=== PATIENT | female | born 1950 | race Caucasian/White ===

== ENCOUNTER → 2017-09-20 09:49 | Outpatient (CLI) | payer MEDICARE, SELFPAY ==
--- NOTE | 2017-09-20 09:53 | XR_ITS ---
XR DEXA axial skeleton HISTORY: ITS.REASON: POST MENOPAUSAL ORDERING PHYSICIAN: Jamie Fields MD PATIENT AGE: 66 years COMPARISON: None FINDINGS: The BMD measured at the L1 L4 is 0.769 g/cm squared with a T score of -3.4. This is considered osteoporotic according to the World Health Organization criteria. Fracture risk is high. Treatment should be started if not already prescribed. IMPRESSION: Osteoporosis with high fracture risk. Recommend follow-up exam August 2018
== END ==
PROVIDERS: Family Provider Family Medicine; PCP Family Medicine; Visit Provider Family Medicine
DX: N95.9 Unspecified menopausal and perimenopausal disorder (principal); Z78.0 Asymptomatic menopausal state; Z13.820 Encounter for screening for osteoporosis
CPT/HCPCS: 77080

== ENCOUNTER → 2017-11-17 11:09 | Outpatient (CLI) | payer MEDICARE, SELFPAY ==
--- NOTE | 2017-11-17 11:19 | XR_ITS ---
XR hip LT 2-3V w/pelvis HISTORY: ITS.REASON: LEFT HIP PAIN ORDERING PHYSICIAN: Jamie Fields MD PATIENT AGE: 67 years COMPARISON: None FINDINGS: No fracture or dislocation is evident. No significant degenerative change. No lytic or blastic change. Unremarkable soft tissues IMPRESSION: Negative hip
== END ==
PROVIDERS: PCP Family Medicine; Visit Provider Family Medicine
DX: M25.552 Pain in left hip (principal)
CPT/HCPCS: 73502

== ENCOUNTER → 2018-01-11 10:19 | Outpatient (CLI) | payer MEDICARE, SELFPAY ==
[2018-01-11 12:07] LABS: Albumin Level 3.9 gm/dL (3.4-5.0); Calcium 9.9 mg/dL (8.5-10.1); Creatinine,Serum 0.76 mg/dL (0.55-1.02); Estimated Glomerular Filt Rate 76 ml/min (>60); GFR (African American) 92 ML/MIN (>60)
== END ==
PROVIDERS: Visit Provider Family Medicine
DX: M81.0 Age-related osteoporosis without current pathological fracture (principal)
CPT/HCPCS: 36415; 82040; 82310; 82565

== ENCOUNTER 2018-01-13 10:35 | Outpatient (CLI) | payer MEDICARE, SELFPAY ==
[2018-01-13 11:05] VITALS: BP 91/37; PULSE 50; RESP 18
[2018-01-13 11:20] VITALS: BP 104/52; PULSE 47; RESP 18
== END 2018-01-13 11:30 | disposition home or self-care (01) ==
LOC: INF 10:45
PROVIDERS: Family Provider Family Medicine; PCP Family Medicine; Visit Provider Family Medicine
DX: M81.0 Age-related osteoporosis without current pathological fracture (principal)
CPT/HCPCS: 96374; J3489

== ENCOUNTER → 2018-10-20 09:39 | Outpatient (CLI) | payer MEDICARE, SELFPAY ==
--- NOTE | 2018-10-20 09:50 | CT_ITS ---
CT head/brain wo con HISTORY: Headache, dizziness, head injury with pain ITS.REASON: DIZZINESS,CONCUSION W/O LOSS OF CONSCIOUSNESS,HEADACHE ORDERING PHYSICIAN: Jamie Fields MD PATIENT AGE: 68 years COMPARISON: None TECHNIQUE: Axial images obtained without contrast. Brain and bone windows reviewed. All CT scans at the facility use one or more dose reduction, viz: automated exposure control, ma/kV adjustment per patient size (including targeted exams where dose is matched to indication, i.e. head), or iterative reconstruction technique. FINDINGS: No midline shift, mass effect, intracranial hemorrhage, hydrocephalus, or extra-axial fluid collection is evident. There are involutional changes of age with mild volume loss The calvarium has an unremarkable appearance. No mastoid effusion. No sinus air-fluid levels.. IMPRESSION: No acute intracranial findings
== END ==
PROVIDERS: PCP Family Medicine; Visit Provider Family Medicine
DX: G44.89 Other headache syndrome (principal); S06.0X0D Concussion without loss of consciousness, subsequent encounter; R42 Dizziness and giddiness
CPT/HCPCS: 70450

== ENCOUNTER 2019-01-16 18:51 | Observation (INO) ==
--- NOTE | 2019-01-16 19:37 | History & Physical Report ---
*Admission Date: 01/16/19 *Chief complaint: abd pain/diarrhea/unable to eat *History of present illness: 68-year-old female with history of irritable bowel syndrome developed low-grade fevers with vomiting and diarrhea beginning January 13. Fevers, vomiting, diarrhea persisted for 48 hours before vomiting resolved. At this point patient began trying to drink a little more although any attempt to drink would cause retching. Patient developed a lesion on the tongue that was painful that also made drinking difficult. Despite attempts to power through and drink water each time the patient drank she would develop abdominal pain and would have to urgently get to the bathroom because of small watery diarrhea. Fevers persisted as did mild episodes of diaphoresis. Patient was unable to take any of her home medications which does include hydrocodone 10 mg 4 times a day. She also developed tremulousness and while she did not have any falls was very unsteady on her feet and weak. She required the assistance of her daughter when present to ambulate back and forth to the bathroom in bed. On January 16 patient was evaluated at a home visit. Patient was weak and unsteady on her feet. She had signs of dehydration and a large aphthous ulcer on the tongue as the source of her pain. I witnessed patient attempted to eat some soup and after 2 small spoonfuls patient had to go to the bathroom where she developed diarrhea. Decision was made to admit the patient for IV fluids and bowel rest. Her last meal prior to getting ill with some roasted chicken that may have been 5 to 6 days old. 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 Smoking Status: Never smoker Alcohol Intake: never Substance Use Type: denies use *Occupational Status:: retired *Travel in the last 8 weeks: None Family Hx:: Coronary Artery Disease, Hypertension Review of Systems - Review of Systems Review of systems:: pertinent systems reviewed and negative unless documented below - Constitutional Reports anorexia, Reports body ache(s), Reports chills, Reports excessive sweating, Reports fever(s), Reports headache(s), Reports lack of energy, Reports weakness - ENT Reports mouth lesions, Reports mouth pain - *Cardiovascular Denies chest pain - *Respiratory Denies chest congestion, Denies cough - *Gastrointestinal Reports abdominal pain, Reports change in bowel habits, Reports cramping, Reports loose stools, Reports difficulty swallowing, Reports feeling full early, Reports loose stools, Reports nausea, Reports pain with swallowing, Reports constant urge to pass stool, Reports vomiting - *Musculoskeletal Reports joint pain, Reports decreased muscle mass, Reports limited joint movement, Reports body aches, Reports numbness - *Neurologic Reports abnormal walking, Reports headache(s) Meds Home Medications Medication Instructions Recorded Confirmed Type Hydrocodone/Acetaminophen [Lortab 1 tab PO Q6HP PRN 01/13/18 01/16/19 History 10/325mg tablet] Levothyroxine Sodium 75 mcg PO DAILY 01/13/18 01/16/19 History [Levothyroxine 75mcg (0.075mg) Tab] Pantoprazole Sodium [Protonix 40mg 40 mg PO DAILY 01/13/18 01/16/19 History tablet] Tizanidine HCl 4 mg PO TIDP PRN 01/13/18 01/16/19 History Triazolam [Halcion] 0.5 mg PO HS 01/13/18 01/16/19 History clonazePAM [Clonazepam] 0.5 mg PO BID 01/13/18 01/16/19 History Lisinopril [Lisinopril 2.5mg Tab] 2.5 mg PO DAILY 01/16/19 01/16/19 History Allergies Allergy/AdvReac Type Severity Reaction Status Date / Time clindamycin Allergy Mild I-RASH Verified 01/13/18 10:50 NSAIDS (Non-Steroidal Allergy Unknown STOMACH Verified 01/13/18 10:50 Anti-Inflamma PAIN/VOMITING/TREMORS [NSAIDS (NON-STEROIDAL ANTI-INFLAMMA] paroxetine Allergy Unknown ALL SSRI'S Verified 01/13/18 10:50 Assessment and Plan (1) Gastroenteritis Current visit: Yes Status: Acute Category: Medical Code(s): K52.9 - Noninfective gastroenteritis and colitis, unspecified Admit for IV fluids, labs, anti-emetics (2) Dehydration Current visit: Yes Status: Acute Category: Medical Code(s): E86.0 - Dehydration (3) Aphthous stomatitis Current visit: Yes Status: Acute Category: Medical Code(s): K12.0 - Recurrent oral aphthae - Assessment and plan all Dx Assessment and Plan for all problems:: Admit for IV fluids, antiemetics and bowel rest. Clear liquids will be ordered.
[2019-01-16 20:32] LABS: Anion Gap 14.5 mEq/L (5-15); Calcium 9.3 mg/dL (8.5-10.1); Potassium 3.5 mmoL/L (3.5-5.1)
[2019-01-16 20:38] LABS: Basophils % 0.3 % (0.1-2.0); Eosinophils # 0.1 K/mm3 (0.0-0.4); Eosinophils % 0.9 % (0.1-12.0); Hematocrit 40.2 % (37.0-47.0); Lymphocytes # 2.1 K/mm3 (0.7-4.5); Lymphocytes % 32.7 % (10-50); Mean Corpuscular HGB Conc 34.7 g/dL (31.8-35.4); Mean Corpuscular Hemoglobin 30.6 pg (27.0-31.2); Mean Corpuscular Volume 88.2 fl (81-99); Mean Platelet Volume 7.7 fl (7.4-10.4); Monocytes # 0.4 K/mm3 (0.1-1.0); Monocytes % 6.3 % (1.7-9.3); Neutrophils # 3.8 K/mm3 (1.8-7.8); Neutrophils % 59.7 % (37.0-80.0); Platelet Count 234 K/mm3 (142-424); Red Blood Count 4.56 M/mm3 (4.20-5.40); Red Cell Distribution Width 12.5 % (11.5-17.5); White Blood Count 6.3 K/mm3 (4.8-10.8)
--- NOTE | 2019-01-17 07:17 | Pharmacy Consult Notes ---
[facility] Pharmacy VTE Monitoring - Patient Demographics Admission date: 01/16/19 Report Date: 01/17/19 Time: 07:17 Allergies/Adverse Reactions: Patient Allergies clindamycin Allergy (Mild, Verified 01/13/18 10:50) I-RASH NSAIDS (Non-Steroidal Anti-Inflamma [NSAIDS (NON-STEROIDAL ANTI-INFLAMMA] Allergy (Unknown, Verified 01/13/18 10:50) STOMACH PAIN/VOMITING/TREMORS paroxetine Allergy (Unknown, Verified 01/13/18 10:50) ALL SSRI'S Height: 1.55 m Weight: 41.504 kg Patient Problems: Current Active Problems (Updated 01/16/19 @ 19:37 by Jamie Fields MD) Gastroenteritis (Acute) Dehydration (Acute) Aphthous stomatitis (Acute) - VTE Risk Labs: VTE Related Lab Results Hgb 14.0 g/dL (12.2-16.2) 01/16/19 20:00 Hct 40.2 % (37.0-47.0) 01/16/19 20:00 Plt Count 234 K/mm3 (142-424) 01/16/19 20:00 BUN 9 mg/dL (7-18) 01/16/19 20:00 Creatinine 0.80 mg/dL (0.55-1.02) 01/16/19 20:00 Estimated Creat Clear 36 mL/min (50-200) 01/16/19 20:00 Was VTE Risk Assessment Performed: Yes VTE Score: 4 VTE Risk Level: Low Risk Clinical Trial Participant: No - Prophylaxis VTE Prophylaxis Ordered?: Yes Types of VTE Prophylaxis: TEDS Knee High
--- NOTE | 2019-01-17 07:31 | Progress Note ---
Internal Medicine - PN: Subj *Date: 01/17/19 *Time: 07:28 Interval history: Patient had 3 loose stools overnight. She was able to drink a small can of denny zaid and is tolerated some ice chips without retching. She has been to the bathroom with assistance. She has developed headache overnight Exam Vital signs and Labs for Last 24 Hours: Temp Pulse Resp BP Pulse Ox 98.3 F 56 L 15 144/64 H 96 01/17/19 04:00 01/17/19 04:00 01/17/19 04:00 01/17/19 04:00 01/17/19 04:00 Laboratory Results - last 24 hr 01/16/19 20:00: WBC 6.3, RBC 4.56, Hgb 14.0, Hct 40.2, MCV 88.2, MCH 30.6, MCHC 34.7, RDW 12.5, Plt Count 234, MPV 7.7, Neut % (Auto) 59.7, Lymph % (Auto) 32.7, [place] % (Auto) 6.3, Eos % (Auto) 0.9, Baso % (Auto) 0.3, Neut # (Auto) 3.8, Lymph # (Auto) 2.1, [place] # (Auto) 0.4, Eos # (Auto) 0.1, Baso # (Auto) 0.0 01/16/19 20:00: Sodium 143, Potassium 3.5, Chloride 106, Carbon Dioxide 26, Anion Gap 14.5, BUN 9, Creatinine 0.80, Estimated Creat Clear 36, Estimated GFR 72, Est GFR ( Amer) 87, Glucose 87, Calcium 9.3 I & O for Last 24 hours: Intake & Output 01/14/19 01/15/19 01/16/19 01/17/19 11:59 11:59 11:59 11:59 Intake Total 1000 / 1000 Balance 1000 / 1000 Weight 91 lb 8.01 oz Narrative: Patient awakens easily this morning. The aphthous ulcer on her tongue is quite large and unchanged since yesterday. Oropharynx reveals tacky mucous membranes. Neck is without lymphadenopathy. Lungs are clear. Heart has a regular rate and rhythm. Abdomen is soft with left upper and left lower quadrant tenderness to palpation. Assessment and Plan (1) Gastroenteritis Current visit: Yes Status: Acute Category: Medical Code(s): K52.9 - Noninfective gastroenteritis and colitis, unspecified (2) Dehydration Current visit: Yes Status: Acute Category: Medical Code(s): E86.0 - Dehydration (3) Aphthous stomatitis Current visit: Yes Status: Acute Category: Medical Code(s): K12.0 - Rec urrent oral aphthae - Assessment and plan all Dx Assessment and Plan for all problems:: Continue IV fluids. Observe how patient does with liquid diet today. At this time we will continue morphine for her chronic pain. Recommend she get out of bed to chair today.
--- NOTE | 2019-01-18 07:32 | Progress Note ---
Internal Medicine - PN: Bi *Date: 01/18/19 *Time: 07:30 Interval history: Patient attempted liquids yesterday with total 24-hour intake of a little over 1400 mL's. However each time patient ingested fluids she would develop significant diarrhea. This reflexed an order for a stool study which was negative for bacterial, viral, parasitic infection. Patient developed significant abdominal cramping. She has not had any vomiting Exam Vital signs and Labs for Last 24 Hours: Temp Pulse Resp BP Pulse Ox 98.3 F 57 L 18 153/79 H 99 01/18/19 03:45 01/18/19 03:45 01/18/19 03:45 01/18/19 03:45 01/18/19 03:45 Laboratory Results - last 24 hr 01/17/19 18:30: Stl Aeromonas (PCR) Not detected, Stl C. cayetanensis PCR Not detected, Stool Rotavirus (PCR) Not detected, Stl Adenov F 40/41 PCR Not detected, Stool Astrovirus (PCR) Not detected, Stool Campylobacter PCR Not detected, Stl C.difficile Tox PCR Not detected, Stool Cryptosporidium PCR Not detected, Stl E.coli Shiga Tox PCR Not detected, Stool E coli O157 PCR Not detected, Stl Enterotoxigenic E PCR Not detected, Stool EPEC (PCR) Not detected, Stool EAEC (PCR) Not detected, Stl E. histolytica PCR Not detected, Stool Giardia Lamblia PCR Not detected, Stool Salmonella PCR Not detected, Stool Sapovirus (PCR) Not detected, Stl P. shigelloides PCR Not detected, Stl Shigella/EIEC PCR Not detected, St Y.enterocolitica PCR Not detected, Stool Vibr io (PCR) Not detected, Stl Vibrio cholerae PCR Not detected, Stl Norovirus GI/GII PCR Not detected I & O for Last 24 hours: Intake & Output 01/15/19 01/16/19 01/17/19 01/18/19 11:59 11:59 11:59 11:59 Intake Total 1000 / 1000 4394 / 4394 Balance 1000 / 1000 4394 / 4394 Weight 91 lb 8.01 oz 92 lb 3 oz Narrative: Patient appears to be in pain. She is laying in bed clutching her abdomen. Abdomen is distended more today than yesterday. Bowel sounds are hyperactive. Assessment and Plan (1) Gastroenteritis Current visit: Yes Status: Acute Category: Medical Code(s): K52.9 - Noninfective gastroenteritis and colitis, unspecified (2) Dehydration Current visit: Yes Status: Acute Category: Medical Code(s): E86.0 - Dehydration (3) Aphthous stomatitis Current visit: Yes Status: Acute Category: Medical Code(s): K12.0 - Recurrent oral aphthae (4) Irritable bowel syndrome with diarrhea Current visit: Yes Status: Acute Category: Medical Code(s): K58.0 - Irritable bowel syndrome with diarrhea - Assessment and plan all Dx Assessment and Plan for all problems:: 1. Continue IV fluids and clear liquid diet 2. Abdominal x-ray today 3. Patient is going to be given a dose of Reglan for her headache and this may help nausea to. 4. Increase Protonix to twice daily due to complaints of nausea and reflux.
--- NOTE | 2019-01-18 16:09 | Discharge Summary ---
General - General Admission date:: 01/16/19 Discharge date: 01/18/19 HPI HPI: 68-year-old female with history of irritable bowel syndrome developed low-grade fevers with vomiting and diarrhea beginning January 13. Fevers, vomiting, diarrhea persisted for 48 hours before vomiting resolved. At this point patient began trying to drink a little more although any attempt to drink would cause retching. Patient developed a lesion on the tongue that was painful that also made drinking difficult. Despite attempts to power through and drink water each time the patient drank she would develop abdominal pain and would have to urgently get to the bathroom because of small watery diarrhea. Fevers persisted as did mild episodes of diaphoresis. Patient was unable to take any of her home medications which does include hydrocodone 10 mg 4 times a day. She also developed tremulousness and while she did not have any falls was very unsteady on her feet and weak. She required the assistance of her daughter when present to ambulate back and forth to the bathroom in bed. On January 16 patient was evaluated at a home visit. Patient was weak and unsteady on her feet. She had signs of dehydration and a large aphthous ulcer on the tongue as the source of her pain. I witnessed patient attempted to eat some soup and after 2 small spoonfuls patient had to go to the bathroom where she developed diarrhea. Decision was made to admit the patient for IV fluids and bowel rest. Her last meal prior to getting ill with some roasted chicken that may have been 5 to 6 days old. Hospital Course Hospital Course: Patient was admitted for further observation and evaluation of abdominal pain, nausea, and diarrhea. IVFs were given for dehydration and to maintain fluid status. Patient has been tolerating clear liquid diet. Antiemetics ondansetron and reglan were given to nausea and retching symptoms. Diarrhea panel was negative. Pain managed with IV morphine PRN. Patient will go home and be monitored closely by daughter. Prescription for dicyclomine 20 mg QID will be sent to preferred pharmacy. Dr Fields will be taking care of the follow up. Objective Vital signs: Temp Pulse Resp BP Pulse Ox 98.7 F 66 16 145/89 H 99 01/18/19 15:28 01/18/19 15:28 01/18/19 15:01/18/19 15:19 15:28 no acute distress - *Routine Neck Exam Present: supple - *Routine Respiratory Exam Present: CTA bilaterally. Absent: accessory muscle use - *Routine Cardiovascular Exam Present: RRR, Normal S2. Absent: murmur, irregular rhythm - *Routine Abdominal Exam Present: soft Comments: generalized tenderness, hyperactive bowel sounds present - *Routine Extremities Exam Absent: cyanosis, edema - *Routine Neurological Exam Present: alert, oriented X3 - Routine Psychiatric Exam Present: normal affect Results Labs on day of discharge: Labs from last 24 hours 01/17/19 18:30 Stl Aeromonas (PCR) Not detected Stl C. cayetanensis PCR Not detected Stool Rotavirus (PCR) Not detected Stl Adenov F 40/41 PCR Not detected Stool Astrovirus (PCR) Not detected Stool Campylobacter PCR Not detected Stl C.difficile Tox PCR Not detected Stool Cryptosporidium PCR Not detected Stl E.coli Shiga Tox PCR Not detected Stool E coli O157 PCR Not detected Stl Enterotoxigenic E PCR Not detected Stool EPEC (PCR) Not detected Stool EAEC (PCR) Not detected Stl E. histolytica PCR Not detected Stool Giardia Lamblia PCR Not detected Stool Salmonella PCR Not detected Stool Sapovirus (PCR) Not detected Stl P. shigelloides PCR Not detected Stl Shigella/EIEC PCR Not detected St Y.enterocolitica PCR Not detected Stool Vibrio (PCR) Not detected Stl Vibrio cholerae PCR Not detected Stl Norovirus GI/GII PCR Not detected DS: Diagnosis - Discharge Diagnosis (1) Gastroenteritis Status: Acute (2) Dehydration Status: Acute (3) Aphthous stomatitis Status: Acute (4) Irritable bowel syndrome with diarrhea Status: Acute Discharge Plan - Patient Discharge Instructions ACTIVITY: Continue current activity DIET: advance to your usual diet Patient Instructions: Dehydration, Viral Gastroenteritis, DI for Dehydration -- Adult, DI for Viral Gastroenteritis -- Adult, DI for Bacterial Gastroenteritis -- Adult - Follow up Plan Disposition: Home, Self-Detention Medications: Home Medications Medication Instructions Recorded Confirmed Type Hydrocodone/Acetaminophen [Lortab 1 tab PO Q6HP PRN 01/13/18 01/16/19 History 10/325mg tablet] Levothyroxine Sodium 75 mcg PO DAILY 01/13/18 01/16/19 History [Levothyroxine 75mcg (0.075mg) Tab] Pantoprazole Sodium [Protonix 40mg 40 mg PO DAILY 01/13/18 01/16/19 History tablet] Tizanidine HCl 4 mg PO TIDP PRN 01/13/18 01/16/19 History Triazolam [Halcion] 0.5 mg PO HS 01/13/18 01/16/19 History clonazePAM [Clonazepam] 0.5 mg PO BID 01/13/18 01/16/19 History Lisinopril [Lisinopril 2.5mg Tab] 2.5 mg PO DAILY 01/16/19 01/16/19 History Dicyclomine HCl 20 mg PO QIDP PRN 7 Days #30 tab 01/18/19 Rx Prescriptions/Medication Reconciliation: Continued Hydrocodone/Acetaminophen [Lortab 10/325mg tablet] 1 tab PO Q6HP PRN PRN Reason: PAIN Pantoprazole Sodium [Protonix 40mg tablet] 40 mg PO DAILY Levothyroxine Sodium [Levothyroxine 75mcg (0.075mg) Tab] 75 mcg PO DAILY Triazolam [Halcion] 0.5 mg PO HS Tizanidine HCl 4 mg PO TIDP PRN PRN Reason: FIBROMYALGIA clonazePAM [Clonazepam] 0.5 mg PO BID Lisinopril [Lisinopril 2.5mg Tab] 2.5 mg PO DAILY
== END 2019-01-18 17:01 | disposition home or self-care (01) ==
LOC: 2ND
PROVIDERS: ADMIT Family Medicine; ATTEND Family Medicine
DX: E86.0 Dehydration; R51 Headache; Z88.6 Allergy status to analgesic agent; K12.0 Recurrent oral aphthae; Z88.1 Allergy status to other antibiotic agents; Z88.8 Allergy status to other drugs, medicaments and biological substances; Z79.899 Other long term (current) drug therapy; K52.9 Noninfective gastroenteritis and colitis, unspecified; K58.0 Irritable bowel syndrome with diarrhea; Z68.1 Body mass index [BMI] 19.9 or less, adult
CPT/HCPCS: 74021; 74022; 80048; 85025; 87507; G0378; J2405

== ENCOUNTER 2019-01-26 12:45 | Outpatient (CLI) | payer MEDICARE, SELFPAY ==
[2019-01-26 13:25] VITALS: BP 146/82; PULSE 72; RESP 18; TEMP 36.6; O2SAT 98
[2019-01-26 14:00] VITALS: BP 131/83; PULSE 68; RESP 18; TEMP 36.6; O2SAT 97
== END 2019-01-26 14:15 | disposition home or self-care (01) ==
LOC: INF 12:51
PROVIDERS: Visit Provider Family Medicine
DX: M47.892 Other spondylosis, cervical region (principal); M81.0 Age-related osteoporosis without current pathological fracture
CPT/HCPCS: 96365; J3489

== ENCOUNTER → 2019-09-10 10:15 | Outpatient (CLI) | payer MEDICARE, SELFPAY ==
--- NOTE | 2019-09-10 10:18 | XR_ITS ---
PROCEDURE: XR DEXA AXIAL SKELETON CLINICAL HISTORY: POST MENOPAUSAL OSTEOPAROSIS COMPARISON: No exams were available for comparison FINDINGS: Utilizing the femoral neck total bone mineral density is 0.55 grams/squared centimeter which T-score -2.8 indicating osteoporosis. Using L1 through L4 vertebrae total bone mineral density is 0.66 grams/squared centimeter which T-score -3.5 indicating osteoporosis. IMPRESSION: Osteoporosis with increased fracture risk Dictated by: Pascual Blankenship 09/10/2019 10:54 Electronically signed by Pascual Blankenship in [place] 09/10/2019 10:54
== END ==
PROVIDERS: PCP Family Medicine; Visit Provider Family Medicine
DX: M81.0 Age-related osteoporosis without current pathological fracture (principal)
CPT/HCPCS: 77080

== ENCOUNTER → 2019-12-25 11:39 | Outpatient (CLI) | payer MEDICARE, SELFPAY ==
--- NOTE | 2019-12-25 11:58 | MR_ITS ---
PROCEDURE: MR HEAD/BRAIN WO/W CON CLINICAL INDICATION: CVA, RIGHT HEMIPLEGIA, APHASIA Trouble speaking right-sided weakness, chronic pain finding COMPARISON: HEADWO CT head/brain wo con from 10/20/2018 TECHNIQUE: Routine multiplanar multi echo sequences are performed without and with gadolinium enhancement. FINDINGS: No midline shift, mass effect, intracranial hemorrhage, or hydrocephalus is evident. No evidence of acute infarction. The cerebellopontine angles, cerebellum, and brainstem have an unremarkable appearance. There is a small T2 white matter hyperintensity in the right parietal lobe and in the right frontal lobe deep white matter. These are nonspecific and could be due to small ischemic gliotic foci measuring approximately 3 mm. The hippocampal gyri are unremarkable in the temporal horns are symmetric. No enhancing lesions are apparent. No mastoid effusion or sinus air-fluid level. The pituitary, optic chiasm, corpus callosum, and craniocervical junction have an unremarkable appearance. IMPRESSION: 1. No acute intracranial findings. 2. There are 2 small T2 white matter hyperintensities 1 in the right frontal lobe and 1 in the right parietal lobe which may be due to small ischemic gliotic foci from microvascular disease 3. No evidence of acute infarction Dictated by: Trey Srivastava MD 12/25/2019 15:09 Electronically signed by Trey Srivastava MD in [place] 12/25/2019 15:09
[2019-12-25 12:01] LABS: Basophils % 0.4 % (0.1-2.0); Eosinophils % 0.4 % (0.1-12.0); Hematocrit 36.7 % (37.0-47.0); Hemoglobin 12.8 g/dL (12.2-16.2); Lymphocytes # 2.5 K/mm3 (0.7-4.5); Lymphocytes % 22.5 % (10-50); Mean Corpuscular HGB Conc 34.9 g/dL (31.8-35.4); Mean Corpuscular Hemoglobin 30.5 pg (27.0-31.2); Mean Corpuscular Volume 87.5 fl (81-99); Mean Platelet Volume 7.7 fl (7.4-10.4); Monocytes # 0.6 K/mm3 (0.1-1.0); Monocytes % 5.6 % (1.7-9.3); Neutrophils # 7.8 K/mm3 (1.8-7.8); Neutrophils % 71.1 % (37.0-80.0); Platelet Count 366 K/mm3 (142-424); Red Blood Count 4.19 M/mm3 (4.20-5.40)
[2019-12-25 12:08] LABS: Alanine Aminotransferase 11 U/L (12-78); Albumin Level 4.8 g/dl (3.5-5.0); Albumin/Globulin Ratio 1.8 (1.1-1.8); Alkaline Phosphatase 63 U/L (38-126); Anion Gap 8.9 mEq/L (5-15); Aspartate Amino Transferase 26 U/L (14-36); Bilirubin,Total 0.5 mg/dl (0.2-1.3); Blood Urea Nitrogen 13 mg/dl (7-17); Calcium 9.6 mg/dl (8.4-10.2); Carbon Dioxide 26 mmol/L (22.0-30.0); Chloride 104 mmol/L (98-107); Estimated Glomerular Filt Rate 71 ml/min (>60); GFR (African American) 86 ML/MIN (>60); Globulin 2.6 g/dL (1.3-3.2); Glucose 95 mg/dl (74-100); Sodium 136 mmol/L (136-145); Total Protein,Serum 7.4 g/dl (6.3-8.2)
[2019-12-25 12:11] LABS: Potassium 2.9 mmoL/L (3.5-5.1)
== END ==
LOC: RAD 11:41 → LAB 11:44
PROVIDERS: PCP Family Medicine; Visit Provider Family Medicine
DX: I63.89 Other cerebral infarction (principal)
CPT/HCPCS: 36415; 70553; 80053; 85025; A9576

== ENCOUNTER 2019-12-25 15:57 | Inpatient (IN) | payer MEDICARE, SELFPAY ==
[2019-12-25 16:13] VITALS: PULSE 75; RESP 18; TEMP 37.2; O2SAT 96; BMI 18.8
--- NOTE | 2019-12-25 17:51 | HMH.HP ---
*Admission Date: 12/25/19 *Chief complaint: Right arm and leg weakness, mental status changes, aphasia *History of present illness: 69-year-old female presented to my office today with altered mental status. Patient was accompanied by her daughter who provided most of the history. Yesterday evening a neighbor noticed that the patient's interior and exterior lights were on and a door was open to the house. The neighbor contacted the patient and had a conversation with the patient. Patient admits she does not remember this conversation and neighbor describes the conversation as not making much sense. Apparently the patient reported she was waiting for her daughter and granddaughters to arrive at her house. This occurred at 11:30 PM on the evening of December 23. Shortly after the patient's neighbor noted the doors were closed and the lights have been turned off. Neighbor contacted the patient's family. Family checked up on the patient this morning. Patient reported no memory of talking with the neighbor. Patient was also noted to be confused and was using words incorrectly. The patient was telling stories that did not make sense. With word substitution she repeatedly told her daughter something in regarding her head but would replace the word head with the word lunch . My office was contacted and patient was brought to the office. In the office it was also discovered the patient had had some right arm and leg weakness along with abnormal sensation in the right arm and leg for approximately the last 3 days. She was noticed to be stumbling with family over the past weekend. In the office patient's neurologic exam revealed some word finding difficulties, mild right bicep weakness, right wrist flexion and extension weakness, right hotel or motel receptionist weakness and right hip flexor weakness. Patient also had diminished sensation in the right upper and lower extremity. Concern was had for a CVA. Patient underwent an outpatient MRI with and without contrast of the brain. MRI was negative for acute infarction. In the time between patient leaving my office, having her MRI, and returning home family reported patient developed increasing right leg weakness and more confabulation. Patient was also witnessed by her daughter having difficulty swallowing. Labs done prior to the MRI did also reveal a hypokalemia. Patient does not take diuretics. She has had a diarrheal illness that has been attributed to irritable bowel syndrome. She has had diarrhea symptoms for the last 7 to 10 days. While with her daughter after the MRI patient also frequently reported the need to urinate but then was unable to urinate. She had recently use Bentyl for her irritable bowel syndrome and diarrhea associated with that. Patient denies having fevers. In the office she was also noted to be quite tremulous. Because of the persistent symptoms and findings of hypokalemia patient was admitted. 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
[2019-12-25 18:07] LABS: Microscopic, Urine URINE MICROSCOPIC (MICROSCOPIC)
[2019-12-25 18:09] LABS: Appearance,Urine CLEAR (Clear); Bilirubin,Urine Negative (Negative); Blood, Urine Negative (Negative); Color,Urine YELLOW (Yellow); Glucose,Urine (UA) Negative (Negative); Ketones,Urine Negative (Negative); Leukocyte Esterase,Urine 1+ (Negative); Nitrate,Urine Negative (Negative); Protein,Urine TRACE (Negative); Specific Gravity, Urine 1.025 (1.005-1.030); Urobilinogen,Urine 0.2 EU/dl (0.2)
[2019-12-25 18:22] LABS: Amphetamine/Metha Screen,Urine Negative ng/ml (<1000); Benzodiazepines Screen,Urine Negative ng/ml (<200)
[2019-12-25 18:23] LABS: Barbiturates Screen,Urine Negative ng/ml (<200); Cannabinoid Screen,Urine Negative ng/ml (<50)
[2019-12-25 18:24] LABS: Cocaine Screen,Urine Negative ng/ml (<300)
[2019-12-25 18:25] LABS: Methadone Screen,Urine Negative ng/ml (<300); Opiate Screen,Urine Positive ng/ml (<300)
[2019-12-25 18:26] LABS: Phencyclidine Screen,Urine Negative ng/ml (<25)
--- NOTE | 2019-12-25 18:32 | ECG_ITS ---
APPROVED REPORT Exam: Resting ECG HR:76 bpm ECG Measurements Heart Rate 76 AXES HI 122 P 50 QRSd 62 QRS 54 QT 430 T 70 QTc 483 <Conclusion> Normal sinus rhythm Normal ECG Electronically signed by : Jamie Berman, 12/26/2019 08:16:22
[2019-12-25 18:48] LABS: Lactic Acid 2.5 mmol/L (0.7-2.1)
[2019-12-25 18:50] LABS: Bacteria,Urine Trace /lpf; Squamous Epithelial Cell,Urine Occasional #/hpf (0-5)
[2019-12-25 19:56] VITALS: BP 138/65; PULSE 80; RESP 18; TEMP 37.3; O2SAT 97
[2019-12-25 20:00] VITALS: PULSE 80; O2SAT 98
[2019-12-25 21:52] LABS: Reflex Lactic Add Lactic Reflex
[2019-12-25 22:16] LABS: Lactic Acid Follow Up (RFLX 1) 1.2 mmol/L (0.7-2.1)
[2019-12-26] VITALS: BP 154/67; PULSE 77; PULSE 80; RESP 20; TEMP 37.1; O2SAT 98
--- NOTE | 2019-12-26 01:23 | PC.NURSE ---
Addendum entered by Shane Mathew RN 12/26/19 02:42: bilateral checking department supervisor equal w/o any BUE drift. Face and smile symmetrical and BLE equal and strong when pushing and pulling against resistance. Original Note: Pt's bed alarm went off at approximatly 0115. When this RN entered room pt was standing at bedside stating she was going home and that she may have said something to upset the lizzie . Attempted to reorientate pt in which she recited her name, but she was at the hospital in [place] . Pt returned to bed and alarm placed once again. Call gill within reach. Will continue to monitor.
[2019-12-26 04:00] VITALS: BP 150/79; PULSE 73; RESP 18; TEMP 36.8; O2SAT 97
--- NOTE | 2019-12-26 04:21 | PC.NURSE ---
During 0400 care rounds SRNA told this RN pt was having conversations among herself. This RN asked pt is she was hearing any voices and she stated no just maybe one but not like before . Pt was asked if she was seeing anyone else in the room and she said just me, you, Michelle in the chair, and Haja when he comes in .
[2019-12-26 05:37] VITALS: BMI 19.4
[2019-12-26 06:27] LABS: Alanine Aminotransferase 8 U/L (12-78); Albumin Level 4.3 g/dl (3.5-5.0); Albumin/Globulin Ratio 1.8 (1.1-1.8); Alkaline Phosphatase 57 U/L (38-126); Anion Gap 8.6 mEq/L (5-15); Aspartate Amino Transferase 28 U/L (14-36); Basophils % 0.3 % (0.1-2.0); Bilirubin,Total 0.5 mg/dl (0.2-1.3); Blood Urea Nitrogen 14 mg/dl (7-17); Calcium 9.2 mg/dl (8.4-10.2); Carbon Dioxide 25 mmol/L (22.0-30.0); Chloride 108 mmol/L (98-107); Creatinine Clearance Estimated 40 mL/min (50-200); Eosinophils # 0.1 K/mm3 (0.0-0.4); Eosinophils % 1.7 % (0.1-12.0); Estimated Glomerular Filt Rate 83 ml/min (>60); GFR (African American) 101 ML/MIN (>60); Globulin 2.4 g/dL (1.3-3.2); Glucose 105 mg/dl (74-100); Hematocrit 36.7 % (37.0-47.0); Hemoglobin 12.1 g/dL (12.2-16.2); Lymphocytes # 3.1 K/mm3 (0.7-4.5); Lymphocytes % 38.1 % (10-50); Mean Corpuscular Hemoglobin 30.4 pg (27.0-31.2); Mean Corpuscular Volume 91.9 fl (81-99); Mean Platelet Volume 7.8 fl (7.4-10.4); Monocytes # 0.5 K/mm3 (0.1-1.0); Monocytes % 5.7 % (1.7-9.3); Neutrophils # 4.4 K/mm3 (1.8-7.8); Neutrophils % 54.2 % (37.0-80.0); Platelet Count 330 K/mm3 (142-424); Potassium 3.6 mmoL/L (3.5-5.1); Red Blood Count 3.99 M/mm3 (4.20-5.40); Red Cell Distribution Width 13.1 % (11.5-17.5); Sodium 138 mmol/L (136-145); Total Protein,Serum 6.7 g/dl (6.3-8.2); White Blood Count 8.1 K/mm3 (4.8-10.8)
--- NOTE | 2019-12-26 06:27 | PC.NURSE ---
Pt very restless t/o night. Bed alarm on for pt's safety. Pt has been A&Ox4 at times but has periods of confusion and hallucinations (see previous notes). Tremors remain at this time and pt is very unsteady on her feet. Camarena to bedside drain w/ clear, yellow urine noted and adequate output. Pt states she has not had a BM since wednesday 12/20. No complaints of pain, N/V/D, dizziness, or SOA reported. She did have trouble taking PO K+ due to taste but did tolerate w/o vomiting. Will continue to monitor.
--- NOTE | 2019-12-26 07:26 | P.CONPHA_ITS ---
[facility] Pharmacy VTE Monitoring - Patient Demographics Admission date: 12/25/19 Report Date: 12/26/19 Time: 07:26 Allergies/Adverse Reactions: Patient Allergies clindamycin Allergy (Mild, Verified 01/26/19 13:40) I-RASH NSAIDS (Non-Steroidal Anti-Inflamma [NSAIDS (NON-STEROIDAL ANTI-INFLAMMA] Allergy (Unknown, Verified 01/26/19 13:40) STOMACH PAIN/VOMITING/TREMORS paroxetine Allergy (Unknown, Verified 01/26/19 13:40) ALL SSRI'S Height: 1.55 m Weight: 46.777 kg Patient Problems: Current Active Problems Hypokalemia (Acute) Metabolic encephalopathy (Acute) Right arm weakness (Acute) Right leg weakness (Acute) Change in mental status (Acute) Essential hypertension (Acute) Fibromyalgia affecting multiple sites (Acute) Chronic pain syndrome (Acute) Major depressive disorder (Acute) - VTE Risk Labs: VTE Related Lab Results Hgb 12.1 g/dL (12.2-16.2) L 12/26/19 05:45 Hct 36.7 % (37.0-47.0) L 12/26/19 05:45 Plt Count 330 K/mm3 (142-424) 12/26/19 05:45 BUN 14 mg/dl (7-17) 12/26/19 05:45 Creatinine 0.70 mg/dl (0.52-1.04) 12/26/19 05:45 Estimated Creat Clear 40 mL/min (50-200) 12/26/19 05:45 Was VTE Risk Assessment Performed: Yes VTE Score: 2 VTE Risk Level: Very Low Risk Clinical Trial Participant: No - Prophylaxis VTE Prophylaxis Ordered?: Yes Types of VTE Prophylaxis: TEDS Knee High
--- NOTE | 2019-12-26 07:27 | HMH.PHAINT ---
HOME MEDICATION RECONCILIATION COMPLETED USING LIST FROM [facility] AND DR ZARCO' OFFICE
--- NOTE | 2019-12-26 07:52 | HMH.ACPN2 ---
Internal Medicine - PN: Subj *Date: 12/26/19 *Time: 07:52 Interval history: Patient has no complaints this morning. When questioned she does not recall the events of yesterday at this time. Nursing staff reports patient's speech was nonsensical overnight and there were even some hallucinations. Patient also texted her daughter throughout the night and mentioning the police being at the hospital. When giving history from overnight patient reports very poor quality sleep which the nurse does support. Patient's speech at times however becomes garbled when she is trying to explain how her night went. Additional history includes patient's daughter was unable to locate patient's home medications after a thorough search. A single bottle of current medication, tizanidine, was found at the patient's home and was empty. The bottle was 3 days short of needing a refill. Pharmacy was closed and was unable to be contacted. Exam Vital signs and Labs for Last 24 Hours: Temp Pulse Resp BP Pulse Ox 98.3 F 73 18 150/79 H 97 12/26/19 04:00 12/26/19 04:00 12/26/19 04:00 12/26/19 04:00 12/26/19 04:00 Laboratory Results - last 24 hr 12/25/19 17:56: Urine Opiates Screen Positive H, Urine Methadone Screen Negative, Ur Barbituates Screen Negative, Ur Phencyclidine Scrn Negative, Ur Amphetamines Screen Negative, U Benzodiazepines Scrn Negative, Urine Cocaine Screen Negative, U Marijuana (THC) Screen Negative 12/25/19 17:56: Urine Color Yellow, Urine Appearance Clear, Urine pH 6.0, Ur Specific [place] 1.025, Urine Protein Trace, Urine Glucose (UA) Negative, Urine Ketones Negative, Urine Blood Negative, Urine Nitrate Negative, Urine Bilirubin Negative, Urine Urobilinogen 0.2, Ur Leukocyte Esterase 1+ A, Urine WBC 3-5, Ur Squamous Epith Cells Occasional, Urine Bacteria Trace 12/25/19 18:00: Magnesium 2.0 12/25/19 18:00: Lactate 2.5 H 12/25/19 22:02: Lactate 1.2 12/26/19 05:45: WBC 8.1 D, RBC 3.99 L, Hgb 12.1 L, Hct 36.7 L, MCV 91.9, MCH 30.4, MCHC 33.0, RDW 13.1, Plt Count 330, MPV 7.8, Neut % (Auto) 54.2, Lymph % (Auto) 38.1, Miner % (Auto) 5.7, Eos % (Auto) 1.7, Baso % (Auto) 0.3, Neut # (Auto) 4.4, Lymph # (Auto) 3.1, Miner # (Auto) 0.5, Eos # (Auto) 0.1, Baso # (Auto) 0.0 12/26/19 05:45: Sodium 138, Potassium 3.6 D, Chloride 108 H, Carbon Dioxide 25, Anion Gap 8.6, BUN 14, Creatinine 0.70, Estimated Creat Clear 40, Estimated GFR 83, Est GFR ( Amer) 101, Glucose 105 H, Calcium 9.2, Total Bilirubin 0.5, AST 28, ALT 8 L D, Alkaline Phosphatase 57, Total Protein 6.7, Albumin 4.3 D, Globulin 2.4, Albumin/Globulin Ratio 1.8 I & O for Last 24 hours: Intake & Output 12/23/19 12/24/19 12/25/19 12/26/19 11:59 11:59 11:59 11:59 Intake Total 1154.417 / 1154.417 Output Total 650 / 650 Balance 504.417 / 504.417 Weight 103 lb 2 oz Narrative: Patient is awake and alert this morning. She can tell me she is at the hospital. She is oriented to person also. She does not know the day, which is not unusual for this patient. Oropharynx is moist. Lungs are clear. Heart had a regular rate and rhythm. Abdomen is soft. Camarena catheter is in place. Neurologic exam reveals garbled speech intermittent with clear speech. Patient is hyperreflexive in the biceps. Myoclonic twitches are also noted. These have been present since initial presentation Assessment and Plan (1) Metabolic encephalopathy Current visit: Yes Status: Acute Category: Medical Code(s): G93.41 - Metabolic encephalopathy I believe patient's mental status changes may be due to either unintentional medication overdose or less likely withdrawal from her benzos and hydrocodone. Patient is not showing any signs of withdrawal this morning. She does have a personal history of serotonin syndrome when in the past she was on multiple medications that led to serotonin toxicity. Currently her low-dose sertraline and hydrocodone would potentially increase that risk. I am f
[2019-12-26 08:00] VITALS: BP 154/78; PULSE 86; RESP 20; TEMP 37; O2SAT 95
--- NOTE | 2019-12-26 09:24 | HMH.PTEV ---
Physical Therapy Evaluation Rehab PT IP Evaluation Start: 12/26/19 07:50 Freq: ONCE Status: Active Protocol: Document 12/26/19 09:18 UMU (Rec: 12/26/19 09:24 UMU [id number]) Subjective/History History History Pt was direct admit from Dr. Fields from office for sig. AMS , confusion, difficulty w/ word finding and altered memory. Pt was admitted for Hypokalemia and possible UTI. Subjective Subjective Pt is able to answer questions somewhat appropriately w/ garbled answers needing reapeted Rehab PT IP Eval Objective Appearance Patient Behavior Anxious,Impulsive,Confused Patient Orientation Place,Name,Birthday,Year Difficulty following instructions mild Speech Pattern Garbled,Rambling,Mumbled Ambulation Patient Able to Ambulate Yes Ambulation Observation IP General Gait Pattern Observation Ataxic Gait,Shuffling Step Ambulation Distance (feet) 5 Ambulation Assistive Device None Ambulation Ability Contact Guard/Hand Hold Balance Ability to Arise Able, uses arms to help Sitting Balance Leans or slides in chair Standing Balance Unsteady Dynamic Sitting Balance Ability Poor Dynamic Standing Balance Ability Poor Transfers Bed Transfer Ability Supervision/Stand by Chair Transfer Ability Supervision/Stand by Sit to Stand Bed Transfer Ability Contact Guard/Hand Hold Sit to Stand Chair Transfer Ability Contact Guard/Hand Hold ROM All Extremities PT ROM Status WFL MMT All Extremities PT MMT WFL Rehab PT IP prob,goals,plan Problems Date of Evaluation: 12/26/19 PT IP Problems Bed Mobility,Transfers,Gait, Balance,Self care,Safety Rehab Potential Rehab Potential Fair Equipment Needs Assistive Devices Rolling / Wheeled Walker Plan PT Intervention Plan Bed Mobility,Transfers,Gait, Balance,Self care,Safety, Therapeutic Exercise PT Plan Frequency BID Duration LOS Discharge Goals Bed Transfer Ability Supervision/Stand by Sit to Stand Chair Transfer Ability Contact Guard/Hand Hold Ambulation Assistive Device Rolling Walker Ambulation Distance (feet) 25 Discharge Plan PT Discharge Plan Pt to need st rehab to allow return of PLOF and PLOI, pt could benefit from JAIL to
[2019-12-26 11:55] VITALS: BP 168/87; PULSE 88; RESP 20; TEMP 37.3; O2SAT 97
[2019-12-26 16:00] VITALS: BP 119/89; PULSE 104; TEMP 37.1; O2SAT 95
--- NOTE | 2019-12-26 16:57 | HMH.ACPN2 ---
Internal Medicine - PN: Subj *Date: 12/26/19 *Time: 16:58 Interval history: As day has progressed patient has become more restless and increasingly confused. Hallucinations have increased. Patient speech remains garbled at times and incoherent at others. Patient has made repeated attempts to get out of bed and despite redirection by both family and staff patient remains restless and at times agitated. She has tried to bite both her daughter and staff while being assisted. Over the last 2-1/2 hours patient has received a milligram of Ativan intravenously which had very little impact on patient's restlessness and agitation and may have even increased symptoms as within 10 minutes patient became increasingly active and agitated. She is also received a total of 10 mg of diazepam and 12 mg of cyproheptadine, both treatments for serotonin toxicity, with no change in patient's restlessness, agitation, intermittent aggression and increase attempts to get out of bed. I have witnessed this personally over the course of the last hour. Patient is oriented to self only. She did recognize this physician. She was witnessed trying to bite a nurse. For the patient's safety she is going to require physical restraints of all 4 limbs. This will be initiated and patient will be reassessed. She will continue to receive Valium 5 mg every 30 minutes if she remains restless or agitated or combative Exam Vital signs and Labs for Last 24 Hours: Temp Pulse Resp BP Pulse Ox 98.7 F 104 H 20 119/89 95 12/26/19 16:00 12/26/19 16:00 12/26/19 11:55 12/26/19 16:00 12/26/19 16:00 Laboratory Results - last 24 hr 12/25/19 17:56: Urine Opiates Screen Positive H, Urine Methadone Screen Negative, Ur Barbituates Screen Negative, Ur Phencyclidine Scrn Negative, Ur Amphetamines Screen Negative, U Benzodiazepines Scrn Negative, Urine Cocaine Screen Negative, U Marijuana (THC) Screen Negative 12/25/19 17:56: Urine Color Yellow, Urine Appearance Clear, Urine pH 6.0, Ur Specific [place] 1.025, Urine Protein Trace, Urine Glucose (UA) Negative, Urine Ketones Negative, Urine Blood Negative, Urine Nitrate Negative, Urine Bilirubin Negative, Urine Urobilinogen 0.2, Ur Leukocyte Esterase 1+ A, Urine WBC 3-5, Ur Squamous Epith Cells Occasional, Urine Bacteria Trace 12/25/19 18:00: Magnesium 2.0 12/25/19 18:00: Lactate 2.5 H 12/25/19 22:02: Lactate 1.2 12/26/19 05:45: WBC 8.1 D, RBC 3.99 L, Hgb 12.1 L, Hct 36.7 L, MCV 91.9, MCH 30.4, MCHC 33.0, RDW 13.1, Plt Count 330, MPV 7.8, Neut % (Auto) 54.2, Lymph % (Auto) 38.1, Clark % (Auto) 5.7, Eos % (Auto) 1.7, Baso % (Auto) 0.3, Neut # (Auto) 4.4, Lymph # (Auto) 3.1, Clark # (Auto) 0.5, Eos # (Auto) 0.1, Baso # (Auto) 0.0 12/26/19 05:45: Sodium 138, Potassium 3.6 D, Chloride 108 H, Carbon Dioxide 25, Anion Gap 8.6, BUN 14, Creatinine 0.70, Estimated Creat Clear 40, Estimated GFR 83, Est GFR ( Amer) 101, Glucose 105 H, Calcium 9.2, Total Bilirubin 0.5, AST 28, ALT 8 L D, Alkaline Phosphatase 57, Total Protein 6.7, Albumin 4.3 D, Globulin 2.4, Albumin/Globulin Ratio 1.8 I & O for Last 24 hours: Intake & Output 12/24/19 12/25/19 12/26/19 12/27/19 11:59 11:59 11:59 11:59 Intake Total 1514.417 / 1514.417 360 / 360 Output Total 1650 / 1650 Balance -135.583 / -135.583 360 / 360 Weight 103 lb 2 oz - *Routine Neurological Exam Present: altered mental status, moving all extremities, hearing grossly intact Assessment and Plan (1) Metabolic encephalopathy Current visit: Yes Status: Acute Category: Medical Code(s): G93.41 - Metabolic encephalopathy (2) Hypokalemia Current visit: Yes Status: Resolved Category: Medical Code(s): E87.6 - Hypokalemia (3) Right arm weakness Current visit: Yes Status: Acute Category: Medical Code(s): R29.898 - Other symptoms and signs involving the musculoskeletal system (4) Right leg weakness Current visit: Yes Status: Acute Category: Medical Code
--- NOTE | 2019-12-26 18:29 | PC.NURSE ---
1814: PATIENT SLEEPING SOUNDLY AT THIS TIME. RESTRAINTS REMOVE. STAFF REMAINS AT BEDSIDE 1:1. NOTIFIED DR. ZARCO OF PATIENT'S STATUS.
--- NOTE | 2019-12-26 19:12 | PC.NURSE ---
1899-Report given to Alena STAFFORD. Pt is resting comfortably. No restraints in place. Warm blankets applied. Staff remains 1:1 at bedside.
--- NOTE | 2019-12-26 19:19 | PC.NURSE ---
report given to yuki
--- NOTE | 2019-12-26 19:55 | PC.NURSE ---
AT BEGINNING OF SHIFT, PT WAS RESTLESS AND FIDGETY. WAS ABLE TO TELL ME HER NAME AND BIRTHDAY AND THAT SHE WAS IN A HOSPITAL, BUT WAS UNSURE OF SITUATION. PT VERY FLIGHTY, CHANGING THE SUBJECT FREQUENTLY AND HALLUCINATING THAT OTHER WERE IN THE ROOM. PT EVALUATED PT AND ASSISTED HER UP TO CHAIR, IN WHICH SHE TOLERATED WELL, BUT W/ POOR BALANCE - CLIP ALARM PLACED ON PT FOR SAFETY, ALONG W/ NON-SKID SOCKS. FC DC'D @ 1100, PT THEN VOIDED SHORTLY AFTER NOTING THAT IT WAS BURNING, I MUST HAVE A UTI AND JOE NEVER HAD A UTI . GRADUALLY PT CONTINUED TO BE MORE CONFUSED AND AGITATED. PT VERY QUICK TO GET UP AND REQUIRED SOMEONE TO SIT W/ HER FOR HER SAFETY. PLATE SHEAR OPERATOR CONTACTED TO ENQUIRE ABOUT HAVING STAFF PULLED FOR 1:1 W/ PT. HOUSE STATED TO SEE IF FAMILY WOULD BE ABLE TO SIT W/ PT. FAMILY CONTACTED AROUND 1330. DAUGHTER AT BEDSIDE @ 1350. PT RECOGNIZED DAUGHTER, BUT CONTINUED TO BE RESTLESS. BEHAVIOR CONTINUED TO WORSEN, PT NOW ATTEMPTING TO BITE AND AT TIMES HIT, PCP AT BEDSIDE. NEW ORDERS RECEIVED FOR IV VALIUM AND DOSE OF CYPROHEPTADINE, MEDS GIVEN. AFTER FIRST DOSE OF VALIUM SHORT FEW SECONDS NOTED OF PT NODDING OUT, BUT PT SOON BACK TO AND WAS BACK TO IMPULSIVE BEHAVIORS CONTINUING TO CLIMB OUT OF BED. IV VALIUM GIVEN PER OCT, PER MD ORDERS AND DAUGHTER APPROVAL PHYSICAL RESTRAINTS ORDER OBTAINED AND INITIATED AT 1700. PROTOCOL FOR RESTRAINTS AVAILABLE AT BEDSIDE. SEIZURE PADS PLACED ON PT'S BED FOR SAFETY. NURSING STAFF AT BEDSIDE 1:1 BEGINNING AT 1700 ( SEE FURTHER NOTES). PT TOLERATING RESTRAINTS WELL, AND HAS BEGAN TO TAKE REST FOR SHORT INTERVALS. STAFF REMAINS AT BEDSIDE. BED ALARM IN PLACE. REPORT GIVEN TO Lois NEVES RN.
[2019-12-26 20:00] VITALS: O2SAT 97
[2019-12-27 01:47] VITALS: BP 134/94; PULSE 66; RESP 16; O2SAT 97
[2019-12-27 04:00] VITALS: BP 114/63; PULSE 68; RESP 18; TEMP 36.4; O2SAT 93
--- NOTE | 2019-12-27 05:15 | PC.NURSE ---
Pt has rested since approximately 2129, awaking to use BR once. She is still very unsteady on her feet and was assist x2 to BR to void. Pt unable to tell me more than her name and speech is incoherent at times. 1:1 w/ staff at bedside. Seizure pads in place and bed alarm set for pt safety. Unable to obtain vitals at beginning of shift or give scheduled PO meds d/t pt's agitation. Will continue to monitor.
--- NOTE | 2019-12-27 07:55 | HMH.ACPN2 ---
Internal Medicine - PN: Subj *Date: 12/27/19 *Time: 07:55 Interval history: Patient received additional Valium yesterday evening which led to the patient finally calming down and becoming sedate. Patient has slept since around 9 PM yesterday evening except for a brief episode when she awoke to go to the bathroom. Nursing staff reports patient was confused at night. This morning she awakens briefly to tactile and verbal stimulus and is startled. She answers questions either yes or no when asked but I am unsure of whether she understands what I am asking her. Exam Vital signs and Labs for Last 24 Hours: Temp Pulse Resp BP Pulse Ox 97.5 F L 68 18 114/63 93 L 12/27/19 04:00 12/27/19 04:00 12/27/19 04:00 12/27/19 04:00 12/27/19 04:00 I & O for Last 24 hours: Intake & Output 12/24/19 12/25/19 12/26/19 12/27/19 11:59 11:59 11:59 11:59 Intake Total 1514.417 / 1514.417 420 / 420 Output Total 1650 / 1650 Balance -135.583 / -135.583 420 / 420 Weight 103 lb 2 oz 106 lb 2 oz Microbiology Reports for the Last 24 Hours: Microbiology 12/25/19 17:56 Urine,Catheterized Urine Culture - Preliminary NO GROWTH AFTER 24 HOURS Narrative: Patient is in no distress and is sleeping soundly. Lungs remain clear. Heart has a regular rate and rhythm. Assessment and Plan (1) Acute delirium Current visit: Yes Status: Acute Category: Medical Code(s): R41.0 - Disorientation, unspecified At present patient is resting comfortably. We will wait and see how the day progresses and whether mental status changes persist. Urinary tract infection has been ruled out as cause of delirium as her urine culture is negative. Potassium has been corrected. Await blood cultures. Should patient develop any more agitation associated with her delirium she will be given IM Zyprexa (2) Metabolic encephalopathy Current visit: Yes Status: Acute Category: Medical Code(s): G93.41 - Metabolic encephalopathy (3) Hypokalemia Current visit: Yes Status: Resolved Category: Medical Code(s): E87.6 - Hypokalemia (4) Right arm weakness Current visit: Yes Status: Acute Category: Medical Code(s): R29.898 - Other symptoms and signs involving the musculoskeletal system (5) Right leg weakness Current visit: Yes Status: Acute Category: Medical Code(s): R29.898 - Other symptoms and signs involving the musculoskeletal system (6) UTI (urinary tract infection) Current visit: Yes Status: Suspected Category: Medical Code(s): N39.0 - Urinary tract infection, site not specified (7) Change in mental status Current visit: Yes Status: Acute Category: Medical Code(s): R41.82 - Altered mental status, unspecified (8) Essential hypertension Current visit: Yes Status: Acute Category: Medical Code(s): I10 - Essential (primary) hypertension (9) Fibromyalgia affecting multiple sites Current visit: Yes Status: Acute Category: Medical Code(s): M79.7 - Fibromyalgia (10) Chronic pain syndrome Current visit: Yes Status: Acute Category: Medical Code(s): G89.4 - Chronic pain syndrome (11) Major depressive disorder Current visit: Yes Status: Acute Category: Medical Code(s): F32.9 - Major depressive disorder, single episode, unspecified (12) Irritable bowel syndrome with diarrhea Current visit: No Status: Acute Category: Medical Code(s): K58.0 - Irritable bowel syndrome with diarrhea
[2019-12-27 08:00] VITALS: BP 133/74; PULSE 74; RESP 16; TEMP 36.9; O2SAT 98
--- NOTE | 2019-12-27 09:29 | PC.NURSE ---
attempted to give patient medication at this time. patient was not able to follow instruction; and clenched teeth when instructed to use straw. will wake up to voice or stimuli but falls back to sleep
--- NOTE | 2019-12-27 11:46 | PC.NURSE ---
Addendum entered by Liyah Leos RN 12/27/19 11:48: Pt able to follow commands and is currently sitting up drinking denny zaid at her request. Original Note: Pt awake at this time. Is A&O x4. Pt still somewhat drowsy, is unable to recollect why or how she came into the hospital. Staff remain at bedside. Will continue to monitor.
--- NOTE | 2019-12-27 12:09 | PC.NURSE ---
1206 - updated Dr. Fields on pt's current status. Received okay for pt to no longer be 1:1. Pt currently awake sitting up in chair eating lunch. Non-skids and bed alarm in place for pt's safety.
[2019-12-27 15:05] LABS: Covid-19 Nasal PCR Sendout Lex NOT DETECTED
[2019-12-27 15:27] VITALS: BP 108/48; PULSE 78; RESP 16; TEMP 36.8; O2SAT 96
--- NOTE | 2019-12-27 15:42 | PC.NURSE ---
Notified Dr Fields of negative COVID results. Notified primary RN.
--- NOTE | 2019-12-27 19:21 | PC.NURSE ---
Pt remains A/O x4. Is currently sitting up in bed using cellphone. Bed alarm in place for safety. Report to be given to oncoming nurse.
[2019-12-27 20:00] VITALS: BP 106/62; PULSE 63; RESP 16; TEMP 36.6; O2SAT 97
[2019-12-28 04:00] VITALS: BP 112/55; PULSE 64; RESP 16; TEMP 36.6; O2SAT 100
--- NOTE | 2019-12-28 07:15 | HMH.ACPN2 ---
Internal Medicine - PN: Subj *Date: 12/28/19 *Time: 07:15 Interval history: Patient awoke from her sedation yesterday around noon time. Upon awakening she was noted to be oriented to person, place, month, year. She recognized family members and friends of the family. Her speech was fluent and clear. She had no recollection of the previous 72 hours. Exam Vital signs and Labs for Last 24 Hours: Temp Pulse Resp BP Pulse Ox 97.8 F 64 16 112/55 L 100 12/28/19 04:00 12/28/19 04:00 12/28/19 04:00 12/28/19 04:00 12/28/19 04:00 Laboratory Results - last 24 hr 12/26/19 15:28: SARS-CoV-2 (PCR) Not detected I & O for Last 24 hours: Intake & Output 12/25/19 12/26/19 12/27/19 12/28/19 11:59 11:59 11:59 11:59 Intake Total 1514.417 / 1514.417 530 / 530 470 / 470 Output Total 1650 / 1650 Balance -135.583 / -135.583 530 / 530 470 / 470 Weight 103 lb 2 oz 106 lb 2 oz 106 lb 1.983 oz Microbiology Reports for the Last 24 Hours: Microbiology 12/25/19 18:00 Blood Blood Culture - Preliminary NO GROWTH AFTER 48 HOURS 12/25/19 18:00 Blood Blood Culture - Preliminary NO GROWTH AFTER 48 HOURS 12/25/19 17:56 Urine,Catheterized Urine Culture - Final NO GROWTH AFTER 48 HOURS - *Routine Neck Exam Present: supple. Absent: lymphadenopathy - *Routine Respiratory Exam Present: CTA bilaterally - *Routine Cardiovascular Exam Present: RRR - *Routine Neurological Exam Present: alert, oriented X3 Assessment and Plan (1) Acute delirium Current visit: Yes Status: Acute Category: Medical Code(s): R41.0 - Disorientation, unspecified (2) Metabolic encephalopathy Current visit: Yes Status: Acute Category: Medical Code(s): G93.41 - Metabolic encephalopathy (3) Hypokalemia Current visit: Yes Status: Resolved Category: Medical Code(s): E87.6 - Hypokalemia (4) Right arm weakness Current visit: Yes Status: Acute Category: Medical Code(s): R29.898 - Other symptoms and signs involving the musculoskeletal system (5) Right leg weakness Current visit: Yes Status: Acute Category: Medical Code(s): R29.898 - Other symptoms and signs involving the musculoskeletal system (6) UTI (urinary tract infection) Current visit: Yes Status: Suspected Category: Medical Code(s): N39.0 - Urinary tract infection, site not specified (7) Change in mental status Current visit: Yes Status: Acute Category: Medical Code(s): R41.82 - Altered mental status, unspecified (8) Essential hypertension Current visit: Yes Status: Acute Category: Medical Code(s): I10 - Essential (primary) hypertension (9) Fibromyalgia affecting multiple sites Current visit: Yes Status: Acute Category: Medical Code(s): M79.7 - Fibromyalgia (10) Chronic pain syndrome Current visit: Yes Status: Acute Category: Medical Code(s): G89.4 - Chronic pain syndrome (11) Major depressive disorder Current visit: Yes Status: Acute Category: Medical Code(s): F32.9 - Major depressive disorder, single episode, unspecified (12) Irritable bowel syndrome with diarrhea Current visit: No Status: Acute Category: Medical Code(s): K58.0 - Irritable bowel syndrome with diarrhea - Assessment and plan all Dx Assessment and Plan for all problems:: 1. Delirium has resolved. Etiology still remains unclear. Hypokalemia, urinary tract infection and bacteremia were ruled out as causes. It is possible patient had been withdrawing from some controlled substances which she uses chronically. Is also possible she may have had a toxic ingestion of the same substances. Patient has improved and has nearly returned to her prior level of function. Patient will be discharged to the care of her family
--- NOTE | 2019-12-28 07:17 | HMH.DCSUM ---
General - General Admission date:: 12/25/19 Discharge date: 12/28/19 HPI HPI: 69-year-old female presented to my office today with altered mental status. Patient was accompanied by her daughter who provided most of the history. Yesterday evening a neighbor noticed that the patient's interior and exterior lights were on and a door was open to the house. The neighbor contacted the patient and had a conversation with the patient. Patient admits she does not remember this conversation and neighbor describes the conversation as not making much sense. Apparently the patient reported she was waiting for her daughter and granddaughters to arrive at her house. This occurred at 11:30 PM on the evening of December 23. Shortly after the patient's neighbor noted the doors were closed and the lights have been turned off. Neighbor contacted the patient's family. Family checked up on the patient this morning. Patient reported no memory of talking with the neighbor. Patient was also noted to be confused and was using words incorrectly. The patient was telling stories that did not make sense. With word substitution she repeatedly told her daughter something in regarding her head but would replace the word head with the word lunch . My office was contacted and patient was brought to the office. In the office it was also discovered the patient had had some right arm and leg weakness along with abnormal sensation in the right arm and leg for approximately the last 3 days. She was noticed to be stumbling with family over the past weekend. In the office patient's neurologic exam revealed some word finding difficulties, mild right bicep weakness, right wrist flexion and extension weakness, right gate watch weakness and right hip flexor weakness. Patient also had diminished sensation in the right upper and lower extremity. Concern was had for a CVA. Patient underwent an outpatient MRI with and without contrast of the brain. MRI was negative for acute infarction. In the time between patient leaving my office, having her MRI, and returning home family reported patient developed increasing right leg weakness and more confabulation. Patient was also witnessed by her daughter having difficulty swallowing. Labs done prior to the MRI did also reveal a hypokalemia. Patient does not take diuretics. She has had a diarrheal illness that has been attributed to irritable bowel syndrome. She has had diarrhea symptoms for the last 7 to 10 days. While with her daughter after the MRI patient also frequently reported the need to urinate but then was unable to urinate. She had recently use Bentyl for her irritable bowel syndrome and diarrhea associated with that. Patient denies having fevers. In the office she was also noted to be quite tremulous. Because of the persistent symptoms and findings of hypokalemia patient was admitted. Hospital Course Hospital Course: Patient was admitted for treatment of her hypokalemia and rule out of sepsis due to her mental status changes with mild neurologic deficits. Within 12 hours of hospitalization patient began hallucinating both auditory and visual hallucinations. Confabulation increased. Patient developed acute delirium and at times became aggressive with staff and/or family. She could not follow instructions. She was deemed a danger to herself and despite application of bed alarm patient frequently attempted to get out of bed and had to be stopped by staff and family. Patient tried to bite staff and family. As patient did not seem to be having any active infection cause of delirium was felt to either be withdrawal from controlled substances or possibly toxic ingestion of controlled substances add patient's medication bottles could not be found at her home by family. Because of patient's of sertraline and hydrocodone there was concern of serotonin toxicity and patient was initially given Ativan. This actually seemed to make the patient mor
[2019-12-28 08:00] VITALS: BP 141/60; PULSE 80; RESP 16; TEMP 36.7; O2SAT 100
[2019-12-28 08:15] VITALS: BMI 19.9
== END 2019-12-28 08:56 | disposition home or self-care (01) | DRG 640 ==
PROVIDERS: Admitting Provider Family Medicine; PCP Family Medicine; Visit Provider Family Medicine
DX: E87.6 Hypokalemia (principal); G93.41 Metabolic encephalopathy; M79.7 Fibromyalgia; G89.4 Chronic pain syndrome; F32.9 Major depressive disorder, single episode, unspecified; K58.0 Irritable bowel syndrome with diarrhea; R45.1 Restlessness and agitation; T50.995A Adverse effect of other drugs, medicaments and biological substances, initial encounter; I10 Essential (primary) hypertension
CPT/HCPCS: 36415; 70553; 80053; 80305; 81001; 83605; 83735; 85025; 87040; 87086; 93005; 97116; 97161; 97530; A9576; U0003

== ENCOUNTER → 2020-01-08 12:43 | Outpatient (CLI) | payer MEDICARE, SELFPAY ==
--- NOTE | 2020-01-08 14:03 | HMH.SLMBS2 ---
Speech & Language Evaluation Speech/Language Mod Barium Swallow Start: 01/08/20 13:50 Freq: once Status: Complete Protocol: Document 01/08/20 13:50 DIONI (Rec: 01/08/20 14:03 DIONI [id number]) General Information General Current Food Consistancy Regular,Thin Liquids Dentition Good Dentition Oxygen Status Room Air Facial Symmetry Symmetrical Patient Orientation Person,Place,Time,Situation Ability to Follow Directions Excellent Communication Ability No Impairment Voice Voice Quality Weak Voice Pitch Normal Voice Loudness Mildly Soft/Quiet MBS Recommendations Diet Dietary Recommendations Regular,Thin Liquids Treatment/Strategies Treatment Recommendation Pharyngeal Resistive Exer, Vocal Cord Adduction Exer Strategy/Precaution Recommend Sitting Upright (90 deg),Small Bites and Sips,Alternate Liquids/Solids Referrals/Other Recommended Referrals ENT Consult Mod Barium Swallow Impressions Summary and Impressions Oral Phase Impression No Impairment (WFL) Oral Phase Summary Ms. Lombardi was given the following consistencies: thins via open cup and straw, pudding, pureed, mechanical soft, regular, and pills with thin wash. No impairments noted in oral phase. Pharyngeal Phase Impression Minimal Impairment Pharyngeal Phase Summary Minimal pharyngeal phase impairments noted with decreased laryngeal elevation and residue in pyriform sinuses. Speech/Language MBS Assessment/Goals/Plan Assessment Date of Evaluation: 01/08/20 Evaluation Type Initial Certification Assessment/Problems Dysphagia Does Patient Qualify for Service No Qualify/Failure Comment It is recommended that Ms. Lombardi be seen by ENT to determine cause of weakness and patient would benefit from voice evaluation and therapy. Plan Pt/Guardian verbally ack understanding Yes of dx/prognosis/goals G -code Required No Mod Barium Swallow Setup Exam Setup Radiologist Trey Srivastava Level of Consciousness Awake,Alert,Appropriate, Follows Commands Position (degrees) 90 Mod Barium Swallow-Lat View Textures Lateral View Food Presentation
== END ==
PROVIDERS: PCP Family Medicine; Visit Provider Family Medicine
DX: R13.10 Dysphagia, unspecified (principal); R09.89 Other specified symptoms and signs involving the circulatory and respiratory systems
CPT/HCPCS: 70371; 92611

== ENCOUNTER → 2020-01-22 10:04 | Outpatient (POV) | payer MEDICARE, SELFPAY | PROVIDERS: PCP Otolaryngology; Visit Provider Otolaryngology | DX: Z00.00 Encounter for general adult medical examination without abnormal findings (principal) ==

== ENCOUNTER → 2020-02-08 09:40 | Outpatient (CLI) | payer MEDICARE, SELFPAY ==
--- NOTE | 2020-02-08 09:45 | MR_ITS ---
PROCEDURE: MR CERVICAL SPINE WO CON CLINICAL INDICATION: neck pain Stiffness and neck with tingling in right arm COMPARISON: SUBSTATION DESIGNER/O MRI-C-SPINE W/O from 12/04/2015 TECHNIQUE: Standard multiplanar multiecho sequences are performed without contrast. 3-D MIP and myelographic images are also rendered and reviewed FINDINGS: There is normal alignment. The cranial cervical junction has an unremarkable appearance. C2-C3: Unremarkable. C3-C4: Small left paracentral/uncovertebral disc osteophyte complex with left lateral recess and foraminal narrowing slightly more prominent. C4-C5: Small central disc protrusion versus prominent posterior longitudinal ligament with canal stenosis of 10 mm with minimal flattening of the cord anteriorly. Not significantly changed C5-C6: Degenerate disc disease with minimal bulging disc. There is narrowing of the canal at this area at 10 mm with minimal flattening of the cord anteriorly not significantly changed C6-C7: Degenerative disc disease with a broad based bulging disc which is eccentric toward the left with left lateral recess and foraminal narrowing with minimal flattening of the cord anteriorly on the left. Not significantly changed C7-T1: Unremarkable. IMPRESSION: Multilevel cervical spondylosis as detailed above with degenerative disc disease, bulging disc, disc osteophyte complex and canal stenosis. Please see above for detailed description at each level. No extruded herniated disc Dictated by: Trey Srivastava MD 02/09/2020 08:20 Electronically signed by Trey Srivastava MD in [place] 02/09/2020 08:20
== END ==
PROVIDERS: PCP Family Medicine; Visit Provider Specialist
DX: E03.9 Hypothyroidism, unspecified (principal); F39 Unspecified mood [affective] disorder; G47.00 Insomnia, unspecified; G93.40 Encephalopathy, unspecified; M54.2 Cervicalgia; R25.1 Tremor, unspecified; R29.2 Abnormal reflex; R41.0 Disorientation, unspecified
CPT/HCPCS: 72141; 76376

== ENCOUNTER → 2020-03-20 10:35 | Outpatient (CLI) | payer MEDICARE, SELFPAY ==
[2020-03-20 14:25] LABS: Coronavirus 19 IgG Antibody Negative (Negative); Coronavirus 19 IgM Antibody Negative (Negative)
== END ==
PROVIDERS: Visit Provider Internal Medicine Gastroenterology
DX: Z01.818 Encounter for other preprocedural examination (principal)
CPT/HCPCS: 36415; 86328

== ENCOUNTER 2020-03-21 07:59 | Day surgery (SDC) | payer MEDICARE, SELFPAY ==
[2020-03-19 12:45] VITALS: BMI 23.6
[2020-03-21] VITALS (8 sets, daily range): BP systolic 100–139; BP diastolic 50–91; PULSE 60–85; RESP 16–18; TEMP 36.3–36.4; O2SAT 96–98
--- NOTE | 2020-03-21 08:57 | HMH.ANESCL ---
[facility] Anesthesia Checklist - Patient Identification Patient Identification: Arm Band - Structural Data Admitted From: Home Planned Operative Procedure/s: egd Consent for Planned Operative Procedure(s) Verified: Yes Verified Documents: Surgical Consent, History and Physical - NPO Status Verified Time NPO: 00:00 - Additional verifications Anesthesia Reactions: No - Airway Assessment C-Spine Mobility Assessed: Yes (mp2) TMJ Mobility Assessed: Yes Dentition: Good Dentition - Neurological Assessment Level of Consciousness: Awake, Alert - Anesthesia Plan Anesthesia Risk discussed: Yes Anesthesia Plan: Verified ASA Class: II Anesthesia Type: MAC [facility] History I have reviewed the patient's past medical history: Yes Medical History: Reports:: Anxiety, Asthma, Depression, Gastroesophageal Reflux Disease(GERD), Hypertension, Osteoporosis Denies:: Cancer, Diabetes Mellitus Type 1, Diabetes Mellitus Type 2, Internal Pacemaker, MRSA, Seizures *Have you ever received a pneumonia vaccine?: Yes *Have you received a flu vaccine this season?: Yes Other Medical History: Reports: Arthritis, Cataracts, Fibromyalgia, Hypothyroidism, Osteoporosis, Thyroid Disease Anesthesia experience/problems:: nac Other Surgeries: Yes: Cholecystectomy, Hysterectomy-Total. No: Pacemaker Amputation: No Fractures: Yes - *Social History Smoking Status: Never smoker # Packs/Day (cigarettes): 1 Alcohol Intake: never Alcohol Intake Frequency:: holidays/special occasions only Substance Use Type: denies use *Occupational Status:: retired Housing: house Household Members: spouse *Travel in the last 8 weeks: None - Psychiatric History Pschychiatric History:: Reports:: Anxiety, Depression Family Hx:: Coronary Artery Disease, Hypertension
--- NOTE | 2020-03-21 09:16 | HMH.PROC ---
[facility] Procedure Note Procedure Note:: Upper Endoscopy Procedure Report: Esophagogastroduodenoscopy with cold biopsies and TTS balloon dilation Endoscopost: Clinton Wiley II, MD Referring Physician: Teena Huber MD/Jamie Fields MD/Renetta Kenny MD Date of Procedure: March 21, 2020 Equipment: Olympus GIF 180 standard upper endoscope Sedation: MAC sedation Indications: Mrs. Lombardi is a 69-year-old female with chronic GERD. She has been on been on PPI therapy for 15 to 20 years and reports taking the pantoprazole or Protonix 40 mg daily for 15 years. The patient has more recently developed worsening heartburn and reflux. She also has had some intermittent dysphagia. She reports throat heaviness with a lot of mucus and drainage. She has frequent clearance of the throat. She reports no hoarseness. The patient has been undergoing pharyngeal/throat exercises and is better but has developed some epigastric abdominal discomfort and dyspepsia. She reports some early satiety and occasional nausea. She has bloating and some belching. She reports regular bowel function but does have obstipation/incomplete defecation. Her maternal grandmother had gastric cancer likely diagnosed in her 40s. The patient does have occasional choking but reports no globus sensation. The patient did undergo modified barium swallow and was seen by ENT. Her laryngoscope showed some weakness in the laryngeal muscles. Procedure: Prior to the procedure, a history and physical exam was performed, and patient's medications and allergies were reviewed. The risks, benefits and alternatives of the sedation and procedure were discussed with the patient. All questions were answered and informed consent was obtained. The patient was brought to the procedure room. Patient identification and proposed procedure were verified by the physician and the nurse. The patient was placed in a left lateral decubitus position and the scope was passed under direct vision. Throughout the procedure, the patient's blood pressure, pulse, and oxygen saturations were monitored continuously. The upper GI endoscopy was accomplished without difficulty. The patient tolerated the procedure well. Findings: The scope was passed directly into the upper esophagus and advanced to the third portion of the duodenum. The post bulbar duodenum and duodenal bulb were normal with normal mucosa and conniventes. There was some duodenal lymphoid stasis and cold biopsies were taken from the duodenum. The scope was withdrawn through a normal duodenal bulb and pylorus into the stomach. There was moderate linear reactive gastropathy of the antrum and body with bile reflux. Upon retroflexion there was a very small sliding 1 to 2 cm hiatal hernia. There were a few scattered fundic gland polyps. Biopsies were taken from the antrum to rule out reactive gastropathy. The largest gastric fundic polyp was removed via cold biopsy. The scope was then withdrawn into the esophagus. There was no evidence of reflux esophagitis or Moyer's. There was no Schatzki's ring. There was evident bile reflux into the esophagus. There was also moderate esophageal dysmotility. 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 The esophagus was dilated and there was dilation of the web to 18 mm as well as some cricopharyngeal spasm/increased cricopharyngeal/UES resting tone. The remainder of the esophageal mucosa was normal. Impression: 1. 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 Nonerosive GERD (functional/biliary GERD and esophagus) with moderate esophageal dysmotility and very small 1 to 2 cm hiatal hernia 3. Bile reflux with moderate linear reactive gastropathy 4. Gastric fundic gland polyps Plan: I will follow-up the biopsies. 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 We will discuss dietary measures, promotility therapy and fiber bowel regimen.
== END 2020-03-21 10:40 | disposition home or self-care (01) ==
LOC: OUTP 08:01
PROVIDERS: PCP Family Medicine; Visit Provider Internal Medicine Gastroenterology
PROC: 0DJ08ZZ Inspection of Upper Intestinal Tract, Via Natural or Artificial Opening Endoscopic (ICD-10-PCS; CPT 43235; principal; 2020-03-21 09:00)
DX: J39.2 Other diseases of pharynx (principal); K21.9 Gastro-esophageal reflux disease without esophagitis; K22.4 Dyskinesia of esophagus; K44.9 Diaphragmatic hernia without obstruction or gangrene; K31.9 Disease of stomach and duodenum, unspecified; K31.7 Polyp of stomach and duodenum; J45.909 Unspecified asthma, uncomplicated; F41.9 Anxiety disorder, unspecified; F32.9 Major depressive disorder, single episode, unspecified; I10 Essential (primary) hypertension; M81.0 Age-related osteoporosis without current pathological fracture; M19.90 Unspecified osteoarthritis, unspecified site
CPT/HCPCS: 43239; 43249; 88305; C1726; J2405

== ENCOUNTER → 2021-02-16 15:40 | Outpatient (CLI) | payer MEDICARE, SELFPAY ==
--- NOTE | 2021-02-16 15:45 | XR_ITS ---
PROCEDURE: XR FOOT RT MIN 3V CLINICAL INDICATION: RT FOOT PAIN COMPARISON: CR FTL3 FOOT-LT-3 VIEWS from 01/26/2017 FINDINGS: No fracture or dislocation. No lytic or blastic change. There is normal mineralization. The joint spaces are well-preserved. No significant degenerative/arthritic changes. No erosive changes evident. Other findings:There is an intramedullary willie in the distal tibia IMPRESSION: No acute findings. Dictated by: Trey Srivastava MD 02/16/2021 17:20 Trey Srivastava MD in [place] 02/16/2021 17:20
== END ==
PROVIDERS: PCP Family Medicine; Visit Provider Family Medicine
DX: M79.671 Pain in right foot (principal)
CPT/HCPCS: 73630

== ENCOUNTER 2021-04-29 10:03 | Outpatient (CLI) | payer MEDICARE, SELFPAY ==
[2021-04-29 10:10] VITALS: BMI 24.3
[2021-04-29 10:33] LABS: Albumin Level 4.2 g/dl (3.5-5.0)
[2021-04-29 10:36] LABS: Calcium 9.6 mg/dl (8.4-10.2); Creatinine Clearance Estimated 54 mL/min (50-200); Estimated Glomerular Filt Rate 62 ml/min (>60); GFR (African American) 75 ML/MIN (>60)
[2021-04-29 10:48] VITALS: BP 141/86; PULSE 82; RESP 18; O2SAT 100
[2021-04-29 11:10] VITALS: BP 147/86; PULSE 82; RESP 18
== END 2021-04-29 11:10 | disposition home or self-care (01) ==
LOC: INF 10:04
PROVIDERS: PCP Family Medicine; Visit Provider Family Medicine
DX: M81.0 Age-related osteoporosis without current pathological fracture (principal)
CPT/HCPCS: 82040; 82310; 82565; 96374; J3489

== ENCOUNTER → 2021-09-21 10:25 | Outpatient (CLI) | payer MEDICARE, SELFPAY ==
[2021-09-22 06:41] LABS: Covid-19 Nasal PCR Sendout Lex NOT DETECTED
== END ==
PROVIDERS: PCP Family Medicine; Visit Provider Nurse Practitioner
DX: Z20.822 Contact with and (suspected) exposure to COVID-19 (principal)
CPT/HCPCS: C9803; U0004; U0005

== ENCOUNTER → 2021-11-23 11:09 | Outpatient (CLI) | payer MEDICARE, SELFPAY ==
--- NOTE | 2021-11-23 11:13 | XR_ITS ---
FINAL REPORT CLINICAL HISTORY: RT KNEE PAIN FINDINGS: Three views of the right knee reveal no evidence of fracture or dislocation. There is a chronic fracture of the proximal fibula. There is postoperative change of the tibia with an intramedullary willie. The bony alignment is normal. The joint spaces are preserved. There is no evidence of joint effusion. No localized soft tissue abnormality is identified. IMPRESSION: No acute abnormality identified. Reviewed, Interpreted and Dictated by Lb Win III, MD Transcribed by Tyron Moore Authenticated by Lb Win III, MD on 11/23/2021 12:33:54 PM [facility]
== END ==
PROVIDERS: PCP Internal Medicine Adolescent Medicine; Visit Provider Internal Medicine Adolescent Medicine
DX: M25.561 Pain in right knee (principal)
CPT/HCPCS: 73562

== ENCOUNTER 2022-05-25 11:15 | Outpatient (CLI) | payer MEDICARE, SELFPAY ==
[2022-05-25 11:19] VITALS: BMI 27.3
[2022-05-25 11:20] VITALS: BP 120/57; PULSE 66; RESP 18; TEMP 36.2; O2SAT 98
[2022-05-25 11:48] LABS: Albumin Level 4.2 g/dl (3.5-5.0)
[2022-05-25 11:51] LABS: Calcium 8.9 mg/dl (8.4-10.2); Creatinine Clearance Estimated 54 mL/min (50-200); Estimated Glomerular Filt Rate 62 ml/min (>60); GFR (African American) 75 ML/MIN (>60)
[2022-05-25 12:19] VITALS: BP 114/60; PULSE 69; RESP 18; O2SAT 98
[2022-05-25 12:47] VITALS: BP 118/59; PULSE 67; RESP 18; O2SAT 98
== END 2022-05-25 12:51 | disposition home or self-care (01) ==
LOC: INF 11:16
PROVIDERS: PCP Internal Medicine Adolescent Medicine; Visit Provider Internal Medicine Adolescent Medicine
DX: M81.0 Age-related osteoporosis without current pathological fracture (principal)
CPT/HCPCS: 82040; 82310; 82565; 96374; J3489

== ENCOUNTER → 2022-06-24 10:52 | Outpatient (CLI) | payer MEDICARE, SELFPAY ==
[2022-06-24 11:54] LABS: Iron 121 ug/dL (37-170)
[2022-06-24 12:03] LABS: Total Iron Binding Capacity 412 ug/dL (265-497)
[2022-06-24 12:30] LABS: Ferritin 23.8 ng/ml (11.1-264)
== END ==
PROVIDERS: PCP Internal Medicine Adolescent Medicine; Visit Provider Internal Medicine Sleep Medicine
DX: D50.8 Other iron deficiency anemias (principal)
CPT/HCPCS: 36415; 82728; 83540; 83550

== ENCOUNTER → 2022-08-06 09:38 | Outpatient (CLI) | payer MEDICARE, SELFPAY ==
--- NOTE | 2022-08-06 09:44 | XR_ITS ---
FINAL REPORT CLINICAL HISTORY: RIB PAIN,BRONCHOPNEUMONIA FINDINGS: RIGHT RIBS Three views of the right ribs show irregularity of the right 7th rib which appears to be chronic. No definite acute fracture is identified. There is no pneumothorax or pleural fluid collection. IMPRESSION: Irregularity of the right 7th rib appears to be chronic. No definite acute fracture identified. No pneumothorax. Reviewed, Interpreted and Dictated by Lb Win III, MD Transcribed by Jovita Holcomb Authenticated and [facility]
--- NOTE | 2022-08-06 09:44 | XR_ITS ---
FINAL REPORT CLINICAL HISTORY: RIB PAIN,BRONCHOPNEUMONIA FINDINGS: LEFT RIBS Three views of the left ribs show no fractures. There is no pneumothorax or pleural fluid collection. IMPRESSION: Negativeleft rib series. No pneumothorax. Reviewed, Interpreted and Dictated by Lb Win III, MD Transcribed by Jovita Holcomb Authenticated and [facility]
--- NOTE | 2022-08-06 09:44 | XR_ITS ---
FINAL REPORT CLINICAL HISTORY: RIB PAIN,BRONCHOPNEUMONIA FINDINGS: Two views of the chest were obtained. The heart size and pulmonary vascularity are within normal limits. The mediastinum is normal. There is mild right lung base atelectasis or scarring. There is no pneumothorax. There is a moderate hiatal hernia. There are mild degenerative changes in the thoracic spine. IMPRESSION: Mild right lung base atelectasis or scarring. Reviewed, Interpreted and Dictated by Lb Win III, MD Transcribed by Jovita Holcomb Authenticated and [facility]
[2022-08-06 12:04] LABS: Basophils # 0.1 K/mm3 (0-0.2); Basophils % 0.6 % (0.1-2.0); Eosinophils # 0.2 K/mm3 (0.0-0.4); Eosinophils % 3.4 % (0.1-12.0); Hematocrit 43.9 % (37.0-47.0); Hemoglobin 13.7 g/dL (12.2-16.2); Lymphocytes # 1.9 K/mm3 (0.7-4.5); Lymphocytes % 26.5 % (10-50); Mean Corpuscular HGB Conc 31.2 g/dL (31.8-35.4); Mean Corpuscular Hemoglobin 30.6 pg (27.0-31.2); Mean Corpuscular Volume 98.2 fl (81-99); Mean Platelet Volume 8.5 fl (7.4-10.4); Monocytes # 0.7 K/mm3 (0.1-1.0); Monocytes % 10.4 % (1.7-9.3); Neutrophils # 4.2 K/mm3 (1.8-7.8); Neutrophils % 59.1 % (37.0-80.0); Platelet Count 379 K/mm3 (142-424); Red Blood Count 4.47 M/mm3 (4.20-5.40); Red Cell Distribution Width 14.1 % (11.5-17.5); White Blood Count 7.1 K/mm3 (4.8-10.8)
[2022-08-06 12:36] LABS: Alanine Aminotransferase 22 U/L (12-78); Albumin Level 3.3 g/dl (3.5-5.0); Albumin/Globulin Ratio 1.2 (1.1-1.8); Alkaline Phosphatase 91 U/L (38-126); Anion Gap 9.2 mEq/L (5-15); Aspartate Amino Transferase 105 U/L (14-36); Bilirubin,Total 0.2 mg/dl (0.2-1.3); Blood Urea Nitrogen 22 mg/dl (7-17); Calcium 9.3 mg/dl (8.4-10.2); Carbon Dioxide 28 mmol/L (22.0-30.0); Chloride 106 mmol/L (98-107); Estimated Glomerular Filt Rate 44 ml/min (>60); GFR (African American) 54 ML/MIN (>60); Globulin 2.8 g/dL (1.3-3.2); Glucose 78 mg/dl (74-100); Magnesium 2.1 mg/dl (1.6-2.3); Potassium 4.2 mmoL/L (3.5-5.1); Sodium 139 mmol/L (136-145); Total Protein,Serum 6.1 g/dl (6.3-8.2)
[2022-08-06 12:50] LABS: Free Thyroxine Index 3.3 ug/dL (5.93-13.13); T4 (Thyroxine) 10.6 ug/dl (5.53-11.0); Triiodothryronine (T3) Uptake 31 % (23.5-40.5)
[2022-08-06 13:04] LABS: Thyroid Stimulating Hormone 7.38 uIU/mL (0.465-4.68)
[2022-08-09 20:12] LABS: Levetiracetam (Keppra) 21.8 ug/mL (10.0-40.0)
== END ==
PROVIDERS: PCP Internal Medicine Adolescent Medicine; Visit Provider Internal Medicine Adolescent Medicine
DX: R07.81 Pleurodynia (principal); J18.0 Bronchopneumonia, unspecified organism; R60.9 Edema, unspecified; G40.909 Epilepsy, unspecified, not intractable, without status epilepticus
CPT/HCPCS: 36415; 71046; 71101; 80053; 80177; 83735; 84436; 84443; 84479; 85025

== ENCOUNTER → 2022-09-07 14:40 | Outpatient (CLI) | payer MEDICARE, SELFPAY ==
--- NOTE | 2022-09-07 14:43 | CA_ITS ---
APPROVED REPORT EXAM: Comprehensive 2D, Doppler, and color-flow Echocardiogram Publication Editor: Tere Mabry RVT Ht: 5 ft 1 in Wt: 127lbs BSA: 1.56 BP: 126/46 mmHg Indications: THOMPSON,EDEMA,HTN TDS 2D Dimensions LVOT 1.77 cm (M/F) 1.5-2.5 LA Volume 22.20 mL LA Volume Index 14.23 mL/m2 (M/F) 16-34 M-Mode Dimensions RVDd 2.69 cm (0.9-2.6) LA Diam 3.88 cm (1.9-4.0) LVDd 3.97 cm (3.5-5.7) Ao Diam 2.55 cm (2.0-3.7) LVDs 2.50 cm (3.5-5.7) IVSd 0.53 cm (0.6-1.1) PWd 0.63 cm (0.6-1.1) EF (Teich) 67.60% FS 37.00% EDV (Teich) 68.80 mL TAPSE 1.45 (<1.7) ESV (Teich) 22.30 mL LV Diastology E Decel Time 190.00 (160-240 msec) E/A Ratio 0.7 MED E' 8.50 (< 7 cm/sec) E'/MED E' Ratio 10.31 (>14) LAT E' 7.60 (<10 cm/sec) E/LAT E' Ratio 11.53 (>14) Aortic Valve AO Peak GR. 8.30 mmHg Mitral Valve MV E Max Ludwig. 88.00 (40-130 cm/s) MV A Velocity 126.00 (40-130 cm/s) E/A Ratio 0.70 MV Decel. Time 190.00 (160-240 ms) MV PHT 56.00 ms Pulmonary Valve PV Peak Velocity 118.00 (50-150 cm/s) Tricuspid Valve TR P. Velocity 287.00 cm/s RAP Estimate 10.00 mmHg RVSP 43.00 mmHg Left Ventricle Left atrium is mildly enlarged, left ventricle is normal size mild concentric left ventricular hypertrophy, estimated ejection fraction 55% with no regional wall motion abnormality, grade 1 diastolic dysfunction seen without tissue Doppler evidence of raise left atrial pressure. Right Ventricle Right atrium and right ventricular normal size and contractility. Aortic Valve Aortic valve is minimally thickened and calcified without aortic stenosis or aortic insufficiency. Mitral Valve Mitral valve is grossly normal, there is trace mitral regurgitation. Tricuspid Valve Tricuspid valve is grossly normal, there is trace tricuspid regurgitation, tricuspid regurgitation request is inadequate for calculation of the right ventricular systolic pressure. Pulmonic Valve Pulmonic valve is poorly visualized. Great Vessels Aortic root is normal size. Inferior vena cava is poorly visualized. Pericardium No significant pericardial effusion noted. Conclusion 1. Mildly enlarged left atrium, normal left ventricular size, mild concentric left ventricular hypertrophy, estimated ejection fraction 55% with no regional wall motion abnormality, grade 1 diastolic dysfunction seen without tissue Doppler evidence of raise left atrial pressure. 2. Trace mitral and tricuspid regurgitation. 3. No significant pericardial effusion noted. 4. Inferior vena cava is poorly visualized. Electronically signed by : Lexx Burnett MD 09/08/2022 05:37:07
== END ==
PROVIDERS: PCP Internal Medicine Adolescent Medicine; Visit Provider Internal Medicine Adolescent Medicine
DX: R06.09 Other forms of dyspnea (principal)
CPT/HCPCS: 93306

== ENCOUNTER → 2022-11-05 09:31 | Outpatient (CLI) | payer MEDICARE, SELFPAY | PROVIDERS: PCP Internal Medicine Adolescent Medicine; Visit Provider Internal Medicine Adolescent Medicine | DX: R30.0 Dysuria (principal); B96.29 Other Escherichia coli [E. coli] as the cause of diseases classified elsewhere | CPT/HCPCS: 87086; 87088; 87186 ==

== ENCOUNTER 2023-06-13 10:00 | Outpatient (CLI) | payer MEDICARE, SELFPAY ==
[2023-06-13 10:05] VITALS: BMI 29.0
[2023-06-13 10:24] LABS: Albumin Level 3.9 g/dl (3.5-5.0)
[2023-06-13 10:27] LABS: Calcium 8.8 mg/dl (8.4-10.2); Creatinine Clearance Estimated 57 mL/min (50-200); Estimated Glomerular Filt Rate 55 ml/min (>60); GFR (African American) 66 ML/MIN (>60)
[2023-06-13 10:45] VITALS: BP 101/41; PULSE 73; RESP 18; TEMP 36.9; O2SAT 95
[2023-06-13 11:10] VITALS: BP 110/68; PULSE 74; RESP 18; O2SAT 96
== END 2023-06-13 11:14 | disposition home or self-care (01) ==
LOC: INF 10:01
PROVIDERS: PCP Internal Medicine Adolescent Medicine; Visit Provider Internal Medicine Adolescent Medicine
DX: M81.0 Age-related osteoporosis without current pathological fracture (principal)
CPT/HCPCS: 82040; 82310; 82565; 96374; J3489

== ENCOUNTER 2024-01-02 10:55 | Outpatient (CLI) | payer MEDICARE, SELFPAY ==
[2024-01-02 11:03] LABS: Microscopic, Urine URINE MICROSCOPIC (MICROSCOPIC)
[2024-01-02 11:26] LABS: Basophils # 0.1 K/mm3 (0-0.2); Basophils % 0.7 % (0.1-2.0); Eosinophils % 0.5 % (0.1-12.0); Hematocrit 47.7 % (37.0-47.0); Hemoglobin 15.2 g/dL (12.2-16.2); Lymphocytes # 2.1 K/mm3 (0.7-4.5); Lymphocytes % 25.1 % (10-50); Mean Corpuscular HGB Conc 31.9 g/dL (31.8-35.4); Mean Corpuscular Hemoglobin 33.2 pg (27.0-31.2); Mean Platelet Volume 8.1 fl (7.4-10.4); Monocytes # 0.5 K/mm3 (0.1-1.0); Monocytes % 6.2 % (1.7-9.3); Neutrophils # 5.6 K/mm3 (1.8-7.8); Neutrophils % 67.6 % (37.0-80.0); Platelet Count 318 K/mm3 (142-424); Red Blood Count 4.59 M/mm3 (4.20-5.40); Red Cell Distribution Width 13.3 % (11.5-17.5); White Blood Count 8.3 K/mm3 (4.8-10.8)
[2024-01-02 12:01] LABS: Chloride 105 mmol/L (98-107)
[2024-01-02 12:02] LABS: Potassium 4.3 mmoL/L (3.5-5.1); Sodium 139 mmol/L (136-145)
[2024-01-02 12:03] LABS: Appearance,Urine CLEAR (Clear); Bilirubin,Urine Negative (Negative); Blood, Urine Negative (Negative); Color,Urine YELLOW (Yellow); Glucose,Urine (UA) Negative (Negative); Ketones,Urine Negative (Negative); Leukocyte Esterase,Urine TRACE (Negative); Nitrate,Urine Negative (Negative); Protein,Urine Negative (Negative); Urobilinogen,Urine 0.2 EU/dl (0.2)
[2024-01-02 12:04] LABS: Alanine Aminotransferase 7 U/L (12-78); Amylase 53 U/L (30-110); Aspartate Amino Transferase 56 U/L (14-36); Blood Urea Nitrogen 16 mg/dl (7-17); Estimated Glomerular Filt Rate 62 ml/min (>60); GFR (African American) 74 ML/MIN (>60)
[2024-01-02 12:05] LABS: Albumin Level 4.4 g/dl (3.5-5.0); Albumin/Globulin Ratio 1.6 (1.1-1.8); Alkaline Phosphatase 74 U/L (38-126); Anion Gap 11.3 mEq/L (5-15); Bilirubin,Total 0.7 mg/dl (0.2-1.3); Calcium 9.9 mg/dl (8.4-10.2); Carbon Dioxide 27 mmol/L (22.0-30.0); Globulin 2.8 g/dL (1.3-3.2); Glucose 109 mg/dl (74-100); Lipase 57 U/L (23-300); Total Protein,Serum 7.2 g/dl (6.3-8.2)
[2024-01-02 12:20] LABS: Bacteria,Urine 2+ /lpf
== END 2024-01-02 23:59 | disposition home or self-care (01) ==
PROVIDERS: PCP Internal Medicine Adolescent Medicine; Visit Provider Nurse Practitioner Family
DX: R10.10 Upper abdominal pain, unspecified (principal); R11.2 Nausea with vomiting, unspecified
CPT/HCPCS: 36415; 80053; 81001; 82150; 83690; 85025; 87086

== ENCOUNTER 2024-03-05 16:24 | Outpatient (CLI) | payer MEDICARE, SELFPAY ==
--- NOTE | 2024-03-05 16:30 | XR_ITS ---
PROCEDURE INFORMATION: Exam: XR Right Foot Exam date and time: 03/05/2024 4:32 PM Age: 73 years old Clinical indication: Pain; Foot; Right; Additional info: Right foot pain TECHNIQUE: Imaging protocol: Radiologic exam of the right foot. Views: 3 or more views. COMPARISON: CR XR FOOT RT MIN 3V 02/16/2021 4:19 PM FINDINGS: Bones/joints: No fractures, dislocations, or focal bone lesions. Soft tissues: No masses, soft tissue gas, or radiopaque foreign bodies. IMPRESSION: No acute findings in the right foot.
--- NOTE | 2024-03-05 16:30 | XR_ITS ---
PROCEDURE INFORMATION: Exam: XR Right Ankle Exam date and time: 03/05/2024 4:32 PM Age: 73 years old Clinical indication: Pain; Ankle; Right; Additional info: Pain/swelling TECHNIQUE: Imaging protocol: Radiologic exam of the right ankle. Views: 3 or more views. COMPARISON: CR XR ANKLE RT MIN 3V 03/05/2024 4:32 PM FINDINGS: Bones/joints: No fractures, dislocations, or bone lesions. No significant joint space narrowing or widening. Intramedullary nail and fixation screws in the distal tibia have no evidence of loosening. Soft tissues: No soft tissue gas, radiopaque foreign bodies, or masses. IMPRESSION: No acute findings in the right ankle.
== END 2024-03-05 23:59 | disposition home or self-care (01) ==
LOC: RAD 16:26
PROVIDERS: PCP Internal Medicine Adolescent Medicine; Visit Provider Nurse Practitioner Family
DX: M79.671 Pain in right foot (principal)
CPT/HCPCS: 73610; 73630

== ENCOUNTER 2024-07-09 09:25 | Outpatient (CLI) | payer MEDICARE, SELFPAY ==
--- OUTSIDE RECORDS SUMMARY | 2024-07-09 09:29 | XMS_ITS | Encounter Summary ---
Author Organization [facility] Address [address] [id number] Care Team Providers Care Banquet Prep Cook Name Role Phone Jamie Berman MD Primary Care Provider + [phone] Reason for Referral * Imaging (Routine) - Closed Specialty Diagnoses / Procedures Referred By Contac t Referred To Contact Radiology Diagnoses Parkinsonism, unspecified Parkinsonism type (CMS/HCC) Mild cognitive impairment Procedures PET/CT FDG Brain Addison August APRN [address] [place] [address] Phone: tel: fax: Referral ID Status Reason Start Date Expiration Date Visits Re quested Visits Authorized [id number] Closed 02/15/2024 08/16/2025 2 1 Reason for Visit * Reason Comments Follow-up Encounter Details Date Type Department Care Team (Late st Contact Info) Description 02/14/2024 3:50 PM EDT Office Visit [facility] [place] [facility] [address] [place] [address] Addison August APRN [address] [place] [address] Parkinsonism, unspecified Parkinsonism type (CMS/HCC) (Primary Dx); Mild cognitive impairment; Balance problems Social History Tobacco Use Types Packs/Day Years Used Date Smoking Tobacco: Former Cigarettes 0.3 3 0 08/22/1970 - 1973 Smokeless Tobacco: Never Alcohol Use Standard Drinks/Week Comments Never 0 (1 standard drink = 0.6 oz pur e alcohol) PHQ-2 Answer Date Recorded Patient Health Questionnaire-2 Score 3 03/08/2023 CAGE ASSESSMENT Answer Date Recorded Cage unable to access Not on file 11/18/2023 Cage max number of drinks Not on file 2023 Cage Beverages a week Not on file 11/18/2023 Have you ever felt you should CUT down on your d rinking? 0 11/18/2023 Have you been ANNOYED by people criticizing your drinking? 0 11/18/2023 Have you felt GUILTY about your drinking? 0 11/18/2023 Have you had a drink first t murali in the morning ([employer]) to steady your nerves or to get rid of a hangover? 0 11/18/2023 CAGE Questionnaire Score 0 024 PHQ-2A Answer Date Recorded Patient Health Questionnaire-2 Score 3 03/08/2023 Comments No Sex and Gender Information Value Date Recorded Sex Assigned at Not on file Legal Sex Female 7:52 PM EDT Gender Identity Not on file Sexual Orientation Not on file documented as of this encounter Last Filed Vital Signs Vital Sign Reading Time Taken Comments Blood Pressure 128/65 02/14/2024 3:52 PM EDT Pulse 80 02/14/2024 3:52 PM EDT Temperature - - Respiratory Rate 16 02/14/2024 3:52 PM EDT Oxygen Saturation 96% 02/14/2024 3:52 PM EDT Inhaled Oxygen Concentration - - Weight 69.9 kg (154 lb) 02/14/2024 3:52 PM EDT Height 154.9 cm (5' 1 ) 02/14/2024 3:52 PM EDT Body Mass Index 29.1 02/14/2024 3:52 PM EDT documented in this encounter Miscellaneous Notes * Addendum Note - Addison August APRN - 02/14/2024 3:50 PM EDTAddended by: ADDISON AUGUST on: 02/15/2024 04:06 PM Modules accepted: Orders * Progress Notes - Addison August APRN - 02/14/2024 3:50 PM EDT Subjective Quiana Lombardi presents to the [facility] as a returning patient today with/for Follow-up. Quiana Lombardi is a 73 year old female patient we are following for mild cognitive impairment, seizure, and parkinsonian features. Her last visit was 03/08/2023 with a STMS of 29/38. She is accompanied by her daughter for today's visit. During her last visit she was referred to movement disorders and saw Dr. Bain. In December of 2021 she started having staring spells in which she would be come unresponsive, could not hear or feel any one and would just stare. These episodes would lat from 30 secs to several minutes. Afterwards shewould be tired and have a headache. She is unaware when she has these episodes. She was diagnosed with focal seizures and started on Keppra for a month.Spells continued and Valproate was added. Earlythat same year a mild action tremor and balance issues were noticed by her family. In 2021 she was on vacation and became ill she got in a car with a strange to get medical care. Daughter states this was very uncharacteristic for her. At this time a shuffling gait was noted.By early 2022 she began having a resting tremor and an increase in falls. Her PCP diagnosed her with Parkinson's disease. Dr. Bain stopped her Depakote after worsening of her tremors and gait/balance issues. Per family her memory issues began around 2019 and was very noticeable in 2021 shortly before her motor issues began. Daughter reports that they have a caregiver come in for 8 hours per day 6 day perweek. Daughter reports depression and some agitation/irritability over the recent months. Seizures were ruled out and her spells continue. Daughter reports that they happen on a daily basisbut is unsure if there are multiple episodes a day. Past Medical History: Diagnosis Date Dementia (CMS/HCC) Difficulty walking H/O benign breast biopsy Migraine Movement disorder Personal history of other diseases of the circulatory system History of hypertension Personal history of other endocrine, nutritional and metabolic disease History of thyroid disorder Personal history of other mental and behavioral disorders History of depression Restless leg syndrome Family History Problem Relation Name Age of Onset Hypertension Mother Melony Booth Migraines Mother Melony Booth Thyroid disease Mother Melony Booth Hypertension Father Migraines Father Past Surgical History: Procedure Laterality Date GALLBLADDER SURGERY N/A Gallbladder surgery from [facility] HYSTERECTOMY N/A Hysterectomy from [facility] TIBIA FRACTURE SURGERY N/A Tibia fracture repair from [facility] Social History Tobacco Use Smoking status: Former Current packs/day: 0.00 Average packs/day: 0.3 packs/day for 3.0 years (0.8 ttl pk-yrs) Types: Cigarettes Start date: 08/22/1970 Quit date: 1973 Years since quittin.5 Smokeless tobacco: Never Substance Use Topics Alcohol use: Never Current Outpatient Medications on File Prior to Visit Medication Sig Dispense Refill baclofen (Lioresal) 20 MG tablet Take 2 tablets (40 mg) by mouth every night. carbidopa-levodopa (Sinemet) 25-100 MG tablet Take 2 tablets by mouth 4 (four) times a day. 720 tablet 3 clonazePAM (KlonoPIN) 0.5 MG tablet Take 1 tablet (0.5 mg) by mouth every night. eszopiclone (Lunesta) 3 MG tablet Take 1 tablet (3 mg) by mouth every night. Take immediately before bedtime fluticasone-salmeterol (Advair Diskus) 100-50 MCG/ACT diskus inhaler Inhale 1 puff 2 (two) times a day. HM 24 Hour Nasal Allergy 55 MCG/ACT nasal inhaler Administer 2 sprays into each nostril 1 (one) time each day. levothyroxine (Synthroid, Levoxyl) 100 MCG tablet Take 1 tablet (100 mcg) by mouth 1 (one) time each day in the morning. lisinopril 5 MG tablet Take 1 tablet (5 mg) by mouth 1 (one) time each day. montelukast (Singulair) 10 MG tablet Take 1 tablet (10 mg) by mouth every night. pantoprazole (Protonix) 40 MG EC tablet Take 1 tablet (40 mg) by mouth 1 (one) time each day. rivastigmine (Exelon) 3 MG capsule Take 1 capsule (3 mg) by mouth 2 (two) times a day. 60 capsule 2 rOPINIRole XL (Requip XL) 2 MG 24 hr tablet Take 1 tablet (2 mg) by mouth every night. spironolactone (Aldactone) 25 MG tablet Take 1 tablet (25 mg) by mouth 1 (one) time each day. [DISCONTINUED] furosemide (Lasix) 20 MG tablet Take 1 tablet (20 mg) by mouth 1 (one) time each day. (Patient not taking: Reported on 01/31/2024) No current facility-administered medications on file prior to visit. Allergies Allergen Reactions Clindamycin Rash Ibuprofen Other - please document in the comment field Nsaids Unknown - Patient states they do not know rxn details Serotonin Reuptake Inhibitors (Ssris) Other - please document in the comment field sweating All medications have been reviewed today. Review of Systems Constitutional: Positive for fatigue. HENT: Negative. Respiratory: Negative. Cardiovascular: Negative. Gastrointestinal: Positive for constipation. Musculoskeletal: Positive for gait problem. Neurological: Positive for tremors. Psychiatric/Behavioral: Positive for confusion. Objective Vitals: 02/14/24 1552 BP: 128/65 Pulse: 80 Resp: 16 SpO2: 96% Physical Exam Constitutional: Appearance: Normal appearance. HENT: Head: Normocephalic. Nose: Nose normal. Eyes: Pupils: Pupils are equal, round, and reactive to light. Cardiovascular: Rate and Rhythm: Normal rate and regular rhythm. Pulmonary: Effort: Pulmonary effort is normal. Breath sounds: Normal breath sounds. Musculoskeletal: Comments: Some ridgity R>L in upper arms at elbows. Bradykinesia Skin: General: Skin is warm and dry. Neurological: General: No focal deficit present. Mental Status: She is alert. Motor: Tremor present. Gait: Gait abnormal. Comments: Resting tremor right upper extremity. Finger taps decrease in amplitude and occasional arrest in right hand. Lower right extremity toe taps in right leg decrease in amplitude with occasional arrest. Uses arms to push up, decrease stride length. Using Rolator Psychiatric: Attention and Perception: Attention normal. Mood and Affect: Mood is anxious. Speech: Speech normal. Behavior: Behavior normal. Thought Content: Thought content normal. Cognition and Memory: Cognition is impaired. Memory is impaired. STMS = 32/38 Orientation 8/8 Attention 6/7 Learning /4 Calculation 3/4 Abstraction 2/3 Construction / Information 11/23 Delayed Recall 09/25 2 with cueing Discussion Summary: Quiana Lombardi presents for follow up mild cognitive impairment due to unknown etiology. She recently started Rivastigmine. 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 Will order a PET/FDG to help with work up. Will follow up in 1 month to reassess and make further recommendations. Assessment/Plan: Diagnosis Plan 1. Parkinsonism, unspecified Parkinsonism type (CMS/HCC) 2. Mild cognitive impairment 3. Balance problems Counseling Documentation: The patient and daughter was counseled regarding patient and family education. Education provided was verbal counseling. Additional time was spent in care coordination including consultation with peers, additional diagnostic research, and medical record review. The total time of encounter was 50 minutes and greater than 50% of the visit was spent in counseling/coordination of care. . documented in this encounter Plan of Treatment Upcoming Encounters Date Type Department Care Team (Late st Contact Info) Description 07/23/2024 9:00 AM EST Office Visit [facility] [address] [place] [address] Buster Gannon MD [address] [facility] [address] [place] [address] 09/18/2024 12:30 PM EST Office Visit [facility] [place] [facility] [address] [place] [address] Addison August APRN [address] [place] [id number] documented as of this encounter Results * PET/CT FDG Brain (03/12/2024 10:34 AM EDT) Anatomical Region Laterality Modality Head Nuclear Medicine Impressions 03/14/2024 8:33 AM EDT Image interpretation is based on both qualitative and quantitative assessments. Decreased metabolic activity in the superior medial and dorsolateral aspects of the frontal lobes. In the correct clinical setting, this can be seen in frontal predominant frontotemporal dementia. Typical frontotemporal dementia is less likely given normal metabolic activity in the temporal lobes. No findings in the temporal lobes, parietal lobes, precunei, or posterior cingulate gyri to suggest Alzheimer disease. If clinically appropriate, beta-amyloid PET/CT could be acquired. CRITICAL RESULT: No. COMMUNICATION: Per this written report. Drafted by Jimbo Godfrey MD on 03/14/2024 8:10 AM Final report signed by Jimbo Godfrey MD on 03/14/2024 8:33 AM Narrative 03/14/2024 8:33 AM EDT CLINICAL INDICATION: Dementia, nonvascular etiology suspected; Dementia, frontotemporal suspected. TECHNIQUE: Preparation: Last oral intake (except water) on 03/11/2024 at 7:00 PM. Diabetic: No. ?? Blood glucose at time of FDG administration: 104 mg/dL. Radiopharmaceutical: 8.41 mCi of F-18 FDG administered intravenously at 0944 at right AC. Incubation interval: 30 minutes. Oral contrast: Not applicable. Positioning: Supine, arms by sides. PET/CT scanner: Siemens Biograph 40 mCT. PET/CT acquisition: Head (Brain). Regional quantification: Siemens Scenium PET-FDG. Standardized uptake value (SUV): Corrected for body weight only. CT: Low-dose, [id number], without intravenous contrast. TOTAL (brain) DLP (Dose Length Product): 355 mGy*cm. COMPARISON/CORRELATION: No comparison. Brain MRI 03/24/2023. FINDINGS: Technical quality: Diagnostic. Measurements: Unless otherwise specified, all SUVs refer to maximum value in the target (mSUV) and all CT linear measurements are performed on axial images. PET/CT Brain: Symmetrical biodistribution. Decreased metabolic activity in the bilateral frontal lobes, in particular the superior medial and dorsolateral gyri. Decreased metabolic activity within the bilateral anterior cingulate and paracingulate gyri. Normal metabolic activity in the posterior cingulate gyri. Normal metabolic activity in the bilateral temporal lobes, parietal lobes, and occipital lobes. Mildly asymmetric decreased metabolic activity in the left precuneus relative to the right precuneus. Mild to moderately decreased metabolic activity in the basal ganglia. No suspicious focal sites of hypermetabolic activity. Additional CT: Mild parenchymal volume loss. Symmetrical size and shape of the ventricles. No space-occupying mass lesions. No acute intracranial findings within the limitations of noncontrast enhanced attenuation correction and imaging technique. Paranasal sinuses and mastoid air cells are clear. Procedure Note Jimbo Godfrey MD - 03/14/2024 CLINICAL INDICATION: Dementia, nonvascular etiology suspected; Dementia, frontotemporalsuspected. TECHNIQUE: Preparation: Last oral intake (except water) on 03/11/2024 at 7:00 PM. Diabetic: No. Blood glucose at time of FDG administration: 104 mg/dL. Radiopharmaceutical: 8.41 mCi of F-18 FDG administered intravenously [id number] at right AC. Incubation interval: 30 minutes. Oral contrast: Not applicable. Positioning: Supine, arms by sides. PET/CT scanner: Siemens Biograph 40 mCT. PET/CT acquisition: Head (Brain). Regional quantification: Siemens Scenium PET-FDG. Standardized uptake value (SUV): Corrected for body weight only. CT: Low-dose, [id number], without intravenous contrast. TOTAL (brain) DLP (Dose Length Product): 355 mGy*cm. COMPARISON/CORRELATION: No comparison. Brain MRI 03/24/2023. FINDINGS: Technical quality: Diagnostic. Measurements: Unless otherwise specified, all SUVs refer to maximum valuein the target (mSUV) and all CT linear measurements are performed on axialimages. PET/CT Brain: Symmetrical biodistribution. Decreased metabolic activity inthe bilateral frontal lobes, in particular the superior medial anddorsolateral gyri. Decreased metabolic activity within the bilateral anterior cingulate andparacingulate gyri. Normal metabolic activity in the posterior cingulategyri. Normal metabolic activity in the bilateral temporal lobes, parietal lobes,and occipital lobes. Mildly asymmetric decreased metabolic activity in the left precuneusrelative to the right precuneus. Mild to moderately decreased metabolic activity in the basal ganglia. No suspicious focal sites of hypermetabolic activity. Additional CT: Mild parenchymal volume loss. Symmetrical size and shape ofthe ventricles. No space-occupying mass lesions. No acute intracranialfindings within the limitations of noncontrast enhanced attenuationcorrection and imaging technique. Paranasal sinuses and mastoid air cellsare clear. IMPRESSION: Image interpretation is based on both qualitative and quantitativeassessments. Decreased metabolic activity in the superior medial and dorsolateralaspects of the frontal lobes. In the correct clinical setting, this can beseen in frontal predominant frontotemporal dementia. Typicalfrontotemporal dementia is less likely given normal metabolic activity inthe temporal lobes. No findings in the temporal lobes, parietal lobes, precunei, or posteriorcingulate gyri to suggest Alzheimer disease. If clinically appropriate,beta-amyloid PET/CT could be acquired. CRITICAL RESULT: No. COMMUNICATION: Per this written report. Drafted by Jimbo Godfrey MD on 03/14/2024 8:10 AM Final report signed by Jimbo Godfrey MD on 03/14/2024 8:33 AM Addison August APRN IMG NM PROCEDURES Final Re sult documented in this encounter Visit Diagnoses Diagnosis Parkinsonism, unspecified Parkinsonism type (CMS/HCC)- Primary Mild cognitive impairment Mild cognitive impairment, so stated Balance problems Abnormality of gait Parkinsonism, unspecified Parkinsonism type (CMS/HCC) Mild cognitive impairment Mild cognitive impairment, so stated documented in this encounter Additional Health Concerns Assessment Noted Time A fall risk assessment has been complete d for the patient 01/31/2024 9:55 AM EDT A Body Mass Index follow-up plan has been documented for the patient 02/15/2024 3:59 PM EDT documented as of this encounter Care Teams Banquet Prep Cook Relationship Specialty Start Date End Date Jamie Berman MD [address] [place] [id number] PCP - General Internal Medicine 06/08/22 documented as of this encounter
--- OUTSIDE RECORDS SUMMARY | 2024-07-09 09:29 | XMS_ITS | Encounter Summary ---
Author Organization [facility] Address [address] [place] [address] Care Team Providers Care Night Shift Supervisor Name Role Phone Jamie Berman MD Primary Care Provider + [phone] Reason for Visit * Reason Comments Follow-up Encounter Details Date Type Department Care Team (Late st Contact Info) Description 03/20/2024 1:10 PM EDT [facility] Visit [facility] [place] [facility] [address] [place] [address] Nery August, SANITARY AIDE [address] [facility] [address] [place] [address] Parkinsonism, unspecified Parkinsonism type (CMS/HCC) (Primary Dx); Lewy body dementia, unspecified dementia severity, unspecified whether behavioral, psychotic, or mood disturbance or anxiety (CMS/HCC); Memory loss; Mild cognitive impairment Social History Tobacco Use Types Packs/Day Years [...] drink first t murali in the morning (EYE-LABORER ORCHARD) to steady your nerves or to get [...] Sign Reading Time Taken Comments Blood Pressure 117/76 03/20/2024 1:04 PM EDT Pulse 83 03/20/2024 1:04 PM EDT Temperature - - Respiratory Rate 18 03/20/2024 1:04 PM EDT Oxygen Saturation 95% 03/20/2024 1:04 PM EDT Inhaled Oxygen Concentration - - Weight 68.3 kg (150 lb 9.6 oz) 03/20/2024 1:04 P M EDT Height 154.9 cm (5' 1 ) 03/20/2024 1:04 PM EDT Body Mass Index 28.46 03/20/2024 1:04 PM EDT documented in this encounter Miscellaneous Notes * Progress Notes - Nery August APRN - 03/20/2024 1:10 PM EDT Subjective Quiana Lombardi presents to the [facility] as a returning patient today with/for Follow-up. Quiana Lombardi is a 73 year old female patient we are following for mild cognitive impairment, seizure, and parkinsonian features. Her last visit was 02/14/2024 with a STMS of 32/38. She is accompanied by her daughter for today's visit. In December of 2021 she started having staring spells in which she would be come unresponsive, could not hear or feel any one and would just stare. These episodes would lat from 30 secs to several minutes. Afterwards she would be tired and have a headache. She is unaware when she has these episodes. She was diagnosed with focal seizures and started on Keppra for a month.Spells continued and Valproate was added. Early that same year a mild action tremor and balance issues were noticed by her family. Dr. Bian stopped her Depakote after worsening of her [...] if there are multiple episodes a day. She is here today for follow up after FDG/PET scan. Scan showed IMPRESSION: Image interpretation is based on both qualitative and quantitative assessments. Decreased metabolic activity in the superior medial and dorsolateral aspects of the frontal lobes. In the correct clinical setting, this can be seen in frontal predominant frontotemporal dementia. Typical frontotemporal dementia is less likely given normal metabolic activity in the temporal lobes. I did review PET with Dr. Sterling. Ms. Lombardi continues to have sleep issues this is an on going problem and she is followed by a sleep specialist. She uses a Rollator to ambulate. She states that her tremors have gotten worse since her last visit. She is followed by Dr. Gannon. Past Medical History: Diagnosis Date Dementia (CMS/HCC) [...] date: 08/22/1970 Quit date: 1973 Years since quittin.6 Smokeless tobacco: Never Substance Use Topics Alcohol [...] by mouth 1 (one) time each day. No current facility-administered medications on file prior to visit. Allergies Allergen Reactions Clindamycin Rash Ibuprofen Other - please document in the comment field Nsaids Unknown - Patient states they do not know rxn details Serotonin Reuptake Inhibitors (Ssris) Other - please document in the comment field sweating All medications have been reviewed today. Review of Systems Constitutional: Negative. HENT: Negative. Respiratory: Negative. Cardiovascular: Negative. Musculoskeletal: Negative. Neurological: Positive for tremors and weakness. Psychiatric/Behavioral: Positive for sleep disturbance. Objective Vitals: 03/20/24 1304 BP: 117/76 Pulse: 83 Resp: 18 SpO2: 95% Physical Exam Constitutional: Appearance: Normal appearance. HENT: Head: Normocephalic. Nose: Nose normal. Eyes: Pupils: Pupils are equal, round, and reactive to light. Cardiovascular: Rate and Rhythm: Normal rate and regular rhythm. Pulmonary: Effort: Pulmonary effort is normal. Breath sounds: Normal breath sounds. Musculoskeletal: General: Normal range of motion. Skin: General: Skin is warm. Neurological: General: No focal deficit present. Mental Status: She is alert and oriented to person, place, and time. Cranial Nerves: Cranial nerves 2-12 are intact. Motor: Tremor present. Coordination: Coordination is intact. Mttnrj-Xldn-Iaawed Test normal. Gait: Gait abnormal. Comments: R > L tremor action and resting Bradykinesia And shuffling gait. Rigidity noted in right arm Psychiatric: Mood and Affect: Mood normal. Behavior: Behavior normal. Thought Content: Thought content normal. Discussion Summary: Ms. Lombardi is a 73 year old female patient we follow for mild cognitive impairment. She was diagnosed with Parkinson's by her PCP, however based on exam and health history this appears to be Lewy Bodies dementia. She is followed by Dr. Gannon and he is managing her Sinemet. She is taking rivastigmine 3 mg. I am not making any changes to her medications at this time. She does state that her tremors have gotten worse. I advised her to reach out to Dr. Gannon since he is managing this. Will follow up in 6 months to reassess and make further recommendations. Assessment/Plan: Diagnosis Plan 1. Parkinsonism, unspecified Parkinsonism type (CMS/HCC) 2. Lewy body dementia, unspecified dementia severity, unspecified whether behavioral, psychotic, ormood disturbance or anxiety (CMS/HCC) 3. Memory loss 4. Mild cognitive impairment Counseling Documentation: The patient and daughter was counseled regarding diagnostic results and patient and family education. Education provided was verbal counseling. Additional time was spent in care coordination including consultation with peers and medical recordreview. The total time of encounter was 40 minutes and greater than 50% of the visit was spent in counseling/coordination of care. . documented in this encounter Plan of Treatment Upcoming Encounters Date Type Department Care Team (Late st Contact Info) Description 07/23/2024 9:00 AM EST [facility] [place] [facility] [address] [place] [address] Buster Gannon MD [address] [place] [address] 09/18/2024 12:30 PM EST [facility] [place] [facility] [address] [place] [address] Nery August APRN [address] [place] [address] documented as of this encounter Visit Diagnoses Diagnosis Parkinsonism, unspecified Parkinsonism type (CMS/HCC)- Primary Lewy body dementia, unspecified dementia severity, unspecified whether behavioral, psychotic, or mood disturbance or anxiety (CMS/HCC) Memory loss Mild cognitive impairment Mild cognitive impairment, so stated documented in this encounter Additional Health Concerns Assessment Noted Time A fall risk assessment has been complete d for the patient 03/20/2024 1:05 PM EDT A Body Mass Index follow-up plan has been documented for the patient 03/21/2024 9:00 AM EDT documented as of this encounter Care Teams Night Shift Supervisor Relationship Specialty Start Date End Date Jamie Berman MD [address] [place] [address] PCP - General Internal Medicine 06/08/22 documented as of this encounter
--- OUTSIDE RECORDS SUMMARY | 2024-07-09 09:29 | XMS_ITS | Encounter Summary ---
Author Organization [facility] Address [address] [id number] Care Team Providers Care Steam Pan Sponger Name Role Phone Jamie Berman MD Primary Care Provider + [phone] Reason for Visit * Reason Comments Med Refill Encounter Details Date Type Department Care Team (Late st Contact Info) Description 04/27/2024 Refill [place] [facility] [address] [place] [address] Buster Gannon MD [address] [place] [address] Social History Tobacco Use Types Packs/Day Years [...] drink first t murali in the morning (EYE-COMPONENT PREP OPERATOR) to steady your nerves or to get [...] on file documented as of this encounter Miscellaneous Notes * Telephone Encounter - Jesica Mccloud PharmD - 04/27/2024 12:04 PM EDT 1 medication(s) has been approved per protocol. documented in this encounter Plan of Treatment Upcoming Encounters Date Type Department Care Team (Late st Contact Info) Description 07/23/2024 9:00 AM EST Office Visit [place] [facility] [address] [place] [address] Buster Gannon MD [address] [place] [address] 09/18/2024 12:30 PM EST [facility] [place] [facility] [address] [place] [id number] Nery August APRN [address] [place] [address] documented as of this encounter Visit Diagnoses Not on filedocumented in this encounter Additional Health Concerns Assessment Noted Time A fall risk assessment has been complete d for the patient 03/20/2024 1:05 PM EDT A Body Mass Index follow-up plan has been documented for the patient 03/28/2024 8:52 AM EDT documented as of this encounter Care Teams Steam Pan Sponger Relationship Specialty Start Date End Date Jamie Berman MD [address] [place] [address] PCP - General Internal Medicine 06/08/22 documented as of this encounter
--- OUTSIDE RECORDS SUMMARY | 2024-07-09 09:29 | XMS_ITS | Encounter Summary ---
Author Organization [facility] Address [address] [place] [address] Care Team Providers Care Machine Binder Stripper Name Role Phone Jamie Bemran MD Primary Care Provider + [phone] Encounter Details Date Type Department Care Team (Late st Contact Info) Description 03/09/2024 Telephone [facility] [place] - [facility] [address] [place] [address] Nery August, PRODUCTION COORDINATOR [address] [facility] [address] [place] [address] Social History Tobacco Use Types [...] drink first t murali in the morning (EYE-COMMUNITY DEVELOPMENT COORDINATOR) to steady your nerves or to get [...] encounter Miscellaneous Notes * Telephone Encounter - Esmer Mckinney - 03/14/2024 1:05 PM EDT Patient Phone Message Reason for Call: [facility] is calling back for status of home health order from last April. They have faxed multiple times and called. Please have Dr. Tomas sign and return rubia so they can be paid for services rendered. Thanks Best contact number and optimal time of day to reach caller: [phone] [facility] Note: Please do not reply to this message. Follow-up communication and further actions as a result of this message need to be communicated with the patient directly, if the patient is not active onMyChart. If the patient is active on MyChart, they will receive notification of the communication/outcome via Videofroppert. * Telephone Encounter - Kerri Anderson - 03/09/2024 9:19 AM EDT Patient Phone Message Reason for Call: Bria is calling and needs one order signed it has been faxed numerous times and she is asking if Dr Tomas or someone can sign it since Deborah is no longer here. It was last faxed on March 07 but is an outstanding order from last Apr. Please advise Best contact number and optimal time of day to reach caller: [phone] Note: Please do not reply to this message. Follow-up communication and further actions as a result of this message need to be communicated with the patient directly, if the patient is not active onMyChart. If the patient is active on MyChart, they will receive notification of the communication/outcome via Videofroppert. documented in this encounter Plan of Treatment Upcoming Encounters Date Type Department Care Team (Late st Contact Info) Description 07/23/2024 9:00 AM EST Office Visit [place] [facility] [address] [place] [address] Buster Gannon MD [address] [place] [address] 09/18/2024 12:30 PM EST [facility] [place] [facility] [address] [place] [address] Nery August APRN [address] [place] [address] documented as of this encounter Visit Diagnoses Not on filedocumented in this encounter Additional Health Concerns Assessment Noted Time A fall risk assessment has been complete d for the patient 01/31/2024 9:55 AM EDT A Body Mass Index follow-up plan has been documented for the patient 02/15/2024 3:59 PM EDT documented as of this encounter Care Teams Machine Binder Stripper Relationship Specialty Start Date End Date Jamie Berman MD [address] [place] [address] PCP - General Internal Medicine 06/08/22 documented as of this encounter
--- OUTSIDE RECORDS SUMMARY | 2024-07-09 09:29 | XMS_ITS | Encounter Summary ---
Author Organization [facility] Address [address] [place] [address] Care Team Providers Care Entry Level Drafter Name Role Phone Jamie Berman MD Primary Care Provider + [phone] Encounter Details Date Type Department Care Team (Latest Contact Info) Description 03/20/2024 Travel Social History Tobacco Use Types Packs/Day Years [...] drink first t murali in the morning (EYE-ENVIRONMENTAL FIELD PROFESSIONAL) to steady your nerves or to get [...] on file documented as of this encounter Plan of Treatment Upcoming Encounters Date Type Department Care Team (Late st Contact Info) Description 07/23/2024 9:00 AM EST Office Visit [place] [facility] [address] [place] [address] Buster Gannon MD [address] [place] [address] 09/18/2024 12:30 PM EST Office Visit [facility] [place] - [facility] [address] [place] [address] Nery August APRN [address] [place] [address] documented as of this encounter Visit Diagnoses Not on filedocumented in this encounter Additional Health Concerns Assessment Noted Time A fall risk assessment has been complete d for the patient 03/20/2024 1:05 PM EDT A Body Mass Index follow-up plan has been documented for the patient 03/21/2024 9:00 AM EDT documented as of this encounter Care Teams Entry Level Drafter Relationship Specialty Start Date End Date Jamie Berman MD [address] [place] [address] PCP - General Internal Medicine 06/08/22 documented as of this encounter
--- OUTSIDE RECORDS SUMMARY | 2024-07-09 09:29 | XMS_ITS | Encounter Summary ---
Author Organization [facility] Address [address] [place] [address] Care Team Providers Care Household Appliance Repairer Name Role Phone Jamie Berman MD Primary Care Provider + [phone] Reason for Visit * Reason Onset Date Comments HCN Paperwork/Documentation Request 01/26/2024 Encounter Details Date Type Department Care Team (Late st Contact Info) Description 01/26/2024 Telephone [facility] [place] - Memory [address] [place] [address] Stephen Tomas MD [address] [facility] [address] [place] [address] HCN Paperwork/Documentati on Request Social History Tobacco Use Types Packs/Day Years Used Date Smoking Tobacco: Former Cigarettes 0.3 3 1 971 - 1974 Smokeless Tobacco: Never Alcohol Use Standard Drinks/Week [...] drink first t murali in the morning (EYE-SORT LINE) to steady your nerves or to get [...] encounter Miscellaneous Notes * Telephone Encounter - Vicenta Cuellar - 02/09/2024 4:01 PM EDT Patient Phone Message Reason for Call: [facility] calling again regarding PT order from May 17, 2023 needs signed off please in chart to complete order. Best contact number and optimal time of day to reach caller: Bria [phone] velvet steamer at [facility] Note: Please do not reply to this message. Follow-up communication and further actions as a result of this message need to be communicated with the patient directly, if the patient is not active onMyChart. If the patient is active on MyChart, they will receive notification of the communication/outcome via MyChart. * Telephone Encounter - Bacilio Kaiser - 01/26/2024 9:05 AM EDT Paperwork/Documentation Request Patient Name: Quiana Lombardi Type: PT Order sent back in April Due Date: PATRICIA Send To: [facility] fax [phone] Best contact number: [phone] Optimal time of day to reach caller: ANYTIME Additional comments/information from caller: PT order from April, refaxing today. Note: Please do not reply to this message. Follow-up communication and further actions as a result of this message need to be communicated with the patient directly, if the patient is not active onMyChart. If the patient is active on MyChart, they will receive notification of the communication/outcome via MyChart. documented in this encounter Plan of Treatment Upcoming Encounters Date Type Department Care Team (Late st Contact Info) Description 07/23/2024 9:00 AM EST Office Visit [place] [facility] [address] [place] [address] Buster Gannon MD [address] [place] [address] 09/18/2024 12:30 PM EST [facility] [place] [facility] [address] [place] [address] Nery August APRN [address] [place] [address] documented as of this encounter Visit Diagnoses Not on filedocumented in this encounter Additional Health Concerns Assessment Noted Time A fall risk assessment has been complete d for the patient 11/10/2023 12:56 PM EDT A Body Mass Index follow-up plan has been documented for the patient 11/19/2023 11:43 AM EDT documented as of this encounter Care Teams Household Appliance Repairer Relationship Specialty Start Date End Date Jamie Berman MD [address] [place] [address] PCP - General Internal Medicine 06/08/22 documented as of this encounter
--- OUTSIDE RECORDS SUMMARY | 2024-07-09 09:29 | XMS_ITS | Encounter Summary ---
Author Organization [facility] Address [address] [place] [address] Care Team Providers Care Aircraft Parts Assembler Name Role Phone Jamie Berman MD Primary Care Provider + [phone] Encounter Details Date Type Department Care Team (Late st Contact Info) Description 03/28/2024 8:00 AM EDT Office Visit [place] [facility] [address], [address] [place] [address] Buster Gannon MD [address] [place] [address] Lewy body dementia, unspecified dementia severity, unspecified whether behavioral, psychotic, or mood disturbance or anxiety (CMS/HCC) (Primary Dx) Social History Tobacco Use Types Packs/Day Years Used Date Smoking Tobacco: Former Cigarettes 0.3 3 0 08/22/1970 - 1973 Smokeless Tobacco: Never Tobacco Cessation:Counseling Given: Not Answered Alcohol Use Standard Drinks/Week Comments Never 0 [...] drink first t murali in the morning (EYE-IRONWORKER WIRE FENCE ERECTOR) to steady your nerves or to get [...] Sign Reading Time Taken Comments Blood Pressure 118/79 03/28/2024 7:53 AM EDT Pulse 81 03/28/2024 7:53 AM EDT Temperature - - Respiratory Rate - - Oxygen Saturation 94% 03/28/2024 7:53 AM EDT Inhaled Oxygen Concentration - - Weight 68 kg (150 lb) 03/28/2024 7:53 AM EDT Height 154.9 cm (5' 1 ) 03/28/2024 7:53 AM EDT Body Mass Index 28.34 03/28/2024 7:53 AM EDT documented in this encounter Miscellaneous Notes * Progress Notes - Buster Gannon MD - 03/28/2024 8:00 AM EDT Subjective Quiana Lombardi presents to the [facility] as a returning patient today with/for DLB. HPI 73/F with DLB, RLS presented for followup. VPA was stopped few months ago and she did not notice any improvement in tremor or shuffling gait. Treatable or reversible causes of parkinsonism were looked into: negative. FDG-PET 03/14/2024: Frontal predominant FTD. Memory disorders clinic visit 03/21/2024: possible DLB is the diagnosis. Currently, she is on C/L 25/100 2 tabs four times daily. Noticed some benefit and denies side effects. For RLS, she is also on ropinirole 2mg at night. Denies hallucinations. Daughter mentioned about possible delusions rarely. Memory and decision making is gradually worsening. Lives at home with caretakers. Does not drive. She is here with her daughter. Anxiety is the new symptom and bothers her significantly. Insomnia has been the problem for more than 20 years. She has been on Klonopin. Dose was increased recently to 1.5 mg at bedtime by her sleep physician but it did not help. Tremor is worsening. O/E: RUE>>LUE resting tremor. R>L bradykinesia and rigidity. Shuffling gait, no freezing. Uses walker to ambulate. No dyskinesia. IMPRESSION: Dementia with Lewy Bodies Discussed the FDG/PET results. PLAN: Start Zoloft 50 mg daily for anxiety. Decrease Klonopin to 1 mg at bedtime (it was recently increased to 1.5 mg at bedtime by her sleep physician to address the anxiety and insomnia). 3 weeks later, start Dayvigo 5mg at bedtime for insomnia. C/w C/L 2 tabs QID, Requip XL 2 mg at bedtime, Exelon 3 mg bid. Followup in 3 months. Past Medical History: Diagnosis Date Dementia (CMS/HCC) [...] Date GALLBLADDER SURGERY N/A Gallbladder surgery from [facility] HYSTERECTOMY N/A Hysterectomy from [facility] TIBIA FRACTURE SURGERY N/A Tibia fracture repair from [facility] Social History Tobacco Use Smoking status: Former Current packs/day: 0.00 Average packs/day: 0.3 packs/day for 3.0 years (0.8 ttl pk-yrs) Types: Cigarettes Start date: 08/22/1970 Quit date: 1973 Years since quittin.6 Smokeless tobacco: Never Substance Use Topics Alcohol use: Never Current Outpatient Medications on File Prior to Visit Medication Sig Dispense Refill carbidopa-levodopa (Sinemet) 25-100 MG tablet Take 2 tablets by mouth 4 (four) times a day. 720 tablet 3 clonazePAM (KlonoPIN) 0.5 MG tablet Take 1 tablet (0.5 mg) by mouth every night. fluticasone-salmeterol (Advair Diskus) 100-50 MCG/ACT diskus inhaler [...] by mouth 1 (one) time each day. baclofen (Lioresal) 20 MG tablet Take 2 tablets (40 mg) by mouth every night. (Patient not taking: Reported on 03/28/2024) eszopiclone (Lunesta) 3 MG tablet Take 1 tablet (3 mg) by mouth every night. Take immediately before bedtime (Patient not taking: Reported on 03/28/2024) No current facility-administered medications on file prior to visit. Allergies Allergen Reactions Clindamycin Rash Ibuprofen Other - please document in the comment field Nsaids Unknown - Patient states they do not know rxn details Serotonin Reuptake Inhibitors (Ssris) Other - please document in the comment field sweating All medications have been reviewed today. Review of Systems All other systems reviewed and are negative. Objective Vitals: 03/28/24 0753 BP: 118/79 Pulse: 81 SpO2: 94% Physical Exam Vitals reviewed. HENT: Head: Normocephalic and atraumatic. Eyes: Extraocular Movements: Extraocular movements intact. Pupils: Pupils are equal, round, and reactive to light. Pulmonary: Effort: Pulmonary effort is normal. Musculoskeletal: General: Normal range of motion. Cervical back: Normal range of motion. Neurological: General: No focal deficit present. Mental Status: She is alert. Cranial Nerves: No cranial nerve deficit. Motor: No weakness. Coordination: Coordination normal. Psychiatric: Mood and Affect: Mood normal. Behavior: Behavior normal. Thought Content: Thought content normal. Judgment: Judgment normal. Assessment/Plan: Diagnosis Plan 1. Lewy body dementia, unspecified dementia severity, unspecified whether behavioral, psychotic, ormood disturbance or anxiety (CMS/HCC) Counseling Documentation: The patient and daughter was counseled regarding diagnostic results, prognosis, risks and benefit of treatment options, instructions for management, patient and family education, medication changes, and impressions. Education provided was written instructions and verbal counseling. Additional time was spent in care coordination including medical record review. The total time of encounter was 30 minutes and greater than 50% of the visit was spent in counseling/coordination of care. . documented in this encounter Plan of Treatment Upcoming Encounters Date Type Department Care Team (Late st Contact Info) Description 07/23/2024 9:00 AM EST Office Visit [place] [facility] [address], [address] [place] [address] Buster Gannon MD [address] [place] [address] 09/18/2024 12:30 PM EST Office [facility] [place] - [facility] [address] [place] [address] Nery August APRN [address] [place] [address] documented as of this encounter Visit Diagnoses Diagnosis Lewy body dementia, unspecified dementia severity, unspecified whether behavioral, psychotic, or mood disturbance or anxiety (CMS/HCC)- Primary documented in this encounter Additional Health Concerns Assessment Noted Time A fall risk assessment has been complete d for the patient 03/20/2024 1:05 PM EDT A Body Mass Index follow-up plan has been documented for the patient 03/28/2024 8:52 AM EDT documented as of this encounter Care Teams Aircraft Parts Assembler Relationship Specialty Start Date End Date Jamie Berman MD [address] [place] [address] PCP - General Internal Medicine 06/08/22 documented as of this encounter
--- OUTSIDE RECORDS SUMMARY | 2024-07-09 09:29 | XMS_ITS | Encounter Summary ---
Author Organization [facility] Address [address] [place] [address] Care Team Providers Care Collet Making Machine Operator Name Role Phone Jamie Berman MD Primary Care Provider + [phone] Encounter Details Date Type Department Care Team ([facility] st Contact Info) Description 02/15/2024 Orders Only [facility] Radiology Virtual Dept. [address] [place] [address] Jimbo Godfrey MD [address] [place] [address] Social History Tobacco Use Types Packs/Day Years [...] drink first t murali in the morning (EYE-ICE GUARD SKATING RINK) to steady your nerves or to get [...] Description 07/23/2024 9:00 AM EST Office Visit [place] [facility] [address], [address] [place] [address] Buster Gannon MD [address] [place] [address] 09/18/2024 12:30 PM EST Office Visit [facility] [place] [facility] [address] [place] [address] Nery August APRN [address] [place] [address] documented as of this encounter Visit Diagnoses Not on filedocumented in this encounter Additional Health Concerns Assessment Noted Time A fall risk assessment has been complete d for the patient 01/31/2024 9:55 AM EDT A Body Mass Index follow-up plan has been documented for the patient 02/15/2024 3:59 PM EDT documented as of this encounter Care Teams Collet Making Machine Operator Relationship Specialty Start Date End Date Jamie Berman MD [address] [place] [address] PCP - General Internal Medicine 06/08/22 documented as of this encounter
--- OUTSIDE RECORDS SUMMARY | 2024-07-09 09:29 | XMS_ITS | Encounter Summary ---
Author Organization [facility] Address [address] [place] [address] Care Team Providers Care Track Dresser Name Role Phone Jamie Berman MD Primary Care Provider + [phone] Encounter Details Date Type Department Care Team (Latest Contact Info) Description 01/31/2024 Travel Social History Tobacco Use Types Packs/Day Years Used Date Smoking Tobacco: Former Cigarettes 0.3 3 1 971 - 0162 Smokeless Tobacco: Never Alcohol Use Standard Drinks/Week [...] drink first t murali in the morning (EYE-FORGE OPERATOR) to steady your nerves or to [...] Description 07/23/2024 9:00 AM EST Office Visit [place] [facility] [address], [address] [place] [address] Buster Gannon MD [address] [place] [address] 09/18/2024 12:30 PM EST Office Visit [facility] [place] - Memory [address] [place] [address] Nery August APRN [address] [place] [address] documented as of this encounter Visit Diagnoses Not on filedocumented in this encounter Additional Health Concerns Assessment Noted Time A fall risk assessment has been complete d for the patient 01/31/2024 9:55 AM EDT A Body Mass Index follow-up plan has been documented for the patient 01/31/2024 3:08 PM EDT documented as of this encounter Care Teams Track Dresser Relationship Specialty Start Date End Date Jamie Berman MD [address] [place] [address] PCP - General Internal Medicine 06/08/22 documented as of this encounter
--- OUTSIDE RECORDS SUMMARY | 2024-07-09 09:29 | XMS_ITS | Encounter Summary ---
Author Organization [facility] Address [address] [id number] Care Team Providers Care Adult Remedial Education Instructor Name Role Phone Jamie Berman MD Primary Care Provider + [phone] Reason for Visit * Reason Onset Date Comments HCN - Patient Message 12/20/2023 Return [place] Encounter Details Date Type Department Care Team (Late st Contact Info) Description 12/12/2023 Telephone [place] [facility] [address], [address] [place] [address] Buster Gannon MD [address] [facility] [address] [place] [address] HCN - Patient Message (Return call) Social History Tobacco Use Types Packs/Day Years [...] drink first t murali in the morning (EYE-BUSINESS OBJECTS) to steady your nerves or to get [...] encounter Miscellaneous Notes * Telephone Encounter - Balbir Aguila - 12/20/2023 12:28 PM EDT Called and spoke with patient's daughter. Assisted patient's daughter with rescheduling PET scan for a date after the 01/09 resubmission. * Telephone Encounter - Ru Johnson - 12/20/2023 8:08 AM EDT Patient Phone Message Reason for Call Daughter requesting a call back for an update on PET scan denial and if it's being appealed for approval. Best contact number and optimal time of day to reach caller: Please call [phone] Note: Please do not reply to this message. Follow-up communication and further actions as a result of this message need to be communicated with the patient directly, if the patient is not active onMyChart. If the patient is active on MyChart, they will receive notification of the communication/outcome via [email or web address]. * Telephone Encounter - Balbir Aguila - 12/15/2023 3:06 PM EDT Called and spoke with patient's daughter. Cancelled PET scan on patient's behalf due to denial. Patient's daughter would like call to discuss further options. * Telephone Encounter - Linda Rivas - 12/15/2023 11:08 AM EDT Patient Phone Message Reason for Call: Daughter received a letter for denial for pet scan, please call to discuss. Best contact number and optimal time of day to reach caller: [phone] anytime Note: Please do not reply to this message. Follow-up communication and further actions as a result of this message need to be communicated with the patient directly, if the patient is not active onMyChart. If the patient is active on MyChart, they will receive notification of the communication/outcome via [email or web address]. * Telephone Encounter - Balbir Aguila - 12/12/2023 10:02 AM EDT Called and spoke with patient's daughter. Assisted patient in pushing PET scan out to 12/27 to allow time for authorization. Called patient's daughter again to confirm new scan time. * Telephone Encounter - Betty Jackson - 12/12/2023 8:55 AM EDT Patient Phone Message Reason for Call: Pt to have PET CT at noon today Received a call saying this has been denied or pending Has waited 7 weeks for this Doesn't know to have it done and appealed or what to do Will need to leave home in 1 hour to get to appt on time Best contact number and optimal time of day to reach caller: Kelsey / [phone] Note: Please do not reply to this message. Follow-up communication and further actions as a result of this message need to be communicated with the patient directly, if the patient is not active onMyChart. If the patient is active on MyChart, they will receive notification of the communication/outcome via [email or web address]. documented in this encounter Plan of Treatment Upcoming Encounters Date Type Department Care Team (Late st Contact Info) Description 07/23/2024 9:00 AM EST Office Visit [place] [facility] [address] [place] [address] Buster Gannon MD [address] [place] [address] 09/18/2024 12:30 PM EST [facility] [place] [facility] [address] [place] [address] Nery August APRN [address] [place] [address] documented as of this encounter Visit Diagnoses Not on filedocumented in this encounter Additional Health Concerns Assessment Noted Time A fall risk assessment has been complete d for the patient 11/10/2023 12:56 PM EDT A Body Mass Index follow-up plan has been documented for the patient 11/19/2023 11:43 AM EDT documented as of this encounter Care Teams Adult Remedial Education Instructor Relationship Specialty Start Date End Date Jamie Berman MD [address] [place] [address] PCP - General Internal Medicine 06/08/22 documented as of this encounter
--- OUTSIDE RECORDS SUMMARY | 2024-07-09 09:29 | XMS_ITS | Encounter Summary ---
Author Organization [facility] Address [address] [place] [address] Care Team Providers Care Liability Claims Adjuster Name Role Phone Jamie Berman MD Primary Care Provider + [phone] Encounter Details Date Type Department Care Team (Latest Contact Info) Description 03/12/2024 Travel Social History Tobacco Use Types Packs/Day [...] drink first t murali in the morning (EYE-HALAL BUTCHER) to steady your nerves or to get [...] Description 07/23/2024 9:00 AM EST Office Visit [place] [facility] [address], [address] [place] [address] Buster Gannon MD [address] [place] [address] 09/18/2024 12:30 PM EST Office Visit [facility] [place] - Memory [address] [place] [address] Nery August APRN [address] [place] [address] documented as of this encounter Visit Diagnoses Not on filedocumented in this encounter Additional Health Concerns Assessment Noted Time A fall risk assessment has been complete d for the patient 01/31/2024 9:55 AM EDT A Body Mass Index follow-up plan has been documented for the patient 02/15/2024 3:59 PM EDT documented as of this encounter Care Teams Liability Claims Adjuster Relationship Specialty Start Date End Date Jamie Berman MD [address] [place] [address] PCP - General Internal Medicine 06/08/22 documented as of this encounter
--- OUTSIDE RECORDS SUMMARY | 2024-07-09 09:29 | XMS_ITS | Encounter Summary ---
Author Organization [facility] Address [address] [place] [address] Care Team Providers Care Packing Machine Pilot Can Router Name Role Phone Jamie Berman MD Primary Care Provider + [phone] Reason for Visit * Imaging (Routine) - Closed Specialty Diagnoses / Procedures Referred By Contac t Referred To Contact Radiology Diagnoses Parkinsonism, unspecified Parkinsonism type (CMS/HCC) Mild cognitive impairment Procedures PET/CT FDG Brain Nery August, VASCULAR TECHNICIAN [address] [facility] [address] [place] [address] Phone: tel: fax: Referral ID Status Reason Start Date Expiration Date Visits Re quested Visits Authorized [id number] Closed 02/15/2024 08/16/2025 2 1 Encounter Details Date Type Department Care Team (Latest Contact Info) Description 03/12/2024 9:10 AM EDT - 03/12/2024 11:59 PM EDT Hospital Encounter [facility] PET Scan [address] [place] [address] Discharge Disposition: Home or Self Care Social History Tobacco Use Types Packs/Day Years [...] drink first t murali in the morning (EYE-CAREER CONSULTANT) to steady your nerves or to get [...] on file documented as of this encounter Medications at Time of Discharge baclofen (Lioresal) 20 MG tablet Take 2 tablets (40 mg) by mouth every night. 11/25/2022 carbidopa-levodo pa (Sinemet) 25-100 MG tablet Take 2 tablets by mouth 4 (four) times a day. 720 tablet 3 01/31/2024 clonazePAM (KlonoPIN) 0.5 MG tablet Take 1 tablet (0.5 mg) by mouth every night. eszopiclone (Lunesta) 3 MG tablet Take 1 tablet (3 mg) by mouth every night. Take immediately before bedtime fluticasone-salm eterol (Advair Diskus) 100-50 MCG/ACT diskus inhaler Inhale 1 puff 2 (two) times a day. 02/09/2023 24 Hour Nasal Allergy 55 MCG/ACT nasal inhaler Administer 2 sprays into each nostril 1 (one) time each day. 02/09/2023 levothyroxine (Synthroid, Levoxyl) 100 MCG tablet Take 1 tablet (100 mcg) by mouth 1 (one) time each day in the morning. 02/09/2023 lisinopril 5 MG tablet Take 1 tablet (5 mg) by mouth 1 (one) time each day. 11/25/2022 montelukast (Singulair) 10 MG tablet Take 1 tablet (10 mg) by mouth every night. pantoprazole (Protonix) 40 MG EC tablet Take 1 tablet (40 mg) by mouth 1 (one) time each day. 02/21/2023 rOPINIRole XL (Requip XL) 2 MG 24 hr tablet Take 1 tablet (2 mg) by mouth every night. 12/08/2022 spironolactone (Aldactone) 25 MG tablet Take 1 tablet (25 mg) by mouth 1 (one) time each day. rivastigmine (Exelon) 3 MG capsule Take 1 capsule (3 mg) by mouth 2 (two) times a day. 60 capsule 2 01/31/2024 documented as of this encounter Plan of Treatment Upcoming Encounters Date Type Department Care Team (Late st Contact Info) Description 07/23/2024 9:00 AM EST [facility] Visit [place] [facility] [address], [address] [place] [address] Buster Gannon MD [address] [place] [address] 09/18/2024 12:30 PM EST Office Visit [facility] [place] - [facility] [address] [place] [address] Nery August APRN [address] [place] [address] documented as of this encounter Procedures Procedure Name Priority Date/Time Associated Diagnosis Comments PET/CT FDG BRAIN Routine 03/12/2024 10:3 4 AM EDT Parkinsonism, unspecified Parkinsonism type (CMS/HCC) Mild cognitive impairment documented in this encounter Results * PET/CT FDG Brain [...] Corrected for body weight only. CT: Low-dose, [id number], without intravenous contrast. TOTAL (brain) DLP (Dose [...] 8.41 mCi of F-18 FDG administered intravenously [id number] at right AC. Incubation interval: 30 minutes. Oral contrast: Not applicable. Positioning: Supine, arms by sides. PET/CT scanner: Siemens Biograph 40 mCT. PET/CT acquisition: Head (Brain). Regional quantification: Siemens Scenium PET-FDG. Standardized uptake value (SUV): Corrected for body weight only. CT: Low-dose, [id number], without intravenous contrast. TOTAL (brain) DLP (Dose [...] Jimbo Godfrey MD on 03/14/2024 8:33 AM us Nery Seymour August VASCULAR TECHNICIAN IMG NM PROCEDURES Final Re sult documented in this encounter Visit Diagnoses Not on filedocumented in this encounter Additional Health Concerns Assessment Noted Time A fall risk assessment has been complete d for the patient 01/31/2024 9:55 AM EDT A Body Mass Index follow-up plan has been documented for the patient 02/15/2024 3:59 PM EDT documented as of this encounter Care Teams Packing Machine Pilot Can Router Relationship Specialty Start Date End Date Jamie Berman MD [address] [place] [address] PCP - General Internal Medicine 06/08/22 documented as of this encounter
--- OUTSIDE RECORDS SUMMARY | 2024-07-09 09:29 | XMS_ITS | Clinical Summary ---
Author Organization [facility] Address [address] [place] [address] Care Team Providers Care Printed Circuit Boards Stripper Etcher Name Role Phone Jamie Berman MD Primary Care Provider + [phone] Allergies Active Allergy Reactions Criticality Noted Date Comments Clindamycin Rash Low 06/08/2022 Ibuprofen Other - please docum ent in the comment field Low 04/27/2006 Nsaids Unknown - Patient st ates they do not know rxn details Low 07/10/2020 Serotonin Reuptake Inhibitors (Ssris) Other - please document in the comment field Low 06/08/2022 sweating Medications HM 24 Hour Nasal Allergy 55 MCG/ACT nasal inhaler Administer 2 sprays into each nostril 1 (one) time each day. 3 Active rOPINIRole XL (Requip XL) 2 MG 24 hr tablet Take 1 tablet (2 mg) by mouth every night. 3 Active pantoprazole (Protonix) 40 MG EC tablet Take 1 tablet (40 mg) by mouth 1 (one) time each day. 3 Active lisinopril 5 MG tablet Take 1 tablet (5 mg) by mouth 1 (one) time each day. 3 Active levothyroxine (Synthroid, Levoxyl) 100 MCG tablet Take 1 tablet (100 mcg) by mouth 1 (one) time each day in the morning. 3 Active fluticasone-diego meterol (Advair Diskus) 100-50 MCG/ACT diskus inhaler Inhale 1 puff 2 (two) times a day. 3 Active baclofen (Lioresal) 20 MG tablet Take 2 tablets (40 mg) by mouth every night. 3 Active spironolactone (Aldactone) 25 MG tablet Take 1 tablet (25 mg) by mouth 1 (one) time each day. Active eszopiclone (Lunesta) 3 MG tablet Take 1 tablet (3 mg) by mouth every night. Take immediately before bedtime Active montelukast (Singulair) 10 MG tablet Take 1 tablet (10 mg) by mouth every night. Active clonazePAM (KlonoPIN) 0.5 MG tablet Take 1 tablet (0.5 mg) by mouth every night. Active carbidopa-levod opa (Sinemet) 25-100 MG tablet Take 2 tablets by mouth 4 (four) times a day. 720 tablet 3 4 01/31/20 25 Active sertraline (Zoloft) 50 MG tablet Take 1 tablet (50 mg) by mouth 1 (one) time each day. 90 tablet 3 4 03/28/20 25 Active Lemborexant (DayVigo) 5 MG tablet Take 1 tablet by mouth 1 (one) time each day. 30 tablet 3 4 07/17/20 24 Active rivastigmine (Exelon) 3 MG capsule TAKE 1 CAPSULE BY MOUTH TWICE DAILY 180 capsule 1 4 Active Active Problems Problem Noted Date Diagnosed Date Acute delirium 02/14/2024 Aphthous stomatitis 02/14/2024 Change in mental status 02/14/2024 Dehydration 02/14/2024 Chronic pain syndrome 02/14/2024 Fibromyalgia affecting multiple sites 02/14/2024 Gastroenteritis 02/14/2024 Essential hypertension 02/14/2024 Hypokalemia 02/14/2024 Irritable bowel syndrome with diarrhea Major depressive disorder 02/14/2024 Metabolic encephalopathy 02/14/2024 Right arm weakness 02/14/2024 Right leg weakness 02/14/2024 Spells of decreased attentiveness 11/19/2023 Cognitive dysfunction 11/19/2023 Parkinsonism, unspecified 11/19/2023 Seizure 11/18/2023 Absence seizure 01/20/2022 Asthma due to environmental allergies 02/26/2021 Osteoporosis 03/22/2012 Acid reflux disease 04/03/2009 High blood pressure 11/26/2008 Hypothyroidism 04/21/2006 Insomnia disorder 09/23/2005 Encounters Date Type Department Care Team Description 04/27/2024 Refill [place] [facility] [address], [address] [place] [address] Buster Gannon MD from Last 3 Months Immunizations Name Administration Dates Next Due Influenza, Unspecified 05/28/2022 Influenza, injectable, quadrivalent, preservativ e free 06/04/2016 Influenza, seasonal, injectable 03/22/2016 Pneumococcal Conjugate PCV 13 03/22/2016 Pneumococcal, Unspecified 06/04/2016 Rsvpref, Recombinant, Protein Subunit, Adjuvent 06/20/2023 Family History Medical History Relation Name Comments Hypertension Father Migraines Father Hypertension Mother Melony Booth Migraines Mother Melony Booth Thyroid disease Mother Melony Booth Relation Name Status Comments Father Mother Melony Booth Social History Tobacco Use Types Packs/Day Years [...] drink first t murali in the morning (EYE-COMMUNICATIONS INTERN) to steady your nerves or to get rid of a hangover? 0 11/18/2023 CAGE Questionnaire Score 0 024 PHQ-2A Answer Date Recorded Patient Health Questionnaire-2 Score 3 03/08/2023 Comments No Sex and Gender Information Value Date Recorded Sex Assigned at Not on file Legal Sex Female 7:52 PM EDT Gender Identity Not on file Sexual Orientation Not on file Last Filed Vital Signs Vital Sign Reading Time Taken Comments Blood Pressure 118/79 03/28/2024 7:53 AM EDT Pulse 81 03/28/2024 7:53 AM EDT Temperature 36.5 ??C (97.7 ??F) 11/19/2023 7:39 AM ED T Respiratory Rate 18 03/20/2024 1:04 PM EDT Oxygen Saturation 94% 03/28/2024 7:53 AM EDT Inhaled Oxygen Concentration - - Weight 68 kg (150 lb) 03/28/2024 7:53 AM EDT Height 154.9 cm (5' 1 ) 03/28/2024 7:53 AM EDT Body Mass Index 28.34 03/28/2024 7:53 AM EDT Plan of Treatment Upcoming Encounters Date Type Department Care Team (Late st Contact Info) Description 07/23/2024 9:00 AM EST Office Visit [place] [facility] [address], [address] [place] [address] Buster Gannon MD [address] [place] [address] 09/18/2024 12:30 PM EST Office Visit [facility] [place] [facility] [address] [place] [address] Nery August APRN [address] [place] [address] Health Maintenance Due Date Last Done Comments [facility]-Bone Density Scan 1950 [facility]-Hepatitis C Screening 1950 [facility]-Medicare Annual Wellness (AWV) 1950 [facility]-/Child/Adol SDOH Screenings 1950 [facility]- SDOH Screenings 1969 [facility]-Adult SDOH Screenings 1969 [facility]-DTaP,Tdap,and Td Vaccines (1 - Tdap) 1970 [facility]-Zoster Vaccines (1 of 2) 1970 CT Colonography 1996 Colonoscopy 1996 FIT-DNA 1996 FIT 1996 FOBT 1996 Sigmoidoscopy 1996 [facility]-Colorectal Cancer Screening 1996 [facility]-Pneumococcal Vaccine: 65+ Years (2 of 2 - PPSV23 or PCV20) 07/30/2016 06/04/2016, 03/22/2016 [facility]-Depression Screening 03/08/2024 03/08/2023 [id number] Vaccine ( season) 2024 08/01/2023, 05/19/2022, 06/03/2021, Additional history exists [facility]-Influenza Vaccine (#1) 04/22/202405/28, 06/04/2016, 03/22/2016 [facility]-Breast Cancer Screening 06/08/202405/22, 10/05/2019, 10/02/2018, Additional history exists [facility]-RSV Vaccine: 60+ Years or Completed 06/20/2023 [facility]-Obesity Intervention Completed 024, 03/20/2024, 02/14/2024, Additional history exists [facility]-HIB Vaccines Aged Out No longer e ligible based on patient's age to complete this topic [facility]-HPV Vaccines Aged Out No longer e ligible based on patient's age to complete this topic [facility]-Hepatitis A Vaccines Aged Out No longer eligible based on patient's age to complete this topic [facility]-IPV Vaccines Aged Out No longer e ligible based on patient's age to complete this topic [facility]-Rotavirus Vaccines Aged Out No lo nger eligible based on patient's age to complete this topic Procedures Procedure Name Priority Date/Time Associated Diagnosis Comments MAMMOGRAPHY BREAST SCREENING TOMOSYNTHESIS BILATERAL Routine 06/08/2022 11:05 AM EDT Visit for screening mammogram from Last 3 Months or Most Recently Relevant to Health Maintenance Results * Mammography Breast Screening Tomosynthesis Bilateral (06/08/2022 11:05 AM EDT) Anatomical Region Laterality Modality Breast Bilateral Mammography Impressions 06/09/2022 11:20 AM EDT No mammographic evidence of malignancy. BI-RADS CATEGORY: Overall: 2 - Benign RECOMMENDATION: ? - Routine Screening Mammogram in 1 Year. Patient Lifetime Risk Score of Breast Malignancy: A risk score has not been calculated for this patient. This risk assessment is calculated using the Jes Risk Assessment model which may underestimate the lifetime risk of breast malignancy. COMMUNICATION: Computer-aided detection (CAD) and tomosynthesis were utilized by the radiologist in the interpretation of this examination. The results and recommendations will be sent to the patient in a printed lay language version of the imaging report. ?? Narrative 06/09/2022 11:20 AM EDT EXAM: Mammography Breast Screening with Tomosynthesis REASON FOR EXAM: Screening Mammogram HISTORY: Patient is 71 y.o. ??Hormone history includes hormone replacement therapy (premarin x 30 years) and control (x 3 years). Surgical history includes hysterectomy (Hysterectomy from [facility]). COMPARISON STUDIES: Compared to: 07/10/2016 Mammography Breast Screening Tomosynthesis Bilateral at [facility] 08/17/2017 Mammography Breast Screening Tomosynthesis Bilateral at [facility] 10/02/2018 Mammography Breast Screening Tomosynthesis Bilateral at [facility] 10/05/2019 Mammography Breast Screening Tomosynthesis Bilateral at [facility] BREAST COMPOSITION: The breasts are almost entirely fatty. FINDINGS: There are post-biopsy clip(s) present in the the right breast. There is no evidence of suspicious masses, calcifications, or other abnormal findings. Jamie Berman MD IMG BI PROCEDURES Final Resu lt from Last 3 Months or Most Recently Relevant to Health Maintenance Insurance [facility] MEDICARE Advance Directives * Full Code (Latest Code Status on File) Date Activated Date Inactivated Comments 11/18/2023 8:42 AM 11/19/2023 2:36 PM Question Answer Comments Patient has decision-making capacity? Yes Care Teams Printed Circuit Boards Stripper Etcher Relationship Specialty Start Date End Date Jamie Berman MD [address] [place] [address] PCP - General Internal Medicine 06/08/22
--- OUTSIDE RECORDS SUMMARY | 2024-07-09 09:29 | XMS_ITS | Encounter Summary ---
Author Organization [facility] Address [address] [place] [address] Care Team Providers Care Streetcar Dispatcher Name Role Phone Jamie Berman MD Primary Care Provider + [phone] Encounter Details Date Type Department Care Team (Latest Contact Info) Description 02/14/2024 Travel Social History Tobacco Use Types Packs/Day [...] drink first t murali in the morning (EYE-STATE DIRECTOR) to steady your nerves or to get [...] Description 07/23/2024 9:00 AM EST Office Visit [place] [facility] [address], [address] [place] [address] Buster Gannon MD [address] [place] [address] 09/18/2024 12:30 PM EST Office Visit [facility] [place] - [facility] [address] [place] [address] Nery August APRN [address] [place] [address] documented as of this encounter Visit Diagnoses Not on filedocumented in this encounter Additional Health Concerns Assessment Noted Time A fall risk assessment has been complete d for the patient 01/31/2024 9:55 AM EDT A Body Mass Index follow-up plan has been documented for the patient 02/15/2024 3:59 PM EDT documented as of this encounter Care Teams Streetcar Dispatcher Relationship Specialty Start Date End Date Jamie Berman MD [address] [place] [address] PCP - General Internal Medicine 06/08/22 documented as of this encounter
--- OUTSIDE RECORDS SUMMARY | 2024-07-09 09:29 | XMS_ITS | Encounter Summary ---
Author Organization [facility] Address [address] [place] [address] Care Team Providers Care Youtuber Name Role Phone Jamie Berman MD Primary Care Provider + [phone] Encounter Details Date Type Department Care Team (Latest Contact Info) Description 03/28/2024 Travel Social History Tobacco Use Types Packs/Day [...] drink first t murali in the morning (EYE-MORGUE TECHNICIAN) to steady your nerves or to get [...] Description 07/23/2024 9:00 AM EST Office Visit [place] [facility] [address], [address] [place] [address] Buster Gannon MD [address] [place] [address] 09/18/2024 12:30 PM EST Office Visit [facility] [place] - [facility] [address] [place] [address] Nery August APRN [address] [place] [address] documented as of this encounter Visit Diagnoses Not on filedocumented in this encounter Additional Health Concerns Assessment Noted Time A fall risk assessment has been complete d for the patient 03/20/2024 1:05 PM EDT A Body Mass Index follow-up plan has been documented for the patient 03/28/2024 8:52 AM EDT documented as of this encounter Care Teams Youtuber Relationship Specialty Start Date End Date Jamie Berman MD [address] [place] [address] PCP - General Internal Medicine 06/08/22 documented as of this encounter
--- OUTSIDE RECORDS SUMMARY | 2024-07-09 09:29 | XMS_ITS | Encounter Summary ---
Author Organization [facility] Address [address] [place] [id number] Care Team Providers Care Mixing Tumbler Operator Name Role Phone Jamie Berman MD Primary Care Provider + [phone] Reason for Visit * Reason Onset Date Comments HCN - Patient Message 11/22/2023 Scan refer ral Encounter Details Date Type Department Care Team (Late st Contact Info) Description 11/22/2023 Telephone [place] [facility] [address], [address] [place] [address] Buster Gannon MD [address] [facility] [address] [place] [address] HCN - Patient Message (Scan referral) Social History Tobacco Use Types Packs/Day Years [...] drink first t murali in the morning (EYE-STRUCTURES ENGINEER) to steady your nerves or to get [...] encounter Miscellaneous Notes * Telephone Encounter - Bacilio Metz - 11/22/2023 9:55 AM EDT Patient Phone Message Reason for Call: Daughter says pt was supposed to get a scan. They are asking for help getting that set up Best contact number and optimal time of day to reach caller: Note: Please do not reply to this message. Follow-up communication and further actions as a result of this message need to be communicated with the patient directly, if the patient is not active onMyChart. If the patient is active on MyChart, they will receive notification of the communication/outcome via GeneCapturet. documented in this encounter Plan of Treatment Upcoming Encounters Date Type Department Care Team (Late st Contact Info) Description 07/23/2024 9:00 AM EST Office Visit [place] [facility] [address], [address] [place] [address] Buster Gannon MD [address] [facility] [place] [address] 09/18/2024 12:30 PM EST Office [facility] [place] - [facility] [address] [place] [address] Nery August APRN [address] [place] [address] documented as of this encounter Visit Diagnoses Not on filedocumented in this encounter Additional Health Concerns Assessment Noted Time A fall risk assessment has been complete d for the patient 11/10/2023 12:56 PM EDT A Body Mass Index follow-up plan has been documented for the patient 11/19/2023 11:43 AM EDT documented as of this encounter Care Teams Mixing Tumbler Operator Relationship Specialty Start Date End Date Jamie Berman MD [address] [place] [address] PCP - General Internal Medicine 06/08/22 documented as of this encounter
--- OUTSIDE RECORDS SUMMARY | 2024-07-09 09:29 | XMS_ITS | Encounter Summary ---
Author Organization [facility] Address [address] [place] [address] Care Team Providers Care Tanning Wheel Filler Name Role Phone Jamie Berman MD Primary Care Provider + [phone] Encounter Details Date Type Department Care Team (Latest Contact Info) Description 03/07/2024 Travel Social History Tobacco Use Types Packs/Day [...] drink first t murali in the morning (EYE-CONTRACT SHELTERED WORKSHOP SUPERVISOR) to steady your nerves or to get [...] Description 07/23/2024 9:00 AM EST Office Visit [place] [facility] [address], [address] [place] [address] Buster Gannon MD [address] [place] [address] 09/18/2024 12:30 PM EST Office Visit [facility] [place] - [facility] [address] [place] [address] Nery August APRN [address] [place] [address] documented as of this encounter Visit Diagnoses Not on filedocumented in this encounter Additional Health Concerns Assessment Noted Time A fall risk assessment has been complete d for the patient 01/31/2024 9:55 AM EDT A Body Mass Index follow-up plan has been documented for the patient 02/15/2024 3:59 PM EDT documented as of this encounter Care Teams Tanning Wheel Filler Relationship Specialty Start Date End Date Jamie Berman MD [address] [place] [address] PCP - General Internal Medicine 06/08/22 documented as of this encounter
--- OUTSIDE RECORDS SUMMARY | 2024-07-09 09:29 | XMS_ITS | Encounter Summary ---
Author Organization [facility] Address [address] [place] [address] Care Team Providers Care Physical Therapist Assistant Name Role Phone Jamie Berman MD Primary Care Provider + [phone] Reason for Referral * Imaging (Routine) - Closed Specialty Diagnoses / Procedures Referred By Cristin forrester Referred To Contact Radiology Diagnoses Parkinsonism, unspecified Parkinsonism type (CMS/HCC) Mild cognitive impairment Procedures PET/CT FDG Brain Nery August APRN [address] [address] Phone: tel: fax: Referral ID Status Reason Start Date Expiration Date Visits Re quested Visits Authorized [id number] Closed 02/15/2024 08/16/2025 2 1 Reason for Visit * Imaging (Routine) - Closed Specialty Diagnoses / Procedures Referred By Cristin forrester Referred To Contact Radiology Diagnoses Parkinsonism, unspecified Parkinsonism type (CMS/HCC) Mild cognitive impairment Procedures PET/CT FDG Brain Nery August APRN [address] [address] Phone: tel: fax: Referral ID Status Reason Start Date Expiration Date Visits Re quested Visits Authorized [id number] Closed 02/15/2024 08/16/2025 2 1 Encounter Details Date Type Department Care Team (Latest Contact Info) Description 03/12/2024 9:10 AM EDT Hospital Encounter [facility] PET Scan [address] [place] [address] Parkinsonism, unspecified Parkinsonism type (CMS/HCC); Mild cognitive impairment Discharge Disposition: Home or Self Care Social [...] drink first t murali in the morning (EYE-SUPPLY CHAIN INTERN) to steady your nerves or to [...] puff 2 (two) times a day. 02/09/2023 HM 24 Hour Nasal Allergy 55 MCG/ACT [...] Visit [place] [facility] [address], [address] [place] [address] Buster Gannon MD [address] [place] [address] 09/18/2024 12:30 PM EST Office Visit [facility] [place] - [facility] [address] [place] [address] Nery August APRN [address] [place] [address] documented as of this encounter Procedures Procedure [...] Corrected for body weight only. CT: Low-dose, [id number], without intravenous contrast. TOTAL (brain) DLP (Dose [...] 8.41 mCi of F-18 FDG administered intravenously [id number] at right AC. Incubation interval: 30 minutes. Oral contrast: Not applicable. Positioning: Supine, arms by sides. PET/CT scanner: Siemens Biograph 40 mCT. PET/CT acquisition: Head (Brain). Regional quantification: Siemens Scenium PET-FDG. Standardized uptake value (SUV): Corrected for body weight only. CT: Low-dose, [id number], without intravenous contrast. TOTAL (brain) DLP (Dose [...] Jimbo Godfrey MD on 03/14/2024 8:33 AM Nery August APRN IMG [place] PROCEDURES Final Re sult documented in this encounter Visit Diagnoses Diagnosis Parkinsonism, unspecified Parkinsonism type (CMS/HCC) Mild cognitive impairment Mild cognitive impairment, so stated documented in this encounter Administered Medications Inactive Administered Medications - up to 3 most recent administrations Medication Order MAR Action Action Date Dose Rate Site Fludeoxyglucose F 18 (FDG 18) radio-isotope injection 10 millicurie 10 millicurie, Intravenous, Once, 1 dose, On 03/12/24 at 1015, Routine, Imaging [place] Protocol Orders Given 03/12/2024 9:44 AM EDT 8.41 millicuries Right Antecubital documented in this encounter Additional Health Concerns Assessment Noted Time A fall risk assessment has been complete d for the patient 01/31/2024 9:55 AM EDT A Body Mass Index follow-up plan has been documented for the patient 02/15/2024 3:59 PM EDT documented as of this encounter Care Teams Physical Therapist Assistant Relationship Specialty Start Date End Date Jamie Berman MD [address] [place] [address] PCP - General Internal Medicine 06/08/22 documented as of this encounter
--- OUTSIDE RECORDS SUMMARY | 2024-07-09 09:29 | XMS_ITS | Encounter Summary ---
Author Organization [facility] Address [address] [place] [address] Care Team Providers Care Bottom Liquor Attendant Name Role Phone Jmaie Berman MD Primary Care Provider + [phone] Encounter Details Date Type Department Care Team (Late st Contact Info) Description 03/28/2024 Telephone [facility] [address] [place] [address] Buster Gannon MD [address] [facility] [address] [place] [address] Social History Tobacco Use Types [...] drink first t murali in the morning (EYE-GRAIN SACKER) to steady your nerves or to get [...] Telephone Encounter - Jesica Mccloud PharmD - 04/02/2024 1:20 PM EDT Kelsey, family member, declined MAP. Quiana has high income * Telephone Encounter - Truman Meyer PharmD - 03/28/2024 9:57 AM EDT Please proceed with DANNIELLE and BRIDGET for medication Dayvigo. ICD 10: G47.00. Insurance: [employer] Medicare Bin/N: [id number]/MEDDPRIME ID: [id number] documented in this encounter Plan of Treatment Upcoming Encounters Date Type Department Care Team (Late st Contact Info) Description 07/23/2024 9:00 AM EST Office Visit [place] [facility] [address], [address] [place] [address] Buster Gannon MD [id number] [place] [address] 09/18/2024 12:30 PM EST [facility] [place] [facility] [address] [place] [address] Nery August APRN [address] [facility] [address] [place] [address] documented as of this encounter Visit Diagnoses Not on filedocumented in this encounter Additional Health Concerns Assessment Noted Time A fall risk assessment has been complete d for the patient 03/20/2024 1:05 PM EDT A Body Mass Index follow-up plan has been documented for the patient 03/28/2024 8:52 AM EDT documented as of this encounter Care Teams Bottom Liquor Attendant Relationship Specialty Start Date End Date Jamie Berman MD [address] [place] [address] PCP - General Internal Medicine 06/08/22 documented as of this encounter
--- OUTSIDE RECORDS SUMMARY | 2024-07-09 09:29 | XMS_ITS | Encounter Summary ---
Author Organization [facility] Address [address] [place] [address] Care Team Providers Care Draw Hand Name Role Phone Jamie Berman MD Primary Care Provider + [phone] Encounter Details Date Type Department Care Team (Latest Contact Info) Description 03/22/2024 Travel Social History Tobacco Use Types Packs/Day [...] drink first t murali in the morning (EYE-PATROL SUPERVISOR) to steady your nerves or to [...] Description 07/23/2024 9:00 AM EST Office Visit [place] [facility] [address], [address] [place] [address] Buster Gannon MD [address] [place] [address] 09/18/2024 12:30 PM EST Office Visit [facility] [place] - Memory [address] [place] [address] Nery August APRN [address] [place] [address] documented as of this encounter Visit Diagnoses Not on filedocumented in this encounter Additional Health Concerns Assessment Noted Time A fall risk assessment has been complete d for the patient 03/20/2024 1:05 PM EDT A Body Mass Index follow-up plan has been documented for the patient 03/21/2024 9:00 AM EDT documented as of this encounter Care Teams Draw Hand Relationship Specialty Start Date End Date Jamie Berman MD [address] [place] [address] PCP - General Internal Medicine 06/08/22 documented as of this encounter
--- OUTSIDE RECORDS SUMMARY | 2024-07-09 09:29 | XMS_ITS | Encounter Summary ---
Author Organization [facility] Address [address] [place] [address] Care Team Providers Care Tap Puller Name Role Phone Jamie Berman MD Primary Care Provider + [phone] Encounter Details Date Type Department Care Team (Latest Contact Info) Description 03/13/2024 Travel Social History Tobacco Use Types Packs/Day [...] drink first t murali in the morning (EYE-LITHOGRAPHIC PLATE MAKER APPRENTICE) to steady your nerves or to get [...] Description 07/23/2024 9:00 AM EST Office Visit [place] [facility] [address] [place] [address] Buster Gannon MD [address] [place] [address] 09/18/2024 12:30 PM EST Office Visit [facility] [place] - Memory [address] [place] [address] Nery August APRN [address] [place] [address] documented as of this encounter Visit Diagnoses Not on filedocumented in this encounter Additional Health Concerns Assessment Noted Time A fall risk assessment has been complete d for the patient 01/31/2024 9:55 AM EDT A Body Mass Index follow-up plan has been documented for the patient 02/15/2024 3:59 PM EDT documented as of this encounter Care Teams Tap Puller Relationship Specialty Start Date End Date Jamie Berman MD [address] [place] [address] PCP - General Internal Medicine 06/08/22 documented as of this encounter
--- OUTSIDE RECORDS SUMMARY | 2024-07-09 09:29 | XMS_ITS | Encounter Summary ---
Author Organization [facility] Address [address] [id number] Care Team Providers Care Child Protective Investigator Name Role Phone Jamie Berman MD Primary Care Provider + [phone] Reason for Visit * Reason Onset Date Comments HCN - Patient Message 01/13/2024 Encounter Details Date Type Department Care Team (Late st Contact Info) Description 01/13/2024 Telephone [place] [facility] [address] [place] [address] Buster Gannon MD [address] [place] [address] HCN - Patient Message Social History Tobacco Use Types Packs/Day Years [...] drink first t murali in the morning (EYE-PHOTO LAB MANAGER) to steady your nerves or to get [...] * Telephone Encounter - Balbir Aguila - 01/17/2024 4:01 PM EDT Called and spoke with patient's daughter. Relayed message from [facility] Authorization team that scan hadbeend denied. Patient's daughter expressed understanding. Called [facility] radiology and cancelled 01/24 scan. * Telephone Encounter - Kerri Anderson - 01/13/2024 2:27 PM EDT Patient Phone Message Reason for Call: Dgt is calling back regarding matter below to say that the insurance said there needed to be a peerto peer for this scan and it never happened. The number to call for peer to peer and it is [phone] Best contact number and optimal time of day to reach caller: [phone] Note: Please do not reply to this message. Follow-up communication and further actions as a result of this message need to be communicated with the patient directly, if the patient is not active onMyChart. If the patient is active on MyChart, they will receive notification of the communication/outcome via [employer]. * Telephone Encounter - Betty Jackson - 01/13/2024 2:10 PM EDT Patient Phone Message Reason for Call: Pt received a message for [facility] saying her PET CT has been denied Supposed to be 01/24 May not have all info Request a call Best contact number and optimal time of day to reach caller: Kelsey /Daughter [phone] Note: Please do not reply to this [...] Description 07/23/2024 9:00 AM EST Office Visit [place] [facility] [address], [address] [place] [address] Buster Gannon MD [address] [place] [address] 09/18/2024 12:30 PM EST [facility] [place] - Memory [address] [place] [address] Nery August APRN [address] [place] [address] documented as of this encounter Visit Diagnoses Not on filedocumented in this encounter Additional Health Concerns Assessment Noted Time A fall risk assessment has been complete d for the patient 11/10/2023 12:56 PM EDT A Body Mass Index follow-up plan has been documented for the patient 11/19/2023 11:43 AM EDT documented as of this encounter Care Teams Child Protective Investigator Relationship Specialty Start Date End Date Jamie Berman MD [address] [place] [address] PCP - General Internal Medicine 06/08/22 documented as of this encounter
--- OUTSIDE RECORDS SUMMARY | 2024-07-09 09:29 | XMS_ITS | Encounter Summary ---
Author Organization [facility] Address [address] [place] [address] Care Team Providers Care Pharmacy Services Representative Name Role Phone Jamie Berman MD Primary Care Provider + [phone] Encounter Details Date Type Department Care Team (Latest Contact Info) Description 11/19/2023 Travel Social History Tobacco Use Types Packs/Day Years Used Date Smoking Tobacco: Former Cigarettes 0.3 3 1 971 - 7057 Smokeless Tobacco: Never Alcohol Use Standard Drinks/Week [...] drink first t murali in the morning (EYE-NEWS CORRESPONDENT) to steady your nerves or to get [...] Description 07/23/2024 9:00 AM EST Office Visit [place] [facility] [address], [address] [place] [address] Buster Gannon MD [address] [place] [address] 09/18/2024 12:30 PM EST Office Visit [facility]science [place] - Memory [address] [place] [address] Nery August APRN [address] [place] [address] documented as of this encounter Visit Diagnoses Not on filedocumented in this encounter Additional Health Concerns Assessment Noted Time A fall risk assessment has been complete d for the patient 11/10/2023 12:56 PM EDT A Body Mass Index follow-up plan has been documented for the patient 11/19/2023 11:43 AM EDT documented as of this encounter Care Teams Pharmacy Services Representative Relationship Specialty Start Date End Date Jamie Berman MD [address] [place] [address] PCP - General Internal Medicine 06/08/22 documented as of this encounter
--- OUTSIDE RECORDS SUMMARY | 2024-07-09 09:29 | XMS_ITS | Encounter Summary ---
Author Organization [facility] Address [address] [place] [address] Care Team Providers Care Migratory Game Bird Biologist Name Role Phone Jamie Berman MD Primary Care Provider + [phone] Encounter Details Date Type Department Care Team (Late st Contact Info) Description 01/31/2024 10:00 AM EDT Office Visit [place] [facility] [address], [address] [place] [address] Buster Gannon MD [address] [place] [address] Parkinsonism, unspecified Parkinsonism type (CMS/HCC) (Primary Dx); Lewy body dementia, unspecified dementia severity, unspecified whether behavioral, psychotic, or mood disturbance or anxiety (CMS/HCC) Social History Tobacco Use Types Packs/Day Years [...] drink first t 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 VPA was stopped 3 months ago and she did not notice any improvement in tremor or shuffling gait. PET brain: denied. EMU stay: The patient had a normal cvEEG study. Patient had two of her typical transient staring/unresponsive episodes. There was no ictal EEG correlation with either. These are non-epileptic events. She continues to have these spells atleast one per day and they can last 30s-3 minutes and is associated with headache. Epilepsy clinic management by Dr. Frank Oden Maria C was evaluated in the memory clinic in 02/2023. STMS was . She was diagnosed withMCI in the setting of parkinsonism. Currently, she is on C/L 25/100 1.5 tabs four times daily. Noticed some benefit and denies side effects. For RLS, she is also on ropinirole 2mg at night. RLS symptosm are worse lately. Denies hallucinations. Daughter mentioned about possible delusions rarely. Memory and decision making is gradually worsening. Lives at home with caretakers. Does not drive. She is here with her daughter. O/E: RUE>>LUE resting tremor. R>L bradykinesia and rigidity. Shuffling gait, no freezing. Uses walker to ambulate. No dyskinesia. 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 RLS Insurance denied FDG-PET scan twice. In 2019, she had negatve/normal B1, heavy metal screen, folate, TPO, B12, TSH, gliadin, RPR, SSA, SSB, paraneoplastic antibody panel, NMDA. PLAN: Increase Sinemet to 2 tabs QID: to get additional benefit with tremor. Start rivastigmine 3 mg bid: educated about potential GI side effects. If there any GI side effects, then will consider switching to Exelon patch. C/w Requip 2 mg at bedtime. She isn't keen about following with neurodegenerative clinic. Followup in my clinic in 4 months. Past Medical History: Diagnosis Date H/O benign breast biopsy Personal history of other diseases of the circulatory system History of hypertension Personal history of other endocrine, nutritional and metabolic disease History of thyroid disorder Personal history of other mental and behavioral disorders History of depression Family History Problem Relation Name Age of Onset Hypertension Mother Hypertension Father Migraines Mother Migraines Father Thyroid disease Mother Past Surgical History: Procedure Laterality Date GALLBLADDER SURGERY N/A Gallbladder surgery from [facility] HYSTERECTOMY N/A Hysterectomy from [facility] TIBIA FRACTURE SURGERY N/A Tibia fracture repair from [facility] Social History Tobacco Use Smoking status: Former Current packs/day: 0.00 Average packs/day: 0.3 packs/day for 3.0 years (0.8 ttl pk-yrs) Types: Cigarettes Start date: 1970 Quit date: 1973 Years since quittin.4 Smokeless tobacco: Never Substance Use Topics Alcohol use: Never Current Outpatient Medications on File Prior to Visit Medication Sig Dispense Refill baclofen (Lioresal) 20 MG tablet Take 2 tablets (40 mg) by mouth every night. carbidopa-levodopa (Sinemet) 25-100 MG tablet Take 1.5 tablets by mouth 4 (four) times a day. 540 tablet 3 clonazePAM (KlonoPIN) 0.5 MG tablet [...] by mouth 1 (one) time each day. rOPINIRole XL (Requip XL) 2 MG 24 hr tablet Take 1 tablet (2 mg) by mouth every night. spironolactone (Aldactone) 25 MG tablet Take 1 tablet (25 mg) by mouth 1 (one) time each day. furosemide (Lasix) 20 MG tablet Take 1 [...] systems reviewed and are negative. Objective Vitals: 01/31/24 0955 BP: 116/66 Pulse: 94 SpO2: 97% Physical Exam Vitals reviewed. Constitutional: Appearance: Normal appearance. She is normal weight. HENT: Head: Normocephalic and atraumatic. Eyes: Extraocular Movements: Extraocular movements intact. Pupils: Pupils are equal, round, and reactive to light. Pulmonary: Effort: Pulmonary effort is normal. Musculoskeletal: General: Normal range of motion. Cervical back: Normal range of motion. Neurological: General: No focal deficit present. Mental Status: She is alert and oriented to person, place, and time. Mental status is at baseline. Psychiatric: Mood and Affect: Mood normal. Behavior: Behavior normal. Thought Content: Thought content normal. Judgment: Judgment normal. Counseling Documentation: The patient and daughter was counseled regarding prognosis, risks and benefit of treatment options,instructions for management, patient and family education, and impressions. Education provided was verbal counseling. Additional time was spent in care coordination including medical record review. The total time of encounter was 30 minutes and greater than 50% of the visit was spent in counseling/coordination of care. . documented in this encounter Plan of Treatment Upcoming Encounters Date Type Department Care Team (Late st Contact Info) Description 07/23/2024 9:00 AM EST Office Visit [place] [facility] [address], [address] [place] [address] Buster Gannon MD [address] [place] [address] 09/18/2024 12:30 PM EST [facility] [place] - Memory [address] [place] [address] Nery August APRN [address] [place] [address] documented as of this encounter Visit Diagnoses Diagnosis Parkinsonism, unspecified Parkinsonism type (CMS/HCC)- Primary Lewy body dementia, unspecified dementia severity, unspecified whether behavioral, psychotic, or mood disturbance or anxiety (CMS/HCC) documented in this encounter Additional Health Concerns Assessment Noted Time A fall risk assessment has been complete d for the patient 01/31/2024 9:55 AM EDT A Body Mass Index follow-up plan has been documented for the patient 01/31/2024 3:08 PM EDT documented as of this encounter Care Teams Migratory Game Bird Biologist Relationship Specialty Start Date End Date Jamie Berman MD [address] [place] [address] PCP - General Internal Medicine 06/08/22 documented as of this encounter
--- OUTSIDE RECORDS SUMMARY | 2024-07-09 09:30 | XMS_ITS | Encounter Summary ---
Author Organization [facility] Address [address] [place] [address] Care Team Providers Care Sand Cutting Machine Operator Name Role Phone Jamie Berman MD Primary Care Provider + [phone] Encounter Details Date Type Department Care Team (Latest Contact Info) Description 11/15/2023 Travel Social History Tobacco Use Types Packs/Day Years Used Date Smoking Tobacco: Former Cigarettes 0.3 3 1 971 - 1974 Smokeless Tobacco: Never Alcohol Use Standard Drinks/Week Comments Never 0 (1 standard drink = 0.6 oz pur e alcohol) PHQ-2 Answer Date Recorded Patient Health Questionnaire-2 Score 3 03/08/2023 PHQ-2A Answer Date Recorded Patient Health Questionnaire-2 [...] Description 07/23/2024 9:00 AM EST Office Visit [place] [facility] [address] [place] [address] Buster Gannon MD [address] [place] [address] 09/18/2024 12:30 PM EST Office Visit [facility] [place] - Memory [address] [place] [address] Nery August, MACHINIST TOOL AND DIE [address] [place] [address] documented as of this encounter Visit Diagnoses Not on filedocumented in this encounter Additional Health Concerns Assessment Noted Time A fall risk assessment has been complete d for the patient 11/10/2023 12:56 PM EDT A Body Mass Index follow-up plan has been documented for the patient 11/10/2023 9:07 PM EDT documented as of this encounter Care Teams Sand Cutting Machine Operator Relationship Specialty Start Date End Date Jamie Berman MD [address] [place] [address] PCP - General Internal Medicine 06/08/22 documented as of this encounter
--- OUTSIDE RECORDS SUMMARY | 2024-07-09 09:30 | XMS_ITS | Encounter Summary ---
Author Organization [facility] Address [address] [place] [address] Care Team Providers Care Turbine Blade Assembler Name Role Phone Jamie Berman MD Primary Care Provider + [phone] Reason for Visit * Auth/Cert (Routine) Specialty Diagnoses / Procedures Referred By Contac t Referred To Contact Diagnoses Unspecified convulsions Procedures NM VEEG BY TECH EA INCR 12-26 HR INTERMITTENT MNTR [facility] [address] [place] [address] Phone: tel: PFE AUTHORIZATIONS [address] [place] [address] Phone: tel: Referral ID Status Reason Start Date Expiration Date Visits Re quested Visits Authorized [id number] 1 1 Encounter Details Date Type Department Care Team (Late st Contact Info) Description 11/18/2023 8:18 AM EDT - 11/19/2023 12:31 PM EDT Hospital Encounter P[facility] A Inpatient [address] [place] [address] Buster Gannon MD [address] [address] Nury De Santiago MD [address] [address] Discharge Disposition: Home or Self Care Social [...] drink first t murali in the morning (EYE-PADDER CUSHION) to steady your nerves or to get [...] Sign Reading Time Taken Comments Blood Pressure 119/58 11/19/2023 9:09 AM EDT Pulse 71 11/19/2023 9:09 AM EDT Temperature 36.5 ??C (97.7 ??F) 11/19/2023 7:39 AM ED T Respiratory Rate 11 11/19/2023 9:09 AM EDT Oxygen Saturation 97% 11/19/2023 9:09 AM EDT Inhaled Oxygen Concentration - - Weight 72.6 kg (160 lb) 11/18/2023 4:29 PM EDT Height 154.9 cm (5' 1 ) 11/18/2023 4:29 PM EDT Body Mass Index 30.23 11/18/2023 4:29 PM EDT documented in this encounter Discharge Instructions * Discharge Instructions* Barbara Tran PA - 11/19/2023 10:56 AM EDT -Taper off levetiracetam (Keppra) as follows: Decrease to 500mg twice daily x 1 week then stop -Follow up: 01/30/2024 11:30 AM (Arrive by 11:10 AM) Buster Gannon MD -Schedule PET CT -Track headache frequency and tylenol use, bring to follow up appointment -We recommend the following continuous seizure/spell precautions: 1) No driving for 90 days following a seizure or event with loss of consciousness according to [place] state law. Check with your doctor before driving. 2) Avoid open flame or open bodies of water 3) Avoid situations where loss of awareness may predispose to injury 4) Avoid swimming alone 5) Take showers, not baths 6) Avoid sleep deprivation or other known seizure risk factors including alcohol * Attachments The following attachments cannot be sent through Care Everywhere. * Seizures: First Aid (Rwandan) * Seizure, Safety During A: Epilepsy (Rwandan) * Smoke, Secondhand (Rwandan) documented in this encounter Medications at Time of Discharge baclofen (Lioresal) 20 MG tablet Take 2 tablets (40 mg) by mouth every night. 11/25/2022 clonazePAM (KlonoPIN) 0.5 MG tablet Take 1 [...] by mouth 1 (one) time each day. carbidopa-levodo pa (Sinemet) 25-100 MG tablet Take 1.5 tablets by mouth 4 (four) times a day. 540 tablet 3 10/26/2023 furosemide (Lasix) 20 MG tablet Take 1 tablet (20 mg) by mouth 1 (one) time each day. 4 documented as of this encounter Miscellaneous Notes * Care Plan - Therese Ceja RN - 11/19/2023 12:31 PM EDT Problem: Adult Inpatient Plan of Care Goal: Plan of Care Review Outcome: Met Goal: Patient-Specific Goal (Individualized) Outcome: Met Goal: Absence of Hospital-Acquired Illness or Injury Outcome: Met Goal: Optimal Comfort and Wellbeing Outcome: Met Goal: Readiness for Transition of Care Outcome: Met * Discharge Instr - Other Orders - Therese Ceja RN - 11/19/2023 11:31 AM EDT -Taper off levetiracetam (Keppra) as follows: Decrease to 500mg twice daily x 1 week then stop -Follow up: 01/30/2024 11:30 AM (Arrive by 11:10 AM) Buster Gannon MD -Schedule PET CT -Track headache frequency and tylenol use, bring to follow up appointment -Monitor old IV site for any redness/tenderness/discharge, notify your provider if an issue occurs at the site. * Discharge Instr - Activity - Therese Ceja RN - 11/19/2023 11:29 AM EDT -We recommend the following continuous seizure/spell precautions: 1) No driving for 90 days following a seizure or event with loss of consciousness according to [place] state law. Check with your doctor before driving. 2) Avoid open flame or open bodies of water 3) Avoid situations where loss of awareness may predispose to injury 4) Avoid swimming alone 5) Take showers, not baths 6) Avoid sleep deprivation or other known seizure risk factors including alcohol * Discharge Instr - Diet - Therese Ceja RN - 11/19/2023 11:27 AM EDT Okay to resume regular diet. * Discharge Summary - Barbara Tran PA - 11/19/2023 10:43 AM EDT Hospitalization Admit Date/Time: 11/18/2023 8:18 AM Admitting Attending: Nury De Santiago Discharge Date: 11/19/2023 Discharge Attending Physician: Nury De Santiago MD PCP name and Address: Jamie Berman MD [address] / [place] [address] Referring provider name and address: Buster Gannon MD [address] [facility] [address] [place] [address] Chief Concern, Brief History of Present Illness, and Hospital Course Quiana Lombardi is 73 y.o. year-old female who arrives to epilepsy monitoring unit (EMU) for spell characterization/medication management. Patient following I Dr. Gannon for parkinsonian symptoms and Dr. Tomas for mild cognitive impairment. In 2019, patient was hospitalized for delirium. She had an EEG that showed transient sharp waves over the central parietal region and started on VPA. MR demonstrated possible evidence of telangiectasias with some hemosiderin staining. Eventually the delirium was thought to be medication induced as her symptoms improved after discontinuation of Halcion (a benzodiazepine). The VPA was stopped and patient was monitored clinically. Got back to baseline, with perhaps some imbalance and a mild tremor. In 2020, patient reportedly had an EEG that showed no epileptiform activity. In November 2021 she began to develop staring episodes. She will zone out with eyes open and unblinking for 30 seconds to 3 minutes. There is no aura. She is not responsive. There is no clonic activity. No automatisms. She then becomes responsive; she does not remember the episode and is tired afterwards. No known triggers. She stopped driving at that time. The staring spells were diagnosed as focal seizures and pt was started on levetiracetam, but the events continued occurring about twice a day everyday, so valproate was added in the fall of 2021. In July 2022, she went on vacation to [facility]. During the trip, she developed a severe URI. She was also confused, making poor decisions and demonstrating poor judgement. She was noted to have shuffling gait. She developed leg swelling. Between August and October 2022, she had a rapid decline . Her tremor worsened and developed a resting component. She started falling more frequently and became hoarse. But spells continued to be infrequent. Interestingly, daughter reports that the same timeframe, patient was started on an increased dose (1 mg) of clonazepam. Her daughter reports that during this time, patient was noted to have far fewer staring spells. However, she had more falls and gait disturbances which led to a decrease in the clonazepam dose. In November 2022, her PCP diagnosed her with parkinson's disease and started on carbidopa-levodopa w/oimprovement. She started needing caretakers to come stay with her during the day, 6 days a week. Her daughter sorts her medications, and she is not supposed to cook on her own, due to poor judgement and forgetfulness. She does handle her own finances, but has made several poor choices and daughter now watches these, as well. Daughter was made POA. They denied visual hallucinations. Of note, retrospectively at the visit today, she noted instances over the past 20 years of instances of strong burning smells . These were not temporally linked to her staring episodes. She has had chronic insomnia, but no apparent REM behavior disorders. She has experienced worsening short term memory. She was seen by Drs. 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 A taper of valproate was started. As of 11/03/23, she had halved her valproate, increased levetiracetam, and decreased C/L as instructed. Spells have increased in frequency, so far parkinsonism symptoms have not worsened or improved. Pt had an appt with Dr. Doe Marie on 11/01/23, who recommended EMU admission for characterization of the spells. Per his note, the recommendation is to taper off all antiseizure medications to capture these events and characterize them. If these events were found to be nonepileptic, and the cessation of valproate were not to lead to significant improvement Parkinson's, recommend atypical parkinsonian syndrome evaluation. Semiology #1 Date of onset: November 2021. Per patient, she has no recollection of these events. Per witness, spells described as behavioral arrest and blank staring. Eyes are open and pt doesn't stare. No loss of continence, tongue biting, or cyanosis reported Typical seizure frequency is almost daily Duration: 30 seconds-3 minutes Triggers: None identified Nocturnal episodes: Longest seizure free interval: 90 days (when on 1mg of clonazepam Jul 2022- October 2022). H/O status epilepticus: No Postictal symptoms: Headache and fatigue. Duration: Amnestic about event: Yes Prior Workup: Imaging Modality Date/Location Results MR brain wo 03/24/2023 - [facility] Mild increase in mild global volume loss. 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 Routine EEGs Date/Location Results 09/04/2020 - [facility] Anti Seizure Medications (Current and Past) Medication Status Max Dose (total daily) Max Level Start Stop Reason for stop/comments VPA dc 1500 04/12 11/12 concern for parkinsonism LEV active 01/10 Hospital Course: She was admitted to the EMU electively for the above mentioned reason and underwent continuous vEEGfor 24 hours. During this time, home anti-seizure drugs were continued at usual dosage. She was notsleep deprived. There were 2 push button events for typical spells of staring, zoning out x 20 seconds followed by headache and fatigue witnessed by daughter at bedside. There was no change in EEG consistent with nonepileptic events. In brief, the EEG was unremarkable. Please see the final EMU report by the Neurophysiologist for further details. Instructions on how to taper levetiracetam were provided: decrease to 500mg twice daily for 1 week then stop. She will follow up with Dr Gannon 01/30/24as scheduled. She will call office in the interim with any questions or concerns. She should continue to follow seizure precautions, including no driving (pt does not drive, family sold her car), dueto frequent spells with loss of awareness. Surgeries and Procedures Continuous EEG monitoring Medication List .. baclofen 20 MG tablet Commonly known as: Lioresal Take 40 mg by mouth every night. carbidopa-levodopa 25-100 MG tablet Commonly known as: Sinemet Take 1.5 tablets by mouth 4 (four) times a day. clonazePAM 0.5 MG tablet Commonly known as: KlonoPIN Take 0.5 mg by mouth every night. eszopiclone 3 MG tablet Commonly known as: Lunesta Take 1 tablet (3 mg) by mouth every night. Take immediately before bedtime fluticasone-salmeterol 100-50 MCG/ACT diskus inhaler Commonly known as: Advair Diskus Inhale 1 puff 2 (two) times a day. furosemide 20 MG tablet Commonly known as: Lasix Take 1 tablet (20 mg) by mouth 1 (one) time each day. HM 24 Hour Nasal Allergy 55 MCG/ACT nasal inhaler Generic drug: triamcinolone Administer 2 sprays into each nostril 1 (one) time each day. levothyroxine 100 MCG tablet Commonly known as: Synthroid, Levoxyl Take 1 tablet (100 mcg) by mouth 1 (one) time each day in the morning. lisinopril 5 MG tablet Take 5 mg by mouth 1 (one) time each day. montelukast 10 MG tablet Commonly known as: Singulair Take 10 mg by mouth every night. pantoprazole 40 MG EC tablet Commonly known as: Protonix Take 40 mg by mouth 1 (one) time each day. rOPINIRole XL 2 MG 24 hr tablet Commonly known as: Requip XL Take 2 mg by mouth every night. spironolactone 25 MG tablet Commonly known as: Aldactone Take 1 tablet (25 mg) by mouth 1 (one) time each day. Discharge Diagnosis Medical Problems Active and Resolved Hospital Problems Hospital Spells of decreased attentiveness Cognitive dysfunction Parkinsonism, unspecified Post Discharge Instructions -Taper off levetiracetam (Keppra) as follows: Decrease to 500mg twice daily x 1 week then stop -Follow up: 01/30/2024 11:30 AM (Arrive by 11:10 AM) Buster Gannon MD -Schedule PET CT -Track headache frequency and tylenol use, bring to follow up appointment -We recommend the following continuous seizure/spell precautions: 1) No driving for 90 days following a seizure or event with loss of consciousness according to [place] state law. Check with your doctor before driving. 2) Avoid open flame or open bodies of water 3) Avoid situations where loss of awareness may predispose to injury 4) Avoid swimming alone 5) Take showers, not baths 6) Avoid sleep deprivation or other known seizure risk factors including alcohol Outpatient Follow-Up Future Appointments Date Time Provider Department Center 01/30/2024 11:30 AM Buster Gannon MD [facility] Test Results Pending At Discharge Pending Labs Order Current Status Homocysteine, Plasma Collected (11/19/23 1022) Methylmalonic Acid Serum Collected (11/19/23 1022) Troponin T, High Sensitivity, 2 Hour, Plasma Collected (11/18/23 1511) Barbiturates Confirm Urine LCMSMS In process Folate, Serum In process Vitamin B12 In process Pertinent Physical Exam At Time of Discharge Physical Exam General Appearance: Patient in no acute distress. Patient appears stated age. NEURO: Mental Status: A&O x 3, interactive, able to follow commands Speech: fluent CN 2-12: II - PERRLA, VFs full to confrontation III, IV, - EOMI V - Facial sensation intact VII - Brow raise and smile symmetrical VIII - Auditory acuity intact IX, X - Palate elevation symmetric, uvula midline XI - SCM and Trapezius strength intact XII - Tongue protrudes midline Motor: Increased tone in legs > arms, cogwheeling right > left upper extremity RUE: 5/5. Significant resting tremor present with postural component LUE: 5/5. Very mild tremor at rest w/increased frequency during action RLE: 5/5 LLE: 5/5 Sensory: Sensation intact and symmetric to light touch Reflexes: Reflexes 1+ and symmetric throughout. Plantar response is downward. No ankle clonus. Coordination: No limb ataxia Discharge Disposition/Condition Disposition: Home Condition: Stable (s/sx potential problems absent or manageable) I spent >30 minutes of patient care and instruction time in preparation for this discharge. Cosigned by Nury De Santiago MD at 11/19/2023 11:09 PM EDT Associated attestation - Nury De Santiago MD - 11/19/2023 11:09 PM EDT The patient was seen only by Advanced Practice Provider (BARBIE), and care was reviewed with me. The patient had a normal cvEEG study. Patient had two of her typical transient staring/unresponsiveepisodes. There was no ictal EEG correlation with either. These are non-epileptic events. Function seizures may be considered in the appropriate clinical setting. Instructions were given to wean levetiracetan, as it is not indicated. Follow up in Neurology clinic with Drs. Marie and Jagdeep. * Care Plan - Francisco Panda MD - 11/18/2023 1:36 PM EDT Images from the original note were not included. BRIEF CARDIOLOGY NOTE I received a message from the primary team due to concern for ventricular arrhythmia on admission. Patient was reportedly asymptomatic and hemodynamically stable. Review of telemetry revealed a normal sinus rhythm with baseline artifact. EKG showed normal sinus rhythm. No intervention or medicationchanges necessary at this time. Strip 1: Strip 2: Our team will sign off at this time. Please page the on-call french comber ([phone]) with any further questions. Francisco Panda MD Fellow, Department of Cardiovascular Medicine * H&P - Meri Hector MD - 11/18/2023 8:33 AM EDT C/c: EMU admission HPI: Quiana Lombardi is 73 y.o. year-old female who arrives to epilepsy monitoring unit (EMU) for spell characterization/medication management. Pt is accompanied by her daughter, Kelsey. She reports this has been a particularly emotional week for the family as her father (Pt's ) was honored posthumously for his writing contributions. History per malcolm review and pt interview: Patient has been seen by Dr. Gannon for parkinsonian symptoms and Dr. Tomas for mild cognitive impairment. In 2019, patient was hospitalized for delirium. She had an EEG that showed transient sharp waves over the central parietal region and started on VPA. MR demonstrated possible evidence of telangiectasias with some hemosiderin staining. Eventually the delirium was thought to be medication induced as her symptoms improved after discontinuation of Halcion (a benzodiazepine). The VPA was stopped and patient was monitored clinically. Got back to baseline, with perhaps some imbalance and a mild tremor. In 2020, patient reportedly had an EEG that showed no epileptiform activity. In November 2021 she began to develop staring episodes. She will zone out with eyes open and unblinking for 30 seconds to 3 minutes. There is no aura. She is not responsive. There is no clonic activity. No automatisms. She then becomes responsive; she does not remember the episode and is tired afterwards. No known triggers. She stopped driving at that time. The staring spells were diagnosed as focal seizures and pt was started on levetiracetam, but the events continued occurring about twice a day everyday, so valproate was added in the fall of 2021. In July 2022, she went on vacation to [place]. During the trip, she developed a severe URI. She was also confused, making poor decisions and demonstrating poor judgement. She was noted to have shuffling gait. She developed leg swelling. Between August and October 2022, she had a rapid decline . Her tremor worsened and developed a resting component. She started falling more frequently and became hoarse. But spells continued to be infrequent. Interestingly, daughter reports that the same timeframe, patient was started on an increased dose (1 mg) of clonazepam. Her daughter reports that during this time, patient was noted to have far fewer staring spells. However, she had more falls and gait disturbances which led to a decrease in the clonazepam dose. In November 2022, her PCP diagnosed her with parkinson's disease and started on carbidopa-levodopa w/oimprovement. She started needing caretakers to come stay with her during the day, 6 days a week. Her daughter sorts her medications, and she is not supposed to cook on her own, due to poor judgement and forgetfulness. She does handle her own finances, but has made several poor choices and daughter now watches these, as well. Daughter was made POA. They denied visual hallucinations. Of note, retrospectively at the visit today, she noted instances over the past 20 years of instances of strong burning smells . These were not temporally linked to her staring episodes. She has had chronic insomnia, but no apparent REM behavior disorders. She has experienced worsening short term memory. She was seen by Drs. 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 A taper of valproate was started. As of 11/03/23, she had halved her valproate, increased levetiracetam, and decreased C/L as instructed. Spells have increased in frequency, so far parkinsonism symptoms have not worsened or improved. Pt had an appt with Dr. Doe Marie on 11/01/23, who recommended EMG admission for characterization of the spells. Per his note, the recommendation is to taper off all antiseizure medications to capture these events and characterize them. If these events were found to be nonepileptic, and the cessation of valproate were not to lead to significant improvement Parkinson's, recommend atypical parkinsonian syndrome evaluation. Semiology #1 Date of onset: November 2021. Per patient, she has no recollection of these events. Per witness, spells described as behavioral arrest and blank staring. Eyes are open and pt doesn't stare. No loss of continence, tongue biting, or cyanosis reported Typical seizure frequency is almost daily Duration: 30 seconds-3 minutes Triggers: None identified Nocturnal episodes: Longest seizure free interval: 90 days (when on 1mg of clonazepam Jul 2022- October 2022). H/O status epilepticus: No Postictal symptoms: Headache and fatigue. Duration: Amnestic about event: Yes Seizure Risk Factors: - , h/o IUGR, asphyxia, NICU stay: Absent - Family History of seizure: Absent - History of febrile Seizure: Absent - Prior Head Trauma: Absent - Developmental Delay: Absent - complications: Absent - Prior Meningitis/ Encephalitis: Absent - Underlying structural abnormality: Absent Prior Workup: EEGs: Per notes, pt had an EEG w/transient sharp waves over the central parietal region and startedon VPA. EMU admission: No Head imaging: MR Head w/o, which demonstrated small foci in b/l hemisphere on SWI concerning for telangectasia Current AEDs: Levetiracetam 1g BID Side effects of current AEDs: Previous tried AEDs and reasons to discontinue: 1)VPA d/c in 2019 for unclear reason 2) VPA d/c 2021- concern for parkinsonism 3) ROS: Negative except as noted above PMH/PSH: Past Medical History: Diagnosis Date H/O benign breast biopsy Personal history of other diseases of the circulatory system History of hypertension Personal history of other endocrine, nutritional and metabolic disease History of thyroid disorder Personal history of other mental and behavioral disorders History of depression Past Surgical History: Procedure Laterality Date GALLBLADDER SURGERY N/A Gallbladder surgery from [facility] HYSTERECTOMY N/A Hysterectomy from [facility] TIBIA FRACTURE SURGERY N/A Tibia fracture repair from [facility] Allergy: Allergies Allergen Reactions Clindamycin Rash Ibuprofen Other - please document in the comment field Nsaids Unknown - Patient states they do not know rxn details Serotonin Reuptake Inhibitors (Ssris) Other - please document in the comment field sweating Social History: Tobacco: Denies. Alcohol: Denies Illicits: Denies Other: Lives by herself. Daughter lives 5 mins away Family History: Family History Problem Relation Name Age of Onset Hypertension Mother Hypertension Father Migraines Mother Migraines Father Thyroid disease Mother Vitals: Vitals: 11/18/23 1120 BP: (!) 157/88 Pulse: 77 Resp: 18 Temp: SpO2: 95% Physical Examination: General Appearance: Patient in no acute distress. Patient appears stated age. Skin: No appreciable open sores, ulcers, or rashes. Head and Neck: Normocephalic. No appreciable range of motion deficit. No appreciable neck masses ortracheal deviation. Eyes: Anicteric sclera. No appreciable conjunctival injection. ENT: Mucous membranes appear moist. No appreciable hearing impairment. Cardiovascular: +2 radial pulses. No appreciable edema. Respiratory: Symmetric chest expansion. Non-labored breathing. Musculoskeletal: No appreciable joint swelling or tenderness. Digits and nails appear within normallimits; no appreciable cyanosis or clubbing. No appreciable joint deformities. Psychiatric: Appropriate mood and affect. Patient is cooperative. Patient appears to have insight. NEURO: Mental Status: A&O x 3, interactive, able to follow commands Speech: fluent CN 2-12: II - PERRLA, VFs full to confrontation III, IV, - EOMI V - Facial sensation intact VII - Brow raise and smile symmetrical VIII - Auditory acuity intact IX, X - Palate elevation symmetric, uvula midline XI - SCM and Trapezius strength intact XII - Tongue protrudes midline Motor: RUE: 5/5. Significant resting tremor present with postural component LUE: 5/5. Very mild tremor at rest w/increased frequency during action RLE: 5/5 LLE: 5/5 Sensory: Sensation intact and symmetric to light touch, pinprick, and vibration in all four extremities. Reflexes: Reflexes 1+ and symmetric throughout. Plantar response is downward. No ankle clonus. Coordination: No limb ataxia with [id number] or jknz-ft-gimp. Gait/Station: narrow-based, nonataxic Cortical: No Extinction [place]: Deferred Assessment/Plan: Quiana Lombardi is 73 y.o. year-old female who arrives to epilepsy monitoring unit (EMU) for spell characterization/medication management. Pt seen by multiple subspecialists. Admitted to EMU for spell characterization. Goal is to capture an event and determine if she has epilepsy. If she has epilepsy, pt will likely need to be on ASMs. 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 She finished VPAtaper w/ last dose on 11/15, and is currently only on Levetiracetam 1g BID. Since pt reports having episodes while taking the ASMs, will continue them for today. May consider weaning tomorrow if spells not captured. #Spells of abnormal behavior #Spells of altered awareness #Spells of abnormal behavior #Spells of altered awareness #Postictal phenomena Plan: - Admit to EMU for above mentioned reason - Continuous vEEG monitoring - Seizure precautions during the stay - Encourage seizure provoking activity: Sleep deprivation, photic stimulation - AEDs that will be continued during stay are: 11/17 Levetiracetam 1g BID - PRN Ativan 2 mg for epileptic seizure lasting > 3 mins or more than 2 seizures in 4 hours. Please notify MD if dose had to be given - CBC, CMP, UDS, UA with reflex and drug levels #Arrhythmia on Telemetry - Pt noted to have Vtach/Vfib on tele, asymptomatic clinically. Rapid response was also called to assess pt. - Cardiology consulted. - Review of tele strips indicate it was artifactual Chronic Conditions #HTN: Home meds resumed #Elevated Cr.: Daughter reports pt's baseline Cr of 1.1 as of 10/15. Cr of 1.38 on admission. FEN/ppx: F- PO E- Monitor and replace prn N- Reg/Carb-2 DVT ppx- SCD. Not required in EMU Disposition: EMU pending medically ready Plan discussed with the EMU attending. Please page or Epic Chat with questions or concerns Meri Woods MD Neurology PGY-3 [facility] Cosigned by Nury De Santiago MD at 11/18/2023 11:05 PM EDT Associated attestation - Nury De Santiago MD - 11/18/2023 11:05 PM EDT I saw and evaluated the patient with the resident, Dr. Meri Valentin. I discussed the case with the resident/fellow and agree with the findings and plan as documented. documented in this encounter Plan of Treatment Upcoming Encounters Date Type Department Care Team (Late st Contact Info) Description 07/23/2024 9:00 AM EST [facility] Visit [facility] [address] [place] [address] Buster Gannon MD [address] [place] [address] 09/18/2024 12:30 PM EST [facility] [address] [place] [address] Nery August APRN [address] [place] [address] documented as of this encounter Procedures Procedure Name Priority Date/Time Associated Diagnosis Comments HC VEEG SET UP TAKEDOWN EDUCATION Routine 11/19/2023 10:58 AM EDT METHYLMALONIC ACID SERUM Routine 11/19/2023 10:22 AM EDT HOMOCYSTEINE Routine 11/19/2023 10:22 AM EDT FOLATE, SERUM Routine 11/19/2023 10:22 AM EDT VITAMIN B12, SERUM Routine 11/19/2023 10 :22 AM EDT TROPONIN T, HIGH SENSITIVITY, 0 HOUR, PLASMA, REFLEX TO 2 HOUR STAT 11/18/2023 8:43 PM EDT URINALYSIS MICROSCOPIC FOR UA REFLEX Routine 11/18/2023 1:04 PM EDT BARBITURATES URINE Routine 11/18/2023 1: 04 PM EDT DRUG ABUSE SCREEN, URINE Routine 11/18/2023 1:04 PM EDT URINALYSIS WITH REFLEX MICROSCOPIC Routine 11/18/2023 1:04 PM EDT VALPROIC ACID LEVEL, TOTAL Timed 11/18/2023 11:53 AM EDT VALPROIC ACID,FREE Timed 11/18/2023 11 :52 AM EDT TROPONIN T, HIGH SENSITIVITY, 0 HOUR, PLASMA, REFLEX TO 2 HOUR STAT 11/18/2023 11:52 AM EDT N-TERMINAL PROBNP, PLASMA Add-On 11/18/2023 11:52 AM EDT LEVETIRACETAM LEVEL Timed 11/18/2023 1 1:52 AM EDT CBC WITH AUTO DIFFERENTIAL Routine 11/18/2023 11:52 AM EDT MAGNESIUM, PLASMA Add-On 11/18/2023 11: 52 AM EDT COMPREHENSIVE METABOLIC PANEL, PLASMA Routine 11/18/2023 11:52 AM EDT ECG ADULT Routine 11/18/2023 11:23 AM EDT documented in this encounter Results * EEG Continuous Monitoring (11/19/2023 10:58 AM EDT) Anatomical Region Laterality Modality EEG Narrative 11/30/2023 12:25 AM EDT Table formatting from the original result was not included. EMU Daily Report Patient: Quiana Lombardi : 1950 MRN; [id number] Sex: female PROCEDURE: Video-EEG Monitoring REFERRING PHYSICIAN: Buster Gannon MD. EEG PHYSICIAN: Nury De Santiago MD Begin Date: 11/18/2023 Begin Time: 10:36 AM End Date: 11/19/2023 End Time: 10:58 AM Total EEG Recording Time: 24 hours and 21 minutes Indication for study: Concern for seizures SEIZURE HISTORY: 73 year-old woman with concern for seizures. Semiology #1 Date of onset: November 2021. Per patient, she has no recollection of these events. Per witness, spells described as behavioral arrest and blank staring. Eyes are open and pt doesn't stare. No loss of continence, tongue biting, or cyanosis reported Typical seizure frequency is almost daily Duration: 30 seconds-3 minutes Triggers: None identified Nocturnal episodes: Longest seizure free interval: 90 days (when on 1mg of clonazepam Jul 2022- October 2022). H/O status epilepticus: No Postictal symptoms: Headache and fatigue. Duration: Amnestic about event: Yes Seizure Risk Factors: ? - , h/o IUGR, asphyxia, NICU stay: Absent ? - Family History of seizure: Absent ? - History of febrile Seizure: Absent ? - Prior Head Trauma: Absent ? - Developmental Delay: Absent ? - complications: Absent ? - Prior Meningitis/ Encephalitis: Absent ? - Underlying structural abnormality: Absent Prior Workup: EEGs: Per notes, pt had an EEG w/transient sharp waves over the central parietal region and started on VPA. 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 No current outpatient medications on file. Facility-Administered Medications Ordered in Other Visits Medication Dose Route Frequency Provider Last Rate Last Admin ? ? acetaminophen (Tylenol) tablet 650 mg ??650 mg Oral q6h PRN Meri Hector MD ?? 650 mg at 11/18/23 1503 ? ? baclofen (Lioresal) tablet 40 mg ??40 mg Oral Nightly Meri Hetcor MD ?? 40 mg at 11/18/230 ? ? carbidopa-levodopa (Sinemet) 25-100 MG per tablet 1.5 tablet ??1.5 tablet Oral 4x daily Meri Hector MD ?? 1.5 tablet at 11/18/232213 ? ? clonazePAM (KlonoPIN) tablet 0.5 mg ??0.5 mg Oral Nightly Meri Hector MD ?? 0.5 mg at 11/18/232117 ? ? furosemide (Lasix) tablet 20 mg ??20 mg Oral Daily Meri Hector MD ?? 20 mg at 11/18/231628 ? ? levETIRAcetam (Keppra) tablet 1,000 mg ??1,000 mg Oral BID Meri Hector MD ?? 1,000 mg at 11/18/232118 ? ? levothyroxine (Synthroid, Levoxyl) tablet 100 mcg ??100 mcg Oral q AM Meri Hector MD ?? 100 mcg at 11/19/23 0612 ? ? lisinopril tablet 5 mg ??5 mg Oral Daily Meri Hector MD ?? 5 mg at 11/18/231628 ? ? LORazepam (Ativan) injection 2 mg ??2 mg Intravenous q5 min PRN Meri Hector MD ? mometasone-formoterol (Dulera 100) 100-5 MCG/ACT inhaler 2 puff ??2 puff Inhalation BID Meri Hector MD ?? 2 puff at 11/18/232128 ? ? montelukast (Singulair) tablet 10 mg ??10 mg Oral Nightly Meri Hector MD ?? 10 mg at 11/18/232117 ? ? pantoprazole (Protonix) EC tablet 40 mg ??40 mg Oral Daily Meri Hector MD ?? 40 mg at 11/18/23 1504 ? ? rOPINIRole XL (Requip XL) 24 hr tablet 2 mg ??2 mg Oral Nightly Meri Hector MD ?? 2 mg at 11/18/232119 ? ? sodium chloride 0.9 % flush 10 mL ??10 mL Intravenous q12h Meri Hector MD ?? 10 mL at 11/18/232127 And ? ? sodium chloride 0.9 % flush 10 mL ??10 mL Intravenous PRN Meri Hector MD ? spironolactone (Aldactone) tablet 25 mg ??25 mg Oral Daily Meri Hector MD ?? 25 mg at 11/18/23 1628 ? ? triamcinolone (Nasacort) nasal inhaler 2 spray ??2 spray Each Nostril Daily Meri Hector MD ?? 2 spray at 11/18/23 1405 VIDEO-EEG MONITORING METHODOLOGY: This is a continuous video-EEG monitoring using 21-channel recordings (unless otherwise specified) in a 10/20 system with [employer] software and hardware. Additional electrodes: FT9/FT10: Yes Other: No The seizure detection computer was used for detection of ictal discharges (subclinical and clinical), interictal discharges, and to record ictal events that were documented by depression of the event button in the patient's room. Analyses of the monitoring data were performed using the following techniques: 1. Review of the relevant video-EEG data. 2. Review of events detected by the computer system in detail. 3. Review of clinical seizures, with both detailed review of EEG and video and playback using multiple montages. A variety of referential and bipolar montages were used. Results of the monitoring were related to the treating team frequently throughout the study, at least once a day to help guide treatment via verbal or written communication. Updates and response to treatment were communicated as requested by the requesting physician or the team. CLINICAL AND EEG ANALYSIS INTERICTAL EEG DESCRIPTION: State of patient: awake Sleep: Drowsy, NREM Stage I, and NREM Stage II Awake background and posterior dominant rhythm: ??The posterior dominant rhythm consists of 8-9 Hz alpha activity of moderate voltage (25-35 uV) seen predominantly in posterior head regions, symmetric and reactive to eye opening and eye closing. There is 15 to 18Hz, low voltage beta activity with irregular morphology distributed symmetrically and diffusely. ? Sleep background: Drowsy state consisted of attenuation and fragmentation of the background activity and 5 to 7 Hz activity was seen diffusely distributed. NREM stages I and II of sleep were identified. ??Vertex waves, sleep spindles and K-complexes were seen. ?? ACTIVATION PROCEDURES: photic stimulation Hyperventilation: No hyperventilation was performed Photic stimulation: Photic stimulation performed intermittently over a stimulus frequency of 1 to 30 Hertz did not activate the recording Reactivity to stimulation: reactive NONEPILEPTIFORM INTERICTAL ABNORMALITIES None EPILEPTIFORM INTERICTAL ABNORMALITIES None ICTAL / EVENT DESCRIPTION: #1 Clinical Description: Patient event button pressed at 19:42:04 on 11/18/23 because patient exhibited staring and unresponsiveness (did not respond to daughter or nursing staff) while reclining in the bed. ??She remained this way until 19:42:13 when she jumps as if startled. She then responded appropriately and followed commands. EEG Description: There was no change in the baseline awake EEG background before, during and after event button was pushed. There was no ictal EEG correlation. #2 Clinical Description: Patient event button pressed at 08:57:06 on 11/19/23 because patient exhibited staring and unresponsiveness (did not respond to daughter). She remains unresponsive when the nurse comes to bedside. She does not respond until 08:57:38 and when she does, she is appropriate and follows commands. EEG Description: There was no change in the baseline awake EEG background before, during and after event button was pushed. There was no ictal EEG correlation. Abnormalities: None CLINICAL INTERPRETATION: This is a normal approximately 24 hour awake, drowsy and asleep cvEEG study. There were no seizures, interictal epileptiform activity, or clinical events. Patient exhibited two typical episodes characterized as transient staring off and apparent unresponsiveness. These were both brief (< 1 minute) and patient appeared to quickly return to baseline. There was no ictal EEG correlation with either event. These were non-epileptic events. ??In the appropriate clinical setting, consider functional seizures. us Nury De Santiago MD NEUROLOGY ORDERABLES Final Resul t * Homocysteine, Plasma (11/19/2023 10:22 AM EDT) Pathologist [facility] Homocysteine 8.0 5.0 - 15.0 umol/L 11/19/2023 1:10 PM EDT [facility] Blood Venous blood specimen / Unknown Venipuncture / Unknown 11/19/2023 10:22 AM EDT 11/19/2023 1:10 PM EDT Result [facility] BLOOD ORDERABLES Final Resul t Performing Organization Address City/[facility] Co de Phone Number HEALTHCARE LAB [address] [place] [address] * Methylmalonic Acid Serum (11/19/2023 10:22 AM EDT) Methylmalonic Acid 318 50 - 400 nmol/L 11/24/2023 3:03 PM EDT [facility] Blood Venous blood specimen / Unknown Venipuncture / Unknown 11/19/2023 10:22 AM EDT 11/19/2023 10:50 AM EDT Narrative [facility] - 11/24/2023 3:03 PM EDT Test performed by LC-MS/MS at the [facility]. This test was developed and its performance characteristics determined by [facility]. It has not been cleared or approved by the FDA. The laboratory is regulated under CLIA as qualified to perform high-complexity testing. This test is used for clinical purposes. Result [facility] BLOOD ORDERABLES Final Resul t Performing Organization Address [facility] de Phone Number [facility] [address] [place] [address] * Folate, Serum (11/19/2023 10:22 AM EDT) Pathologist [facility] Folate, Serum >20.0 >4.8 ng/mL 11/19/2023 11:26 AM EDT [facility] Blood Venous blood specimen / Unknown Venipuncture / Unknown 11/19/2023 10:22 AM EDT 11/19/2023 10:41 AM EDT Result [facility] BLOOD ORDERABLES Final Resul t Performing Organization Address City/[facility]/ZIP Co de Phone Number [facility] [address] [place] [address] * Vitamin B12 (11/19/2023 10:22 AM EDT) Vitamin B12, Serum 574 210 - 1,033 pg/mL 11/19/2023 11:26 AM EDT [facility] Blood Venous blood specimen / Unknown Venipuncture / Unknown 11/19/2023 10:22 AM EDT 11/19/2023 10:41 AM EDT Barbara [facility] LAB BLOOD ORDERABLES Final Resul t Performing Organization Address City/[facility] Co de Phone Number [facility]ARE [facility] [address] [place] [address] * Troponin T, High Sensitivity, 0 Hour Plasma, Reflex to 2 Hour (11/18/2023 8:43 PM EDT) Pathologist [facility] Troponin T, High Sensitivity, 0 Hour 9 <14 ng/L 11/18/2023 8:43 PM EDT [facility] Blood Venous blood specimen / Unknown 11/18/2023 8:14 PM EDT Nury De Santiago MD LAB BLOOD ORDERABLES Final Resul t Performing Organization Address City/[facility] Co de Phone Number [facility] [address] [place] [address] * (ABNORMAL) Barbiturates Confirm Urine LCMSMS (11/18/2023 1:04 PM EDT) Pathologist [facility] Butalbital 452(H) <50 ng/mL 11/20/2023 6:59 AM EDT [facility] Phenobarbital <50 <50 ng/mL 11/20/2023 6:59 AM EDT [facility] Secobarbital <50 <50 ng/mL 11/20/2023 6:59 AM EDT [facility] Urine Urine specimen obtained by clean catch procedure / Unknown Non-blood Collection / Unknown 11/18/2023 1:04 PM EDT 11/18/2023 1:34 PM EDT Narrative [facility] - 11/20/2023 6:59 AM EDT Drug analysis is confirmed by LC-MS/MS (LC Tandem Mass Spectrometry) on Urine specimens. ?? This test was developed and its performance characteristics determined by [facility]. It has not been cleared or approved by the FDA. The laboratory is regulated under CLIA as qualified to perform high-complexity testing. This test is used for clinical purposes. Testing is performed at the [facility], [facility] Laboratory. us Nury De Santiago MD LAB URINE ORDERABLES Final Resul t Performing Organization Address [facility] de Phone Number [facility] [address] [place] [address] * Urinalysis Microscopic Examination (11/18/2023 1:04 PM EDT) Urine Urine specimen obtained by clean catch procedure / Unknown Non-blood Collection / Unknown 11/18/2023 1:04 PM EDT 11/18/2023 1:22 PM EDT us Nury De Santiago MD LAB URINE ORDERABLES Final Resul t Performing Organization Address [facility] Phone Number [facility] [address] [place] [address] * Drug Abuse Screen Urine (11/18/2023 1:04 PM EDT) Amphetamine Screen Urine Negative Cutoff: 500 ng/mL 11/18/2023 2:30 PM EDT [facility] Benzodiazepines Screen Urine Negative Cutoff: 200 ng/mL 11/18/2023 2:30 PM EDT [facility] Cannabinoid Screen Urine Negative Cutoff: 50 ng/mL 11/18/2023 2:30 PM EDT [facility] Cocaine Screen Urine Negative Cutoff: 300 ng/mL 11/18/2023 2:30 PM EDT [facility] Barbiturate Screen Urine Presumptive positive. Confirmation by LC-MS/MS to follow. Cutoff: 200 ng/mL 11/18/2023 2:30 PM EDT [facility] Opiate Screen Urine Negative Cutoff: 300 ng/mL 11/18/2023 2:30 PM EDT [facility] Methadone Screen Urine Negative Cutoff: 300 ng/mL 11/18/2023 2:30 PM EDT [facility] Buprenorphine Screen Urine Negative Cutoff: 10 ng/mL 11/18/2023 2:30 PM EDT [facility] Fentanyl Screen Urine Negative Cutoff: 1 ng/mL 11/18/2023 2:30 PM EDT [facility] Oxycodone Screen Urine Negative Cutoff: 100 ng/mL 11/18/2023 2:30 PM EDT [facility] Urine Urine specimen obtained by clean catch procedure / Unknown Non-blood Collection / Unknown 11/18/2023 1:04 PM EDT 11/18/2023 1:34 PM EDT us Nury De Santiago MD LAB URINE ORDERABLES Final Resul t [facility] [address] [place] [address] * (ABNORMAL) Urinalysis with reflex microscopic (11/18/2023 1:04 PM EDT) Color, Urine Yellow LAB URINALYSIS - AUTOMATED METHOD 11/18/2023 1:32 PM EDT [facility] Clarity, Urine Clear LAB URINALYSIS - AUTOMATED METHOD 11/18/2023 1:32 PM EDT [facility] Spec [place], Urine 1.019 <=1.005 to >=1.030 LAB URINALYSIS - AUTOMATED METHOD 11/18/2023 1:32 PM EDT [facility] pH, Urine 7.5 4.5 to 8 LAB URINALYSIS - AUTOMATED METHOD 11/18/2023 1:32 PM EDT [facility] Protein, Urine Negative Negative mg/dL LAB URINALYSIS - AUTOMATED METHOD 11/18/2023 1:32 PM EDT [facility] Glucose, Urine Negative Negative mg/dL LAB URINALYSIS - AUTOMATED METHOD 11/18/2023 1:32 PM EDT [facility] Ketones, Urine Negative Negative mg/dL LAB URINALYSIS - AUTOMATED METHOD 11/18/2023 1:32 PM EDT [facility] Blood, Urine Negative Negative LAB URINALYSIS - AUTOMATED METHOD 11/18/2023 1:32 PM EDT [facility] Bilirubin, Urine Negative Negative LAB URINALYSIS - AUTOMATED METHOD 11/18/2023 1:32 PM EDT [facility] Urobilinogen, Urine 1.0 0.2 to 1.0 mg/dL LAB URINALYSIS - AUTOMATED METHOD 11/18/2023 1:32 PM EDT [facility] Leukocytes, Urine Trace(A) Negative LAB URINALYSIS - AUTOMATED METHOD 11/18/2023 1:32 PM EDT [facility] Nitrite, Urine Negative Negative LAB URINALYSIS - AUTOMATED METHOD 11/18/2023 1:32 PM EDT [facility] RBC, Urine <1 0 to 3 /HPF LAB URINALYSIS - AUTOMATED METHOD 11/18/2023 1:32 PM EDT [facility] WBC, Urine 0 - 5 0 to 5 /HPF LAB URINALYSIS - AUTOMATED METHOD 11/18/2023 1:32 PM EDT [facility] Squamous Epithelial Cells 3 - 5 0 to 5 /HPF LAB URINALYSIS - AUTOMATED METHOD 11/18/2023 1:32 PM EDT [facility] Hyaline Casts 0 - 2 0 to 5 /LPF LAB URINALYSIS - AUTOMATED METHOD 11/18/2023 1:32 PM EDT [facility] Bacteria, Urine Negative Negative LAB URINALYSIS - AUTOMATED METHOD 11/18/2023 1:32 PM EDT [facility] Urine Urine specimen obtained by clean catch procedure / Unknown Non-blood Collection / Unknown 11/18/2023 1:04 PM EDT 11/18/2023 1:22 PM EDT us Nury De Santiago MD LAB URINE ORDERABLES Final Resul t Performing Organization Address City/[facility]/ZIP Co de Phone Number [facility] [address] [place] [address] * (ABNORMAL) Valproic acid level, total (11/18/2023 11:53 AM EDT) Valproic Acid 11(L) 50 - 100 ug/mL 11/18/2023 1:14 PM EDT [facility] Blood Venous blood specimen / Unknown Venipuncture / Unknown 11/18/2023 11:53 AM EDT 11/18/2023 12:05 PM EDT Narrative [facility] - 11/18/2023 1:14 PM EDT Therapeutic: ??50 to 100 ug/mL Supratherapeutic: ??>120 ug/mL us Nury De Santiago MD LAB BLOOD ORDERABLES Final Resul t Performing Organization Address City/[facility]/ZIP Co de Phone Number [facility] [address] [place] [address] * Magnesium (11/18/2023 11:52 AM EDT) Magnesium, Plasma 2.3 1.9 - 2.4 mg/dL 11/18/2023 3:49 PM EDT [facility] Blood Venous blood specimen / Unknown Venipuncture / Unknown 11/18/2023 11:52 AM EDT 11/18/2023 12:05 PM EDT us Nury De Santiago MD LAB BLOOD ORDERABLES Final Resul t Performing Organization Address City/[facility]/ZIP Co de Phone Number [facility] [address] [place] [address] * N-Terminal Probnp (11/18/2023 11:52 AM EDT) N-Terminal, PROBNP, Plasma 96 0 - 899 pg/mL 11/18/2023 12:56 PM EDT [facility] Blood Venous blood specimen / Unknown Venipuncture / Unknown 11/18/2023 11:52 AM EDT 11/18/2023 12:05 PM EDT Nury De Santiago MD LAB BLOOD ORDERABLES Final Resul t Performing Organization Address [facility] Co de Phone Number [facility] [address] [place] [address] * Troponin T, High Sensitivity, 0 Hour Plasma, Reflex to 2 Hour (11/18/2023 11:52 AM EDT) Troponin T, High Sensitivity, 0 Hour 9 <14 ng/L 11/18/2023 12:56 PM EDT [facility] Blood Venous blood specimen / Unknown Venipuncture / Unknown 11/18/2023 11:52 AM EDT 11/18/2023 12:05 PM EDT Nury De Santiago MD LAB BLOOD ORDERABLES Final Resul t Performing Organization Address City/[facility] Co de Phone Number [facility] [address] [place] [address] * (ABNORMAL) Valproic acid, Free (11/18/2023 11:52 AM EDT) [facility] VALPROIC ACID FREE <2(L) 5 - 15 ug/mL 11/18/2023 6:23 PM EDT [facility] Blood Venous blood specimen / Unknown Venipuncture / Unknown 11/18/2023 11:52 AM EDT 11/18/2023 12:05 PM EDT Nury De Santiago MD LAB BLOOD ORDERABLES Final Resul t Performing Organization Address [facility] de Phone Number [facility] [address] [place] [address] * Levetiracetam (Keppra) (11/18/2023 11:52 AM EDT) [facility] Levetiracetam (Keppra) 27.2 12.0 - 46.0 ug/mL 11/18/2023 9:26 PM EDT [facility] Blood Venous blood specimen / Unknown Venipuncture / Unknown 11/18/2023 11:52 AM EDT 11/18/2023 12:05 PM EDT Narrative [facility] - 11/18/2023 9:26 PM EDT Test performed by LC-MS/MS at the [facility]. This test was developed and its performance characteristics determined by [facility]. It has not been cleared or approved by the FDA. The laboratory is regulated under CLIA as qualified to perform high-complexity testing. This test is used for clinical purposes. Nury De Santiago MD LAB BLOOD ORDERABLES Final Resul t Performing Organization Address [facility] de Phone Number [facility] [address] [place] [address] * (ABNORMAL) Comprehensive metabolic panel (11/18/2023 11:52 AM EDT) [facility] Glucose, Plasma 106(H) 74 - 99 mg/dL 11/18/2023 12:56 PM EDT [facility] BUN, Plasma 24(H) 8 - 23 mg/dL 11/18/2023 12:56 PM EDT [facility] Creatinine, Plasma 1.38(H) 0.60 - 1.10 mg/dL 11/18/2023 12:56 PM EDT [facility] BUN/Creatinine Ratio 17 11/18/2023 12:56 PM EDT [facility] Sodium, Plasma 141 136 - 145 mmol/L 11/18/2023 12:56 PM EDT [facility] Potassium, Plasma 4.7 3.7 - 4.8 mmol/L 11/18/2023 12:56 PM EDT [facility] Chloride, Plasma 107 97 - 107 mmol/L 11/18/2023 12:56 PM EDT [facility] CO2, Plasma 24 22 - 29 mmol/L 11/18/2023 12:56 PM EDT [facility] Anion Gap 10 6 - 16 mmol/L 11/18/2023 12:56 PM EDT [facility] Total Calcium, Plasma 8.9 8.9 - 10.2 mg/dL 11/18/2023 12:56 PM EDT [facility] Total Protein 6.1(L) 6.3 - 7.9 g/dL 11/18/2023 12:56 PM EDT [facility] Albumin, Plasma 3.6 3.5 - 5.2 g/dL 11/18/2023 12:56 PM EDT [facility] AST, Plasma 51(H) 10 - 35 U/L 11/18/2023 12:56 PM EDT [facility] Comment:Hemolyzed, result ma y be falsely increased. ALT, Plasma 20 10 - 35 U/L 11/18/2023 12:56 PM EDT [facility] Alkaline Phosphatase, Plasma 50 46 - 142 U/L 11/18/2023 12:56 PM EDT [facility] Total Bilirubin, Plasma 0.3 0.2 - 1.1 mg/dL 11/18/2023 12:56 PM EDT [facility] eGFRcr 40.8 mL/min/1.7 3m*2 11/18/2023 12:56 PM EDT [facility] Comment:Reported eGFRcr in m L/min/1.73m2 is based the CKD-EPI 2020 equation that does not use a race coefficient. Blood Venous blood specimen / Unknown Venipuncture / Unknown 11/18/2023 11:52 AM EDT 11/18/2023 12:05 PM EDT us Nury De Santiago MD LAB BLOOD ORDERABLES Final Resul t [facility] [address] [place] [address] * (ABNORMAL) CBC and differential (11/18/2023 11:52 AM EDT) WBC Count 6.11 3.70 - 10.30 10*3/uL LAB HEMATOLOGY METHOD 11/18/2023 12:55 PM EDT [facility] RBC Count 3.88(L) 3.90 - 5.20 10*6/uL LAB HEMATOLOGY METHOD 11/18/2023 12:55 PM EDT [facility] HGB 12.9 11.2 - 15.7 g/dL LAB HEMATOLOGY METHOD 11/18/2023 12:55 PM EDT [facility] HCT 39.4 34.0 - 45.0 % LAB HEMATOLOGY METHOD 11/18/2023 12:55 PM EDT [facility] Platelet Count 191 155 - 369 10*3/uL LAB HEMATOLOGY METHOD 11/18/2023 12:55 PM EDT [facility] MCV 102(H) 79 - 98 fL LAB HEMATOLOGY METHOD 11/18/2023 12:55 PM EDT [facility] MCH 33.2(H) 26.0 - 32.0 pg LAB HEMATOLOGY METHOD 11/18/2023 12:55 PM EDT [facility] MCHC 32.7 30.7 - 35.5 g/dL LAB HEMATOLOGY METHOD 11/18/2023 12:55 PM EDT [facility] RDW 13.0 11.5 - 14.5 % LAB HEMATOLOGY METHOD 11/18/2023 12:55 PM EDT [facility] MPV 10.1 8.8 - 12.5 fL LAB HEMATOLOGY METHOD 11/18/2023 12:55 PM EDT [facility] nRBC 0.0 <=0.0 per 100 WBCs LAB HEMATOLOGY METHOD 11/18/2023 12:55 PM EDT [facility] Differential Type Automated LAB HEMATOLOGY METHOD 11/18/2023 12:55 PM EDT [facility] Neutrophils % 43.0 % LAB HEMATOLOGY METHOD 11/18/2023 12:55 PM EDT [facility] Lymphocytes % 42.0 % LAB HEMATOLOGY METHOD 11/18/2023 12:55 PM EDT [facility] Monocytes % 12.0 % LAB HEMATOLOGY METHOD 11/18/2023 12:55 PM EDT [facility] Eosinophils % 1.0 % LAB HEMATOLOGY METHOD 11/18/2023 12:55 PM EDT [facility] Basophils % 1.0 % LAB HEMATOLOGY METHOD 11/18/2023 12:55 PM EDT [facility] Immature Granulocytes % 1.0 % LAB HEMATOLOGY METHOD 11/18/2023 12:55 PM EDT [facility] Neutrophils Absolute 2.68 1.60 - 6.10 10*3/uL LAB HEMATOLOGY METHOD 11/18/2023 12:55 PM EDT [facility] Lymphocytes Absolute 2.57 1.20 - 3.90 10*3/uL LAB HEMATOLOGY METHOD 11/18/2023 12:55 PM EDT [facility] Monocytes Absolute 0.71 0.30 - 0.90 10*3/uL LAB HEMATOLOGY METHOD 11/18/2023 12:55 PM EDT [facility] Eosinophils Absolute 0.08 0.00 - 0.50 10*3/uL LAB HEMATOLOGY METHOD 11/18/2023 12:55 PM EDT [facility] Basophils Absolute 0.03 0.00 - 0.10 10*3/uL LAB HEMATOLOGY METHOD 11/18/2023 12:55 PM EDT [facility] Immature Granulocytes Absolute 0.04 0.00 - 0.06 10*3/uL LAB HEMATOLOGY METHOD 11/18/2023 12:55 PM EDT [facility] Blood Venous blood specimen / Unknown Venipuncture / Unknown 11/18/2023 11:52 AM EDT 11/18/2023 12:46 PM EDT Narrative [facility] - 11/18/2023 12:55 PM EDT Therapeutic decision making should be based on absolute values, rather than percentages. us Nury De Santiago MD LAB BLOOD ORDERABLES Final Resul t [facility] [address] [place] [address] * ECG Adult (11/18/2023 11:23 AM EDT) EKG DIAGNOSIS CLASS Abnormal MUSE ECG Ventricular Rate 77 BPM MUSE ECG Atrial Rate 77 BPM MUSE ECG NM Interval 128 ms MUSE ECG QRSD Interval 60 ms MUSE ECG QT Interval 382 ms MUSE ECG QTC Interval 432 ms MUSE ECG P Holmdel 44 degrees MUSE ECG R [place] 4 degrees MUSE ECG T Wave Hol[place]el 71 degrees MUSE ECG Diagnosis Normal sinus rhythm MUSE ECG Diagnosis Low voltage QRS MUSE ECG Diagnosis Nonspecific ST abnormality MUSE ECG Diagnosis Confirmed by Jak Cason ([id number]) on 11/19/2023 12:43:16 AM MUSE ECG 11/18/2023 11:2 3 AM EDT 11/19/2023 12:43 AM EDT us Nury De Santiago MD ECG ORDERABLES Final Result MUSE ECG documented in this encounter Visit Diagnoses Diagnosis Spells of decreased attentiveness Cognitive dysfunction Unspecified persistent mental disorders due to conditions classified elsewhere Parkinsonism, unspecified (CMS/HCC) documented in this encounter Admitting Diagnoses Diagnosis Seizure (CMS/HCC) Other convulsions documented in this encounter Administered Medications Inactive Administered Medications - up to 3 most recent administrations Medication Order MAR Action Action Date Dose Rate Site acetaminophen (Tylenol) tablet 650 mg 650 mg, Oral, Every 6 hours PRN, Starting on Tue11/18/23 at 0839, Until 11/19/23 at 1431, Routine, pain, fever as defined by service Given 11/18/2023 3:03 PM EDT 650 mg baclofen (Lioresal) tablet 40 mg 40 mg, Oral, Nightly, First dose on Tue11/18/23 at 2100, Until Discontinued, Routine Given 11/18/2023 9:20 PM EDT 40 mg carbidopa-levodopa (Sinemet) 25-100 MG per tablet 1.5 tablet 1.5 tablet, Oral, Once, 1 dose, On Tue11/18/23 at 1445, STAT Given 11/18/2023 3:03 PM EDT 1.5 tablets carbidopa-levodopa (Sinemet) 25-100 MG per tablet 1.5 tablet 1.5 tablet, Oral, 4 times daily, First dose on Tue11/18/23 at 1800, Until Discontinued, Routine Given 11/19/2023 8:31 AM EDT 1.5 tablets Given 11/18/2023 10:14 PM EDT 1.5 tablets Given 11/18/2023 6:55 PM EDT 1.5 tablets clonazePAM (KlonoPIN) tablet 0.5 mg 0.5 mg, Oral, Nightly, First dose on Tue11/18/23 at 2100, Until Discontinued, Routine Given 11/18/2023 9:18 PM EDT 0.5 mg furosemide (Lasix) tablet 20 mg 20 mg, Oral, Daily, First dose on Tue11/18/23 at 1530, Until Discontinued, Routine Given 11/19/2023 8:31 AM EDT 20 mg Given 11/18/2023 4:29 PM EDT 20 mg levETIRAcetam (Keppra) tablet 1,000 mg 1,000 mg, Oral, 2 times daily, First dose on Tue11/18/23 at 1145, Until Discontinued, Routine Given 11/19/2023 8:31 AM EDT 1,000 mg Given 11/18/2023 9:19 PM EDT 1,000 mg Given 11/18/2023 12:01 PM EDT 1,000 mg levothyroxine (Synthroid, Levoxyl) tablet 100 mcg 100 mcg, Oral, Every morning, First dose on Tue11/19/23 at 0600, Until Discontinued, Routine Given 11/19/2023 6:12 AM EDT 100 mcg lisinopril tablet 5 mg 5 mg, Oral, Daily, First dose on Tue11/18/23 at 1530, Until Discontinued, Routine Given 11/19/2023 8:31 AM EDT 5 mg Given 11/18/2023 4:29 PM EDT 5 mg LORazepam (Ativan) injection 2 mg 2 mg, Intravenous, Every 5 min PRN, 2 doses, Starting on Tue11/18/23 at 0839, Until Tue11/19/23 at 1431, Routine, for seizures greater than 3 minutes, up to 2 doses (4 mg) mometasone-formoterol (Dulera 100) 100-5 MCG/ACT inhaler 2 puff 2 puff, Inhalation, 2 times daily, First dose on Tue11/18/23 at 1445, Until Discontinued, Routine Given 11/19/2023 10:15 AM EDT 2 puffs Given 11/18/2023 9:29 PM EDT 2 puffs Given 11/18/2023 5:41 PM EDT 2 puffs montelukast (Singulair) tablet 10 mg 10 mg, Oral, Nightly, First dose on Tue11/18/23 at 2100, Until Discontinued, Routine Given 11/18/2023 9:18 PM EDT 10 mg pantoprazole (Protonix) EC tablet 40 mg 40 mg, Oral, Daily, First dose on Tue11/18/23 at 1445, Until Discontinued, Routine Given 11/19/2023 8:31 AM EDT 40 mg Given 11/18/2023 3:04 PM EDT 40 mg rOPINIRole XL (Requip XL) 24 hr tablet 2 mg 2 mg, Oral, Nightly, First dose on Tue11/18/23 at 2100, Until Discontinued, RoutineIndications:Parkinson's Disease Given 11/18/2023 9:20 PM EDT 2 mg sodium chloride 0.9 % flush 10 mL 10 mL, Intravenous, Every 12 hours, First dose on Tue11/18/23 at 0900, Until Discontinued, Routine Given 11/19/2023 8:39 AM EDT 10 mL Given 11/18/2023 9:28 PM EDT 10 mL Given 11/18/2023 11:59 AM EDT 10 mL sodium chloride 0.9 % flush 10 mL 10 mL, Intravenous, As needed, Starting on Tue11/18/23 at 0839, Until Tue11/19/23 at 1431, Routine, line care spironolactone (Aldactone) tablet 25 mg 25 mg, Oral, Daily, First dose (after last reorder) on Tue11/18/23 at 1530, Until Discontinued, Routine Given 11/19/2023 8:31 AM EDT 25 mg Given 11/18/2023 4:28 PM EDT 25 mg triamcinolone (Nasacort) nasal inhaler 2 spray 2 spray, Each Nostril, Daily, First dose on Tue11/18/23 at 1415, Until Discontinued, Routine Given 11/19/2023 10:15 AM EDT 2 sprays Given 11/18/2023 2:05 PM EDT 2 sprays documented in this encounter Active and Recently Administered Medications Times are shown in EDT. Scheduled Medication Order 11/17/2023 11/18/2023 11/19/2023 baclofen (Lioresal) tablet 40 mg 40 mg, Oral, Nightly, First dose on Tue11/18/23 at 2100, Until Discontinued, Routine 2119 (Given - Provider: Lencho Baptiste) carbidopa-levodopa (Sinemet) 25-100 MG per tablet 1.5 tablet (COMPLETED) 1.5 tablet, Oral, Once, 1 dose, On Tue11/18/23 at 1445, STAT 1503 (Given - Provider: Chicho Luu RN) carbidopa-levodopa (Sinemet) 25-100 MG per tablet 1.5 tablet 1.5 tablet, Oral, 4 times daily, First dose on Tue11/18/23 at 1800, Until Discontinued, Routine 1855 (Given - Provider: Chicho Luu RN)2214 (Given - Provider: Lencho Baptiste) 0831 (Given - Provider: Therese Ceja RN)1400 (Canceled Entry - Provider: Automatic Discharge Provider - Comment: Automatically canceled at discontinue of medication order) clonazePAM (KlonoPIN) tablet 0.5 mg 0.5 mg, Oral, Nightly, First dose on Tue11/18/23 at 2100, Until Discontinued, Routine 2117 (Given - Provider: Lencho Baptiste) furosemide (Lasix) tablet 20 mg 20 mg, Oral, Daily, First dose on Tue11/18/23 at 1530, Until Discontinued, Routine 162 (Given - Provider: Cosmo James) 0831 (Given - Provider: Therese Ceja RN) levETIRAcetam (Keppra) tablet 1,000 mg 1,000 mg, Oral, 2 times daily, First dose on Tue11/18/23 at 1145, Until Discontinued, Routine 1201 (Given - Provider: Cosmo James)211 (Given - Provider: Lencho Baptiste) 0831 (Given - Provider: Therese Ceja RN) levothyroxine (Synthroid, Levoxyl) tablet 100 mcg 100 mcg, Oral, Every morning, First dose on Tue11/19/23 at 0600, Until Discontinued, Routine 0612 (Given - Provid er: Lencho Baptiste) lisinopril tablet 5 mg 5 mg, Oral, Daily, First dose on Tue11/18/23 at 1530, Until Discontinued, Routine 1629 (Given - Provider: Cosmo James) 0831 (Given - Provider: Therese Ceja RN) mometasone-formoterol (Dulera 100) 100-5 MCG/ACT inhaler 2 puff 2 puff, Inhalation, 2 times daily, First dose on Tue11/18/23 at 1445, Until Discontinued, Routine 1741 (Given - Provider: Chicho Luu RN)2129 (Given - Provider: Lencho Baptiste) 1015 (Given - Provider: Tehrese Ceja RN) montelukast (Singulair) tablet 10 mg 10 mg, Oral, Nightly, First dose on Tue11/18/23 at 2100, Until Discontinued, Routine 2118 (Given - Provider: Lencho Baptiste) pantoprazole (Protonix) EC tablet 40 mg 40 mg, Oral, Daily, First dose on Tue11/18/23 at 1445, Until Discontinued, Routine 1504 (Given - Provider: Chicho Luu RN) 0831 (Given - Provider: Therese Ceja RN) rOPINIRole XL (Requip XL) 24 hr tablet 2 mg 2 mg, Oral, Nightly, First dose on Tue11/18/23 at 2100, Until Discontinued, Routine 2120 (Given - Provider: Lencho Baptiste) sodium chloride 0.9 % flush 10 mL(Linked Group 1) 10 mL, Intravenous, Every 12 hours, First dose on Tue11/18/23 at 0900, Until Discontinued, Routine 1159 (Given - Provider: Cosmo James)2128 (Given - Provider: Lencho Baptiste) 0839 (Given - Provider: Therese Ceja RN) spironolactone (Aldactone) tablet 25 mg 25 mg, Oral, Daily, First dose (after last reorder) on Tue11/18/23 at 1530, Until Discontinued, Routine 1628 (Given - Provider: Cosmo James) 0831 (Given - Provider: Therese Ceja RN) triamcinolone (Nasacort) nasal inhaler 2 spray 2 spray, Each Nostril, Daily, First dose on Tue11/18/23 at 1415, Until Discontinued, Routine 1405 (Given - Provider: Chicho Luu RN) 1015 (Given - Provider: Therese Ceja RN) PRN Medication Order 11/17/2023 11/18/2023 11/19/2023 acetaminophen (Tylenol) tablet 650 mg 650 mg, Oral, Every 6 hours PRN, Starting on Tue11/18/23 at 0839, Until 11/19/23 at 1431, Routine, pain, fever as defined by service 1503 (Given - Provider: Suleman Luu RN) LORazepam (Ativan) injection 2 mg 2 mg, Intravenous, Every 5 min PRN, 2 doses, Starting on Tue11/18/23 at 0839, Until 11/19/23 at 1431, Routine, for seizures greater than 3 minutes, up to 2 doses (4 mg) sodium chloride 0.9 % flush 10 mL(Linked Group 1) 10 mL, Intravenous, As needed, Starting on Tue11/18/23 at 0839, Until 11/19/23 at 1431, Routine, line care Linked Groups Order Group 1: Insert peripheral IV (CANCELED) Once, On Tue11/18/23 at 0840, For 1 occurrence And Saline lock IV (CANCELED) Once, On Tue11/18/23 at 0840, For 1 occurrence, May saline lock IV 45 minutes for activity or procedure. And sodium chloride 0.9 % flush 10 mLJump to med 10 mL, Intravenous, Every 12 hours, First dose on Tue11/18/23 at 0900, Until Discontinued, Routine And sodium chloride 0.9 % flush 10 mLJump to med 10 mL, Intravenous, As needed, Starting on Tue11/18/23 at 0839, Until 11/19/23 at 1431, Routine, line care documented in this encounter Additional Health Concerns Assessment Noted Time A fall risk assessment has been complete d for the patient 11/10/2023 12:56 PM EDT A Body Mass Index follow-up plan has been documented for the patient 11/19/2023 11:43 AM EDT documented as of this encounter Care Teams Turbine Blade Assembler Relationship Specialty Start Date End Date Jamie Berman MD [address] [place] [address] PCP - General Internal Medicine 06/08/22 documented as of this encounter
--- OUTSIDE RECORDS SUMMARY | 2024-07-09 09:30 | XMS_ITS | Encounter Summary ---
Author Organization [facility] Address [address] [id number] Care Team Providers Care Temple Marker Name Role Phone Jamie Berman MD Primary Care Provider + [phone] Encounter Details Date Type Department Care Team (Late st Contact Info) Description 10/27/2023 Orders Only [facility] [address] [place] [address] Mian Boland MD [address] [facility] [address] [place] [address] Social History Tobacco Use Types Packs/Day Years Used Date Smoking Tobacco: Former Cigarettes Smokeless Tobacco: Never Alcohol Use Standard Drinks/Week [...] Description 07/23/2024 9:00 AM EST Office Visit [facility] [address], [address] [place] [address] Buster Gannon MD [address] [facility] [address] [place] [id number] 09/18/2024 12:30 PM EST [facility] [place] [facility] [address] [place] [phone] Nery August APRN [address] [place] [address] documented as of this encounter Visit Diagnoses Not on filedocumented in this encounter Additional Health Concerns Assessment Noted Time A fall risk assessment has been complete d for the patient 10/26/2023 10:08 AM EST A Body Mass Index follow-up plan has been documented for the patient 10/27/2023 9:53 AM EST documented as of this encounter Care Teams Temple Marker Relationship Specialty Start Date End Date Jamie Berman MD [facility] [place] [address] PCP - General Internal Medicine 06/08/22 documented as of this encounter
--- OUTSIDE RECORDS SUMMARY | 2024-07-09 09:30 | XMS_ITS | Encounter Summary ---
Author Organization [facility] Address [address] [place] [address] Care Team Providers Care Water Filterer Name Role Phone Jamie Berman MD Primary Care Provider + [phone] Encounter Details Date Type Department Care Team (Late st Contact Info) Description 03/25/2023 Orders Only [facility] [place] [facility] [address] [place] [address] Deborah Daigle PA [address] [place] [address] Social History Tobacco Use Types [...] Encounters Date Type Department Care Team (Late Contact Info) Description 07/23/2024 9:00 AM EST Office Visit [facility] [address] [place] [address] Buster Gannon MD [address] [facility] [address] [place] [address] 09/18/2024 12:30 PM EST [facility] [place] [facility] [address] [place] [address] Nery August, BUILDING CONSTRUCTION ENGINEER [address] [place] [address] documented as of this encounter Visit Diagnoses Not on filedocumented in this encounter Additional Health Concerns Assessment Noted Time A fall risk assessment has been complete d for the patient 03/08/2023 10:40 AM EDT A Body Mass Index follow-up plan has been documented for the patient 03/11/2023 2:25 PM EDT documented as of this encounter Care Teams Water Filterer Relationship Specialty Start Date End Date Jamie Berman MD [address] [place] [address] PCP - General Internal Medicine 06/08/22 documented as of this encounter
--- OUTSIDE RECORDS SUMMARY | 2024-07-09 09:30 | XMS_ITS | Encounter Summary ---
Author Organization [facility] Address [address] [place] [address] Care Team Providers Care Metal Spray Operator Name Role Phone Jamie Berman MD Primary Care Provider + [phone] Reason for Visit * Reason Onset Date Comments HCN - Patient Message 01/06/2023 SCHEDULE Encounter Details Date Type Department Care Team (Late st Contact Info) Description 01/06/2023 Telephone [facility] [place] [facility] [address] [place] [address] Stephen Tomas MD [address] [facility] [address] [place] [address] HCN - Patient Message (SCHEDULE ) Social History Tobacco Use Types Packs/Day Years Used Date Smoking Tobacco: Former Cigarettes Smokeless Tobacco: Never Comments No Sex and Gender Information Value Date Recorded Sex Assigned at Not on file Legal Sex Female 7:52 PM EDT Gender Identity Not on file Sexual Orientation Not on file documented as of this encounter Miscellaneous Notes * Telephone Encounter - Susy Muhammad - 01/06/2023 1:52 PM EDT Patient Phone Message Reason for Call: Daughter would like to schedule a follow up with cydney or his PA, please advise Best contact number and optimal time of day to reach caller: [phone] Note: Please do not reply to this [...] Visit [facility] [address] [place] [address] Buster Gannon MD [address] [place] [address] 09/18/2024 12:30 PM EST [facility] [place] [facility] [address] [place] [phone] Nery August APRN [address] [place] [address] documented as of this encounter Visit Diagnoses Not on filedocumented in this encounter Care Teams Metal Spray Operator Relationship Specialty Start Date End Date Jamie Berman MD [address] [place] [address] PCP - General Internal Medicine 06/08/22 documented as of this encounter
--- OUTSIDE RECORDS SUMMARY | 2024-07-09 09:30 | XMS_ITS | Encounter Summary ---
Author Organization [facility] Address [address] [place] [address] Care Team Providers Care Glassware Selector Name Role Phone Jamie Berman MD Primary Care Provider + [phone] Reason for Referral * Imaging (Routine) - Closed Specialty Diagnoses / Procedures Referred By Cristin forrester Referred To Contact Radiology Diagnoses Memory loss Procedures MR Head wo IV Contrast Deborah Daigle PA [address] [address] Phone: tel: fax: Referral ID Status Reason Start Date Expiration Date Visits Re quested Visits Authorized [id number] Closed 03/08/2023 09/06/2024 1 1 Reason for Visit * Imaging (Routine) - Closed Specialty Diagnoses / Procedures Referred By Cristin forrester Referred To Contact Radiology Diagnoses Memory loss Procedures MR Head wo IV Contrast Deborah Daigle PA [address] [facility] [address] [place] [address] Phone: tel: fax: Referral ID Status Reason Start Date Expiration Date Visits Re quested Visits Authorized [id number] Closed 03/08/2023 09/06/2024 1 1 Encounter Details Date Type Department Care Team (Latest Contact Info) Description 03/24/2023 8:30 AM EDT - 03/24/2023 11:59 PM EDT Hospital Encounter [facility] MRI [address] [place] [id number] Memory loss Discharge Disposition: Home or Self Care Social [...] (40 mg) by mouth every night. 11/25/2022 fluticasone-salm eterol (Advair Diskus) 100-50 MCG/ACT diskus [...] mouth 1 (one) time each day. 11/25/2022 pantoprazole (Protonix) 40 MG EC tablet Take 1 tablet (40 mg) by mouth 1 (one) time each day. 02/21/2023 rOPINIRole XL (Requip XL) 2 MG 24 hr tablet Take 1 tablet (2 mg) by mouth every night. 12/08/2022 carbidopa-levodo pa (Sinemet) 25-250 MG tablet Take 1 tablet by mouth 3 (three) times a day. 02/21/2023 clonazePAM (KlonoPIN) 0.5 MG tablet Take 1 tablet (0.5 mg) by mouth every night. 3-4 times every night as directed 02/23/2023 4 divalproex (Depakote) [address] tablet Take 1 tablet (500 mg) by mouth 3 (three) times a day. 01/03/2023 4 levETIRAcetam (Keppra) 500 MG tablet Take 1 tablet (500 mg) by mouth 2 (two) times a day. 01/15/2023 4 documented as of this encounter Plan of Treatment Upcoming Encounters Date Type Department Care Team (Late st Contact Info) Description 07/23/2024 9:00 AM EST [facility] Visit [facility] [address] [place] [address] Buster Gannon MD [address] [place] [address] 09/18/2024 12:30 PM EST Office Visit [facility] [address] [place] [address] Nery August APRN [address] [place] [address] documented as of this encounter Procedures Procedure Name Priority Date/Time Associated Diagnosis Comments MR HEAD WO IV CONTRAST Routine 03/24/2023 9:06 AM EDT Memory loss documented in this encounter Results * MR Head wo IV Contrast (03/24/2023 9:06 AM EDT) Anatomical Region Laterality Modality Head Magnetic Resonan ce Impressions 03/24/2023 3:00 PM EDT Interval increase in generalized overall mild brain parenchymal volume loss in comparison to the previous MRI from 2020. 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 Minimal signal abnormality in the white matter probably chronic small vessel ischemic changes. CRITICAL RESULT: No. COMMUNICATION: Per this written report. By electronically signing this report, I, the attending physician, attest that I have personally reviewed the images/data for the above examination(s) and agree with the final edited report. Drafted by Mckay Rivas M.D. on 03/24/2023 11:12 AM Final report signed by Josue Garcia MD on 03/24/2023 3:00 PM Narrative 03/24/2023 3:00 PM EDT CLINICAL INDICATION: Memory loss TECHNIQUE: Multiplanar multiecho sequences were performed through the brain utilizing T1 and T2 weighting, as well as either axial susceptibility weighted or gradient echo sequences, and axial diffusion weighted images. Imaging was performed without contrast administration. COMPARISON: MRI with and without contrast 09/12/2020 FINDINGS: Diagnostic Quality: Motion Degraded. Also comparison with the prior is somewhat suboptimal due to lack of IV contrast. In comparison to the previous examination, there has been diffuse interval increase in cerebral volume loss with enlargement of sulci throughout the cerebral hemispheres and mild enlargement of the ventricular system. The basilar cisterns remain patent. Minimal T2/FLAIR hyperintensity again present in the cerebral white, likely represent sequela of chronic small vessel ischemia. Previously identified focal areas of enhancement and susceptibility artifact in the right cingulate gyrus, anterior medial right frontal lobe, peripheral right frontal lobe, left cerebral hemisphere, and in the left posterior sylvian region are again visualized on the susceptibility weighted images on the current examination. However complete characterization is limited secondary to motion artifact and lack of IV contrast. There are no new focal parenchymal lesions or masses. There are no foci of abnormal parenchymal restricted diffusion. Evaluation for susceptibility artifact is limited in the setting of patient motion, however no definite new abnormal parenchymal susceptibility artifact is noted. Vascular Flow Voids: Normal. Paranasal Sinuses and Mastoid Air Cells: Grossly clear. Orbits: No definite masses within the limitations of the study. Extracranial Findings: None. Craniocervical Junction and Skull Base: No tonsillar ectopia or mass is present. Procedure Note Josue Garcia MD - 03/24/2023 CLINICAL INDICATION: Memory loss TECHNIQUE: Multiplanar multiecho sequences were performed through the brain utilizingT1 and T2 weighting, as well as either axial susceptibility weighted orgradient echo sequences, and axial diffusion weighted images. Imaging wasperformed without contrast administration. COMPARISON: MRI with and without contrast 09/12/2020 FINDINGS: Diagnostic Quality: Motion Degraded. Also comparison with the prior issomewhat suboptimal due to lack of IV contrast. In comparison to the previous examination, there has been diffuse intervalincrease in cerebral volume loss with enlargement of sulci throughout thecerebral hemispheres and mild enlargement of the ventricular system. Thebasilar cisterns remain patent. Minimal T2/FLAIR hyperintensity again present in the cerebral white,likely represent sequela of chronic small vessel ischemia. Previously identified focal areas of enhancement and susceptibilityartifact in the right cingulate gyrus, anterior medial right frontal lobe,peripheral right frontal lobe, left cerebral hemisphere, and in the leftposterior sylvian region are again visualized on the susceptibilityweighted images on the current examination. However completecharacterization is limited secondary to motion artifact and lack of IVcontrast. There are no new focal parenchymal lesions or masses. There are no foci ofabnormal parenchymal restricted diffusion. Evaluation for susceptibility artifact is limited in the setting ofpatient motion, however no definite new abnormal parenchymalsusceptibility artifact is noted. Vascular Flow Voids: Normal. Paranasal Sinuses and Mastoid Air Cells: Grossly clear. Orbits: No definite masses within the limitations of the study. Extracranial Findings: None. Craniocervical Junction and Skull Base: No tonsillar ectopia or mass ispresent. IMPRESSION: Interval increase in generalized overall mild brain parenchymal volumeloss in comparison to the previous MRI from 2020. Previously described small foci of enhancement with susceptibilityartifact felt to represent capillary telangiectasia/small developmentalvenous anomalies are again present on the susceptibility weighted imageson the current examination, however adequate characterization andcomparison is limited given lack of contrast and motion relatedartifact. Minimal signal abnormality in the white matter probably chronic smallvessel ischemic changes. CRITICAL RESULT: No. COMMUNICATION: Per this written report. By electronically signing this report, I, the attending physician, attestthat I have personally reviewed the images/data for the aboveexamination(s) and agree with the final edited report. Drafted by Mckay Rivas M.D. on 03/24/2023 11:12 AM Final report signed by Josue Garcia MD on 03/24/2023 3:00 PM us Deborah GILL IMG MRI PROCEDURES Final Resu lt documented in this encounter Visit Diagnoses Diagnosis Memory loss documented in this encounter Additional Health Concerns Assessment Noted Time A fall risk assessment has been complete d for the patient 03/08/2023 10:40 AM EDT A Body Mass Index follow-up plan has been documented for the patient 03/11/2023 2:25 PM EDT documented as of this encounter Care Teams Glassware Selector Relationship Specialty Start Date End Date Jamie Berman MD [address] [place] [id number] PCP - General Internal Medicine 06/08/22 documented as of this encounter
--- OUTSIDE RECORDS SUMMARY | 2024-07-09 09:30 | XMS_ITS | Encounter Summary ---
Author Organization [facility] Address [address] [place] [address] Care Team Providers Care Furnace Utility Operator Name Role Phone Jamie Berman MD Primary Care Provider + [phone] Reason for Referral * Consultation (Routine) - Authorized Specialty Diagnoses / Procedures Referred By Cristin forrester Referred To Contact Neurology Diagnoses Seizures (CMS/HCC) Buster Gannon MD [address] [address] Phone: tel: fax: [place] [facility] [address] [place] [address] Phone: tel: fax: Referral ID Status Reason Start Date Expiration Date Visits Requested Visits Authorized [id number] Authorized Specialty Services Required 10/26/2023 04/26/2025 [address] Doe Marie, epileptologist. Episodes of zoning out. Patient with a current differential of Depakote induced parkinsonism versus lewy body dementia * Other Medical (Routine) - Pending Review Specialty Diagnoses / Procedures Referred By Cristin forrester Referred To Contact Neurology Diagnoses Seizures (CMS/HCC) Procedures EEG Continuous Monitoring Buster Gannon MD [address] [address] Phone: tel: fax: Referral ID Status Reason Start Date Expiration Date Visits Requested Visits Authorized [id number] Pending Review Specialty Services Required 10/26/2023 04/26/2025 1 1 * Imaging (Routine) - Denied Specialty Diagnoses / Procedures Referred By Cristin forrester Referred To Contact Radiology Diagnoses Balance problems Parkinsonism, unspecified Parkinsonism type (CMS/HCC) Procedures PET/CT FDG Brain Buster Gannon MD [address] [address] Phone: tel: fax: Referral ID Status Reason Start Date Expiration Date Visits Re quested Visits Authorized [id number] Denied 10/26/2023 04/26/2025 2 0 Reason for Visit * Consultation (Routine) - Closed Specialty Diagnoses / Procedures Referred By Cristin forrester Referred To Contact Neurology Diagnoses Balance problems Deborah Daigle PA [address] [address] Phone: tel: fax: Referral ID Status Reason Start Date Expiration Date V isits Requested Visits Authorized [id number] Closed Specialty Services Required 03/11/2023 09/09/2024 1 1 Encounter Details Date Type Department Care Team (Late st Contact Info) Description 10/26/2023 10:00 AM EST Consult [place] [facility] [address] [place] [address] Buster Gannon MD [address] [address] Parkinsonism, unspecified Parkinsonism type (Primary Dx); Balance problems; Parkinson's disease, unspecified whether dyskinesia present, unspecified whether manifestations fluctuate (CMS/HCC); Seizures (CMS/HCC) Social History Tobacco Use Types Packs/Day [...] Sign Reading Time Taken Comments Blood Pressure 123/76 10/26/2023 10:08 AM EST Pulse 73 10/26/2023 10:08 AM EST Temperature - - Respiratory Rate - - Oxygen Saturation 95% 10/26/2023 10:08 AM EST Inhaled Oxygen Concentration - - Weight 71.7 kg (158 lb) 10/26/2023 10:08 AM EST Height - - Body Mass Index 29.85 03/08/2023 10:31 AM EDT documented in this encounter Miscellaneous Notes * Progress Notes - Mian Boland MD - 10/26/2023 10:00 AM EST [facility] Date: 10/25/2022 Consultation requested by: Deborah Daigle PA [address] [address] History of Present Illness Quiana Lombardi ([id number]) is a delightful 73 y.o. year old right handed woman referredto the [facility] by Deborah GILL for consultation regarding parkinsonism. Ms. Lombardi was evaluated in the memory clinic in 02/2023. STMS was 29. She was diagnosed withMCI in the setting of parkinsonism. Today, she presents with her daughter and son-in-law, who help provide history. She has a complicated timeline: - 2019: She developed an episode of delirium requiring hospitalization. EEG at the time showed transient sharp waves over the central parietal region. Family notes that she was started on Keppra for about one month, then this was discontinued. The delirium was ultimately thought to be due to an unintentional overdose of Halcion (a benzodiazepine) - 2020: Repeat EEG showed no epileptiform activity. - Early 2021: She developed imbalance and a mild tremor. Family does not think this was resting butmore of a tremulousness when reaching for objects. - December 2021: She began to develop staring episodes. She will zone out with eyes open and unblinking for 30 seconds to 3 minutes. She will not respond during that time. There is no clonic activity. She will then become responsive; she will not remember the episode but will be tired and will sleep for several hours. These could occur at any time of day wihtout known triggers. She stopped driving at that time. She was diagnosed with focal seizures and started on Keppra, but the events continued, so valproate was added. Currently, she will still have the episodes but they are very rare--occurring only once or twice in a few months period (though the actual amount is unknown as she does not notice when she has them). EEG was not repeated and has never captured an episode. - June 2022: She went on vacation to [facility]. During the trip, she developed a severe URI. She was also confused, making poor decisions and demonstrating poor judgement. She was noted to have shuffling gait. She developed leg swelling. - Between August and October 2022, she had a rapid decline . Her tremor worsened and developed a resting component. She started falling more frequently and became hoarse. - In November 2022, her PCP diagnosed her with parkinson's disease. She was started on C/L with questionable improvement. C/L has steadily increased over time. - In March 2023, she started using a walker. She started needing caretakers to come stay with her during the day, 6 days a week. Her daughter sorts her medications, and she is not supposed to cook on her own, due to poor judgement and forgetfulness. She does handle her own finances, but has made several poor choices and daughter now watches these, as well. Daughter was made POA. She has struggled with insomnia for 20+ years. She denies dream enactment behavior, anosmia, and orthostasis. She has constipation (years) and urinary urge incontinence x 1 year. She does not have visual hallucinations, but does seem to have olfactory hallucinations and possible auditory hallucinations. In looking back, family thinks her memory symptoms likely started in 2019 and then became more noticeable in 2021. She is forgetful and, as noted previous, has poor judgement. Family also believes her imbalance and falling started 2 years ago. This has improved with the rollator. Currently, she is on C/L 50/250 one tab four times daily. She has been on this dose for at least 6 months. She is also on ropinirole 2mg at night for RLS. She also has leg cramping and toe cramping (R > L leg). PMH: HTN, RLS, hypothyroidism Medications: Ropinirile, pantoprazole, lisinopril, levothyrxine, keppra, valpraoate, klonopin, C/L, baclofen Family History: No parkinson, tremor, or dementia. Mother lived to her late 70s. Her father lived to his 80s but passed from heart disease. 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 In 2019, she had negatve/normal B1, heavy metal screen, folate, TPO, B12, TSH, gliadin, RPR, SSA, SSB, paraneoplastic antibody panel, NMDA. Physical Examination: HEENT: NC/AT. No conjunctival injection or scleral icterus. Cardiac: Extremities warm and well perfused. Not tachycardic. Pulm: Unlabored respirations on room air GI: Abdomen soft and not distended. Musculoskeletal: Normal range of motion. No tenderness. Skin: No rashes on exposed skin. Mental Status: Alert, interactive. Cannot copy a cube. Clock shows poor planning for number placement and hands are pointing to the wrong numbers Cranial Nerves: EOMI, fast saccades. No facial droop or tongue deviation. Motor: Strength intact throughout. Rigidity in R > L upper limb, no axial rigidity. Movement: R hand resting tremor. Bilateral postural/kinetic tremor. Bradykinesia in R > L upper limb and lower limb (greater in lowers) Reflex: Intact and symmetric at patella, biceps. Coordination: Finger nose without ataxia but with kinetic tremor Gait: Requires use of arms to stand. Moderately wide based gait. Shuffling short steps with reducedarm swing bilaterally. Pull test positive (falls into examiner). Impression: Ms. Quiana Lombardi is a 73 yo woman who presents with two years of progressive cognitive decline, balance/gait disturbance, and tremor. She also has spells of uncertain etiology, treated with valproate and keppra. She currently has parkinsonism and dementia. The tremor and gait appear to have worsened after valproate was started. Her exam demonstrates asymmetric parkinsonism with lowers more affected than uppers. 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 After discussing with our epilepsy colleagues, we are going to taper off of the depakote and increase the keppra. We are also going to order an EMU stay to try to capture these episodes and place a referral for epilepsy. The differential for the episodes are focal seizure but also fluctuating cognition, as can be seen in DLB. Our other differential is Dementia with Lewy Bodies. We will obtain PET to better evaluate for this. Finally, the C/L does not appear to be helping. We will transition to 25/100 tabs and decrease. Plan: - PET brain - EMU stay and epilepsy referral - Week 1: Transition to C/L 25/100 tabs, 1.5 tabs 4 times a day. Monitor for any worsening parkinson symptoms - Week 2: Decrease Depakote to 1/2 tablet three times daily (250mg TID) and increase keppra to 1.5 tabs two times daily (750mg BID). - Week 4: Stop depakote. Increase Keppra to 2 tabs two times daily (1000mg BID). - If at any point, she develops worsening parkinsonism or spells, they were instructed to reach outto us. Backup will be lamotrigine or lamictal. - RTC in 3 months. This patient was staffed with Dr. Gannon. Mian Boland, PGY5 cc: Primary Care Physician: Jamie Berman MD [address] [place] [address] Referring Physician: Deborah Daigle PA [address] [place] [address] Ms. Quiana Lombardi [address] [place] [address] Cosigned by Buster Gannon MD at 10/31/2023 9:05 AM EDT Associated attestation - Buster Gannon MD - 10/31/2023 9:05 AM EDT I saw and evaluated the patient with the resident/fellow. I discussed the case with the resident/fellow and agree with the findings and plan as documented. documented in this encounter Plan of Treatment Upcoming Encounters Date Type Department Care Team (Late st Contact Info) Description 07/23/2024 9:00 AM EST [facility] Visit [facility] [address] [place] [address] Buster Gannon MD [address] [place] [address] 09/18/2024 12:30 PM EST Office Visit [facility] [address] [place] [address] Nery August APRN [address] [place] [address] Scheduled Orders Name Type Priority Associated Diagnoses Orde r Schedule PET/CT FDG Brain Imaging Routine Balance problems Parkinsonism, unspecified Parkinsonism type Expected: 10/26/2023 (Approximate), Expires: 03/27/2025 EEG Continuous Monitoring Neurology Routine Seizures (CMS/HCC) Expected: 10/26/2023 (Approximate), Expires: 10/25/2024 Scheduled Referrals Name Type Priority Associated Diagnoses Order Schedule Ambulatory referral to Neurology Outpatient Referral Routine Seizures (CMS/HCC) Expected: 10/26/2023 (Approximate), Expires: 04/27/2025 documented as of this encounter Visit Diagnoses Diagnosis Parkinsonism, unspecified Parkinsonism type (CMS/HCC)- Primary Balance problems Abnormality of gait Parkinson's disease, unspecified whether dyskinesia present, unspecified whether manifestations fluctuate (CMS/HCC) Seizures (CMS/HCC) Other convulsions documented in this encounter Additional Health Concerns Assessment Noted Time A fall risk assessment has been complete d for the patient 10/26/2023 10:08 AM EST A Body Mass Index follow-up plan has been documented for the patient 10/27/2023 9:53 AM EST documented as of this encounter Care Teams Furnace Utility Operator Relationship Specialty Start Date End Date Jamie Berman MD [address] [place] [address] PCP - General Internal Medicine 06/08/22 documented as of this encounter
--- OUTSIDE RECORDS SUMMARY | 2024-07-09 09:30 | XMS_ITS | Encounter Summary ---
Author Organization [facility] Address [address] [place] [address] Care Team Providers Care Marine Habitat Resource Specialist Name Role Phone Jamie Berman MD Primary Care Provider + [phone] Reason for Visit * Reason Onset Date Comments HCN - Patient Message 03/10/2023 Referrals Encounter Details Date Type Department Care Team (Late st Contact Info) Description 03/10/2023 Telephone [facility] Neuroscience [place] - Memory [address] [place] [address] Deborah Daigle, PA [address] [facility] [address] [place] [address] HCN - Patient Message (Referrals ) Social History Tobacco Use Types Packs/Day [...] encounter Miscellaneous Notes * Telephone Encounter - Martinez Fields RN - 03/29/2023 9:01 AM EDT Spoke with Vicenta at [facility]. Vicenta states that Deborah called and they have everything theyneed. No further action is indicated at this time. * Telephone Encounter - Martinez Fields RN - 03/28/2023 10:04 AM EDT Attempted contact with patient guardian via telephone. Left VM requesting return call. * Telephone Encounter - Betty Jackson - 03/23/2023 2:43 PM EDT Patient Phone Message Reason for Call: Needs more info Best contact number and optimal time of day to reach caller: [phone] Vicenta Note: Please do not reply to this message. Follow-up communication and further actions as a result of this message need to be communicated with the patient directly, if the patient is not active onMyChart. If the patient is active on MyChart, they will receive notification of the communication/outcome via SCRMt. * Telephone Encounter - Martinez Fields RN - 03/23/2023 1:49 PM EDT Spoke with Vicenta ([facility] staff) via telephone. [facility] state that they have not received a referral for this patient. Additionally, they request the most recent clinic note for referral. Faxed the clinic note and the referral to [phone]. * Telephone Encounter - Kerri Anderson - 03/23/2023 1:32 PM EDT Patient Phone Message Reason for Call: Vicenta with [facility] still has not received any Home health orders. Please advise. Best contact number and optimal time of day to reach caller: [phone] Note: Please do not reply to this message. Follow-up communication and further actions as a result of this message need to be communicated with the patient directly, if the patient is not active onMyChart. If the patient is active on MyChart, they will receive notification of the communication/outcome via MyChart. * Telephone Encounter - Summer Telles - 03/11/2023 2:50 PM EDT OLIVER spoke w Pt Dr Cole [phone]. SW reviewed home health orders. And OLIVER would fax to [facility] [place] the order. SW reviewed to contact this creative writer via phone if she has not spoken to the [facility] by Tuesday. Clinical team aware. Will continue to follow. Summer Telles * Telephone Encounter - Esmer Mckinney - 03/10/2023 9:21 AM EDT Patient Phone Message Reason for Call: Daughter is needing helping with placing the home health therapy order to [facility] in [place] Thank you Also, reminder for movement specialist referral Best contact number and optimal time of day to reach caller: Kelsey hastings [phone] Note: Please do not reply to this [...] Description 07/23/2024 9:00 AM EST Office Visit [place] [facility] [address], [address] [place] [address] Buster Gannon MD [address] [place] [address] 09/18/2024 12:30 PM EST [facility] [place] - Memory [address] [place] [address] Nery August APRN [address] [place] [address] documented as of this encounter Visit Diagnoses Not on filedocumented in this encounter Additional Health Concerns Assessment Noted Time A fall risk assessment has been complete d for the patient 03/08/2023 10:40 AM EDT A Body Mass Index follow-up plan has been documented for the patient 03/11/2023 2:25 PM EDT documented as of this encounter Care Teams Marine Habitat Resource Specialist Relationship Specialty Start Date End Date Jamie Berman MD [address] [place] [address] PCP - General Internal Medicine 06/08/22 documented as of this encounter
--- OUTSIDE RECORDS SUMMARY | 2024-07-09 09:30 | XMS_ITS | Encounter Summary ---
Author Organization [facility] Address [address] [id number] Care Team Providers Care Bander Operator Name Role Phone Jamie Berman MD Primary Care Provider + [phone] Reason for Visit * Reason Onset Date Comments HCN - Patient Message 10/31/2023 Encounter Details Date Type Department Care Team (Late st Contact Info) Description 10/31/2023 Telephone [place] [facility] [address], [address] [place] [address] Buster Gannon MD [address] [place] [address] HCN - Patient Message Social [...] drink first t murali in the morning (EYE-DUPLICATION SPECIALIST) to steady your nerves or to get [...] * Telephone Encounter - Balbir Aguila - 11/01/2023 8:11 AM EDT New patient referral to Dr. Marie. * Telephone Encounter - Bacilio Kaiser - 10/31/2023 4:43 PM EDT Patient Phone Message Reason for Call: Calling for update on active referrals. Best contact number and optimal time of day to reach caller: [phone] Note: Please do not reply to this message. Follow-up communication and further actions as a result of this message need to be communicated with the patient directly, if the patient is not active onMyChart. If the patient is active on MyChart, they will receive notification of the communication/outcome via Colingot. documented in this encounter Plan of Treatment Upcoming Encounters Date Type Department Care Team (Late st Contact Info) Description 07/23/2024 9:00 AM EST Office Visit [place] [facility] [address], [address] [place] [address] Buster Gannon MD [address] [place] [address] 09/18/2024 12:30 PM EST [facility] [place] [facility] [address] [place] [address] Nery August APRN [address] [place] [address] documented as of this encounter Visit Diagnoses Not on filedocumented in this encounter Additional Health Concerns Assessment Noted Time A fall risk assessment has been complete d for the patient 10/26/2023 10:08 AM EST A Body Mass Index follow-up plan has been documented for the patient 10/27/2023 9:53 AM EST documented as of this encounter Care Teams Bander Operator Relationship Specialty Start Date End Date Jamie Berman MD [address] [place] [address] PCP - General Internal Medicine 06/08/22 documented as of this encounter
--- OUTSIDE RECORDS SUMMARY | 2024-07-09 09:30 | XMS_ITS | Encounter Summary ---
Author Organization [facility] Address [address] [place] [address] Care Team Providers Care Charge Weigher Name Role Phone Jamie Berman MD Primary Care Provider + [phone] Reason for Visit * Reason Onset Date Comments HCN Paperwork/Documentation Request 09/21/2023 Encounter Details Date Type Department Care Team (Late st Contact Info) Description 09/21/2023 [facility] [place] - Memory [address] [place] [address] Deborah Daigle, PA [address] [facility] [address] [place] [address] HCN Paperwork/Documentati on Request Social [...] encounter Miscellaneous Notes * Telephone Encounter - Manuel Betty - 09/21/2023 12:23 PM EST Patient Phone Message Reason for Call: Faxed PT order dated 05/17/23 Needs a signature to close out and bill Best contact number and optimal time of day to reach caller: [facility] ([facility] is on order ) [phone] Note: Please do not reply to this [...] Description 07/23/2024 9:00 AM EST Office Visit [place] [facility] [address], [address] [place] [address] Buster Gannon MD [address] [place] [address] 09/18/2024 12:30 PM EST Office Visit [facility] [place] - Memory [address] [place] [address] Nery August APRN [address] [place] [address] documented as of this encounter Visit Diagnoses Not on filedocumented in this encounter Additional Health Concerns Assessment Noted Time A fall risk assessment has been complete d for the patient 03/08/2023 10:40 AM EDT A Body Mass Index follow-up plan has been documented for the patient 03/11/2023 2:25 PM EDT documented as of this encounter Care Teams Charge Weigher Relationship Specialty Start Date End Date Jamie Berman MD [address] [place] [address] PCP - General Internal Medicine 06/08/22 documented as of this encounter
--- OUTSIDE RECORDS SUMMARY | 2024-07-09 09:30 | XMS_ITS | Encounter Summary ---
Author Organization Healthcare Address [address] [place] [address] Care Team Providers Care Flat Bed Operator Name Role Phone Jamie Berman MD Primary Care Provider + [phone] Encounter Details Date Type Department Care Team (Latest Contact Info) Description 03/08/2023 Travel Social History Tobacco Use Types Packs/Day [...] Description 07/23/2024 9:00 AM EST Office Visit [place] [facility] [address], [address] [place] [address] Buster Gannon MD [address] [place] [address] 09/18/2024 12:30 PM EST Office Visit [facility] [place] - Memory [address] [place] [address] Nery August, ENTRY LEVEL SALES ASSOCIATE [address] [place] [address] documented as of this encounter Visit Diagnoses Not on filedocumented in this encounter Additional Health Concerns Assessment Noted Time A fall risk assessment has been complete d for the patient 03/08/2023 10:40 AM EDT A Body Mass Index follow-up plan has been documented for the patient 03/11/2023 2:25 PM EDT documented as of this encounter Care Teams Flat Bed Operator Relationship Specialty Start Date End Date Jamie Berman MD [address] [place] [address] PCP - General Internal Medicine 06/08/22 documented as of this encounter
--- OUTSIDE RECORDS SUMMARY | 2024-07-09 09:30 | XMS_ITS | Encounter Summary ---
Author Organization [facility] Address [address] [place] [address] Care Team Providers Care Oceanographic Meteorologist Name Role Phone Jamie Berman MD Primary Care Provider + [phone] Encounter Details Date Type Department Care Team (Late st Contact Info) Description 03/11/2023 Orders Only [facility] [place] - Memory [address] [place] [address] Deborah Daigle PA [address] [place] [address] Social History Tobacco Use Types [...] Visit [place] [facility] [address], [address] [place] [address] Buster Gannon MD [address] [facility] [address] [place] [address] 09/18/2024 12:30 PM EST [facility] [place] - Memory [address] [place] [address] Nery August, PSYCHIATRIC SOCIAL WORKER SUPERVISOR [address] [place] [address] documented as of this encounter Visit Diagnoses Not on filedocumented in this encounter Additional Health Concerns Assessment Noted Time A fall risk assessment has been complete d for the patient 03/08/2023 10:40 AM EDT A Body Mass Index follow-up plan has been documented for the patient 03/11/2023 2:25 PM EDT documented as of this encounter Care Teams Oceanographic Meteorologist Relationship Specialty Start Date End Date Jamie Berman MD [address] [place] [address] PCP - General Internal Medicine 06/08/22 documented as of this encounter
--- OUTSIDE RECORDS SUMMARY | 2024-07-09 09:30 | XMS_ITS | Encounter Summary ---
Author Organization [facility] Address [address] [place] [address] Care Team Providers Care Overnight Cashier Name Role Phone Jamie Berman MD Primary Care Provider + [phone] Encounter Details Date Type Department Care Team (Latest Contact Info) Description 11/18/2023 Travel Social History Tobacco Use Types Packs/Day Years Used Date Smoking Tobacco: Former Cigarettes 0.3 3 1 971 - 2056 Smokeless Tobacco: Never Alcohol Use Standard Drinks/Week [...] drink first t murali in the morning (EYE-GAS BOOSTER ENGINEER) to steady your nerves or to [...] Description 07/23/2024 9:00 AM EST Office Visit [place] [facility] [address], [address]st [place] [address] Buster Gannon MD [address] [place] [address] 09/18/2024 12:30 PM EST Office Visit [facility] Neuroscience [place] - Memory [address] [place] [address] Nery August APRN [address] [place] [address] documented as of this encounter Visit Diagnoses Not on filedocumented in this encounter Additional Health Concerns Assessment Noted Time A fall risk assessment has been complete d for the patient 11/10/2023 12:56 PM EDT A Body Mass Index follow-up plan has been documented for the patient 11/19/2023 11:43 AM EDT documented as of this encounter Care Teams Overnight Cashier Relationship Specialty Start Date End Date Jamie Berman MD [address] [place] [address] PCP - General Internal Medicine 06/08/22 documented as of this encounter
--- OUTSIDE RECORDS SUMMARY | 2024-07-09 09:30 | XMS_ITS | Encounter Summary ---
Author Organization Healthcare Address [address] [place] [address] Care Team Providers Care It Audit Manager Name Role Phone Jamie Berman MD Primary Care Provider + [phone] Encounter Details Date Type Department Care Team (Latest Contact Info) Description 10/26/2023 Travel Social History Tobacco Use Types Packs/Day [...] Description 07/23/2024 9:00 AM EST Office Visit [place] [facility] [address], [address] [place] [address] Buster Gannon MD [address] [place] [address] 09/18/2024 12:30 PM EST Office Visit [facility] [place] - Memory [address] [place] [address] Nery August, FAN MAIL EDITOR [address] [place] [address] documented as of this encounter Visit Diagnoses Not on filedocumented in this encounter Additional Health Concerns Assessment Noted Time A fall risk assessment has been complete d for the patient 10/26/2023 10:08 AM EST A Body Mass Index follow-up plan has been documented for the patient 10/27/2023 9:53 AM EST documented as of this encounter Care Teams It Audit Manager Relationship Specialty Start Date End Date Jamie Berman MD [address] [place] [address] PCP - General Internal Medicine 06/08/22 documented as of this encounter
--- OUTSIDE RECORDS SUMMARY | 2024-07-09 09:30 | XMS_ITS | Encounter Summary ---
Author Organization Healthcare Address [address] [place] [address] Care Team Providers Care Wire Frame Lamp Shade Maker Name Role Phone Jamie Berman MD Primary Care Provider + [phone] Encounter Details Date Type Department Care Team (Latest Contact Info) Description 11/10/2023 Travel Social History Tobacco Use Types Packs/Day [...] Visit [place] [facility] [address], [address]st [place] [address] Buster Gannon MD [address] [place] [address] 09/18/2024 12:30 PM EST Office Visit [facility] [place] - Memory [address] [place] [address] Nery August, SALES ADMINISTRATOR [address] [place] [address] documented as of this encounter Visit Diagnoses Not on filedocumented in this encounter Additional Health Concerns Assessment Noted Time A fall risk assessment has been complete d for the patient 11/10/2023 12:56 PM EDT A Body Mass Index follow-up plan has been documented for the patient 11/10/2023 9:07 PM EDT documented as of this encounter Care Teams Wire Frame Lamp Shade Maker Relationship Specialty Start Date End Date Jamie Berman MD [address] [place] [address] PCP - General Internal Medicine 06/08/22 documented as of this encounter
--- OUTSIDE RECORDS SUMMARY | 2024-07-09 09:30 | XMS_ITS | Encounter Summary ---
Author Organization Healthcare Address [address] [place] [address] Care Team Providers Care Equal Opportunity Director Name Role Phone Jamie Berman MD Primary Care Provider + [phone] Encounter Details Date Type Department Care Team (Latest Contact Info) Description 03/24/2023 Travel Social History Tobacco Use Types Packs/Day [...] Visit [place] [facility] [address], [address] [place] [address] Buster Gannon MD [address] [place] [address] 09/18/2024 12:30 PM EST Office Visit [facility] [place] - Memory [address] [place] [address] Nery August, BRICK MAKER [address] [place] [address] documented as of this encounter Visit Diagnoses Not on filedocumented in this encounter Additional Health Concerns Assessment Noted Time A fall risk assessment has been complete d for the patient 03/08/2023 10:40 AM EDT A Body Mass Index follow-up plan has been documented for the patient 03/11/2023 2:25 PM EDT documented as of this encounter Care Teams Equal Opportunity Director Relationship Specialty Start Date End Date Jamie Berman MD [address] [place] [address] PCP - General Internal Medicine 06/08/22 documented as of this encounter
--- OUTSIDE RECORDS SUMMARY | 2024-07-09 09:30 | XMS_ITS | Encounter Summary ---
Author Organization Healthcare Address [address] [place] [address] Care Team Providers Care Decal Cutter Name Role Phone Jamie Berman MD Primary Care Provider + [phone] Encounter Details Date Type Department Care Team (Latest Contact Info) Description 11/10/2023 2:36 PM EDT - 11/10/2023 11:59 PM EDT Hospital Encounter Cardiac Imaging [address] [place] [address] Seizures (CMS/HCC) Discharge Disposition: Home or Self Care Social [...] drink first t murali in the morning (EYE-PUBLISHING EDITOR) to steady your nerves or to get [...] (40 mg) by mouth every night. 11/25/2022 eszopiclone (Lunesta) 3 MG tablet Take 1 [...] times a day. 540 tablet 3 10/26/2023 4 clonazePAM (KlonoPIN) 0.5 MG tablet Take 1 tablet (0.5 mg) by mouth every night. 3-4 times every night as directed 02/23/2023 4 divalproex (Depakote) [address] tablet Take 1 tablet (250 mg) by mouth 3 (three) times a day. Do not crush, chew, or split. 90 tablet 10/27/2023 4 furosemide (Lasix) 20 MG tablet Take 1 tablet (20 mg) by mouth 1 (one) time each day. 4 levETIRAcetam (Keppra) 500 MG tablet Take 2 tablets (1,000 mg) by mouth 2 (two) times a day. 360 tablet 3 10/27/2023 4 montelukast (Singulair) 5 MG chewable tablet Chew 2 tablets (10 mg) every night. 4 documented as of this encounter Plan of Treatment Upcoming Encounters Date Type Department Care Team (Late st Contact Info) Description 07/23/2024 9:00 AM EST Office Visit [place] [facility] [address] [place] [address] Buster Gannon MD [address] [facility] [address] [place] [address] 09/18/2024 12:30 PM EST Office Visit [facility] [place] - Memory [address] [place] [address] Nery August APRN [address] [place] [address] documented as of this encounter Procedures Procedure Name Priority Date/Time Associated Diagnosis Comments ECG ADULT Routine 11/10/2023 2:52 PM EDT Seizures ([facility] documented in this encounter Results * ECG Adult (Performed in Heart Station) (11/10/2023 2:52 PM EDT) EKG DIAGNOSIS CLASS Abnormal MUSE ECG Ventricular Rate 84 BPM MUSE ECG Atrial Rate 84 BPM MUSE ECG VT Interval 114 ms MUSE ECG QRSD Interval 64 ms MUSE ECG QT Interval 382 ms MUSE ECG QTC Interval 451 ms MUSE ECG P [place] 47 degrees MUSE ECG R [place] 0 degrees MUSE ECG T Wave [place] 64 degrees MUSE ECG Diagnosis Normal sinus rhythm MUSE ECG Diagnosis Baseline Artifact MUSE ECG Diagnosis Poor data quality, interpretation may be adversely affected MUSE ECG Diagnosis Possible MUSE ECG Diagnosis Inferior infarct MUSE ECG Diagnosis , age undetermined MUSE ECG Diagnosis Abnormal ECG MUSE ECG Diagnosis Confirmed by Tony De La Rosa ([id number]) on 11/10/2023 4:52:59 PM MUSE ECG 11/10/2023 2:52 PM EDT 11/10/2023 4:52 PM EDT Doe Marie MD ECG ORDERABLES Final Result MUSE ECG documented in this encounter Visit Diagnoses Diagnosis Seizures (CMS/HCC) Other convulsions documented in this encounter Additional Health Concerns Assessment Noted Time A fall risk assessment has been complete d for the patient 11/10/2023 12:56 PM EDT A Body Mass Index follow-up plan has been documented for the patient 11/10/2023 9:07 PM EDT documented as of this encounter Care Teams Decal Cutter Relationship Specialty Start Date End Date Jamie Berman MD [address] [place] [address] PCP - General Internal Medicine 06/08/22 documented as of this encounter
--- OUTSIDE RECORDS SUMMARY | 2024-07-09 09:30 | XMS_ITS | Encounter Summary ---
Author Organization Healthcare Address [address] [id number] Care Team Providers Care Fern Picker Name Role Phone Jamie Berman MD Primary Care Provider + [phone] Encounter Details Date Type Department Care Team (Latest Contact Info) Description 06/08/2022 10:30 AM EDT - 06/08/2022 11:59 PM EDT Hospital Encounter [facility] [address] [address] Visit for screening mammogram Discharge Disposition: Home or Self Care Social History Tobacco Use Types Packs/Day Years Used Date Smoking Tobacco: Former Cigarettes Smokeless Tobacco: Never Tobacco Cessation:Counseling Given: Not Answered Comments No Sex and Gender Information Value Date Recorded Sex Assigned at Not on file Legal Sex Female 7:52 PM EDT Gender Identity Not on file Sexual Orientation Not on file COVID-19 Exposure Response Date Recorded In the last 10 days, have yo u been in contact with someone who was confirmed or suspected to have Coronavirus/COVID-19? No / Unsure 06/08/2022 10:43 AM EDT documented as of this encounter Last Filed Vital Signs Vital Sign Reading Time Taken Comments Blood Pressure - - Pulse - - Temperature - - Respiratory Rate - - Oxygen Saturation - - Inhaled Oxygen Concentration - - Weight 65.8 kg (145 lb) 06/08/2022 11:03 AM EDT Height - - Body Mass Index 27.4 2020 10:01 AM EST documented in this encounter Plan of Treatment Upcoming Encounters Date Type Department Care Team (Late st Contact Info) Description 07/23/2024 9:00 AM EST [facility] Visit [facility] [address], [address] [place] [address] Buster Gannon MD [address] [place] [address] 09/18/2024 12:30 PM EST [facility] [place] [facility] [address] [place] [address] Nery August APRN [address] [place] [address] documented as of this encounter Procedures Procedure Name Priority Date/Time Associated Diagnosis Comments MAMMOGRAPHY BREAST SCREENING TOMOSYNTHESIS BILATERAL Routine 06/08/2022 11:05 AM EDT Visit for screening mammogram documented in this encounter Results * Mammography Breast Screening Tomosynthesis Bilateral [...] 07/10/2016 Mammography Breast Screening Tomosynthesis Bilateral at [facility] 08/17/2017 Mammography Breast Screening Tomosynthesis Bilateral at [facility] 10/02/2018 Mammography Breast Screening Tomosynthesis Bilateral at [facility] 10/05/2019 Mammography Breast Screening Tomosynthesis Bilateral at [facility] BREAST COMPOSITION: The breasts are almost entirely fatty. FINDINGS: There are post-biopsy clip(s) present in the the right breast. There is no evidence of suspicious masses, calcifications, or other abnormal findings. us Jamie Berman MD IMG BI PROCEDURES Final Resu lt documented in this encounter Visit Diagnoses Diagnosis Visit for screening mammogram documented in this encounter Care Teams Fern Picker Relationship Specialty Start Date End Date Jamie Berman MD [address] [place] [address] PCP - General Internal Medicine 06/08/22 documented as of this encounter
--- OUTSIDE RECORDS SUMMARY | 2024-07-09 09:30 | XMS_ITS | Encounter Summary ---
Author Organization [facility] Address [address] [place] [address] Care Team Providers Care Chief Transfer And Pumphouse Operator Name Role Phone Jamie Berman MD Primary Care Provider + [phone] Encounter Details Date Type Department Care Team (Late st Contact Info) Description 11/01/2023 Telephone [facility] [place] - [facility] [address] [place] [address] None, None [address] [place], [place] [id number] Social History Tobacco Use Types Packs/Day Years [...] encounter Miscellaneous Notes * Telephone Encounter - José Miguel Duque - 11/01/2023 11:02 AM EDT Would like to stay with Jagdeep for now, will call for memory appt documented in this encounter Plan of Treatment Upcoming Encounters Date Type Department Care Team (Late st Contact Info) Description 07/23/2024 9:00 AM EST [facility] [address], [address] [place] [address] Buster Gannon MD [address] [place] [address] 09/18/2024 12:30 PM EST [facility] [place] [facility] [address] [place] [address] Nery August APRN [address] [place] [address] documented as of this encounter Visit Diagnoses Not on filedocumented in this encounter Additional Health Concerns Assessment Noted Time A fall risk assessment has been complete d for the patient 10/26/2023 10:08 AM EST A Body Mass Index follow-up plan has been documented for the patient 10/27/2023 9:53 AM EST documented as of this encounter Care Teams Chief Transfer And Pumphouse Operator Relationship Specialty Start Date End Date Jamie Berman MD [address] [facility] [address] [place] [address] PCP - General Internal Medicine 06/08/22 documented as of this encounter
--- OUTSIDE RECORDS SUMMARY | 2024-07-09 09:30 | XMS_ITS | Encounter Summary ---
Author Organization [facility] Address [address] [place] [address] Care Team Providers Care Golf Club Weighter Name Role Phone Jamie Berman MD Primary Care Provider + [phone] Reason for Referral * Home Health (Routine) - Authorized Specialty Diagnoses / Procedures Referred By Cristin t Referred To Contact Home Health Services / Physical Therapy Diagnoses Balance problems Memory loss Mild cognitive impairment Parkinsonism, unspecified Parkinsonism type (CMS/HCC) Dejon Nagel PA [address] [address] Phone: tel: fax: Referral ID Status Reason Start Date Expiration Date Visits Requested Visits Authorized [id number] Authorized Specialty Services Required 03/08/2023 09/06/[phone] * Consultation (Routine) - Closed Specialty Diagnoses / Procedures Referred By Contfly t Referred To Contact Neurology Diagnoses Balance problems Dejon Nagel PA [id number] [place] [address] Phone: tel: fax: Referral ID Status Reason Start Date Expiration Date V isits Requested Visits Authorized [id number] Closed Specialty Services Required 03/11/2023 09/09/2024 1 1 Scheduling Instructions Consult for movement disorder * Imaging (Routine) - Closed Specialty Diagnoses / Procedures Referred By Cristin forrester Referred To Contact Radiology Diagnoses Memory loss Procedures MR Head wo IV Contrast Dejon Nagel PA [address] [place] [address] Phone: tel: fax: Referral ID Status Reason Start Date Expiration Date Visits Re quested Visits Authorized [id number] Closed 03/08/2023 09/06/2024 1 1 Reason for Visit * Reason Comments Follow-up Encounter Details Date Type Department Care Team (Late st Contact Info) Description 03/08/2023 10:20 AM EDT [facility] [place] - Memory [address] [place] [id number] Dejon Nagel PA [address] [facility] [place] [address] Mild cognitive impairment (Primary Dx); Balance problems; Memory loss; Parkinsonism, unspecified Parkinsonism type (CMS/HCC) Social History Tobacco Use Types Packs/Day [...] Sign Reading Time Taken Comments Blood Pressure 132/75 03/08/2023 10:31 AM EDT Pulse 66 03/08/2023 10:31 AM EDT Temperature - - Respiratory Rate - - Oxygen Saturation 97% 03/08/2023 10:31 AM EDT Inhaled Oxygen Concentration - - Weight 69.9 kg (154 lb) 03/08/2023 10:31 AM EDT Height 154.9 cm (5' 1 ) 03/08/2023 10:31 AM EDT Body Mass Index 29.1 03/08/2023 10:31 AM EDT documented in this encounter Miscellaneous Notes * Addendum Note - Dejon Nagel PA - 03/08/2023 10:20 AM EDTAddended by: DEJON NAGEL on: 03/25/2023 09:35 AM Modules accepted: Orders * Progress Notes - Dejon Nagel PA - 03/08/2023 10:20 AM EDT Subjective Quiana Lombardi presents to the [facility] as a returning patient today with/for 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 The patient was last seen on 2020. She was having spells which were thought to be seizures with ictal or postictal psychosis. 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 She was instructed to follow-up on an as needed basis. The patient presents today with her daughter, Kelsey, who adds to and corroborates the history. Arielle reports that regarding her previous spells they figured out these episodes were related tomisuse of Halcion. They have since discontinued the medication. 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 Often, she does not know what day it is. The patient took at trip to [place] in June of 2022. She had gotten sick with a suspected URI during the trip she left her friends to get into a car with a man she didn't know to go to a clinic and ended up getting scammed. Her daughter states that this was very uncharacteristic of her to partake in risky activityand to not let her group know where she was going. She was having some balance and mobility issues including shuffling of her feet prior the trip but these issues have gotten significantly worse since August of 2022. In addition, the patient notes that her voice is hoarse. She has been to an ENT for evaluation and had a normal laryngoscopy. Also in August of 2022, they noticed that she developed tremors that occur in both her upper and lower extremities that have since gotten progressively worse. Her tremors affect her writing. The patient reports increased fatigue for the past 2 years. Shedenies any loss of smell. Additional symptoms include increased urinary urgency with incontinence if she is not able to make it in time. The patient has had an increase in falls. Her last fall was on February 22 when she tripped over her dog and couldn't get up. The patient has been started on Carbidopa-Levadopa by her PCP. After little benefit from initial dose, her PCP has increased again without little benefit. The patient has had issues with insomnia for many years and she currently sees a sleep specialist. She states that she sleeps approximately 4-5 hours per night. She has never had a sleep study. It isunknown if she is acting out her dreams. No other sleep disturbance noted. The patient has history of depression and anxiety. These have remained unchanged. Global normal change in behavior, hallucinations, or other psychological manifestations. The patient currently lives at home alone. She is able to dress and bathe independently. She manages her own medications without issues. She has not driven since December 2021. She is cooking with no accidents of leaving the stove on or burning food. The patient manages her own finances and does well, however, her family monitors her account. The patient has a history of seizures starting December of 2021. The patient's last seizure was 08/11/22. The patient is currently taking Keppra and Depakote. She has a history of IBS but no known malabsorption issues. HPI Past Medical History: Diagnosis Date H/O benign [...] Social History Tobacco Use Smoking status: Former Types: Cigarettes Smokeless tobacco: Never Substance Use Topics Alcohol use: Never Current Outpatient Medications on File Prior to Visit Medication Sig Dispense Refill baclofen (Lioresal) 20 MG tablet carbidopa-levodopa (Sinemet) 25-250 MG tablet clonazePAM (KlonoPIN) 0.5 MG tablet divalproex (Depakote) [address] tablet fluticasone-salmeterol (Advair Diskus) 100-50 MCG/ACT diskus inhaler levETIRAcetam (Keppra) 500 MG tablet levothyroxine (Synthroid, Levoxyl) 100 MCG tablet lisinopril 5 MG tablet pantoprazole (Protonix) 40 MG EC tablet rOPINIRole XL (Requip XL) 2 MG 24 hr tablet HM 24 Hour Nasal Allergy 55 MCG/ACT nasal inhaler [DISCONTINUED] eszopiclone (Lunesta) 3 MG tablet (Patient not taking: Reported on 03/08/2023) [DISCONTINUED] FeroSul 325 (65 Fe) MG tablet (Patient not taking: Reported on 03/08/2023) [DISCONTINUED] furosemide (Lasix) 20 MG tablet (Patient not taking: Reported on 03/08/2023) [DISCONTINUED] HYDROcodone-acetaminophen ([place]view) 7.5-325 MG tablet (Patient not taking: Reported on03/08/2023) No current facility-administered medications on file prior to visit. Allergies Allergen Reactions Clindamycin Rash Ibuprofen Other Nsaids Unknown Serotonin Reuptake Inhibitors (Ssris) Other sweating All medications have been reviewed today. Review of Systems Constitutional: Positive for fatigue. Negative for activity change, appetite change and unexpected weight change. HENT: Positive for voice change. Gastrointestinal: Negative for diarrhea, nausea and vomiting. Genitourinary: Positive for urgency. Musculoskeletal: Positive for gait problem. Neurological: Positive for tremors. Negative for dizziness, speech difficulty, weakness and headaches. Psychiatric/Behavioral: Positive for confusion and sleep disturbance. Negative for agitation, behavioral problems, dysphoric mood and hallucinations. The patient is not nervous/anxious. Objective Vitals: 03/08/23 1031 BP: 132/75 Pulse: 66 SpO2: 97% Physical Exam Vitals reviewed. Constitutional: General: She is not in acute distress. Appearance: Normal appearance. She is not ill-appearing. HENT: Head: Normocephalic and atraumatic. Eyes: Extraocular Movements: Extraocular movements intact. Conjunctiva/sclera: Conjunctivae normal. Cardiovascular: Rate and Rhythm: Normal rate and regular rhythm. Pulmonary: Effort: Pulmonary effort is normal. Musculoskeletal: General: Normal range of motion. Skin: General: Skin is warm and dry. Neurological: General: No focal deficit present. Mental Status: She is alert. Cranial Nerves: No cranial nerve deficit or facial asymmetry. Motor: Tremor present. No weakness or atrophy. Coordination: Uynryc-Lemb-Clhasj Test normal. Gait: Gait normal. Comments: STMS = [id number] Orientation 02/26 Attention 02/25 Learning 11/23 Calculation 10/23 Abstraction 10/22 Construction 08/25; abnormal cube and hand placement on clock Information 11/23 Delayed Recall ; +2 categorical cueing, +2 MC cueing Dysphonia noted. The patient arises from her chair without assistance. She does not use a cane or awalker. Shuffling noted when ambulating. Decreased left arm swing. R > L UE tremors noted with rest and with intention. Psychiatric: Attention and Perception: Attention normal. Mood and Affect: Mood and affect normal. Speech: Speech normal. Behavior: Behavior normal. Behavior is cooperative. Thought Content: Thought content normal. Cognition and Memory: Cognition is impaired. Memory is impaired. Discussion Summary: Mild cognitive impairment with parkinsonism and history of seizures I am concerned that her clinical picture may represent Parkinson's disease. We will refer to the movement disorders clinic for further evaluation and recommendations. Current medications include: Requip 2 mg 24 hr tablet 1 at bedtime, Keppra 500 mg BID, Depakote 500 mg TID, Klonopin 0.5 mg 3-4 times per night as directed, Carbidopa Levadopa 25-250 tablet TID. I have ordered home health physical therapy to help with mobility and balance. We will obtain another MRI brain without contrast since it has been some time since her previous [id number]. 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 Mrs. Lombardi gets routine lab work with her PCP every 3 months. We will defer from adding any lab work at this time. Follow-up in 3 months to reassess and to provide further recommendations. Consider sleep study. Assessment/Plan: Diagnosis Plan 1. Mild cognitive impairment 2. Balance problems Ambulatory referral to Home Health Ambulatory referral to Neurology 3. Memory loss MR Head wo IV Contrast Counseling Documentation: The patient and daughter were counseled regarding instructions for management, patient and family education, and impressions. Education provided was verbal counseling. Additional time was spent in care coordination including medical record review. The total time of encounter was 45 minutes. . Cosigned by Stephen Tomas MD at 03/20/2023 3:40 PM EDT Associated attestation - Stephen Tomas MD - 03/20/2023 3:40 PM EDT The patient was seen only by Advanced Practice Provider (BARBIE), and care was reviewed with me. documented in this encounter Plan of Treatment Upcoming Encounters Date Type Department Care Team (Late st Contact Info) Description 07/23/2024 9:00 AM EST Office Visit [place] [facility] [address] [place] [phone] Buster Gannon MD [address] [place] [address] 09/18/2024 12:30 PM EST Office Visit [facility] [place] - Memory [address] [place] [address] Nery August APRN [address] [place] [address] Scheduled Referrals Name Type Priority Associated Diagnoses Orde r Schedule Ambulatory referral to Neurology Outpatient Referral Routine Balance problems Expected: 03/11/2023 (Approximate), Expires: 09/11/2024 Ambulatory referral to Home Health Outpatient Referral Routine Balance problems Memory loss Mild cognitive impairment Parkinsonism, unspecified Parkinsonism type (CMS/HCC) Expected: 03/25/2023 (Approximate), Expires: 09/08/2024 documented as of this encounter Results * MR Head wo [...] signing this report, I, the attending physician, elder I have personally reviewed the images/data for the aboveexamination(s) and agree with the final edited report. Drafted by Mckay Rivas M.D. on 03/24/2023 11:12 AM Final report signed by Josue Garcia MD on 03/24/2023 3:00 PM us Dejon GILL IMG MRI PROCEDURES Final Resu lt documented in this encounter Visit Diagnoses Diagnosis Mild cognitive impairment- Primary Mild cognitive impairment, so stated Balance problems Abnormality of gait Memory loss Parkinsonism, unspecified Parkinsonism type (CMS/HCC) Memory loss documented in this encounter Additional Health Concerns Assessment Noted Time A fall risk assessment has been complete d for the patient 03/08/2023 10:40 AM EDT A Body Mass Index follow-up plan has been documented for the patient 03/11/2023 2:25 PM EDT documented as of this encounter Care Teams Golf Club Weighter Relationship Specialty Start Date End Date Jamie Berman MD [address] [place] [address] PCP - General Internal Medicine 06/08/22 documented as of this encounter
--- OUTSIDE RECORDS SUMMARY | 2024-07-09 09:30 | XMS_ITS | Encounter Summary ---
Author Organization [facility] Address [address] [place] [address] Care Team Providers Care Digital Imaging Specialist Name Role Phone Jamie Berman MD Primary Care Provider + [phone] Encounter Details Date Type Department Care Team (Late st Contact Info) Description 11/07/2023 Telephone [place] [facility] [address], [address] [place] [address] Doe Marie MD [address] [place] [address] Social History Tobacco Use Types [...] encounter Miscellaneous Notes * Telephone Encounter - Romeo Paulino - 11/07/2023 10:15 AM EDT Called and spoke with patient's daughter, confirmed 3-21 appt. documented in this encounter Plan of Treatment Upcoming Encounters Date Type Department Care Team (Late st Contact Info) Description 07/23/2024 9:00 AM EST Office Visit [place] [facility] [address] [place] [address] Buster Gannon MD [address] [place] [address] 09/18/2024 12:30 PM EST Office Visit [facility] [place] - [facility] [address] [place] [address] Nery August APRN [address] [place] [address] documented as of this encounter Visit Diagnoses Not on filedocumented in this encounter Additional Health Concerns Assessment Noted Time A fall risk assessment has been complete d for the patient 10/26/2023 10:08 AM EST A Body Mass Index follow-up plan has been documented for the patient 10/27/2023 9:53 AM EST documented as of this encounter Care Teams Digital Imaging Specialist Relationship Specialty Start Date End Date Jamie Berman MD [address] [place] [address] PCP - General Internal Medicine 06/08/22 documented as of this encounter
--- OUTSIDE RECORDS SUMMARY | 2024-07-09 09:30 | XMS_ITS | Encounter Summary ---
Author Organization Healthcare Address [address] [place] [address] Care Team Providers Care Electroformer Name Role Phone Jamie Fields MD Primary Care Provider [phone] Encounter Details Date Type Department Care Team (Latest Contact Info) Description 06/01/2022 Travel Social History Tobacco Use Types Packs/Day Years Used Date Smoking Tobacco: Never Assessed Comments Unknown Sex and Gender Information Value Date Recorded Sex Assigned at Not on file Legal Sex Female 7:52 PM EDT Gender Identity Not on file Sexual Orientation Not on file COVID-19 Exposure Response Date Recorded In the last 10 days, have yo u been in contact with someone who was confirmed or suspected to have Coronavirus/COVID-19? No / Unsure 06/01/2022 9:38 AM EDT documented as of this encounter Plan of Treatment Upcoming Encounters Date Type Department Care Team (Late st Contact Info) Description 07/23/2024 9:00 AM EST Office Visit [place] [facility] [address] [place] [address] Buster Gannon MD [address] [place] [address] 09/18/2024 12:30 PM EST [facility] [place] - [facility] [address] [place] [phone] Nery August APRN [address] [place] [address] documented as of this encounter Visit Diagnoses Not on filedocumented in this encounter Care Teams Electroformer Relationship Specialty Start Date End Date Jamie Fields MD [address] [place] [address] PCP - General 01/02/21 06/07/22 documented as of this encounter
--- OUTSIDE RECORDS SUMMARY | 2024-07-09 09:30 | XMS_ITS | Encounter Summary ---
Author Organization [facility] Address [address] [place] [address] Care Team Providers Care Press Catcher Name Role Phone Jamie Berman MD Primary Care Provider + [phone] Encounter Details Date Type Department Care Team (Late st Contact Info) Description 03/11/[address] [facility] [place] - Memory [address] [place] [address] Summer Telles [facility] [address] [place] [address] Social History Tobacco Use Types Packs/Day Years [...] encounter Miscellaneous Notes * Telephone Encounter - Summer Telles - 03/11/2023 2:53 PM EDT OLIVER spoke w Pt Dtr. Reviewed request for home health order to be sent to [facility]. OLIVER faxed referral per request. Encouraged Pt Dtr to call this justowriter operator on Tuesday if [facility] had not made contact. Will continue to follow. Summre Telles documented in this encounter Plan of Treatment Upcoming Encounters Date Type Department Care Team (Late st Contact Info) Description 07/23/2024 9:00 AM EST Office Visit [place] [facility] [address] [place] [address] Buster Gannon MD [address] [place] [address] 09/18/2024 12:30 PM EST [facility] [place] - [facility] [address] [place] [address] Nery August APRN [address] [place] [address] documented as of this encounter Visit Diagnoses Not on filedocumented in this encounter Additional Health Concerns Assessment Noted Time A fall risk assessment has been complete d for the patient 03/08/2023 10:40 AM EDT A Body Mass Index follow-up plan has been documented for the patient 03/11/2023 2:25 PM EDT documented as of this encounter Care Teams Press Catcher Relationship Specialty Start Date End Date Jamie Berman MD [address] [place] [address] PCP - General Internal Medicine 06/08/22 documented as of this encounter
--- OUTSIDE RECORDS SUMMARY | 2024-07-09 09:30 | XMS_ITS | Encounter Summary ---
Author Organization Healthcare Address [address] [place] [address] Care Team Providers Care Instructor Knitting Name Role Phone Jamie Berman MD Primary Care Provider + [phone] Encounter Details Date Type Department Care Team (Late st Contact Info) Description 11/10/2023 1:00 PM EDT Consult [place] [facility] [address] [place] [address] Doe Marie MD [address] [place] [address] Seizures (CMS/HCC) (Primary Dx) Social History Tobacco Use Types Packs/Day Years Used Date Smoking Tobacco: Former Cigarettes 0.3 3 1 971 - 1974 Smokeless Tobacco: Never Tobacco Cessation:Counseling Given: Not [...] Sign Reading Time Taken Comments Blood Pressure 128/78 11/10/2023 12:56 PM EDT Pulse 93 11/10/2023 12:56 PM EDT Temperature - - Respiratory Rate - - Oxygen Saturation 97% 11/10/2023 12:56 PM EDT Inhaled Oxygen Concentration - - Weight 70.8 kg (156 lb) 11/10/2023 12:56 PM EDT Height 154.9 cm (5' 1 ) 11/10/2023 12:56 PM EDT Body Mass Index 29.48 11/10/2023 12:56 PM EDT documented in this encounter Miscellaneous Notes * Patient Instructions - Doe Marie MD - 11/10/2023 1:00 PM EDT Seizure Precautions: [facility] regulations require that you may not drive for 3 months after your most recent seizureor spell with loss of consciousness. Take showers instead of baths due to the risk of drowning. Direct supervision is required at all times when swimming or when in or around bodies of water and wear a life-jacket due to drowning risk. No climbing at unprotected heights from which you could fall or injury yourself. Always wear a helmet when riding a bicycle, scooter, ATV, or horses. Direct supervision is required significant sources of open flames such as fireplaces, stoves, fryers, campfires, or other sources of heat or fire that you could fall onto. To decrease your chance of having more seizures please get plenty of sleep, eat regular meals, and remember to take your medication on time. Visit www.Epilepsy.com and search Seizure First Aid for more information. * Progress Notes - Doe Marie MD - 11/10/2023 1:00 PM EDT [facility] Consultation Note Referring Provider: Buster Gannon MD Pertinent Medications: 1. Divalproex 250mg tablet DR; 2. Clonazepam 0.5mg tablet; 1 nightly 3. Levetiracetam 500mg tablet; 1.5/1.5 4. Ropinirole XL 2mg 5. Carbidopa Levodopa 25-100mg, 1.5/1.5/1.5/1.5 6. Baclofen 7. Eszipoclone All other medications reviewed and available in medication reconciliation in [facility]. Chief Complaint: Spells of abnormal behavior, Parkinsonism. History of Present Illness: Quiana Lombardi is a most pleasant 73 y.o. woman with Parkinsonism who is referred for the evaluation and management of spells that may be seizures. She has been seen recently by Dr. Gannon for Parkinsonism, and previously by Dr. Tomas for mild cognitive impairment. Her daughter is present and assists with the history. I have obtained and personally reviewed extensive prior records from , and have summarized pertinent details into the below history and evaluation. Of note she was seen previously by a neurologist in 2008 after a thunderclap headache, no no loss of consciousness. Imaging at that time revealed several abnormal imaging findings which were light blush is on contrast-enhanced examination. It was felt that the was were possible small telangiectasias and that no intervention was required. It was unclear if these findings were associated with headache. In 2019, she developed an episode of delirium with waxing/waning mental status requiring hospitalization. EEG at the time showed transient sharp waves over the central parietal region. She was seen by Dr. Tomas. Family notes that she was started on valproate for about one month, then this was discontinued; it's unclear if this helped anything. The delirium was ultimately thought to be due to an unintentional overdose of triazolam. On follow up in 2020 a repeat EEG showed no epileptiform activity. Dr. Tomas queried possible focal seizures vs medication effects as etiology of spells, given thatshe had improved off of benzodiazepines, and MR demonstrated possible evidence of telangiectasias with some hemosiderin staining. Plan was for close monitoring off of valproate. Got back to baseline, with perhaps some imbalance and a mild tremor. In November 2021 she began to develop staring episodes. She will zone out with eyes open and unblinking for 30 seconds to 3 minutes. There is no aura. She will not respond during that time. There is no clonic activity. No automatisms. She will then become responsive; she will not remember the episode but will be tired afterwards. These could occur at any time of day without known triggers. [Her daughter showed me videos of these episodes that were recorded in October 2023. One was 5-6 seconds of staring unresponsiveness. After it was over, she sighed and raised eyebrows and the video ended. The second was about 45 seconds in length, she was staring with eyes half opened, unresponsive. No automatisms (manual or oral). No eyelid flickering.] She stopped driving at that time. The staring spells were diagnosed as focal seizures and started on levetiracetam, but the events continued, so valproate was added in the fall of 2021. EEG was not repeated and no episodes were caught on EEG. The spells seemingly improved in frequency, to once every several months (although definite frequency was unknown as she was amnestic to them). In July 2022, she went on vacation to [facility]. During the trip, she developed a severe URI. She was also confused, making poor decisions and demonstrating poor judgement. She was noted to have shuffling gait. She developed leg swelling. Between August and October 2022, she had a rapid decline . Her tremor worsened and developed a resting component. She started falling more frequently and became hoarse. But spells continued to be infrequent. Family states that they do not think that falls significantly preceded the other symptoms on the timeline. In November 2022, her PCP diagnosed her with parkinson's disease. She was started on C/L with questionable improvement. C/L has steadily increased over time. In March 2023, she started using a walker. Staring spells increased in frequency. She started needing caretakers to come stay [...] parkinsonism symptoms have not worsened or improved. The plan is to stop the valproate. On 11/17/23. She was referred to the EMU for characterization of the episodes, time not set yet. Seizure Risk Factors: There is no history of pre-maturity. There is no history of head trauma with loss of consciousness.There is no history of encephalitis or meningitis. No febrile seizures as a child. Past Medical History: HTN RLS Hypothyroidism Delirium Gait debility Social History: She is from [facility] [place]. Post-graduate degrees. 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 since 2011, when her passed from sudden unexpected cardiac arrest. She now lives in [place] close to family They deny current/past use of alcohol, tobacco, or illicit drugs. Family History: There is no known family history of epilepsy or seizures. No parkinsonism Review of Systems: Review of Systems performed included 14 individual systems and was found to be either NEGATIVE, attached as Adult Neurology Medical History Form, reviewed and signed by patient andprovider, or was included in the History of Present Illness above. Review of Prior Evaluations: Imaging Modality Date/Location Results MR brain wo 03/24/2023 - [facility] Mild increase in mild global volume loss. 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 Routine EEGs Date/Location Results 09/04/2020 - Normal Long-Term EEG Date/Location Seizures? Lateralization/Localization - Anti Seizure Medications (Current and Past) Medication Status Max Dose (total daily) Max Level Start Stop Reason for stop/comments VPA active 1500 04/12 LEV active 1500 01/10 Physical Exam: Vital Signs: Blood pressure 128/78, pulse 93, height 1.549 m (5' 1 ), weight 70.8 kg (156 lb), AoS281 %. General Exam: Constitutional: They are in no acute distress. Ears, Nose, Mouth, Throat: Mucous membranes appear moist. No appreciable hearing impairment. Nares patent. Eyes: Anicteric sclera. No appreciable conjunctival injection. Respiratory: Symmetric chest expansion. Non-labored breathing. Cardiovascular: Pulse is of regular rate and rhythm. Psychiatric: Affect is masked, but she is extremely pleasant, polite, and appears to have a degree of insight into her condition. Neurological Examination: Mental Status: Alert and interactive Cranial Nerves: CN II: Visual coffey full to confrontation. CN III, IV, : Pupils are equal, round, and reactive to light and accommodation. There is lag in following finger in smooth pursuit bilaterally. CN V: Sensation in V1-V3 intact bilaterally. CN VII: No facial asymmetry with smile, eye closure. No facial droop. CN VIII: Hearing grossly intact bilaterally. CN IX, X: Palate rises symmetrically; uvula is midline, but there is slight dysarthria. CN XI: Trapezius and sternocleidomastoid strength full. CN XII: Tongue protrudes midline. Motor: Increased tone in legs greater than arms, right greater than left with cogwheeling on the right. Left upper extremity 5/5. Right upper extremity 5/5. Left lower extremity 5/5. Right lower extremity 5/5. Sensory: Sensation intact and symmetric to light touch in all four extremities. Reflexes: Reflexes 1+ and symmetric throughout. No Fazal. No grasp, palmomental or exaggerated blink. No startle myoclonus. Coordination: No limb ataxia with [id number] testing bilaterally. There is a right greater thanrest rolling tremor. There are decreased amplitude of finger and foot taps on the right. Masked facies and decreased blink. She cannot stand with arms crossed. There is a shuffling gait and she turnsen bloc. Gait: See above Laboratory Studies, Imaging, Procedures, and Device Settings: I personally visualized images of MRI Brain from 2020 and 2022 and summarized results in above table. I personally visualized EEG report from 2020 and summarized results in above table. I personally reviewed lab results from 2019 and in summary, pertinent results include In 2020, she had negatve/normal B1, heavy metal screen, folate, TPO, B12, TSH, gliadin, RPR, SSA, SSB, paraneoplastic antibody panel, NMDA. Impression and Plan: Spells of abnormal behavior 2. Parkinsonism 3. Gait instability 4. Memory loss This is a very complicated case in which she developed episodes of staring unresponsiveness that have overall not responded to treatment, and since initiation of treatment, she has developed rapidly progressive parkinsonism, functional decline, and memory issues. This does coincide with initiation of valproate, which can lead to parkinsonism. However, given the nature of the staring spells that she is experiencing, another consideration is dementia with Lewy Bodies. I cannot determine from the video alone as to whether these are epileptic or non-epileptic events. At this point, it is unclear how, or if the prior thunderclap headache, MRI findings, reported EEG findings, and delirium episodein 2020 play into this current symptomatology. She did have an auto- immune/paraneoplastic evaluation at that time. She is also on multiple centrally acting medications. I agree with Drs. Gannon and Kya that the next best step is to remove the confounder of valproate, and characterize these staring episodes with EEG to evaluate if they are epileptic seizures. She can continue with the taper of valproate and increase of levetiracetam as provided by Dr. Gannon. I will attempt to have the EMU admission expedited if there is a cancellation. If spells were to markedly worsen after cessation ofvalproate or increase in severity before the EMU admission is scheduled, lacosamide could be added (I obtained EKG today to assess NE interval). If the spells were to stop following the introduction of any new anti-seizure medication, I would still recommend the EMU admission and tapering all anti-seizure medications to capture these events to characterize them. If these events were found to be non- epileptic, and the cessation of valproate were not to lead to significant improvement in parkinsonism, I would suggest further evaluation for atypical parkinsonian syndromes. She was in agreement with the plan. I discussed seizure/spell precautions in depth, and she has been following these already, and she has a wonderful support system at home. Further follow up in the epilepsy clinic can be determined based on the findings in the EMU. Doe Marie MD Attending Physician, Neurology [facility] Duration of this clinic visit was 60 minutes that included [id number] discussion, examination, review of prior records (including imaging and EEG), documentation, counseling, and coordination of care. documented in this encounter Plan of Treatment Upcoming Encounters Date Type Department Care Team (Late st Contact Info) Description 07/23/2024 9:00 AM EST Office Visit [place] [facility] [address], [address] [place] [address] Buster Gannon MD [address] [place] [address] 09/18/2024 12:30 PM EST [facility] [place] [facility] [address] [place] [address] Nery August APRN [address] [facility] [address] [place] [address] documented as of this encounter Results * ECG Adult (Performed in Heart Station) (11/10/2023 2:52 PM EDT) EKG DIAGNOSIS CLASS Abnormal MUSE ECG Ventricular Rate 84 BPM MUSE ECG Atrial Rate 84 BPM MUSE ECG NE Interval 114 ms MUSE ECG QRSD Interval 64 ms MUSE ECG QT Interval 382 ms MUSE ECG QTC Interval 451 ms MUSE ECG P [place] 47 degrees MUSE ECG R [place] 0 degrees MUSE ECG T Wave [place] 64 degrees MUSE ECG Diagnosis Normal sinus rhythm MUSE ECG Diagnosis Baseline Artifact MUSE ECG Diagnosis Poor data quality, interpretation may be adversely affected MUSE ECG Diagnosis Possible MUSE ECG Diagnosis Inferior infarct MUSE ECG Diagnosis , age undetermined MUSE ECG Diagnosis Abnormal ECG MUSE ECG Diagnosis Confirmed by Tony De La Rosa ([id number]) on 11/10/2023 4:52:59 PM MUSE ECG 11/10/2023 2:52 PM EDT 11/10/2023 4:52 PM EDT Doe Marie MD ECG ORDERABLES Final Result MUSE ECG documented in this encounter Visit Diagnoses Diagnosis Seizures (CMS/HCC)- Primary Other convulsions documented in this encounter Additional Health Concerns Assessment Noted Time A fall risk assessment has been complete d for the patient 11/10/2023 12:56 PM EDT A Body Mass Index follow-up plan has been documented for the patient 11/10/2023 9:07 PM EDT documented as of this encounter Care Teams Instructor Knitting Relationship Specialty Start Date End Date Jamie Berman MD [address] [place] [id number] PCP - General Internal Medicine 06/08/22 documented as of this encounter
--- OUTSIDE RECORDS SUMMARY | 2024-07-09 09:30 | XMS_ITS | Encounter Summary ---
Author Organization Healthcare Address [address] [place] [address] Care Team Providers Care Ship'S Cook Name Role Phone Jamie Berman MD Primary Care Provider + [phone] Encounter Details Date Type Department Care Team (Latest Contact Info) Description 06/08/2022 Travel Social History Tobacco Use Types Packs/Day [...] Description 07/23/2024 9:00 AM EST Office Visit [place] [facility] [address], [address] [place] [id number] Buster Gannon MD [address] [place] [address] 09/18/2024 12:30 PM EST Office Visit [facility] [place] [facility] [address] [place] [id number] Nery August APRN [address] [place] [address] documented as of this encounter Visit Diagnoses Not on filedocumented in this encounter Care Teams Ship'S Cook Relationship Specialty Start Date End Date Jamie Berman MD [address] [place] [address] PCP - General Internal Medicine 06/08/22 documented as of this encounter
[2024-07-09 09:53] VITALS: BP 113/66; PULSE 72; RESP 16; TEMP 36.6; O2SAT 97
[2024-07-09] MEDS: SODIUM CHLORIDE 0.9% 10ML FLUSH SYRINGE 10 ML IV (09:53)
[2024-07-09] MEDS: SODIUM CHLORIDE 0.9% 50ML BAG 50 ML IV (09:53)
[2024-07-09] MEDS: ZOLEDRONIC ACID/MANNITOL-WATER 5 MG/100 ML PGGYBK.BTL 400 MG IV (09:53)
[2024-07-09 10:12] VITALS: BP 116/60; PULSE 70; RESP 16; TEMP 36.6; O2SAT 97
== END 2024-07-09 10:15 | disposition home or self-care (01) ==
LOC: INF 09:27
PROVIDERS: PCP Internal Medicine Adolescent Medicine; Visit Provider Internal Medicine Adolescent Medicine
DX: M81.0 Age-related osteoporosis without current pathological fracture (principal)
CPT/HCPCS: 96374; J3489

== ENCOUNTER 2024-08-23 09:01 | Day surgery (SDC) | payer MEDICARE, SELFPAY ==
[2024-08-16 11:03] VITALS: BMI 25.7
[2024-08-23 09:23] VITALS: BP 136/82; PULSE 80; RESP 17; TEMP 36.8; O2SAT 97
[2024-08-23] MEDS: LACTATED RINGERS 1000ML 1,000 ML 25 ML IV (09:29)
--- NOTE | 2024-08-23 09:31 | P.PNANES_ITS ---
[facility] Disclaimer: The information contained in this section may have been updated after the patient was seen, as this information can be updated by other users. Medical History Tremor Left wrist fracture Compound fracture Anxiety Insomnia Seizures Seasonal allergies GERD (gastroesophageal reflux disease) HTN (hypertension) Hypothyroidism Surgical History History of colonoscopy History of esophagogastroduodenoscopy (EGD) History of surgery on lower extremity History of cholecystectomy S/P CHEPE-BSO S/P correction of deviated nasal septum Family History Other No significant family history Social History Smoking Status: Never smoker alcohol intake: never substance use type: denies use current occupational status: retired Travel in the last 8 weeks: None household members: spouse housing: house lives independently: Yes marital status: number of children: 3 education level: master's degree service: No group home: No current occupational exposures/hazards: No caffeine: No Have you lived/traveled outside [place] in past 30 days?: No Contact w/someone who lives/traveled outside US past 30 days?: No Exposure to someone with infectious disease in past 14 days?: No Do you have a fever (greater than 100.4 F or 38 C)?: No Have you tested positive for COVID-19: No Exposed to someone with COVID-19 in past 14 days?: No Do you have a sore throat?: No Do you have a cough?: No Do you have any weakness?: No Do you have any diarrhea?: No Are you experiencing any unusual bleeding?: No Do you have any muscle aches/pain?: No Do you have any abdominal pain?: No Are you experiencing loss of taste or smell?: No [facility] Anesthesia Checklist Patient Identification Patient Identification: Arm Band, Family and Verbal (Name & ) Structural Data Admitted From: Home Planned Operative Procedure/s: EGD Consent for Planned Operative Procedure(s) Verified: Yes Verified Documents: Surgical Consent and History and Physical NPO Status Verified Time NPO: 22:30 Chart Verification Results Verified: CBC, BMP, ECG and Chest Xray Additional verifications Patient : No Anesthesia Reactions: No Previous Colonoscopy: Yes Cardiovascular Assessment Heart Sounds: S1 & S2 Pulse Rhythm: Irregular Peripheral Edema: No Airway Assessment Mallampati Score:: Class II C-Spine Mobility Assessed: Yes (+Pain w/extension) TMJ Mobility Assessed: Yes Dentition: Good Dentition (Nothing loose per pt.) Neurological Assessment Level of Consciousness: Awake, Alert, Appropriate and Follows Commands Hx Seizures: No Numbness or tingling in extremities: No Anesthesia Plan Anesthesia Risk discussed: Yes Anesthesia Plan: Verified ASA Class: III Anesthesia Type: MAC
--- NOTE | 2024-08-23 09:43 | EXP.HP ---
History of Present Illness *Admission Date: 08/23/24 *Reason for visit:: Functional dyspepsia/GERD/dysphagia with weight loss *History of present illness: Mrs. Lombardi is a 73-year-old female who is here for diagnostic upper endoscopy secondary to dysphagia, dyspepsia and reflux. The examination is deemed medically necessary for EGD. The patient has been seen, interviewed and examined prior to the procedure by both myself and the anesthesia provider. [facility] Disclaimer: The information contained in this section may have been updated after the patient was seen, as this information can be updated by other users. Medical History (Updated 08/23/24 @ 09:44 by Clinton Wiley II, MD) Tremor Left wrist fracture Compound fracture Anxiety Insomnia Seizures Seasonal allergies GERD (gastroesophageal reflux disease) HTN (hypertension) Hypothyroidism Surgical History History of colonoscopy History of esophagogastroduodenoscopy (EGD) History of surgery on lower extremity History of cholecystectomy S/P CHEPE-BSO S/P correction of deviated nasal septum Family History Other No significant family history Social History Smoking Status: Never smoker alcohol intake: never substance use type: denies use current occupational status: retired Travel in the last 8 weeks: None household members: spouse housing: house lives independently: Yes marital status: number of children: 3 education level: master's degree service: No skilled nursing: No current occupational exposures/hazards: No caffeine: No Have you lived/traveled outside US in past 30 days?: No Contact w/someone who lives/traveled outside US past 30 days?: No Exposure to someone with infectious disease in past 14 days?: No Do you have a fever (greater than 100.4 F or 38 C)?: No Have you tested positive for COVID-19: No Exposed to someone with COVID-19 in past 14 days?: No Do you have a sore throat?: No Do you have a cough?: No Do you have any weakness?: No Do you have any diarrhea?: No Are you experiencing any unusual bleeding?: No Do you have any muscle aches/pain?: No Do you have any abdominal pain?: No Are you experiencing loss of taste or smell?: No Other Medical History Have you received the Flu Vaccine for this season: Yes Have you received the Pneumonia Vaccine: Yes Review of Systems Review of Systems Review of systems (narrative): Negative *Cardiovascular Comments: Negative *Gastrointestinal Comments: Negative *Genitourinary Comments: Negative *Musculoskeletal Comments: Negative *Neurologic Comments: Negative Meds Home Medications and Allergies Home Medications ?Medication ?Instructions ?Recorded ?Confirmed ?Type pantoprazole 40 mg tablet,delayed 40 mg PO DAILY GERD 01/13/18 08/23/24 History release lisinopril 5 mg tablet 5 mg PO DAILY Hypertension 12/25/19 08/23/24 History montelukast 10 mg tablet 10 mg PO HS allergies 05/25/22 08/23/24 History multivitamin 1 tab PO DAILY Supplement 05/25/22 08/23/24 History ropinirole 2 mg tablet,extended 2 mg PO HS restless leg syndrome 05/25/22 08/23/24 History release 24 hr fluticasone 100 mcg-salmeterol 50 1 ea inhalation DAILY 12/29/22 08/23/24 History mcg/dose blistr powdr for inhalation carbidopa 25 mg-levodopa 100 mg 2 tab PO QID 07/04/24 08/23/24 History tablet clonazepam 1 mg tablet 1 mg PO DAILY 07/04/24 08/23/24 History lemborexant 5 mg tablet (Dayvigo) 5 mg PO DAILY 07/04/24 08/23/24 History levothyroxine 100 mcg tablet 50 mcg PO DAILY 07/04/24 08/23/24 History rivastigmine tartrate 3 mg capsule 3 mg PO BID 07/04/24 08/23/24 History spironolactone 25 mg tablet 25 mg PO DAILY 08/23/24 08/23/24 History New Prescriptions to Start Prescriptions: Allergies Allergy/AdvReac Type Severity Reaction Status Date / Time clindamycin Allergy Mild I-RASH Verified 08/23/24 09:17 NSAIDS (Non-Steroidal Allergy Unknown STOMACH Verified 08/23/24 09:17 Anti-Inflamma (NSAIDS PAIN/VOMITING/TREMORS (NON-STEROIDAL ANTI-INFLAMMA) paroxetine Allergy Unknown ALL SSRI'S Verified 08/23/24 09:17 Exam Data for Last 24 hours Vital signs and Labs for Last 24 Hours: Temp Pulse Resp BP Pulse Ox O2 Del Method 98.3 F 80 17 136/82 97 Room Air 08/23/24 09:23 08/23/24 09:23 08/23/24 09:23 08/23/24 09:23 08/23/24 09:23 08/23/24 09:23 *Routine HEENT Exam Head: Present normocephalic Eye: Present EOMI and PERRL ENT: Present mucous membranes moist *Routine Neck Exam Neck: Present supple *Routine Respiratory Exam Respiratory: Present CTA bilaterally *Routine Cardiovascular Exam Cardiovascular: Present RRR *Routine Abdominal Exam Abdominal: Present soft and normoactive bowel sounds; Absent tenderness *Routine Rectal Exam Rectal:: deferred *Routine Genitalia Exam Genitalia:: deferred *Routine Extremities Exam Extremities: Absent cyanosis, clubbing or edema *Routine Skin Exam Skin: Present warm; Absent rash *Routine Neurological Exam Neurological: Present alert and oriented X3 Assessment and Plan *Assessment and plan (1) Dysphagia: Status: Acute Category: Medical Code(s): R13.10 - Dysphagia, unspecified (2) Choking: Status: Acute Category: Medical Code(s): T17.308A - Unspecified foreign body in larynx causing other injury, initial encounter (3) Functional dyspepsia: Status: Acute Category: Medical Code(s): K30 - Functional dyspepsia (4) GERD (gastroesophageal reflux disease): Status: Acute Category: Medical Code(s): K21.9 - Gastro-esophageal reflux disease without esophagitis Plan A/P: 1. Dysphagia/choking, dyspepsia and GERD is the preprocedural diagnosis. The patient will be anesthetized/sedated using MAC sedation. The patient has been seen and examined. Cardiac and lung assessment prior to the examination is stable. Proceed with planned EGD
[2024-08-23 09:51] VITALS: O2SAT 99
--- NOTE | 2024-08-23 10:03 | HMH.PROCNOTE ---
[facility] Procedure Note Date: 08/23/24 Time: 10:11 Procedure Note:: Upper Endoscopy Procedure Report: Esophagogastroduodenoscopy with cold biopsies and TTS balloon dilation Endoscopost: Clinton Wiley II, MD Referring Physician: Jamie Berman M.D. Date of Procedure: August 23, 2024 Equipment: Olympus GIF 190 standard upper endoscope Sedation: MAC sedation Indications: Ms. Lombardi is a 73-year-old female who is here for diagnostic/therapeutic upper endoscopy secondary to choking and occasional dysphagia. The patient does report some globus sensation with thick mucus in her throat and frequent clearance of the throat. The patient also has a history of bloating and some dyspepsia. She has been on pantoprazole for years and does have occasional mild breakthrough heartburn and reflux once a week. She does report incomplete bowel evacuation and struggles with bowel control. Taking MiraLAX and Metamucil daily often results in multiple bouts of fecal incontinence. She has tried to alternate the MiraLAX and fiber. She did have an EGD with me in 2019 and had cricopharyngeal spasm and proximal esophageal web that was dilated. She also had bile reflux with some reactive gastropathy and a small 1 to 2 cm hiatal hernia. Procedure: Prior to the procedure, a history and physical exam was performed, and patient's medications and allergies were reviewed. The risks, benefits and alternatives of the sedation and procedure were discussed with the patient. All questions were answered and informed consent was obtained. The patient was brought to the procedure room. Patient identification and proposed procedure were verified by the physician and the nurse. The patient was placed in a left lateral decubitus position and the scope was passed under direct vision. Throughout the procedure, the patient's blood pressure, pulse, and oxygen saturations were monitored continuously. The upper GI endoscopy was accomplished without difficulty. The patient tolerated the procedure well. Findings: The scope was passed directly into the upper esophagus and advanced to the third portion of the duodenum. The post bulbar duodenum and duodenal bulb were normal with normal mucosa and conniventes. The scope was withdrawn through a normal duodenal bulb and pylorus into the stomach. There was moderate linear reactive gastropathy of the antrum. There were several gastric fundic gland polyps in the body and fundus. Biopsies were taken from the antrum. One of the fundic polyps was removed via cold biopsy. Upon retroflexion there was medium to large 5 to 6 cm hiatal hernia. The diaphragmatic hiatus was at 36 cm. The top of the gastric folds and Z-line were at 30 to 31 cm from the incisors. There were no Alfonso's erosions. The the scope was then withdrawn into the esophagus. There was no evidence of reflux esophagitis or Moyer's. There were strong tertiary contractions and evidence of moderate esophageal dysmotility. The entire esophagus was dilated to 60 Irish/20 mm with a TTS hydrostatic balloon. There was some resistance at the cricopharyngeus/cricopharyngeal spasm. The remainder of the esophageal mucosa was normal. Impression: 1. Cricopharyngeal spasm status post dilation to 20 mm 2. Nonerosive GERD with moderate esophageal dysmotility and 5 to 6 cm hiatal hernia 3. Gastric fundic gland polyps 4. Linear reactive gastropathy of antrum Plan: I will follow-up the biopsies. The patient does have functional GERD with globus. Most of her symptoms of GERD, globus and dyspepsia are related to and driven by lower intestinal gas pressure gradients/high gas pressure buildup resulting in backflow of bile and peptic fluid from the duodenum into the stomach (duodenal reflux). This gas production (carbon dioxide, hydrogen, methane, etc.) from the lower intestinal tract is the byproduct of colonic bacterial fermentation. This colonic fermentation occurs when there is more carbohydrate (dietary starches, sugars and high residue plant fiber) substrate that does not get digested (in the middle or small intestine) or occurs when there is colonic fecal buildup and colonic bacterial overgrowth. This indeed leads to bloating and the gas pressure buildup with gas pressure gradients that do drive backflow and dyspepsia. We will discuss measures that may help to improve this. Certainly her obstipation/incomplete defecation plays a major role. She also is having fairly marked bowel control difficulties and would likely benefit from pelvic floor physical therapy.
[2024-08-23 10:14] VITALS: BP 104/60; PULSE 71; RESP 16; TEMP 36.1; O2SAT 93
[2024-08-23 10:24] VITALS: BP 107/62; PULSE 70; RESP 16; O2SAT 93
[2024-08-23 10:34] VITALS: BP 105/63; PULSE 70; RESP 16; O2SAT 97
[2024-08-23 10:44] VITALS: BP 110/76; PULSE 72; RESP 16; O2SAT 98
[2024-08-23] MEDS: PROMETHAZINE HCL 25MG/ML 1ML VIAL 6.25 MG IV (10:48)
[2024-08-23] MEDS: SCOPOLAMINE 1.5MG/72HRS PATCH 1 EACH TD (10:49)
== END 2024-08-23 10:53 | disposition home or self-care (01) ==
PROVIDERS: PCP Internal Medicine Adolescent Medicine; Visit Provider Internal Medicine Gastroenterology
PROC: 0DJ08ZZ Inspection of Upper Intestinal Tract, Via Natural or Artificial Opening Endoscopic (ICD-10-PCS; CPT 43239; principal; 2024-08-23 10:30)
DX: R13.10 Dysphagia, unspecified (principal); T17.308A Unspecified foreign body in larynx causing other injury, initial encounter; K30 Functional dyspepsia; K21.9 Gastro-esophageal reflux disease without esophagitis; J39.2 Other diseases of pharynx; K22.4 Dyskinesia of esophagus; K44.9 Diaphragmatic hernia without obstruction or gangrene; K31.7 Polyp of stomach and duodenum; K31.9 Disease of stomach and duodenum, unspecified
CPT/HCPCS: 43239; 43249; C1726; J2550; J7120

== ENCOUNTER 2025-03-10 12:28 | Emergency (ER) | payer MEDICARE, SELFPAY ==
--- OUTSIDE RECORDS SUMMARY | 2025-02-18 11:40 | XMS_ITS | Encounter Summary ---
Author Organization [facility] Address [address] [place] [address] Care Team Providers Care Director Industrial Relations Name Role Phone Jamie Berman MD Primary Care Provider + [phone] Encounter Details Date Type Department Care Team (Late st Contact Info) Description 02/18/2025 11:40 AM EDT Office Visit [place] [facility] [address] [place] [address] Buster Gannon MD [address] [place] [address] Lewy body dementia, unspecified dementia [...] Answer Date Recorded Patient Health Questionnaire-2 Score 2 11/12/2024 PHQ-9 Answer Date Recorded Patient Health Questionnaire-9 Score 10 11/12/2024 CAGE ASSESSMENT Answer Date Recorded Cage unable [...] drink first t murali in the morning (EYE-LONGITUDINAL FLOAT OPERATOR) to steady your nerves or to [...] Sign Reading Time Taken Comments Blood Pressure 110/80 02/18/2025 11:33 AM EDT Pulse 77 02/18/2025 11:33 AM EDT Temperature - - Respiratory Rate - - Oxygen Saturation 98% 02/18/2025 11:33 AM EDT Inhaled Oxygen Concentration - - Weight 68 kg (150 lb) 02/18/2025 11:33 AM EDT Height 154.9 cm (5' 1 ) 02/18/2025 11:33 AM EDT Body Mass Index 28.34 02/18/2025 11:33 AM EDT documented in this encounter Miscellaneous Notes * Progress Notes - Buster Gannon MD - 02/18/2025 11:40 AM EDT Subjective Quiana Lombardi presents to the [facility] as a returning patient today with/for LBD, RLS. HPI 74 year old woman with DLB presented for followup. She is here with daughter. She is on Requip XL 2 mg bid, GPN encarbil 600 mg at bedtime, Exelon 3 mg bid, melatonin 10 mg at bedtime, Klonopin 1 mg at bedtime. RLS has been well controlled since GPN encarbil has been started. Levodopa failure: No benefit. Stopping it, did not change anything. No improvement in dizziness episodes since stopping it. Episodes (2 minutes of unawareness, associated with slumping over with eye rolling upwards): continues to happen but only once in last 3 months. Complains of muscles spasms on the right side of the body. Cognition has been stable. Denies any falls. O/E: RUE and RLE resting tremor. R>L bradykinesia and rigidity. Minimal hypophonia and masked face. No dyskinesia or myoclonus Uses walker to ambulate: shuffling gait. IMPRESSION: DLB RLS Episodes of altered awareness are thought to be 2/2 DLB (not seizures or OH). PLAN: Continue with Requip XL 2 mg bid, GPN encarbil 600 mg at bedtime, Exelon 3 mg bid, melatonin 10 mg at bedtime, Klonopin 1 mg at bedtime. Note: levodopa failure. Followup in 6 months. Continue following with [facility]. Social History Tobacco Use Smoking status: Former Current packs/day: 0.00 Average packs/day: 0.3 packs/day for 3.0 years (0.8 ttl pk-yrs) Types: Cigarettes Start date: 08/22/1970 Quit date: 1973 Years since quittin.5 Smokeless tobacco: Never Substance Use Topics Alcohol use: Never Medications Ordered Prior to Encounter[1] Allergies[2] All medications have been reviewed today. Objective Vitals: 02/18/25 1133 BP: 110/80 Pulse: 77 SpO2: 98% Assessment & Plan Lewy body dementia, unspecified dementia severity, unspecified whether behavioral, psychotic, or mood disturbance or anxiety ([facility]) Counseling Documentation: The patient and daughter was counseled regarding risks and benefit of treatment options, instructions for management, and impressions. Education provided was verbal counseling. Additional time was spent in care coordination including medical record review. The total time of encounter was 30 minutes and greater than 50% of the visit was spent in counseling/coordination of care. . [1] Current Outpatient Medications on File Prior to Visit Medication Sig Dispense Refill albuterol 108 (90 Base) MCG/ACT inhaler Inhale 2 puffs in the morning and 2 puffs at noon and 2 puffs in the evening and 2 puffs before bedtime. clonazePAM (KlonoPIN) 1 MG tablet escitalopram (Lexapro) 10 MG tablet Take 1 tablet by mouth daily. 90 tablet 3 fluticasone (Flonase) 50 MCG/ACT nasal spray fluticasone-salmeterol (Advair Diskus) 100-50 MCG/ACT diskus inhaler Inhale 1 puff 2 (two) times a day. gabapentin enacarbil (Horizant) 300 MG tablet controlled-release ER tablet Take 2 tablets by mouth 1 (one) time each day with dinner. 60 tablet 3 HM 24 Hour Nasal Allergy 55 MCG/ACT nasal inhaler Administer 2 sprays into each nostril 1 (one) time each day. Horizant 600 MG tablet controlled-release ER tablet 1 tablet. levothyroxine (Synthroid, Levoxyl) 100 MCG tablet Take 1 tablet (100 mcg) by mouth 1 (one) time each day in the morning. (Patient taking differently: Take 0.5 tablets by mouth every morning.) levothyroxine (Synthroid, Levoxyl) 50 MCG tablet 1 tablet. lisinopril 5 MG tablet Take 1 tablet (5 mg) by mouth 1 (one) time each day. montelukast (Singulair) 10 MG tablet Take 1 tablet (10 mg) by mouth every night. ondansetron (Zofran) 4 MG tablet pantoprazole (Protonix) 40 MG EC tablet Take 1 tablet (40 mg) by mouth 1 (one) time each day. rivastigmine (Exelon) 3 MG capsule Take 1 capsule by mouth 2 times a day. 180 capsule 0 rOPINIRole XL (Requip XL) 2 MG 24 hr tablet Take 1 tablet (2 mg) by mouth every night. spironolactone (Aldactone) 25 MG tablet Take 1 tablet (25 mg) by mouth 1 (one) time each day. baclofen (Lioresal) 20 MG tablet Take 2 tablets (40 mg) by mouth every night. (Patient not taking: Reported on 02/18/2025) carbidopa-levodopa (Sinemet) 25-100 MG tablet Take 2 tablets by mouth 4 (four) times a day. (Patient not taking: Reported on 02/18/2025) 720 tablet 3 clonazePAM (KlonoPIN) 0.5 MG tablet Take 1 tablet (0.5 mg) by mouth every night. (Patient not taking: Reported on 02/18/2025) Lemborexant (DayVigo) 5 MG tablet Take 1 tablet by mouth 1 (one) time each day. (Patient not taking: Reported on 02/18/2025) 30 tablet 3 valACYclovir (Valtrex) 1 g tablet (Patient not taking: Reported on 02/18/2025) No current facility-administered medications on file prior to visit. [2] Allergies Allergen Reactions Clindamycin Rash Ibuprofen Other - please document in the comment field Nsaids Unknown - Patient states they do not know rxn details Serotonin Reuptake Inhibitors (Ssris) Other - please document in the comment field sweating documented in this encounter Plan of Treatment Upcoming Encounters Date Type Department Care Team (Late st Contact Info) Description 05/21/2025 1:50 PM EDT Office Visit [facility] [address] [place] [id number] Nery August APRN [address] [place] [address] 08/26/2025 9:40 AM EST Office Visit [place] [facility] [address] [place] [address] Buster Gannon MD [address] [place] [address] documented as of this encounter Visit Diagnoses Diagnosis Lewy body dementia, unspecified dementia severity, unspecified whether behavioral, psychotic, or mood disturbance or anxiety ([facility])- Primary documented in this encounter Additional Health Concerns Assessment Noted Time PHQ-9 Depression Total Score: 10 11/12/ 025 9:21 AM EDT A fall risk assessment has been complete d for the patient 02/18/2025 11:33 AM EDT A Body Mass Index follow-up plan has been documented for the patient 02/18/2025 2:07 PM EDT documented as of this encounter Care Teams Director Industrial Relations Relationship Specialty Start Date End Date Jamie Berman MD [address] [place] [id number] PCP - General Internal Medicine 06/08/22 documented as of this encounter
[2025-03-10] VITALS (7 sets, daily range): BP systolic 127–170; BP diastolic 71–105; PULSE 66–75; RESP 12–24; TEMP 36.8; O2SAT 93–98; BMI 25.7
--- OUTSIDE RECORDS SUMMARY | 2025-03-10 12:33 | XMS_ITS | Encounter Summary ---
Author Organization [facility] Address [address] [place] [address] Care Team Providers Care Payroll And Benefits Coordinator Name Role Phone Jamie Berman MD Primary Care Provider + [phone] Encounter Details Date Type Department Care Team (Late st Contact Info) Description 01/24/2025 Refill [place] [facility] [address] [place] [phone] Kiki Arias, PharmD [address] [place] [address] Social History Tobacco Use Types Packs/Day Years [...] drink first t murali in the morning (EYE-RIVET STICKER) to steady your nerves or to get [...] encounter Miscellaneous Notes * Telephone Encounter - Kiki Arias PharmD - 01/24/2025 11:03 AM EDT 1 medication(s) has been approved per protocol. documented in this encounter Plan of Treatment Upcoming Encounters Date Type Department Care Team (Late st Contact Info) Description 05/21/2025 1:50 PM EDT Office Visit [facility] [address] [place] [phone] Nery August APRN [address] [place] [address] 08/26/2025 9:40 AM EST Office Visit [place] [facility] [address] [place] [address] Buster Gannon MD [address] [place] [address] documented as of this encounter Visit Diagnoses Not on filedocumented in this encounter Additional Health Concerns Assessment Noted Time PHQ-9 Depression Total Score: 10 025 9:21 AM EDT A fall risk assessment has been complete d for the patient 12/03/2024 3:09 PM EDT A Body Mass Index follow-up plan has been documented for the patient 12/05/2024 2:02 PM EDT documented as of this encounter Care Teams Payroll And Benefits Coordinator Relationship Specialty Start Date End Date Jamie Berman MD [address] [place] [id number] PCP - General Internal Medicine 06/08/22 documented as of this encounter
--- OUTSIDE RECORDS SUMMARY | 2025-03-10 12:33 | XMS_ITS | Encounter Summary ---
Author Organization [facility] Address [address] [place] [address] Care Team Providers Care Oil Refinery Operator Name Role Phone Jamie eBrman MD Primary Care Provider + [phone] Reason for Visit * Reason Onset Date Comments Med Refill 11/21/2024 Encounter Details Date Type Department Care Team (Late st Contact Info) Description 11/21/2024 Refill [place] [facility] [address] [place] [address] Buster Gannon MD [address] [place] [address] Social History Tobacco Use Types [...] drink first t murali in the morning (EYE-OPERATIONS ASSOCIATE) to steady your nerves or to get [...] Description 05/21/2025 1:50 PM EDT Office Visit [facility] [address] [place] [phone] Nery August APRN [address] [place] [address] 08/26/2025 9:40 AM EST Office Visit [place] [facility] [address] [place] [address] Buster Gannon MD [address] [place] [address] documented as of this encounter Visit Diagnoses Not on filedocumented in this encounter Additional Health Concerns Assessment Noted Time PHQ-9 Depression Total Score: 10 025 9:21 AM EDT A fall risk assessment has been complete d for the patient 11/12/2024 9:21 AM EDT A Body Mass Index follow-up plan has been documented for the patient 11/12/2024 11:42 AM EDT documented as of this encounter Care Teams Oil Refinery Operator Relationship Specialty Start Date End Date Jamie Berman MD [address] [place] [id number] PCP - General Internal Medicine 06/08/22 documented as of this encounter
--- OUTSIDE RECORDS SUMMARY | 2025-03-10 12:33 | XMS_ITS | Clinical Summary ---
Author Organization [facility] Address [address] [place] [address] Care Team Providers Care Doctor Of Naprapathy Name Role Phone Jamie Berman MD Primary Care Provider + [phone] Allergies Active Allergy Reactions Criticality Noted Date [...] each day in the morning. 3 Active fluticasone-sa lmeterol (Advair Diskus) 100-50 MCG/ACT diskus inhaler Inhale 1 puff 2 (two) times a day. 3 Active baclofen (Lioresal) 20 MG tablet Take 2 tablets (40 mg) by mouth every night. 3 Active spironolactone (Aldactone) 25 MG tablet Take 1 tablet (25 mg) by mouth 1 (one) time each day. Active montelukast (Singulair) 10 MG tablet Take 1 tablet (10 mg) by mouth every night. Active clonazePAM (KlonoPIN) 0.5 MG tablet Take 1 tablet (0.5 mg) by mouth every night. Active carbidopa-levo dopa (Sinemet) 25-100 MG tablet Take 2 tablets by mouth 4 (four) times a day. 720 tablet 3 4 Active Additional Information Patient not taking.Reported on 02/18/2025 Lemborexant (DayVigo) 5 MG tablet Take 1 tablet by mouth 1 (one) time each day. 30 tablet 3 4 07/23/20 25 Active Additional Information Patient not taking.Reported on 02/18/2025 clonazePAM (KlonoPIN) 1 MG tablet 4 Active valACYclovir (Valtrex) 1 g tablet 4 Active fluticasone (Flonase) 50 MCG/ACT nasal spray 4 Active ondansetron (Zofran) 4 MG tablet 5 Active albuterol 108 (90 Base) MCG/ACT inhaler Inhale 2 puffs in the morning and 2 puffs at noon and 2 puffs in the evening and 2 puffs before bedtime. Active gabapentin enacarbil (Horizant) 300 MG tablet controlled-rel ease ER tablet Take 2 tablets by mouth 1 (one) time each day with dinner. 60 tablet 3 5 Active escitalopram (Lexapro) 10 MG tablet Take 1 tablet by mouth daily. 90 tablet 3 5 01/24/20 26 Active Horizant 600 MG tablet controlled-rel ease ER tablet 1 tablet. 5 Active levothyroxine (Synthroid, Levoxyl) 50 MCG tablet 1 tablet. 5 Active rivastigmine (Exelon) 3 MG capsule Take 1 capsule by mouth 2 times a day. 180 capsule 3 5 02/19/20 26 Active rivastigmine (Exelon) 3 MG capsule Take 1 capsule by mouth 2 times a day. 180 capsule 5 02/19/20 25 Discontin ued(Reord er) Active Problems Problem Noted Date Diagnosed Date [...] Encounters Date Type Department Care Team Description 02/18/2025 11:40 AM EDT Office Visit [facility] [address], [address] [place] [address] Buster Gannon MD Lewy body dementia, unspecified dementia severity, unspecified whether behavioral, psychotic, or mood disturbance or anxiety (CMS/[facility]) (Primary Dx) 02/18/2025 Travel 01/24/2025 Refill [facility] [address], [address] [place] [address] Kiki Arias, PharmD 01/23/2025 Orders Only [facility] [address] [place] [id number] Nery August APRN from Last 3 Months Immunizations Immunization Administration Dates Next Due Influenza, High-dose, Split Virus, Trivalent, Injectable, preservative free 04/26/2024 Influenza, Unspecified 05/28/2022 Influenza, injectable, quadrivalent, preservativ [...] drink first t murali in the 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) to steady your nerves or to get [...] Pulse 77 02/18/2025 11:33 AM EDT Temperature 36.5 C (97.7 F) 11/19/2023 7:39 AM EDT Respiratory Rate 18 12/03/2024 2:55 PM EDT Oxygen Saturation 98% 02/18/2025 11:33 AM EDT Inhaled Oxygen Concentration - - Weight 68 kg (150 lb) 02/18/2025 11:33 AM EDT Height 154.9 cm (5' 1 ) 02/18/2025 11:33 AM EDT Body Mass Index 28.34 02/18/2025 11:33 AM EDT Plan of Treatment Upcoming Encounters Date Type Department Care Team (Late st Contact Info) Description 05/21/2025 1:50 PM EDT Office Visit [facility] [address] [place] [phone] Nery August APRN [address] [place] [address] 08/26/2025 9:40 AM EST [facility] Visit [facility] [address] [place] [address] Buster Gannon MD [address] [place] [address] Health Maintenance Due Date Last Done Comments [facility]-Bone Density Scan 1950 [facility]-Hepatitis C Screening 1950 [facility]-Medicare Annual Wellness (AWV) 1950 [facility]-Infant/Child/Adol SDOH Screenings 1950 [facility]- SDOH Screenings 1969 [facility]-Adult SDOH Screenings 1969 [facility]-DTaP,Tdap,and Td Vaccines (1 - Tdap) 1970 CT Colonography 1996 Colonoscopy 1996 FIT-DNA 1996 FIT 1996 FOBT 1996 Sigmoidoscopy 1996 [facility]-Colorectal Cancer Screening 1996 [facility]-Zoster Vaccines (1 of 2) 2001 [facility]-Pneumococcal Vaccine: 50+ Years (2 of 2 - PPSV23) 05/17/2016 06/04/2016, 03/22/2016 [facility]-Breast Cancer Screening 06/08/202405/22, 10/05/2019, 10/02/2018, Additional history exists PRF-OVNQY-30 Vaccine (7 - Pfizer risk season) 2024 04/26/2024, 08/01/2023, 05/19/2022, Additional history exists [facility]-Influenza Vaccine (#1) 04/22/202504/26, 05/28/2022, 05/06/2022, Additional history exists [facility]-Depression Screening 11/12/2025 11/12/2024, 10/21 [facility]-RSV Vaccine: 60+ Years or Completed 06/20/2023 [facility]-Obesity Intervention Completed 025, 12/03/2024, 11/12/2024, Additional history exists HPV Vaccines Aged Out No longer eligi ble based on patient's age to complete this topic [facility]-HIB Vaccines Aged Out No longer e [...] BI-RADS CATEGORY: Overall: 2 - Benign RECOMMENDATION: - Routine Screening Mammogram in 1 Year. [...] lay language version of the imaging report. Narrative 06/09/2022 11:20 AM EDT EXAM: Mammography Breast Screening with Tomosynthesis REASON FOR EXAM: Screening Mammogram HISTORY: Patient is 71 y.o. Hormone history includes hormone replacement therapy (premarin x 30 years) and control (x 3 years). Surgical history includes hysterectomy (Hysterectomy from [facility]). COMPARISON STUDIES: Compared to: 07/10/2016 Mammography Breast Screening Tomosynthesis Bilateral at [facility] 08/17/2017 Mammography Breast Screening Tomosynthesis Bilateral at [facility] 10/02/2018 Mammography Breast Screening Tomosynthesis Bilateral at [facility] 10/05/2019 Mammography Breast Screening Tomosynthesis Bilateral at [facility] BREAST COMPOSITION: The breasts are almost entirely fatty. FINDINGS: There are post-biopsy clip(s) present in the the right breast. There is no evidence of suspicious masses, calcifications, or other abnormal findings. us Jamie Berman MD IMG BI PROCEDURES Final Resu lt from Last 3 Months or Most Recently Relevant to Health Maintenance Insurance [facility] [place] [address] Advance Directives * Full Code (Latest Code Status on File) Date Activated Date Inactivated Comments 11/18/2023 8:42 AM 11/19/2023 2:36 PM Question Answer Comments Patient has decision-making capacity? Yes Care Teams Doctor Of Naprapathy Relationship Specialty Start Date End Date Jamie Berman MD [address] [place] [address] PCP - General Internal Medicine 06/08/22
--- OUTSIDE RECORDS SUMMARY | 2025-03-10 12:33 | XMS_ITS | Encounter Summary ---
Author Organization [facility] Address [address] 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 documented in this encounter Plan of Treatment Upcoming Encounters Date Type Department Care Team (Late st Contact Info) Description 05/21/2025 1:50 PM EDT Office Visit [facility] [address] [place] [phone] Nery August APRN [address] [place] [address] 08/26/2025 9:40 AM EST [facility] [address] [place] [address] Buster Gannon MD [address] [place] [address] documented as of this encounter Visit Diagnoses [...] documented as of this encounter Care Teams Offset Press Operator Relationship Specialty Start Date End Date Jamie Berman MD [address] [place] [id number] PCP - General Internal Medicine 06/08/22 documented as of this encounter
--- OUTSIDE RECORDS SUMMARY | 2025-03-10 12:33 | XMS_ITS | Encounter Summary ---
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) to steady your nerves or to [...] 05/21/2025 1:50 PM EDT Office Visit [facility] [address] [place] [address] Nery August APRN [address] [place] [address] 08/26/2025 9:40 AM EST [facility] Visit [facility] [address] [place] [address] Buster Gannon MD [address] [place] [address] documented as of this encounter [...] documented as of this encounter Care Teams Customer Support Assistant Relationship Specialty Start Date End Date Jamie Berman MD [address] [place] [address] PCP - General Internal Medicine 06/08/22 documented as of this encounter
--- NOTE | 2025-03-10 12:36 | ECG_ITS ---
APPROVED REPORT Exam: Resting ECG HR:75 bpm ECG Measurements Heart Rate 75 AXES MA 148 P 54 QRSd 72 QRS 17 QT 371 T 74 QTc 400 Conclusion SINUS RHYTHM WITH SINUS ARRHYTHMIA NORMAL ECG Electronically signed by : FIFI BOWIE, 03/10/2025 15:51:05
--- NOTE | 2025-03-10 12:43 | XR_ITS ---
PROCEDURE INFORMATION: Exam: XR Chest Exam date and time: 03/10/2025 1:03 PM Age: 74 years old Clinical indication: Other: Chest pain; Additional info: Cp TECHNIQUE: Imaging protocol: Radiologic exam of the chest. Views: 1 view. COMPARISON: CR XR CHEST 2V 08/06/2022 9:57 AM FINDINGS: Lungs: Coarse interstitial markings. No acute airspace disease. Pleural spaces: No visible pleural effusion. No pneumothorax. Heart/Mediastinum: Moderate-sized hiatal hernia with partially intrathoracic stomach, grossly unchanged from prior exam. Bones/joints: No evidence of acute osseous abnormality. IMPRESSION: 1. No acute findings. 2. Moderate-sized hiatal hernia with partially intrathoracic stomach, grossly unchanged from prior exam.
--- NOTE | 2025-03-10 12:43 | HMH.EDGENADL ---
Discharge Plan Disposition Patient Disposition: Home, Self-Care Prescriptions Prescriptions: No Action carbidopa-levodopa 25-100 mg tablet 2 tab PO QID Dayvigo 5 mg tablet 5 mg PO DAILY rivastigmine tartrate 3 mg capsule 3 mg PO BID clonazepam 1 mg tablet 1 mg PO DAILY fluticasone propion-salmeterol 100-50 mcg/dose blister with device 1 ea inhalation DAILY levothyroxine 100 mcg tablet 50 mcg PO DAILY pantoprazole 40 MG tablet,delayed release (DR/EC) 40 mg PO DAILY lisinopril 5 MG tablet 5 mg PO DAILY multivitamin Tablet 1 tab PO DAILY montelukast 10 mg Tablet 10 mg PO HS ropinirole 2 mg Tablet Extended Release 24 Hr 2 mg PO HS spironolactone 25 mg tablet 25 mg PO DAILY Referrals Follow up/Referrals: Jamie Berman MD [Primary Care Provider, Internal Medicine] - See instructions Activity Restrictions/Add. Instructions Additional Instructions/Restrictions: Today you were evaluated in the emergency department. Your workup today was unremarkable, your cardiac enzyme was negative. Your chest x-ray does not appear to have any acute findings. I would recommend a follow-up appointment with your PCP within the next week. I also recommend an evaluation by cardiology, although all cardiac related tests were negative today, I think it would be smith to have a cardiac echo performed since you do have a history of mitral valve issues. Please return to the ED for any worsening of your condition. Clinical Impressions Clinical Impression: Syncope Qualifiers: Syncope type: unspecified Qualified Code(s): R55 - Syncope and collapse Instructions Patient Instructions: DI for Syncope in Adults (Fainting) Print Language Print Language: Icelandic Discharge ED Provider: Tanvir Lorenzo General Adult HPI <Aneta Dao APRN - Last Filed: 03/10/25 16:55> General Chief complaint: Syncope Stated complaint: fainted Time Seen by Provider: 03/10/25 12:34 History of Present Illness HPI narrative: patient is a 74-year-old female PMHx episodes of unconsciousness (follows with [facility] neurology), Lewy body dementia, fibromyalgia, hypertension, history of metabolic encephalopathy who presents to the ED after multiple syncopal episodes starting at confucianism this morning. Related Data Home Medications ?Medication ?Instructions ?Recorded ?Confirmed pantoprazole 40 mg tablet,delayed 40 mg PO DAILY GERD 01/13/18 08/23/24 release lisinopril 5 mg tablet 5 mg PO DAILY Hypertension 12/25/19 08/23/24 montelukast 10 mg tablet 10 mg PO HS allergies 05/25/22 08/23/24 multivitamin 1 tab PO DAILY Supplement 05/25/22 08/23/24 ropinirole 2 mg tablet,extended 2 mg PO HS restless leg syndrome 05/25/22 08/23/24 release 24 hr fluticasone 100 mcg-salmeterol 50 1 ea inhalation DAILY 12/29/22 08/23/24 mcg/dose blistr powdr for inhalation carbidopa 25 mg-levodopa 100 mg 2 tab PO QID 07/04/24 08/23/24 tablet clonazepam 1 mg tablet 1 mg PO DAILY 07/04/24 08/23/24 lemborexant 5 mg tablet (Dayvigo) 5 mg PO DAILY 07/04/24 08/23/24 levothyroxine 100 mcg tablet 50 mcg PO DAILY 07/04/24 08/23/24 rivastigmine tartrate 3 mg capsule 3 mg PO BID 07/04/24 08/23/24 spironolactone 25 mg tablet 25 mg PO DAILY 08/23/24 08/23/24 Allergies Allergy/AdvReac Type Severity Reaction Status Date / Time clindamycin Allergy Mild I-RASH Verified 08/23/24 09:17 NSAIDS (Non-Steroidal Allergy Unknown STOMACH Verified 08/23/24 09:17 Anti-Inflamma (NSAIDS PAIN/VOMITING/TREMORS (NON-STEROIDAL ANTI-INFLAMMA) paroxetine Allergy Unknown ALL SSRI'S Verified 08/23/24 09:17 [facility] <Aneta Dao APRN - Last Filed: 03/10/25 16:55> [facility] Disclaimer: The information contained in this section may have been updated after the patient was seen, as this information can be updated by other users. Medical History (Updated 03/10/25 @ 14:33 by Aneta Dao APRN) Tremor Left wrist fracture Compound fracture Anxiety Insomnia Seizures Seasonal allergies GERD (gastroesophageal reflux disease) HTN (hypertension) Hypothyroidism Surgical History History of colonoscopy History of esophagogastroduodenoscopy (EGD) History of surgery on lower extremity History of cholecystectomy S/P CHEPE-BSO S/P correction of deviated nasal septum Family History Other No significant family history Social History Smoking Status: Never smoker alcohol intake: never substance use type: denies use current occupational status: retired Travel in the last 8 weeks?: None household members: spouse housing: house lives independently: Yes marital status: number of children: 3 education level: master's degree service: No fdc: No current occupational exposures/hazards: No caffeine: No Have you lived/traveled outside [place] in past 30 days?: No Contact w/someone who lives/traveled outside US past 30 days?: No Exposure to someone with infectious disease in past 14 days?: No Do you have a fever (greater than 100.4 F or 38 C)?: No Have you tested positive for COVID-19?: No Exposed to someone with COVID-19 in past 14 days?: No Do you have a sore throat?: No Do you have a cough?: No Do you have any weakness?: No Do you have any diarrhea?: No Are you experiencing any unusual bleeding?: No Do you have any muscle aches/pain?: No Do you have any abdominal pain?: No Are you experiencing loss of taste or smell?: No Other Medical History Have you received the Flu Vaccine for this season: Yes Have you received the Pneumonia Vaccine: Yes <Aneta Dao APRN - Last Filed: 03/10/25 16:55> ROS Obtained: Yes Systems reviewed as appropriate & no additional complaints except as documented Physical Exam <Aneta Dao APRN - Last Filed: 03/10/25 16:55> General General appearance: alert and in no apparent distress Head Head exam: atraumatic Eye Eye exam: Present normal appearance, PERRL and EOMI; Absent nystagmus ENT ENT exam: Present normal exam Neck Neck exam: Present normal inspection, full ROM and trachea midline; Absent tenderness Chest Chest inspection: Present normal inspection and symmetric chest wall rise; Absent tenderness Respiratory Respiratory exam: Present normal lung sounds bilaterally Cardiovascular Cardiovascular exam: Present regular rate Abdominal Exam Abdominal exam: Present soft Neurological Exam Neurological exam: Present alert and oriented X3 Skin Skin exam: Present warm Medical Decision Making <Aneta Dao APRN - Last Filed: 03/10/25 16:55> Medical Records Screening: Per USPSTF and CDC recommendations, given the prevalence of disease in our region, it is our hospital?s policy to screen for HIV and viral Hepatitis for all patients aged 18 and over and those with ongoing risk factors. Jason Inquiry Pt receiving controlled substance: No Jason was queried for this patient: No Vital Signs: 03/10/25 12:55 03/10/25 13:00 03/10/25 13:07 Temperature 98.2 F Temperature Source Oral Pulse Rate 75 Pulse Rate [Right] 70 Respiratory Rate 18 12 Blood Pressure 170/105 H 145/83 H Blood Pressure [Right Arm] 165/92 H Blood Pressure Mean 103 Blood Pressure Mean [Right Arm] 116 02 Sat by Pulse Oximetry 97 98 93 L Oxygen Delivery Method Room Air 03/10/25 13:30 03/10/25 14:08 03/10/25 14:30 Temperature Temperature Source Pulse Rate 68 68 67 Pulse Rate [Right] Respiratory Rate 15 14 24 Blood Pressure 150/94 H 128/71 127/71 Blood Pressure [Right Arm] Blood Pressure Mean Blood Pressure Mean [Right Arm] 02 Sat by Pulse Oximetry 95 96 95 Oxygen Delivery Method 03/10/25 14:43 Temperature 98.2 F Temperature Source Pulse Rate 66 Pulse Rate [Right] Respiratory Rate 18 Blood Pressure 127/71 Blood Pressure [Right Arm] Blood Pressure Mean Blood Pressure Mean [Right Arm] 02 Sat by Pulse Oximetry Oxygen Delivery Method Room Air Lab Data Lab Results 03/10/25 12:43: Urine Color Yellow, Urine Appearance Clear, Urine pH 5.5, Ur Specific Orange 1.025, Urine Protein Negative, Urine Glucose (UA) Negative, Urine Ketones Negative, Urine Blood Negative, Urine Nitrate Negative, Urine Bilirubin Negative, Urine Urobilinogen 0.2, Ur Leukocyte Esterase Trace, Urine RBC None, Urine WBC Occasional, Ur Squamous Epith Cells 5-10, Urine Bacteria Trace, Urine Opiates Screen Negative, Urine Methadone Screen Negative, Ur Barbituates Screen Negative, Ur Phencyclidine Scrn Negative, Ur Amphetamines Screen Negative, U Benzodiazepines Scrn Negative, Urine Cocaine Screen Negative, U Marijuana (THC) Screen Negative 03/10/25 12:48: WBC 7.4, RBC 4.26, Hgb 13.0, Hct 39.7, MCV 93.2, MCH 30.5, MCHC 32.7, RDW 13.1, Plt Count 296, MPV 10.2, Neut % (Auto) 55.1, Lymph % (Auto) 33.3, [place] % (Auto) 9.3, Eos % (Auto) 1.5, Baso % (Auto) 0.4, Neut # (Auto) 4.1, Lymph # (Auto) 2.5, [place] # (Auto) 0.7, Eos # (Auto) 0.1, Baso # (Auto) 0.0, Sodium 136, Potassium 3.9, Chloride 103, Carbon Dioxide 28, Anion Gap 8.9, BUN 17, Creatinine 0.80, Estimated Creat Clear 52, Estimated GFR 70, Est GFR ( Amer) 85, Glucose 93, Calcium 9.4, Magnesium 1.9, Total Bilirubin 0.5, AST 34, ALT 14, Alkaline Phosphatase 75, Troponin I < 0.01, NT-Pro-B Natriuret Pep 117, Total Protein 7.0, Albumin 4.3, Globulin 2.7, Albumin/Globulin Ratio 1.6, Plasma/Serum Alcohol < 10, HCV Ab LUIS M w/Rflx PCR Qn Negative, HIV Ag/Ab Combo Qual Negative 03/10/25 12:48 03/10/25 12:48 Orders (Tests/Meds): ED MEDICATIONS Discontinued Medications Generic Name Dose Route Start Last Admin Trade Name Freq PRN Reason Stop Dose Admin Acetaminophen 1,000 mg 03/10/25 12:45 03/10/25 13:06 Acetaminophen 1,000mg/100ml Vial IV 03/10/25 12:46 1,000 mg ONCE ONE Administration Ondansetron HCl 4 mg 03/10/25 12:45 03/10/25 13:06 Ondansetron 4mg/2ml Vial IV 03/10/25 12:46 4 mg ONCE ONE Administration Sodium Chloride 10 ml 03/10/25 12:43 Sodium Chloride 0.9% 10ml Flush Syringe IV 04/09/25 12:42 NEEDED PRN Maintain IV Site ORDERS Category Date Time Status CXR --portable [XR chest portable] Stat Exams 03/10/25 12:43 Completed BNP [NT Pro Brain Natriuretic Pep.] Stat Lab 03/10/25 12:48 Completed Blood alcohol [Ethyl Alcohol] Stat Lab 03/10/25 12:48 Completed CBC w/Auto Diff [Complete Blood Count Auto Diff] Stat Lab 03/10/25 12:48 Completed CMP [Comprehensive Metabolic Panel] Stat Lab 03/10/25 12:48 Completed HIV Combo Stat Lab 03/10/25 12:48 Completed Hepatitis C Ab Qual. W/ RFX Stat Lab 03/10/25 12:48 Completed MAG [Magnesium] Stat Lab 03/10/25 12:48 Completed Trop I [Troponin I] Stat Lab 03/10/25 12:48 Completed UDS [Drug Screen,Urine] Stat Lab 03/10/25 12:43 Completed Urinalysis and Microscopic Stat Lab 03/10/25 12:43 Completed Medical Decision Narrative: In summary, patient is a 74-year-old female PMHx episodes of unconsciousness (follows with neurology), Lewy body dementia, fibromyalgia, hypertension, history of metabolic encephalopathy who presents to the ED after multiple syncopal episodes starting at confucianism this morning. Patient states after confucianism she was walking around the pews when she suddenly had another 1 of these episodes, subsequently passing out on the floor, patient's daughter who witnessed the episode denies that patient fell or hit her head. Patient states that immediately after, she felt normal again. She does have a moderate headache which she states she always has a headache and becomes nauseous after 1 of these events. Patient has most recently seen neurology a few months ago, had a normal workup. States she recently had labs which were normal. Patient does not follow with cardiology. No history of MD. Denies taking any blood thinners. Denies fever, chills, visual disturbances, posterior neck pain, chest pain, shortness of breath, abdominal pain, vomiting, dysuria. Upon initial evaluation patient is alert, oriented and cooperative. She is hypertensive. Normal neurological exam. Normal physical exam. Patient is ambulatory in the room without difficulty. Differential diagnoses include ACS, dissection, pulmonary embolism, cardiac related syncope, cardiomegaly, electrolyte abnormality, among others. Labs reviewed. CBC unremarkable for any leukocytosis, stable H&H. CMP unremarkable for any actionable abnormalities. First troponin < 0.01. Normal mag. Urinalysis unremarkable for any infectious process. UDS negative. Serum alcohol negative. Informal review of the chest x-ray unremarkable for any acute findings. Upon reevaluation, patient states her condition has improved, her blood pressure is now systolic 128. She states she feels much better. Given this, I feel the patient is safe to be discharged home. I discussed with her she will need to follow-up with her PCP. I also advised her would be smith to follow-up with cardiology for maybe a baseline echo. We discussed return precautions to the ED. Patient and family verbalized understanding. <Tanvir Lorenzo MD - Last Filed: 03/10/25 17:11> Vital Signs: 03/10/25 12:55 03/10/25 13:00 03/10/25 13:07 Temperature 98.2 F Temperature Source Oral Pulse Rate 75 Pulse Rate [Right] 70 Respiratory Rate 18 12 Blood Pressure 170/105 H 145/83 H Blood Pressure [Right Arm] 165/92 H Blood Pressure Mean 103 Blood Pressure Mean [Right Arm] 116 02 Sat by Pulse Oximetry 97 98 93 L Oxygen Delivery Method Room Air 03/10/25 13:30 03/10/25 14:08 03/10/25 14:30 Temperature Temperature Source Pulse Rate 68 68 67 Pulse Rate [Right] Respiratory Rate 15 14 24 Blood Pressure 150/94 H 128/71 127/71 Blood Pressure [Right Arm] Blood Pressure Mean Blood Pressure Mean [Right Arm] 02 Sat by Pulse Oximetry 95 96 95 Oxygen Delivery Method 03/10/25 14:43 Temperature 98.2 F Temperature Source Pulse Rate 66 Pulse Rate [Right] Respiratory Rate 18 Blood Pressure 127/71 Blood Pressure [Right Arm] Blood Pressure Mean Blood Pressure Mean [Right Arm] 02 Sat by Pulse Oximetry Oxygen Delivery Method Room Air Lab Data Lab Results 03/10/25 12:43: Urine Color Yellow, Urine Appearance Clear, Urine pH 5.5, Ur Specific Orange 1.025, Urine Protein Negative, Urine Glucose (UA) Negative, Urine Ketones Negative, Urine Blood Negative, Urine Nitrate Negative, Urine Bilirubin Negative, Urine Urobilinogen 0.2, Ur Leukocyte Esterase Trace, Urine RBC None, Urine WBC Occasional, Ur Squamous Epith Cells 5-10, Urine Bacteria Trace, Urine Opiates Screen Negative, Urine Methadone Screen Negative, Ur Barbituates Screen Negative, Ur Phencyclidine Scrn Negative, Ur Amphetamines Screen Negative, U Benzodiazepines Scrn Negative, Urine Cocaine Screen Negative, U Marijuana (THC) Screen Negative 03/10/25 12:48: WBC 7.4, RBC 4.26, Hgb 13.0, Hct 39.7, MCV 93.2, MCH 30.5, MCHC 32.7, RDW 13.1, Plt Count 296, MPV 10.2, Neut % (Auto) 55.1, Lymph % (Auto) 33.3, [place] % (Auto) 9.3, Eos % (Auto) 1.5, Baso % (Auto) 0.4, Neut # (Auto) 4.1, Lymph # (Auto) 2.5, [place] # (Auto) 0.7, Eos # (Auto) 0.1, Baso # (Auto) 0.0, Sodium 136, Potassium 3.9, Chloride 103, Carbon Dioxide 28, Anion Gap 8.9, BUN 17, Creatinine 0.80, Estimated Creat Clear 52, Estimated GFR 70, Est GFR ( Amer) 85, Glucose 93, Calcium 9.4, Magnesium 1.9, Total Bilirubin 0.5, AST 34, ALT 14, Alkaline Phosphatase 75, Troponin I < 0.01, NT-Pro-B Natriuret Pep 117, Total Protein 7.0, Albumin 4.3, Globulin 2.7, Albumin/Globulin Ratio 1.6, Plasma/Serum Alcohol < 10, HCV Ab LUIS M w/Rflx PCR Qn Negative, HIV Ag/Ab Combo Qual Negative Orders (Tests/Meds): ED MEDICATIONS Discontinued Medications Generic Name Dose Route Start Last Admin Trade Name Freq PRN Reason Stop Dose Admin Acetaminophen 1,000 mg 03/10/25 12:45 03/10/25 13:06 Acetaminophen 1,000mg/100ml Vial IV 03/10/25 12:46 1,000 mg ONCE ONE Administration Ondansetron HCl 4 mg 03/10/25 12:45 03/10/25 13:06 Ondansetron 4mg/2ml Vial IV 03/10/25 12:46 4 mg ONCE ONE Administration Sodium Chloride 10 ml 03/10/25 12:43 Sodium Chloride 0.9% 10ml Flush Syringe IV 04/09/25 12:42 NEEDED PRN Maintain IV Site ORDERS Category Date Time Status CXR --portable [XR chest portable] Stat Exams 03/10/25 12:43 Completed BNP [NT Pro Brain Natriuretic Pep.] Stat Lab 03/10/25 12:48 Completed Blood alcohol [Ethyl Alcohol] Stat Lab 03/10/25 12:48 Completed CBC w/Auto Diff [Complete Blood Count Auto Diff] Stat Lab 03/10/25 12:48 Completed CMP [Comprehensive Metabolic Panel] Stat Lab 03/10/25 12:48 Completed HIV Combo Stat Lab 03/10/25 12:48 Completed Hepatitis C Ab Qual. W/ RFX Stat Lab 03/10/25 12:48 Completed MAG [Magnesium] Stat Lab 03/10/25 12:48 Completed Trop I [Troponin I] Stat Lab 03/10/25 12:48 Completed UDS [Drug Screen,Urine] Stat Lab 03/10/25 12:43 Completed Urinalysis and Microscopic Stat Lab 03/10/25 12:43 Completed Medical Decision Narrative: In summary, patient is a 74-year-old female PMHx episodes of unconsciousness (follows with neurology), Lewy body dementia, fibromyalgia, hypertension, history of metabolic encephalopathy who presents to the ED after multiple syncopal episodes starting at confucianism this morning. Patient states after confucianism she was walking around the pews when she suddenly had another 1 of these episodes, subsequently passing out on the floor, patient's daughter who witnessed the episode denies that patient fell or hit her head. Patient states that immediately after, she felt normal again. She does have a moderate headache which she states she always has a headache and becomes nauseous after 1 of these events. Patient has most recently seen neurology a few months ago, had a normal workup. States she recently had labs which were normal. Patient does not follow with cardiology. No history of MD. Denies taking any blood thinners. Denies fever, chills, visual disturbances, posterior neck pain, chest pain, shortness of breath, abdominal pain, vomiting, dysuria. Upon initial evaluation patient is alert, oriented and cooperative. She is hypertensive. Normal neurological exam. Normal physical exam. Patient is ambulatory in the room without difficulty. Differential diagnoses include ACS, dissection, pulmonary embolism, cardiac related syncope, cardiomegaly, electrolyte abnormality, among others. Labs reviewed. CBC unremarkable for any leukocytosis, stable H&H. CMP unremarkable for any actionable abnormalities. First troponin < 0.01. Normal mag. Urinalysis unremarkable for any infectious process. UDS negative. Serum alcohol negative. Informal review of the chest x-ray unremarkable for any acute findings. Upon reevaluation, patient states her condition has improved, her blood pressure is now systolic 128. She states she feels much better. Given this, I feel the patient is safe to be discharged home. I discussed with her she will need to follow-up with her PCP. I also advised her would be smith to follow-up with cardiology for maybe a baseline echo. We discussed return precautions to the ED. Patient and family verbalized understanding. I was consulted by the BARBIE, and we discussed the complexity of the problems being addressed. I approve the treatment and management plan for this patient's care in the emergency department, thus performing a substantive portion of the medical decision making. Tanvir Lorenzo MD Critical Care <Aneta Doa APRN - Last Filed: 03/10/25 16:55> Critical Care Time Critical Care Time: No
[2025-03-10 12:51] LABS: Microscopic, Urine URINE MICROSCOPIC (MICROSCOPIC)
[2025-03-10 12:58] LABS: Hematocrit 39.7 % (37.0-47.0); Hemoglobin 13.0 g/dL (12.2-16.2); Immature Granulocytes % 0.4 %; Mean Corpuscular HGB Conc 32.7 g/dL (31.8-35.4); Mean Corpuscular Hemoglobin 30.5 pg (27.0-31.2); Mean Corpuscular Volume 93.2 fl (81-99); Nucleated Red Blood Cells % 0 %; Platelet Count 296 K/mm3 (142-424); Red Blood Count 4.26 M/mm3 (4.20-5.40); Red Cell Distribution Width-SD 44.6 fL; White Blood Count 7.4 K/mm3 (4.8-10.8)
[2025-03-10 12:58] LABS: Bilirubin,Urine Negative (Negative); Color,Urine YELLOW (Yellow); Glucose,Urine (UA) Negative (Negative); Ketones,Urine Negative (Negative); Leukocyte Esterase,Urine TRACE (Negative); PH,Urine 5.5 (5.0-8.5); Protein,Urine Negative (Negative); Specific Gravity, Urine 1.025 (1.005-1.030); Urobilinogen,Urine 0.2 EU/dl (0.2)
[2025-03-10 13:04] LABS: Albumin Level 4.3 g/dl (3.5-5.0); Chloride 103 mmol/L (98-107); Potassium 3.9 mmoL/L (3.5-5.1); Sodium 136 mmol/L (136-145)
[2025-03-10 13:06] LABS: Bacteria,Urine Trace /lpf; WBC,Urine Occasional #/hpf (0-3)
[2025-03-10] MEDS: ACETAMINOPHEN 1,000MG/100ML VIAL 1000 MG IV (13:06)
[2025-03-10] MEDS: ONDANSETRON 4MG/2ML VIAL 4 MG IV (13:06)
[2025-03-10 13:07] LABS: Alanine Aminotransferase 14 U/L (12-78); Albumin/Globulin Ratio 1.6 (1.1-1.8); Alkaline Phosphatase 75 U/L (38-126); Anion Gap 8.9 mEq/L (5-15); Aspartate Amino Transferase 34 U/L (14-36); Bilirubin,Total 0.5 mg/dl (0.2-1.3); Blood Urea Nitrogen 17 mg/dl (7-17); Calcium 9.4 mg/dl (8.4-10.2); Carbon Dioxide 28 mmol/L (22.0-30.0); Creatinine Clearance Estimated 52 mL/min (50-200); Creatinine,Serum 0.80 mg/dl (0.52-1.04); Estimated Glomerular Filt Rate 70 ml/min (>60); GFR (African American) 85 ML/MIN (>60); Globulin 2.7 g/dL (1.3-3.2); Glucose 93 mg/dl (74-100); Magnesium 1.9 mg/dl (1.6-2.3); Total Protein,Serum 7.0 g/dl (6.3-8.2)
--- NOTE | 2025-03-10 13:07 | PC.NURSE ---
placed seizure pads on bed
[2025-03-10 13:13] LABS: Benzodiazepines Screen,Urine Negative ng/ml (<200)
[2025-03-10 13:14] LABS: Amphetamine/Metha Screen,Urine Negative ng/ml (<1000); Barbiturates Screen,Urine Negative ng/ml (<200)
[2025-03-10 13:16] LABS: Methadone Screen,Urine Negative ng/ml (<300)
[2025-03-10 13:17] LABS: Opiate Screen,Urine Negative ng/ml (<300); Phencyclidine Screen,Urine Negative ng/ml (<25)
[2025-03-10 13:23] LABS: NT Pro Brain Natriuretic Pep. 117 pg/mL (0-125)
[2025-03-10 13:39] LABS: Troponin I < 0.01 ng/ml (0.00-0.034)
[2025-03-10 14:11] LABS: Hepatitis C Ab Qual. W/ RFX NEGATIVE (Negative)
== END 2025-03-10 14:58 | disposition home or self-care (01) ==
PROVIDERS: Nurse Practitioner; Emergency Provider Student in an Organized Health Care Education/Training Program; PCP Internal Medicine Adolescent Medicine
DX: R55 Syncope and collapse (principal); I10 Essential (primary) hypertension; G20.A1 Parkinson's disease without dyskinesia, without mention of fluctuations
CPT/HCPCS: 71045; 80053; 80307; 80320; 81001; 83735; 83880; 84484; 85025; 86803; 87389; 93005; 96374; 96375; 99285; J0131; J2405

== ENCOUNTER 2025-06-03 12:44 | Emergency (ER) | payer MEDICARE, SELFPAY ==
--- OUTSIDE RECORDS SUMMARY | 2025-05-07 09:43 | XMS_ITS | Encounter Summary ---
Author Organization [facility] Address [address] [place] [address] Care Team Providers Care Cnc Cutting Operator Name Role Phone Jamie Berman MD Primary Care Provider + [phone] Encounter Details Date Type Department Care Team (Latest Contact Info) Description 05/07/2025 9:43 AM EDT - 05/07/2025 10:29 AM EDT Hospital [facility] [address] [address] Breast mass, right Discharge Disposition: Home or Self Care Social [...] drink first t murali in the morning (EYE-ZIPPER SETTER) to steady your nerves or to get [...] this encounter Medications at Time of Discharge albuterol 108 (90 Base) MCG/ACT inhaler Inhale 2 puffs in the morning and 2 puffs at noon and 2 puffs in the evening and 2 puffs before bedtime. baclofen (Lioresal) 20 MG tablet Take 2 tablets (40 mg) by mouth every night. 11/25/2022 clonazePAM (KlonoPIN) 0.5 MG tablet Take 1 tablet (0.5 mg) by mouth every night. clonazePAM (KlonoPIN) 1 MG tablet 03/28/2024 fluticasone (Flonase) 50 MCG/ACT nasal spray 07/24/2024 fluticasone-salm eterol (Advair Diskus) 100-50 MCG/ACT diskus inhaler Inhale 1 puff 2 (two) times a day. 02/09/2023 HM 24 Hour Nasal Allergy 55 MCG/ACT nasal inhaler Administer 2 sprays into each nostril 1 (one) time each day. 02/09/2023 Lemborexant (DayVigo) 5 MG tablet Take 1 tablet by mouth 1 (one) time each day. 30 tablet 3 04/18/2024 levothyroxine (Synthroid, Levoxyl) 100 MCG tablet Take 1 tablet (100 mcg) by mouth 1 (one) time each day in the morning. 02/09/2023 levothyroxine (Synthroid, Levoxyl) 50 MCG tablet 1 tablet. 11/12/2024 lisinopril 5 MG tablet Take 1 tablet (5 mg) by mouth 1 (one) time each day. 11/25/2022 montelukast (Singulair) 10 MG tablet Take 1 tablet (10 mg) by mouth every night. ondansetron (Zofran) 4 MG tablet 09/17/2024 pantoprazole (Protonix) 40 MG EC tablet Take 1 tablet (40 mg) by mouth 1 (one) time each day. 02/21/2023 rivastigmine (Exelon) 3 MG capsule Take 1 capsule by mouth 2 times a day. 180 capsule 3 04/17/2025 6 rOPINIRole XL (Requip XL) 2 MG 24 hr tablet Take 1 tablet (2 mg) by mouth every night. 12/08/2022 spironolactone (Aldactone) 25 MG tablet Take 1 tablet (25 mg) by mouth 1 (one) time each day. valACYclovir (Valtrex) 1 g tablet 07/09/2024 carbidopa-levodo pa (Sinemet) 25-100 MG tablet Take 2 tablets by mouth 4 (four) times a day. 720 tablet 3 01/31/2024 5 escitalopram (Lexapro) 10 MG tablet Take 1 tablet by mouth daily. 90 tablet 3 01/23/2025 5 Horizant 600 MG tablet controlled-relea se ER tablet Take 1 tablet by mouth 1 time each day with dinner. 30 tablet 03/21/2025 5 documented as of this encounter Plan of Treatment Upcoming Encounters Date Type Department Care Team (Late st Contact Info) Description 08/26/2025 9:40 AM EST Office Visit [place] [facility] [address] [place] [address] Buster Gannon MD [id number] [place] [phone] 11/19/2025 2:30 PM EDT Office Visit [facility] [address] [place] [phone] Nery August APRN [address] [facility] [address] [place] [phone] documented as of this encounter Procedures Procedure Name Priority Date/Time Associated Diagnosis Comments MAMMOGRAPHY BREAST DIAGNOSTIC TOMOSYNTHESIS BILATERAL Routine 05/07/2025 10:35 AM EDT Breast mass, right documented in this encounter Results * Mammography Breast Diagnostic Tomosynthesis Bilateral (05/07/2025 10:35 AM EDT) Anatomical Region Laterality Modality Breast Bilateral Mammography, Oth er Impressions 05/07/2025 1:56 PM EDT Right Breast BI-RADS Code: BI-RADS 2, Benign finding. Left Breast BI-RADS Code: BI-RADS 1, Negative. RECOMMENDATIONS: Right Breast Recommendations: Routine Screening Mammogram in 1 Year Left Breast Recommendations: Routine Screening Mammogram in 1 Year CRITICAL RESULT: No. COMMUNICATION: The results and recommendations were discussed with the patient and a printed lay language version of the imaging report was given to the patient at the time of the visit. The mammogram was read with the assistance of CAD and tomosynthesis. By electronically signing this report, I, the attending physician, attest that I have personally reviewed the images/data for the above examination(s) and agree with the final edited report. Drafted by Juanita Cervantes MD on 05/07/2025 11:36 AM Final report signed by Smitha Wolf MD on 05/07/2025 1:56 PM Narrative 05/07/2025 1:56 PM EDT CLINICAL INDICATION: Patient presents for diagnostic evaluation of pea sized palpable area for the past 4-5 weeks. Last screening mammogram done in 2021 (overall BIRADS 2, benign) TECHNIQUE: Bilateral diagnostic mammogram was performed. Computer assisted detection was used in the interpretation of this study. Tomosynthesis was used in the interpretation of this study. Multiplanar, kate scale directed ultrasound of the right breast with limited Doppler vascular ultrasound was performed. Elastography was not performed. COMPARISON: Mammogram 06/08/2022 Bilateral Breast Density: The breasts are almost entirely fatty. FINDINGS: Mammogram Findings: At the area of interest, there is a dystrophic calcification, likely oil cyst versus fat necrosis. No suspicious masses, calcifications, or areas of architectural distortion in either breast. Ultrasound was performed to further evaluate the symptomatic palpable area. Right Breast Ultrasound Findings: Focused ultrasound at the palpable area, 10:00 2 cm from the nipple, demonstrates no suspicious findings. Procedure Note Rosa Wolf MD - 05/07/2025 CLINICAL INDICATION: Patient presents for diagnostic evaluation of pea sized palpable area forthe past 4-5 weeks. Last screening mammogram done in 2021 (overall BIRADS2, benign) TECHNIQUE: Bilateral diagnostic mammogram was performed. Computer assisted detection was used in the interpretation of this study.Tomosynthesis was used in the interpretation of this study. Multiplanar, kate scale directed ultrasound of the right breast withlimited Doppler vascular ultrasound was performed. Elastography was notperformed. COMPARISON: Mammogram 06/08/2022 Bilateral Breast Density: The breasts are almost entirely fatty. FINDINGS: Mammogram Findings: At the area of interest, there is a dystrophiccalcification, likely oil cyst versus fat necrosis. No suspicious masses,calcifications, or areas of architectural distortion in either breast. Ultrasound was performed to further evaluate the symptomatic palpablearea. Right Breast Ultrasound Findings: Focused ultrasound at the palpable area,10:00 2 cm from the nipple, demonstrates no suspicious findings. IMPRESSION: Right Breast BI-RADS Code: BI-RADS 2, Benign finding. Left Breast BI-RADS Code: BI-RADS 1, Negative. RECOMMENDATIONS: Right Breast Recommendations: Routine Screening Mammogram in 1 Year Left Breast Recommendations: Routine Screening Mammogram in 1 Year CRITICAL RESULT: No. COMMUNICATION: The results and recommendations were discussed with the patient and aprinted lay language version of the imaging report was given to thepatient at the time of the visit. The mammogram was read with theassistance of CAD and tomosynthesis. By electronically signing this report, I, the attending physician, attestthat I have personally reviewed the images/data for the aboveexamination(s) and agree with the final edited report. Drafted by Juanita Cervantes MD on 05/07/2025 11:36 AM Final report signed by Smitha Wolf MD on 05/07/2025 1:56 PM us Jamie Berman MD IMG BI PROCEDURES Final Resu lt documented in this encounter Visit Diagnoses Diagnosis Breast mass, right Lump or mass in breast documented in this encounter Additional Health Concerns Assessment Noted Time PHQ-9 Depression Total Score: 10 11/12/ 025 9:21 AM EDT A fall risk assessment has been complete d for the patient 02/18/2025 11:33 AM EDT A Body Mass Index follow-up plan has been documented for the patient 02/18/2025 2:07 PM EDT documented as of this encounter Care Teams Cnc Cutting Operator Relationship Specialty Start Date End Date Jamie Berman MD [address] [place] [id number] PCP - General Internal Medicine 06/08/22 documented as of this encounter
--- OUTSIDE RECORDS SUMMARY | 2025-05-07 10:30 | XMS_ITS | Encounter Summary ---
Author Organization [facility] Address [address] [place] [address] Care Team Providers Care Sales Engineering Manager Name Role Phone Jamie Berman MD Primary Care Provider + [phone] Encounter Details Date Type Department Care Team (Latest Contact Info) Description 05/07/2025 10:30 AM EDT - 05/07/2025 11:59 PM EDT Hospital Encounter [facility] [address] [phone] Breast mass, right Discharge Disposition: Home or [...] drink first t murali in the morning (EYE-DEBONE PROCESSING SUPERVISOR) to steady your nerves or to [...] Description 08/26/2025 9:40 AM EST Office Visit [place] [facility] [address], [address] [place] [address] Buster Gannon MD [id number] [place] [phone] 11/19/2025 2:30 PM EDT Office Visit [facility] [address] [place] [phone] Nery August APRN [address] [facility] [address] [place] [address] documented as of this encounter Procedures Procedure Name Priority Date/Time Associated Diagnosis Comments US BREAST LIMITED RIGHT Routine 05/07/2025 11:23 AM EDT Breast mass, right documented in this encounter Results * US Breast Limited Right (05/07/2025 11:23 AM EDT) Anatomical Region Laterality Modality Breast Right Ultrasound Impressions 05/07/2025 1:56 PM EDT Right Breast [...] Noted Time PHQ-9 Depression Total Score: 10 11/12/2 025 9:21 AM EDT A fall risk assessment has been complete d for the patient 02/18/2025 11:33 AM EDT A Body Mass Index follow-up plan has been documented for the patient 02/18/2025 2:07 PM EDT documented as of this encounter Care Teams Sales Engineering Manager Relationship Specialty Start Date End Date Jamie Berman MD [address] [place] [id number] PCP - General Internal Medicine 06/08/22 documented as of this encounter
--- OUTSIDE RECORDS SUMMARY | 2025-05-21 13:50 | XMS_ITS | Encounter Summary ---
Author Organization [facility] Address [address] [place] [address] Care Team Providers Care Foot Piece Assembler Name Role Phone Jamie Berman MD Primary Care Provider + [phone] Reason for Visit * Reason Comments Follow-up Encounter Details Date Type Department Care Team (Late st Contact Info) Description 05/21/2025 1:50 PM EDT [facility] [address] [place] [phone] Nery August, CHOIR DIRECTOR [address] [place] [address] Lewy body dementia, unspecified dementia severity, unspecified whether behavioral, psychotic, or mood disturbance or anxiety (CMS/HCC) (Primary Dx); Mild cognitive impairment; Anxiety and depression; Chronic insomnia Social History Tobacco Use Types Packs/Day Years Used Date Smoking Tobacco: Former Cigarettes 0.3 3.3 0 08/22/1970 - 1973 Smokeless Tobacco: Never [...] drink first t murali in the morning (EYE-BUILDER BEAM) to steady your nerves or to get [...] Sign Reading Time Taken Comments Blood Pressure 127/74 05/21/2025 1:45 PM EDT Pulse 77 05/21/2025 1:45 PM EDT Temperature - - Respiratory Rate 18 05/21/2025 1:45 PM EDT Oxygen Saturation 97% 05/21/2025 1:45 PM EDT Inhaled Oxygen Concentration - - Weight 72.1 kg (159 lb) 05/21/2025 1:45 PM EDT Height 154.9 cm (5' 1 ) 05/21/2025 1:45 PM EDT Body Mass Index 30.04 05/21/2025 1:45 PM EDT documented in this encounter Miscellaneous Notes * Progress Notes - Nery August APRN - 05/21/2025 1:50 PM EDT Subjective Quiana Lombardi presents to the [facility] as a returning patient today with/for Follow-up. Quiana Lombardi is a 74 year old female patient we are following for mild cognitive impairment, seizure, and parkinsonian features. Her last visit was 12/03/2024 with a STMS of 32/38. She is accompanied by her daughter for today's visit. In December of 2021 she started having staring spells in which she would be come unresponsive, could not hear or feel any one and would just stare. These episodes would last from 30 secs to several minutes. Afterwards she would be tired and have a headache. She is unaware when she has these episodes. She was diagnosed with focal seizures and started on Keppra for a month. Spells continued and Valproate was added. Early that same year a mild action tremor and balance issues were noticed by her family. She is followed by Dr. Gannon who diagnosed her with dementia with Lewy Bodies. Per family her memory issues began around 2019 and was very noticeable in 2021 shortly before her motor issues began. Daughter reports that they have a caregiver that comes in come in for 8 hours perday 6 days per week. Patient and daughter report that overall her memory has remained about the same. There has been some instances of online shopping where she did not remember ordering items some of which were very expensive. Daughter states that she has taken measures to prevent this from happening in the future. Daughter sets up her pillbox and she is able to take her medications with the assistance of alarms and reminders. During her last visit she reported some depression and anxiety and was started on Lexapro however she states that this made her sweat excessively and she has stopped the medication. She is not interested in trying a different medication or therapy at this time. She continues to have sleep issues stating that some days she may be up for 24 hours several days a week. She tries not to nap during theday however after sometimes she will after she has been up for such a long time. She refuses any sleep medications or a referral to sleep medicine at this time. While they deny any hallucinations shedoes state that she smells things that other people do not smell such as an electrical burning smell. Past Medical History: Diagnosis Date Dementia (CMS/HCC) Difficulty walking Fibrocystic breast H/O benign breast biopsy Migraine Movement disorder [...] Father Past Surgical History: Procedure Laterality Date BREAST BIOPSY 2009 GALLBLADDER SURGERY N/A Gallbladder surgery from [facility] HYSTERECTOMY N/A Hysterectomy from [facility] TIBIA FRACTURE SURGERY N/A Tibia fracture repair from [facility] Social History Tobacco Use Smoking status: Former Current packs/day: 0.00 Average packs/day: 0.3 packs/day for 3.3 years (0.8 ttl pk-yrs) Types: Cigarettes Start date: 08/22/1970 Quit date: 1973 Years since quittin.7 Smokeless tobacco: Never Substance Use Topics Alcohol use: Never Current Outpatient Medications on File Prior to Visit Medication Sig Dispense Refill albuterol 108 (90 Base) MCG/ACT inhaler Inhale 2 puffs in the morning and 2 puffs at noon and 2 puffs in the evening and 2 puffs before bedtime. clonazePAM (KlonoPIN) 1 MG tablet fluticasone (Flonase) 50 MCG/ACT nasal spray fluticasone-salmeterol (Advair Diskus) 100-50 MCG/ACT diskus inhaler Inhale 1 puff 2 (two) times a day. Horizant 600 MG tablet controlled-release ER tablet Take 1 tablet by mouth 1 time each day with dinner. 90 tablet 3 levothyroxine (Synthroid, Levoxyl) 50 MCG tablet 1 [...] 2 times a day. 180 capsule 3 rOPINIRole XL (Requip XL) 2 MG 24 hr tablet Take 1 tablet (2 mg) by mouth every night. baclofen (Lioresal) 20 MG tablet Take 2 tablets (40 mg) by mouth every night. (Patient not taking: Reported on 05/21/2025) clonazePAM (KlonoPIN) 0.5 MG tablet Take 1 tablet (0.5 mg) by mouth every night. (Patient not taking: Reported on 05/21/2025) HM 24 Hour Nasal Allergy 55 MCG/ACT nasal inhaler Administer 2 sprays into each nostril 1 (one) time each day. (Patient not taking: Reported on 05/21/2025) Lemborexant (DayVigo) 5 MG tablet Take 1 tablet by mouth 1 (one) time each day. (Patient not taking: Reported on 05/21/2025) 30 tablet 3 levothyroxine (Synthroid, Levoxyl) 100 MCG tablet Take 1 tablet (100 mcg) by mouth 1 (one) time each day in the morning. (Patient not taking: Reported on 05/21/2025) spironolactone (Aldactone) 25 MG tablet Take 1 tablet (25 mg) by mouth 1 (one) time each day. (Patient not taking: Reported on 05/21/2025) valACYclovir (Valtrex) 1 g tablet (Patient not taking: Reported on 05/21/2025) [DISCONTINUED] carbidopa-levodopa (Sinemet) 25-100 MG tablet Take 2 tablets by mouth 4 (four) timesa day. (Patient not taking: Reported on 05/21/2025) 720 tablet 3 [DISCONTINUED] escitalopram (Lexapro) 10 MG tablet Take 1 tablet by mouth daily. (Patient not taking: Reported on 05/21/2025) 90 tablet 3 [DISCONTINUED] Horizant 600 MG tablet controlled-release ER tablet Take 1 tablet by mouth 1 time each day with dinner. 30 tablet 0 No current facility-administered medications on file prior [...] Psychiatric/Behavioral: Positive for sleep disturbance. Objective Vitals: 05/21/25 1345 BP: 127/74 Pulse: 77 Resp: 18 SpO2: 97% Physical Exam Constitutional: Appearance: Normal appearance. HENT: [...] Motor: Tremor present. Coordination: Coordination is intact. Jdjefh-Omfd-Mxtsgl Test normal. Gait: Gait abnormal. Comments: R > L tremor action and resting Bradykinesia And shuffling gait. Rigidity noted in right arm Psychiatric: Mood and Affect: Mood normal. Behavior: Behavior normal. Thought Content: Thought content normal. STMS = 37/38 Orientation 8/8 Attention 02/25 Learning / Calculation 3/ Abstraction / Construction 11/23 Information 10/23 Delayed Recall 11/23 Discussion Summary: Ms. Lombardi is a 73 year old female patient we follow for mild cognitive impairment. She is followed by Dr. Gannon for her LBD and he is managing her Sinemet. She is taking rivastigmine 3 mg. She didnot tolerate Lexapro and does not want to try any other anxiety medications at this time. She continues to have significant sleep issues and also does not want to try any medications or referral to sleep Medicine. Will follow up in 6 months to reassess and make further recommendations. Assessment/Plan: Diagnosis Plan 1. Lewy body dementia, unspecified dementia severity, unspecified whether behavioral, psychotic, ormood disturbance or anxiety (CMS/HCC) 2. Mild cognitive impairment 3. Anxiety and depression 4. Chronic insomnia Counseling Documentation: The patient and daughter was counseled regarding diagnostic results and patient and family education. Education provided was verbal counseling. Additional time was spent in care coordination including additional diagnostic research and medicalrecord review. The total time of encounter was 40 minutes and greater than 50% of the visit was spent in counseling/coordination of care. . documented in this encounter Plan of Treatment Upcoming Encounters Date Type Department Care Team (Late st Contact Info) Description 08/26/2025 9:40 AM EST Office Visit [place] [facility] [address], [address] [place] [address] Buster Gannon MD [address] [place] [address] 11/19/2025 2:30 PM EDT Office Visit [facility] [address] [place] [phone] Nery August, CHOIR DIRECTOR [address] [place] [address] documented as of this encounter Visit Diagnoses Diagnosis Lewy body dementia, unspecified dementia severity, unspecified whether behavioral, psychotic, or mood disturbance or anxiety- Primary Mild cognitive impairment Mild cognitive impairment, so stated Anxiety and depression Chronic insomnia Insomnia, unspecified documented in this encounter Additional Health Concerns Assessment Noted Time PHQ-9 Depression Total Score: 10 025 9:21 AM EDT A fall risk assessment has been complete d for the patient 05/21/2025 1:50 PM EDT A Body Mass Index follow-up plan has been documented for the patient 05/21/2025 2:43 PM EDT documented as of this encounter Care Teams Foot Piece Assembler Relationship Specialty Start Date End Date Jamie Berman MD [address] [place] [address] PCP - General Internal Medicine 06/08/22 documented as of this encounter
--- NOTE | 2025-06-03 12:44 | PC.NURSE ---
Patients FSBS was 95.
--- NOTE | 2025-06-03 12:46 | ECG_ITS ---
APPROVED REPORT Exam: Resting ECG HR:67 bpm ECG Measurements Heart Rate 67 AXES NC 141 P 49 QRSd 80 QRS 29 QT 400 T 54 QTc 415 Conclusion SINUS RHYTHM NORMAL ECG UNCONFIRMED REPORT Electronically signed by : Vadim Obregon, 06/03/2025 15:47:58
--- NOTE | 2025-06-03 12:48 | HMH.EDGENADL ---
Discharge Plan Disposition Patient Disposition: Home, Self-Care Condition: Fair Prescriptions Prescriptions: No Action carbidopa-levodopa 25-100 mg tablet 2 tab PO QID Dayvigo 5 mg tablet 5 mg PO DAILY rivastigmine tartrate 3 mg capsule 3 mg PO BID clonazepam 1 mg tablet 1 mg PO DAILY fluticasone propion-salmeterol 100-50 mcg/dose blister with device 1 ea inhalation DAILY levothyroxine 100 mcg tablet 50 mcg PO DAILY pantoprazole 40 MG tablet,delayed release (DR/EC) 40 mg PO DAILY lisinopril 5 MG tablet 5 mg PO DAILY multivitamin Tablet 1 tab PO DAILY montelukast 10 mg Tablet 10 mg PO HS ropinirole 2 mg Tablet Extended Release 24 Hr 2 mg PO HS spironolactone 25 mg tablet 25 mg PO DAILY Referrals Follow up/Referrals: Jamie Berman MD [Primary Care Provider, Internal Medicine] - See instructions Activity Restrictions/Add. Instructions Additional Instructions/Restrictions: Stay well-hydrated. Please follow up with your primary care provider in 2-3 days. Please return to ED if your symptoms worsen, change in location, change in severity, new symptoms develop or if you become concerned for your health. Clinical Impressions Clinical Impression: Vasovagal near-syncope, Headache Instructions Patient Instructions: DI for Syncope in Adults (Fainting), DI for Syncope in Children (Fainting) Print Language Print Language: Guatemalan Discharge ED Provider: Vadim Obregon Adult HPI General Chief complaint: Syncope Stated complaint: Syncopy Time Seen by Provider: 06/03/25 12:46 History of Present Illness HPI narrative: Patient is a 74-year-old female with a history of Lewy body dementia, fibromyalgia, irritable bowel syndrome, syncope. She presents today from outpatient clinic as a rapid response. She is with daughter who assists with history. Reportedly had just left her PCPs office for routine blood work. After she had the blood work drawn, she was standing in the elevator and began to feel lightheaded and have tunnel vision. Daughter reports that she looked pale and the daughter was able to catch her and lowered her down to the floor. She did not hit her head. She reports she did not completely lose consciousness. She does not take any blood thinners. She denies any new neck pain or back pain. Denies chest pain or shortness of breath at any point. She reports that she feels completely back to normal aside from a mild tension headache and some nausea. She reports she feels similar as the last time she syncopized and was seen here, however much better than that time. At that time, she syncopized without a prodrome. Per my review of the EMR, was seen with Dr. Lorenzo on 03/10/2025 who evaluated her with troponins and basic lab work. Her troponin was negative, she felt better, and presumptive diagnosis at that time was vasovagal syncope. She was discharged with outpatient cardiology follow-up. Related Data Home Medications ?Medication ?Instructions ?Recorded ?Confirmed pantoprazole 40 mg tablet,delayed 40 mg PO DAILY GERD 01/13/18 06/03/25 release lisinopril 5 mg tablet 5 mg PO DAILY Hypertension 12/25/19 06/03/25 montelukast 10 mg tablet 10 mg PO HS allergies 05/25/22 06/03/25 multivitamin 1 tab PO DAILY Supplement 05/25/22 06/03/25 ropinirole 2 mg tablet,extended 2 mg PO HS restless leg syndrome 05/25/22 06/03/25 release 24 hr fluticasone 100 mcg-salmeterol 50 1 ea inhalation DAILY 12/29/22 06/03/25 mcg/dose blistr powdr for inhalation carbidopa 25 mg-levodopa 100 mg 2 tab PO QID 07/04/24 06/03/25 tablet clonazepam 1 mg tablet 1 mg PO DAILY 07/04/24 06/03/25 lemborexant 5 mg tablet (Dayvigo) 5 mg PO DAILY 07/04/24 06/03/25 levothyroxine 100 mcg tablet 50 mcg PO DAILY 07/04/24 06/03/25 rivastigmine tartrate 3 mg capsule 3 mg PO BID 07/04/24 06/03/25 spironolactone 25 mg tablet 25 mg PO DAILY 08/23/24 06/03/25 Allergies Allergy/AdvReac Type Severity Reaction Status Date / Time clindamycin Allergy Mild I-RASH Verified 06/03/25 13:18 NSAIDS (Non-Steroidal Allergy Unknown STOMACH Verified 06/03/25 13:18 Anti-Inflamma (NSAIDS PAIN/VOMITING/TREMORS (NON-STEROIDAL ANTI-INFLAMMA) paroxetine Allergy Unknown ALL SSRI'S Verified 06/03/25 13:18 PFSH PFSH Disclaimer: The information contained in this section may have been updated after the patient was seen, as this information can be updated by other users. Medical History (Updated 06/03/25 @ 15:04 by Vadim Obregon MD) Tremor Left wrist fracture Compound fracture Anxiety Insomnia Seizures Seasonal allergies GERD (gastroesophageal reflux disease) HTN (hypertension) Hypothyroidism Surgical History History of colonoscopy History of esophagogastroduodenoscopy (EGD) History of surgery on lower extremity History of cholecystectomy S/P CHEPE-BSO S/P correction of deviated nasal septum Family History Other No significant family history Social History Smoking Status: Former smoker alcohol intake: never substance use type: denies use current occupational status: retired Travel in the last 8 weeks?: None household members: spouse housing: house lives independently: Yes marital status: number of children: 3 education level: master's degree service: No jail: No current occupational exposures/hazards: No caffeine: No Have you lived/traveled outside US in past 30 days?: No Contact w/someone who lives/traveled outside US past 30 days?: No Exposure to someone with infectious disease in past 14 days?: No Do you have a fever (greater than 100.4 F or 38 C)?: No Have you tested positive for COVID-19?: No Exposed to someone with COVID-19 in past 14 days?: No Do you have a sore throat?: No Do you have a cough?: No Do you have any weakness?: No Do you have any diarrhea?: No Are you experiencing any unusual bleeding?: No Do you have any muscle aches/pain?: No Do you have any abdominal pain?: No Are you experiencing loss of taste or smell?: No Other Medical History Have you received the Flu Vaccine for this season: Yes Have you received the Pneumonia Vaccine: Yes ROS Obtained: Yes All systems reviewed & no additional complaints except as documented Physical Exam General General appearance: alert and in no apparent distress Head Head exam: atraumatic and normocephalic Eye Eye exam: Present PERRL and EOMI ENT ENT exam: Present normal oropharynx Neck Neck exam: Present full ROM and trachea midline Chest Chest inspection: Present symmetric chest wall rise Respiratory Respiratory exam: Present normal lung sounds bilaterally; Absent stridor Cardiovascular Cardiovascular exam: Present regular rate and normal rhythm Abdominal Exam Abdominal exam: Present soft; Absent distention or tenderness Extremities Exam Extremities exam: Present full ROM Neurological Exam Neurological exam: Present alert and oriented X3 Psychiatric Psychiatric exam: Present normal mood Skin Skin exam: Present warm and dry Medical Decision Making Medical Records Screening: Per USPSTF and CDC recommendations, given the prevalence of disease in our region, it is our hospital?s policy to screen for HIV and viral Hepatitis for all patients aged 18 and over and those with ongoing risk factors. Jason Inquiry Pt receiving controlled substance: No Vital Signs: 06/03/25 12:50 06/03/25 13:01 06/03/25 13:30 Temperature 98.1 F Temperature Source Oral Pulse Rate 62 73 Pulse Rate [Left] 72 Pulse Rate [Orthostatic Lying] Pulse Rate [Orthostatic Sitting] Pulse Rate [Orthostatic Standing] Respiratory Rate 14 14 12 Blood Pressure 130/59 L 120/51 L Blood Pressure [Orthostatic Lying] Blood Pressure [Orthostatic Sitting] Blood Pressure [Orthostatic Standing] Blood Pressure [Right Arm] 169/86 H Blood Pressure Mean [Right Arm] 113 Blood Pressure Source [Right Arm] Automatic Cuff Blood Pressure Position [Right Arm] Sitting 02 Sat by Pulse Oximetry 97 97 97 Oxygen Delivery Method Room Air Room Air 06/03/25 14:41 Temperature Temperature Source Pulse Rate Pulse Rate [Left] Pulse Rate [Orthostatic Lying] 77 Pulse Rate [Orthostatic Sitting] 65 Pulse Rate [Orthostatic Standing] 72 Respiratory Rate Blood Pressure Blood Pressure [Orthostatic Lying] 103/50 L Blood Pressure [Orthostatic Sitting] 114/67 Blood Pressure [Orthostatic Standing] 126/74 Blood Pressure [Right Arm] Blood Pressure Mean [Right Arm] Blood Pressure Source [Right Arm] Blood Pressure Position [Right Arm] 02 Sat by Pulse Oximetry Oxygen Delivery Method Lab Data Lab Results 06/03/25 12:50: WBC 7.7, RBC 4.70, Hgb 14.3, Hct 43.3, MCV 92.1, MCH 30.4, MCHC 33.0, RDW 13.1, Plt Count 300, MPV 10.3, Neut % (Auto) 59.0, Lymph % (Auto) 30.7, [place] % (Auto) 8.2, Eos % (Auto) 1.3, Baso % (Auto) 0.5, Neut # (Auto) 4.5, Lymph # (Auto) 2.4, [place] # (Auto) 0.6, Eos # (Auto) 0.1, Baso # (Auto) 0.0, Sodium 137, Potassium 4.1, Chloride 103, Carbon Dioxide 26, Anion Gap 12.1, BUN 16, Creatinine 0.90, Estimated Creat Clear 57, Estimated GFR 61, Est GFR ( Amer) 74, Glucose 90, Calcium 9.3 06/03/25 12:50 06/03/25 12:50 Orders (Tests/Meds): ED MEDICATIONS Discontinued Medications Generic Name Dose Route Start Last Admin Trade Name Freq PRN Reason Stop Dose Admin Acetaminophen 1,000 mg 06/03/25 12:51 06/03/25 14:13 Acetaminophen 500mg Tab PO 06/03/25 12:52 Not Given ONCE ONE Acetaminophen 1,000 mg 06/03/25 13:53 06/03/25 14:01 Acetaminophen 1,000mg/100ml Vial IV 06/03/25 13:54 1,000 mg ONCE ONE Administration Sodium Chloride 1,000 mls @ 999 mls/hr 06/03/25 12:48 06/03/25 14:50 Sod Chlor 0.9% 1000ml Bag IV 06/03/25 13:48 Infused .Q1H1M ONE Infusion Ondansetron HCl 4 mg 06/03/25 12:48 06/03/25 13:01 Ondansetron 4mg/2ml Vial IV 06/03/25 12:49 4 mg ONCE ONE Administration ORDERS Category Date Time Status CT head/brain wo con Stat Cat Scan 06/03/25 13:53 Taken Basic Metabolic Panel Stat Lab 06/03/25 12:50 Completed CBC w/Auto Diff [Complete Blood Count Auto Diff] Stat Lab 06/03/25 12:50 Completed ECG Data Tracing #1: I reviewed this ECG and interpreted as documented below: Patient's EKG was independently reviewed by me, and interpreted to be significant for NSR with no acute ST-segment changes. Medical Decision Narrative: Patient is a 71-year-old female presenting today for a syncopal episode after rapid response was called outpatient clinic. On arrival, she is afebrile hemodynamically stable no acute distress. Fingerstick within normal limits. She reports she feels a little bit queasy, but is otherwise well. Pupils are equal and reactive, cranial nerves II through XII are intact, gross motor and sensory in upper and lowers extremities are intact. She is ambulatory, but needs assistance., Feels weak, this has been somewhat of a chronic issue. Also tremulous. This is at baseline. Her heart is regular rate and rhythm and lung sounds are clear to auscultation bilaterally. She did recently just have her blood drawn, in addition was standing for a prolonged amount of time in the confined elevator and she does report she felt hot before then. She has predisposition to vasovagal syncope at baseline, and it sounds like this is most likely the cause here. We will fluid resuscitate her, check her orthostatics, and check basic hematologic labs to rule out electrolyte derangement. I have extremely low suspicion for arrhythmia or ACS especially in conjunction with a normal EKG on my review. Will continue to monitor on telemetry for any recurrence of symptoms. Patient continues to complain of headache, reassuringly remains neurovascular intact. She has a history of headaches. Given the syncope in the setting of age and unable to utilize Nexus or Crenshaw criteria, will proceed with CT head to rule out ICH or other pathology. I independently interpreted the CT head to demonstrate no acute intracranial abnormality. Orthostatics within normal limits. On reassessment, patient ports improvement of symptoms. She is offered admission for further workup including echocardiogram, but prefers to manage outpatient. Her daughter at bedside is very reliable and involved in her care. They feel comfortable with discharge. Strict return precautions are discussed, questions answered, patient amenable to plan and discharge. Critical Care Critical Care Time Critical Care Time: No
[2025-06-03 12:50] VITALS: BP 169/86; PULSE 72; RESP 14; TEMP 36.7; O2SAT 97; BMI 29.8
--- OUTSIDE RECORDS SUMMARY | 2025-06-03 12:54 | XMS_ITS | Encounter Summary ---
Author Organization [facility] Address [address] [place] [address] Care Team Providers Care Drill Runner Name Role Phone Jamie Berman MD Primary Care Provider + [phone] Encounter Details Date Type Department Care Team (Late st Contact Info) Description 04/17/[facility]25 [facility] [address] [place] [address] Rika Sanchez, BRIDGET [address] [place] [address] Social History Tobacco Use Types [...] drink first t murali in the morning (EYE-RETAIL TRAINING MANAGER) to steady your nerves or to [...] Description 08/26/2025 9:40 AM EST [facility] [address] [place] [address] Buster Gannon MD [address] [place] [address] 11/19/2025 2:30 PM EDT Office Visit [facility] [place] [facility] [address] [place] [id number] Nery August APRN [address] [place] [address] documented as of this encounter [...] documented as of this encounter Care Teams Drill Runner Relationship Specialty Start Date End Date Jamie Berman MD [address] [place] [id number] PCP - General Internal Medicine 06/08/22 documented as of this encounter
--- OUTSIDE RECORDS SUMMARY | 2025-06-03 12:54 | XMS_ITS | Encounter Summary ---
Author Organization [facility] Address [address] [place] [address] Care Team Providers Care Knotting Machine Operator Portable Name Role Phone Jamie Berman MD Primary Care Provider + [phone] Encounter Details Date Type Department Care Team (Latest Contact Info) Description 05/07/2025 Travel Social History Tobacco Use Types Packs/Day [...] drink first t murali in the morning (EYE-NIGHT ORDER SELECTOR) to steady your nerves or to get [...] Description 08/26/2025 9:40 AM EST Office Visit [place] [facility] [address] [place] [address] Buster Gannon MD [address] [place] [address] 11/19/2025 2:30 PM EDT [facility] [place] [facility] [address] [place] [address] Nery August APRN [address] [place] [address] documented as of this encounter [...] documented as of this encounter Care Teams Knotting Machine Operator Portable Relationship Specialty Start Date End Date Jamie Berman MD [address] [place] [address] PCP - General Internal Medicine 06/08/22 documented as of this encounter
--- OUTSIDE RECORDS SUMMARY | 2025-06-03 12:54 | XMS_ITS | Encounter Summary ---
Author Organization [facility] Address [address] [place] [address] Care Team Providers Care Clinical Educator Name Role Phone Jamie Berman MD Primary Care Provider + [phone] Encounter Details Date Type Department Care Team (Latest Contact Info) Description 05/21/2025 Travel Social History Tobacco Use Types Packs/Day [...] drink first t murali in the morning (EYE-PROFESSOR OF PSYCHIATRY) to steady your nerves or to get [...] Description 08/26/2025 9:40 AM EST Office Visit [facility] [address] [place] [address] Buster Gannon MD [address] [place] [address] 11/19/2025 2:30 PM EDT [facility] [place] [facility] [address] [place] [address] Nery August APRN [address] [place] [address] documented as of this encounter [...] documented as of this encounter Care Teams Clinical Educator Relationship Specialty Start Date End Date Jamie Berman MD [address] [place] [address] PCP - General Internal Medicine 06/08/22 documented as of this encounter
--- OUTSIDE RECORDS SUMMARY | 2025-06-03 12:54 | XMS_ITS | Encounter Summary ---
Author Organization [facility] Address [address] [place] [address] Care Team Providers Care Paper Mill Superintendent Name Role Phone Jamie Berman MD Primary Care Provider + [phone] Encounter Details Date Type Department Care Team (Latest Contact Info) Description 05/06/2025 Travel Social History Tobacco Use Types Packs/Day [...] drink first t murali in the morning (EYE-FIRE PROTECTION SPECIALIST) to steady your nerves or to [...] Visit [facility] [address] [place] [address] Buster Gannon MD [address] [place] [address] 11/19/2025 2:30 PM EDT [facility] [place] [facility] [address] [place] [address] Nery August APRN [address] [place] [address] documented as of this encounter [...] documented as of this encounter Care Teams Paper Mill Superintendent Relationship Specialty Start Date End Date Jamie Berman MD [address] [place] [address] PCP - General Internal Medicine 06/08/22 documented as of this encounter
--- OUTSIDE RECORDS SUMMARY | 2025-06-03 12:54 | XMS_ITS | Encounter Summary ---
Author Organization [facility] Address [address] [place] [address] Care Team Providers Care Proofing Machine Operator Name Role Phone Jamie Berman MD Primary Care Provider + [phone] Encounter Details Date Type Department Care Team (Latest Contact Info) Description 05/19/2025 Travel Social History Tobacco Use Types Packs/Day [...] drink first t murali in the morning (EYE-FOUNDRY FINISHER) to steady your nerves or to get [...] Description 08/26/2025 9:40 AM EST Office Visit [place] [facility] [address] [place] [address] Buster Gannon MD [address] [place] [address] 11/19/2025 2:30 PM EDT [facility] [place] [facility] [address] [place] [address] Nery August APRN [address] [place] [address] documented as of this encounter [...] documented as of this encounter Care Teams Proofing Machine Operator Relationship Specialty Start Date End Date Jamie Berman MD [address] [place] [address] PCP - General Internal Medicine 06/08/22 documented as of this encounter
--- OUTSIDE RECORDS SUMMARY | 2025-06-03 12:55 | XMS_ITS | Clinical Summary ---
Author Organization [facility] Address [address] [place] [address] Care Team Providers Care Warehouse Stocker Name Role Phone Jamie Berman MD Primary Care Provider + [phone] Allergies Active Allergy Reactions Criticality Noted Date [...] (0.5 mg) by mouth every night. Active Lemborexant (DayVigo) 5 MG tablet Take 1 tablet by mouth 1 (one) time each day. 30 tablet 3 4 Active Additional Information Patient not taking.Reported on 05/21/2025 clonazePAM (KlonoPIN) 1 MG tablet 4 Active valACYclovir (Valtrex) 1 g tablet 4 Active fluticasone (Flonase) 50 MCG/ACT nasal spray 4 Active ondansetron (Zofran) 4 MG tablet 5 Active albuterol 108 (90 Base) MCG/ACT inhaler Inhale 2 puffs in the morning and 2 puffs at noon and 2 puffs in the evening and 2 puffs before bedtime. Active levothyroxine (Synthroid, Levoxyl) 50 MCG tablet 1 tablet. 5 Active rivastigmine (Exelon) 3 MG capsule Take 1 capsule by mouth 2 times a day. 180 capsule 3 5 026 Active Horizant 600 MG tablet controlled-rel ease ER tablet Take 1 tablet by mouth 1 time each day with dinner. 90 tablet 3 5 026 Active carbidopa-levo dopa (Sinemet) 25-100 MG tablet Take 2 tablets by mouth 4 (four) times a day. 720 tablet 3 4 025 Discontinu ed(Per Patient Report) escitalopram (Lexapro) 10 MG tablet Take 1 tablet by mouth daily. 90 tablet 3 5 025 Discontinu ed(Side effects) Horizant 600 MG tablet controlled-rel ease ER tablet Take 1 tablet by mouth 1 time each day with dinner. 30 tablet 5 025 Discontinu ed(Reorder ) Active Problems Problem Noted Date Diagnosed Date Acute delirium 02/14/2024 Aphthous stomatitis 02/14/2024 Dehydration 02/14/2024 Chronic pain syndrome 02/14/2024 Fibromyalgia affecting multiple sites 02/14/2024 Essential hypertension 02/14/2024 Hypokalemia 02/14/2024 Irritable bowel syndrome with diarrhea Major depressive disorder 02/14/2024 Metabolic encephalopathy 02/14/2024 Right arm weakness 02/14/2024 Right leg weakness 02/14/2024 Cognitive dysfunction 11/19/2023 Parkinsonism, unspecified 11/19/2023 Seizure 11/18/2023 Absence seizure 01/20/2022 Asthma due to environmental allergies 02/26/2021 Osteoporosis 03/22/2012 Acid reflux disease 04/03/2009 High blood pressure 11/26/2008 Hypothyroidism 04/21/2006 Resolved Problems Problem Noted Date Diagnosed Date Resolved Date Change in mental status 02/14/20242 08/2024 Gastroenteritis 02/14/2024 05/12/2025 Spells of decreased attentiveness 11/19/2023 05/12/2025 Insomnia disorder 09/23/2005 05/12/2025 Encounters Date Type Department Care Team Description 05/21/2025 1:50 PM EDT Office Visit [facility] [address] [place] [phone] Nery August APRN Lewy body dementia, unspecified dementia severity, unspecified whether behavioral, psychotic, or mood disturbance or anxiety (CMS/HCC) (Primary Dx); Mild cognitive impairment; Anxiety and depression; Chronic insomnia 05/21/2025 Travel 05/19/2025 Travel 05/07/2025 10:30 AM EDT - 05/07/2025 11:59 PM EDT Hospital [facility] [address] [phone] Breast mass, right Discharge Disposition: Home or Self Care 05/07/2025 9:43 AM EDT - 05/07/2025 10:29 AM EDT Hospital Encounter [facility] [address] [facility] [address] [place] [address] Breast mass, right Discharge Disposition: Home or Self Care 05/07/2025 Travel 05/06/2025 Travel 04/17/[address] [facility] [address] [place] [address] Rika Sanchez PA 03/19/2025 Telephone [facility] [address] [place] [address] Buster Gannon MD 03/19/2025 Telephone [facility] [address] [place] [address] Buster Gannon MD 03/18/[address] [facility] [address] [place] [address] Buster Gannon MD 03/18/2025 Refill [facility] [address] [place] [address] Buster Gannon MD from Last 3 Months Immunizations Immunization Administration [...] drink first t murali in the morning (EYE-GRINDER SET UP OPERATOR) to steady your nerves [...] Pulse 77 05/21/2025 1:45 PM EDT Temperature 36.5 C (97.7 F) 11/19/2023 7:39 AM EDT Respiratory Rate 18 05/21/2025 1:45 PM EDT Oxygen Saturation 97% 05/21/2025 1:45 PM EDT Inhaled Oxygen Concentration - - Weight 72.1 kg (159 lb) 05/21/2025 1:45 PM EDT Height 154.9 cm (5' 1 ) 05/21/2025 1:45 PM EDT Body Mass Index 30.04 05/21/2025 1:45 PM EDT Plan of Treatment Upcoming Encounters Date Type Department Care Team (Late st Contact Info) Description 08/26/2025 9:40 AM EST Office Visit [place] [facility] [address] [place] [phone] Buster Gannon MD [address] [place] [address] 11/19/2025 2:30 PM EDT Office Visit [facility] [address] [place] [address] Mata Nery Ahuja, WOOD CUT ENGRAVER [address] [place] [address] Health Maintenance Due Date Last [...] Vaccine: 50+ Years (2 of 2 - PPSV23, PCV20, or PCV21) 05/17/2016 06/04/2016, 03/22/2016 [id number] Vaccine (7 - Pfizer risk 2023- season) 2025 04/26/2024, 08/01/2023, 05/19/2022, Additional history exists [facility]-Influenza Vaccine (#1) 04/22/202504/26, 05/28/2022, 05/06/2022, Additional history exists [facility]-Depression Screening 11/12/2025 11/12/2024, 10/21 [facility]-Breast Cancer Screening 05/07/202704/22, 06/08/2022, 10/05/2019, Additional history exists [facility]-RSV Vaccine: 60+ Years or Completed 06/20/2023 [facility]-Obesity Intervention Completed 025, 02/18/2025, 12/03/2024, Additional history exists HPV Vaccines Aged Out [...] 05/07/2025 11:23 AM EDT Breast mass, right MAMMOGRAPHY BREAST DIAGNOSTIC TOMOSYNTHESIS BILATERAL Routine 05/07/2025 10:35 AM EDT Breast mass, right from Last 3 Months Results * US Breast Limited Right (05/07/2025 [...] MD IMG BI PROCEDURES Final Resu lt * Mammography Breast Diagnostic Tomosynthesis Bilateral (05/07/2025 [...] Smitha Wolf MD on 05/07/2025 1:56 PM Jamie Berman MD IMG BI PROCEDURES Final Resu lt from Last 3 Months Insurance [facility] MEDICARE Advance Directives * Full Code (Latest Code Status on File) Date Activated Date Inactivated Comments 11/18/2023 8:42 AM 11/19/2023 2:36 PM Question Answer Comments Patient has decision-making capacity? Yes Care Teams Warehouse Stocker Relationship Specialty Start Date End Date Jamie Berman MD [address] [place] [id number] PCP - General Internal Medicine 06/08/22
--- OUTSIDE RECORDS SUMMARY | 2025-06-03 12:55 | XMS_ITS | Encounter Summary ---
Author Organization [facility] Address [address] 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) to steady your nerves or to [...] Description 08/26/2025 9:40 AM EST Office Visit [place] [facility] [address] [place] [address] Buster Gannon MD [address] [place] [address] 11/19/2025 2:30 PM EDT Office Visit [facility] [address] [place] [address] Nery August APRN [address] [place] [address] documented as of this encounter [...] documented as of this encounter Care Teams Job Honer Relationship Specialty Start Date End Date Jamie Berman MD [address] [place] [id number] PCP - General Internal Medicine 06/08/22 documented as of this encounter
[2025-06-03 13:00] LABS: Hematocrit 43.3 % (37.0-47.0); Hemoglobin 14.3 g/dL (12.2-16.2); Immature Granulocytes % 0.3 %; Mean Corpuscular HGB Conc 33.0 g/dL (31.8-35.4); Mean Corpuscular Hemoglobin 30.4 pg (27.0-31.2); Mean Corpuscular Volume 92.1 fl (81-99); Nucleated Red Blood Cells % 0 %; Platelet Count 300 K/mm3 (142-424); Red Blood Count 4.70 M/mm3 (4.20-5.40); Red Cell Distribution Width-SD 44.8 fL; White Blood Count 7.7 K/mm3 (4.8-10.8)
[2025-06-03] MEDS: 0.9 % SODIUM CHLORIDE 1000ML 1,000 ML 999 ML IV (13:00)
[2025-06-03 13:01] VITALS: BP 130/59; PULSE 62; RESP 14; O2SAT 97
[2025-06-03] MEDS: ONDANSETRON 4MG/2ML VIAL 4 MG IV (13:01)
[2025-06-03 13:08] LABS: Chloride 103 mmol/L (98-107); Potassium 4.1 mmoL/L (3.5-5.1); Sodium 137 mmol/L (136-145)
[2025-06-03 13:11] LABS: Anion Gap 12.1 mEq/L (5-15); Blood Urea Nitrogen 16 mg/dl (7-17); Calcium 9.3 mg/dl (8.4-10.2); Carbon Dioxide 26 mmol/L (22.0-30.0); Creatinine Clearance Estimated 57 mL/min (50-200); Creatinine,Serum 0.90 mg/dl (0.52-1.04); Estimated Glomerular Filt Rate 61 ml/min (>60); GFR (African American) 74 ML/MIN (>60); Glucose 90 mg/dl (74-100)
[2025-06-03 13:30] VITALS: BP 120/51; PULSE 73; RESP 12; O2SAT 97
--- NOTE | 2025-06-03 13:53 | CT_ITS ---
FINAL REPORT TECHNIQUE: Thin section axial images were obtained from skull base to vertex without contrast. Coronal and sagittal reconstruction images were obtained from the axial data. Exam was performed using dose reduction techniques such as automated exposure control, adjustment of the mA and kV according to patient size, and use of iterative reconstruction technique. CLINICAL HISTORY: JUNG COMPARISON: None FINDINGS: There is atrophy. No mass effect or midline shift. No intracranial hemorrhage. No hydrocephalus. Periventricular low density is likely related to changes of chronic small vessel ischemia. The basilar cisterns are preserved. The posterior fossa is without acute abnormality. There is a small amount of fluid present in the sphenoid sinus. No acute osseous abnormality is identified. IMPRESSION: No acute intracranial hemorrhage or large infarct. Atrophy and changes suggesting chronic small vessel ischemia. Small amount of fluid in the sphenoid sinus. Reviewed, Interpreted and Dictated by Tyra Gonzalez MD Transcribed by Yee Banerjee Authenticated and [facility]
[2025-06-03] MEDS: ACETAMINOPHEN 1,000MG/100ML VIAL 1000 MG IV (14:01)
--- NOTE | 2025-06-03 14:40 | PC.NURSE ---
Orthostatics were as follows Laying 103/50. sitting 114/67. 126/74. had no trouble walking to the bathroom after that
[2025-06-03 14:41] VITALS: BP 103/50; BP 114/67; BP 126/74; PULSE 65; PULSE 72; PULSE 77
--- NOTE | 2025-06-03 15:00 | PC.NURSE ---
1457 - Dr. Obregon @ bedside speaking w/ pt and daughter. updated on POC
[2025-06-03 15:05] VITALS: BP 93/42; PULSE 61; RESP 17; TEMP 36.8; O2SAT 97
== END 2025-06-03 15:16 | disposition home or self-care (01) ==
PROVIDERS: Emergency Provider Emergency Medicine; PCP Internal Medicine Adolescent Medicine
DX: R55 Syncope and collapse (principal); R51.9 Headache, unspecified; R11.0 Nausea; I10 Essential (primary) hypertension
CPT/HCPCS: 70450; 80048; 85025; 93005; 96361; 96374; 96375; 99284; 99285; J0131; J2405; J7030

== ENCOUNTER 2025-08-01 09:59 | Outpatient (CLI) | payer MEDICARE, SELFPAY ==
[2025-08-01] MEDS: ZOLEDRONIC ACID/MANNITOL-WATER 5 MG/100 ML PGGYBK.BTL 400 MG IV (10:16)
[2025-08-01 10:17] VITALS: BP 138/67; PULSE 71; RESP 18; TEMP 36.8; O2SAT 99
[2025-08-01] MEDS: 0.9 % SODIUM CHLORIDE 50 ML IV (10:17)
== END 2025-08-01 23:59 | disposition home or self-care (01) ==
LOC: INF 09:59
PROVIDERS: PCP Internal Medicine Adolescent Medicine; Visit Provider Internal Medicine Adolescent Medicine
DX: M81.0 Age-related osteoporosis without current pathological fracture (principal)
CPT/HCPCS: 96374; J3489

== ENCOUNTER 2025-08-12 11:46 | Outpatient (CLI) | payer MEDICARE, SELFPAY ==
--- OUTSIDE RECORDS SUMMARY | 2025-08-12 11:49 | XMS_ITS | Clinical Summary ---
Author Organization [facility] Address [address] [place] [address] Care Team Providers Care Behavioral Health Worker Name Role Phone Jamie Berman MD Primary Care Provider + [phone] Allergies Active Allergy Reactions Criticality Noted Date [...] times a day. 180 capsule 3 5 04/17/20 26 Active Horizant 600 MG tablet controlled-rele ase ER tablet Take 1 tablet by mouth 1 time each day with dinner. 90 tablet 3 5 05/20/20 Active Active Problems Problem Noted Date Diagnosed [...] Date Resolved Date Change in mental status 02/14/2024 09/2 08/2024 Gastroenteritis 02/14/2024 05/12/2025 Spells of decreased attentiveness 11/19/2023 05/12/2025 Insomnia disorder 09/23/2005 05/12/2025 Encounters Date Type Department Care Team Description 05/21/2025 1:50 PM EDT Office Visit [facility] [address] [place] [phone] Nery August APRN Lewy body dementia, unspecified dementia severity, unspecified whether behavioral, psychotic, or mood disturbance or anxiety (CMS/HCC) (Primary Dx); Mild cognitive impairment; Anxiety and depression; Chronic insomnia 05/21/2025 Travel 05/19/2025 Travel from Last 3 Months Immunizations Immunization Administration [...] drink first t murali in the morning (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) to steady your nerves or to get [...] Visit [place] [facility] [address] [place] [address] Buster Gannon MD [address] [place] [address] 11/19/2025 2:30 PM EDT Office Visit [facility] [address] [place] [address] Nery August, BROOM HANDLE DIPPER [address] [place] [address] Health Maintenance Due Date Last [...] PPSV23, PCV20, or PCV21) 05/17/2016 06/04/2016, 03/22/2016 [id number] Vaccine ( season) 2025 04/26/2024, 08/01/2023, 05/19/2022, Additional history exists [facility]-Influenza Vaccine (#1) 04/22/202504/26, 05/28/2022, 05/06/2022, Additional history exists [facility]-Depression Screening 11/12/2025 11/12/2024, 10/21 [facility]-Breast Cancer Screening 05/07/202704/22, 06/08/2022, 10/05/2019, Additional history exists [facility]-RSV Vaccine: 60+ Years or Completed 06/20/2023 [facility]-Obesity Intervention Completed 025, 02/18/2025, 12/03/2024, Additional history exists HPV Vaccines (No Doses Required) Completed [facility]-HIB Vaccines Aged Out No longer e [...] Breast mass, right from Last 3 Months or Most Recently Relevant to Health Maintenance Results * Mammography Breast Diagnostic Tomosynthesis Bilateral [...] Most Recently Relevant to Health Maintenance Insurance [facility] MEDICARE Advance Directives * Full Code (Latest Code Status on File) Date Activated Date Inactivated Comments 11/18/2023 8:42 AM 11/19/2023 2:36 PM Question Answer Comments Patient has decision-making capacity? Yes Care Teams Behavioral Health Worker Relationship Specialty Start Date End Date Jamie Berman MD [address] [place] [id number] PCP - General Internal Medicine 06/08/22
--- OUTSIDE RECORDS SUMMARY | 2025-08-12 11:49 | XMS_ITS | Encounter Summary ---
Author Organization [facility] Address [address] 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) to steady your nerves or to [...] Description 08/26/2025 9:40 AM EST Office Visit [place] [facility] [address] [place] [address] Buster Gannon MD [address] [place] [address] 11/19/2025 2:30 PM EDT Office Visit [facility] [address] [place] [address] Nery August APRN [address] [place] [address] documented as of this encounter [...] documented as of this encounter Care Teams Lye Peel Operator Relationship Specialty Start Date End Date Jamie Berman MD [address] [place] [id number] PCP - General Internal Medicine 06/08/22 documented as of this encounter
--- NOTE | 2025-08-12 11:50 | XR_ITS ---
FINAL REPORT CLINICAL HISTORY: INJURY OF LEFT ANKLE pain and swelling COMPARISON: None FINDINGS: Three views of the left ankle show no evidence of acute displaced fracture or dislocation of the visualized bony architecture. The joint spaces appear normal. IMPRESSION: Unremarkable exam. Reviewed, Interpreted and Dictated by Kiarra Barnes MD Transcribed by Iram Lion Authenticated and [facility]
== END 2025-08-12 23:59 ==
LOC: RAD 11:47
PROVIDERS: PCP Internal Medicine Adolescent Medicine; Visit Provider Internal Medicine Adolescent Medicine
DX: S99.912A Unspecified injury of left ankle, initial encounter (principal); X58.XXXA Exposure to other specified factors, initial encounter
CPT/HCPCS: 73610